=== PATIENT | male | born 1955 ===

== ENCOUNTER 2018-12-23 18:57 | Emergency (ER) | payer SELFPAY ==
--- NOTE | 2018-12-23 20:14 | Emergency Department Report ---
ED General Adult HPI - General Chief complaint: Abdominal Pain Stated complaint: ABD PAIN/BLOOD IN CATHER/BRANDON Time Seen by Provider: 12/23/18 20:13 Source: patient, family, EMS Mode of arrival: Stretcher Limitations: Physical Limitation - History of Present Illness Initial comments: 63 y.o. male with a history of diabetes, hypertension, seizures and pH presents with the complaint of lower abdominal pain and flank pain. Patient states he's also noted blood in his urine. Patient has indwelling catheter present. Patient was seen at [facility] yesterday for similar symptoms and was discharged with diagnoses of UTI and was given a prescription of ciprofloxacin which they were unable to feel. Patient continued to complain of pain in his abdominal and back region and thus family presented here. Patient has had no fever. Patient has only taken Tylenol for the pain. Patient states that flank pain intermittently for the past year. Patient denies any hematemesis or hematochezia. - Related Data Previous Rx's Medication Instructions Recorded Last Taken Type HYDROcodone/APAP 5-325 [[place] 1 each PO Q6HR PRN #20 tablet 12/23/18 Unknown Rx 5/325] Allergies Allergy/AdvReac Type Severity Reaction Status Date / Time No Known Allergies Allergy Verified 12/23/18 20:00 ED Review of Systems ROS: Stated complaint: ABD PAIN/BLOOD IN CATHER/BRANDON Other details as noted in HPI Constitutional: denies: chills, fever Eyes: denies: eye pain, eye discharge, vision change ENT: denies: ear pain, throat pain Respiratory: denies: cough, shortness of breath, wheezing Cardiovascular: denies: chest pain, palpitations Endocrine: no symptoms reported Gastrointestinal: denies: abdominal pain, nausea, diarrhea Genitourinary: dysuria, frequency Musculoskeletal: denies: back pain, joint swelling, arthralgia Skin: denies: rash, lesions Neurological: denies: headache, weakness, paresthesias Psychiatric: denies: anxiety, depression Hematological/Lymphatic: denies: easy bleeding, easy bruising ED Past Medical Hx - Past Medical History Previous Medical History?: Yes Hx Hypertension: Yes Hx Diabetes: Yes Hx Seizures: Yes Additional medical history: BPH - Surgical History Past Surgical History?: Yes Hx Open Heart Surgery: Yes 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 - Social History Smoking Status: Former Smoker Substance Use Type: None - Medications Home Medications: Home Medications Medication Instructions Recorded Confirmed Last Taken Type HYDROcodone/APAP 5-325 [[place] 1 each PO Q6HR PRN #20 tablet 12/23/18 Unknown Rx 5/325] ED Physical Exam - General Limitations: Physical Limitation General appearance: alert, other (mildly uncomfortable) - Head Head exam: Present: atraumatic, normocephalic - Eye Eye exam: Present: normal appearance - ENT ENT exam: Present: mucous membranes dry - Neck Neck exam: Present: normal inspection - Respiratory Respiratory exam: Present: normal lung sounds bilaterally. Absent: respiratory distress - Cardiovascular Cardiovascular Exam: Present: regular rate, normal rhythm. Absent: systolic murmur, diastolic murmur, rubs, gallop - GI/Abdominal GI/Abdominal exam: Present: soft, tenderness (noted in suprapubic region as well as right flank region.), normal bowel sounds - Rectal Rectal exam: Present: deferred - Extremities Exam Extremities exam: Present: normal inspection - Back Exam Back exam: Present: normal inspection - Neurological Exam Neurological exam: Present: alert, oriented X3 - Psychiatric Psychiatric exam: Present: normal affect, normal mood - Skin Skin exam: Present: warm, dry, intact, normal color. Absent: rash ED Course Vital Signs 12/23/18 20:00 Temperature 98.2 F Pulse Rate 74 Respiratory 16 Rate Blood Pressure 147/70 O2 Sat by Pulse 96 Oximetry ED Medical Decision Making - Lab Data Result diagrams: 12/23/18 20:24 12/23/18 20:24 - Medical Decision Making Patient was given 4 mg of morphine as well as 4 mg of Zofran as well as IV normal saline bolus while here in emergency department. Patient received a dose of Levaquin while here in the emergency department as well. Patient has been afebrile and has a normal white count while here in the emergency department. Patient pain has improved and patient is comfortable. CT shows no acute pathology. Patient to be discharged with norco therapy and to continue his ciprofloxacin therapy. - Differential Diagnosis UTIs; nephrolithiasis; perinephric abscess; electrolyte abnormality; anemia Critical care attestation.: If time is entered above; I have spent that time in minutes in the direct care of this critically ill patient, excluding procedure time. ED Disposition Clinical Impression: Urinary tract infection, Abdominal pain Disposition: DC- TO HOME OR SELFCARE Is pt being admited?: No Does the pt Need Aspirin: No Condition: Stable Instructions: Urinary Tract Infection in Women (ED) Prescriptions: HYDROcodone/APAP 5-325 [[place] 5/325] 1 each PO Q6HR PRN #20 tablet PRN Reason: Pain Time of Disposition: 23:48 Print Language: GERMAN
[2018-12-23 20:51] LABS: Basophils # (Auto) 0.1 K/mm3 (0.0-0.1); Basophils % (Auto) 0.7 % (0.0-1.8); Eosinophils # (Auto) 0.1 K/mm3 (0.0-0.4); Eosinophils % (Auto) 1.4 % (0.0-4.3); Hematocrit 45.4 % (35.5-45.6); Hemoglobin 15.8 gm/dl (11.8-15.2); Lymphocytes # (Auto) 1.6 K/mm3 (1.2-5.4); Lymphocytes % (Auto) 17.3 % (13.4-35.0); Mean Corpuscular HGB Conc 35 % (32-34); Mean Corpuscular Volume 93 fl (84-94); Monocytes # (Auto) 0.6 K/mm3 (0.0-0.8); Monocytes % (Auto) 6.9 % (0.0-7.3); Platelet Count 178 K/mm3 (140-440); Red Cell Distribution Width 14.9 % (13.2-15.2)
[2018-12-23] MEDS ORDERED: MORPHINE IV ONE (21:03)
[2018-12-23] MEDS ORDERED: NACL 0.9% 1000 ML 1,000 ML IV ONE (21:03)
[2018-12-23] MEDS ORDERED: ZOFRAN IV ONE (21:03)
[2018-12-23] MEDS ORDERED: LEVAQUIN PO ONE (21:03)
[2018-12-23 21:16] LABS: Alanine Aminotransferase 27 units/L (7-56); Albumin 3.3 g/dL (3.9-5); BUN/Creatinine Ratio 32; Blood Urea Nitrogen 16 mg/dL (9-20); Calcium 8.7 mg/dL (8.4-10.2); Hemolysis Index 6
--- NOTE | 2018-12-23 21:50 | Cat Scan Report ---
CT abdomen pelvis wo con INDICATION: abdominal -0pain. TECHNIQUE: All CT scans at this location are performed using CT dose reduction for ALARA by means of automated e xposure control. COMPARISON: None available. FINDINGS: Lung bases are clear. Heart is mildly enlarged. Liver, gallbladder, spleen, pancreas, kidneys and adrenals are negative. Abdominal aorta is atheroscl erotic but normal in size. No significant adenopathy. Pelvis Dense fecal material throughout the colon, suggesting constipation. Anderson catheter in the urinary maria r dder. Normal appendix. No free fluid or inflammatory change. No acute skeletal lesions. IMPRESSION: 1. Constipation. 2. No definite acute abnormality. Signer Name: Amish Tamayo MD Signed: 12/23/2018 9:45 PM Workstation Name: [id number]
[2018-12-23 22:01] LABS: Bacteria,Urine 1+ /HPF (Negative); Bilirubin,Urine NEG (Negative); Blood,Urine LG (Negative); Color,Urine Yellow (Yellow); Hyaline Casts,Urine 2 /LPF; Mucus,Urine 1+ /HPF; Urobilinogen,Urine < 2.0 mg/dL (<2.0)
[2018-12-24 00:33] VITALS: BP 175/67
== END 2018-12-24 00:50 | disposition home or self-care (01) ==
LOC: ED 18:57
DX: N39.0 Urinary tract infection, site not specified (principal); I10 Essential (primary) hypertension; E11.9 Type 2 diabetes mellitus without complications; N40.1 Benign prostatic hyperplasia with lower urinary tract symptoms; Z98.890 Other specified postprocedural states; Z87.891 Personal history of nicotine dependence; Z79.899 Other long term (current) drug therapy
CPT/HCPCS: 36415; 74176; 80053; 81001; 85025; 96374; 96375; 99284; J2270; J2405; J7030

== ENCOUNTER 2021-05-31 17:44 | Inpatient (IN) | payer MEDICARE ==
[2021-05-31] MEDS ORDERED: SUCCINYLCHOLINE CHLORIDE 200 MG/10 ML INJ MDV ONE ×2 (17:50→17:55)
[2021-05-31] MEDS ORDERED: ETOMIDATE 20 MG/10 ML INJ IV ONE (17:51)
[2021-05-31] MEDS ORDERED: SODIUM CHLORIDE 0.9% 1000 ML IV SOLN IV ONE (18:02)
[2021-05-31] MEDS ORDERED: MIDAZOLAM 2 MG/2 ML INJ IV PRN (18:10)
[2021-05-31] MEDS ORDERED: MIDAZOLAM 100 MG in SODIUM CHLORIDE 0.9% 80 ML IV ONE (18:10)
--- NOTE | 2021-05-31 18:10 | Emergency Department Report ---
HPI - General Chief Complaint: Altered Mental Status Time Seen by Provider: 05/31/21 18:02 - HPI HPI: Room 4 The patient is a 66-year-old male present with a chief complaint of altered mental status. Per EMS the patient came from [facility] after being discovered during change of shift to be altered. Per EMS the patient is usually alert and communicative. Patient presents to the ED grossly obtunded not responding to verbal stimuli or sternal rub. Patient was found to be hypoxic approximately mid 80s at the skilled nursing. On a nonrebreather the patient has an SPO2 of 88%. Given patient's persistent hypoxia and unresponsiveness, the decision to intubate using RSI was made ED Past Medical Hx - Past Medical History Hx Hypertension: Yes Hx Diabetes: Yes Hx Seizures: Yes Additional medical history: BPH - Surgical History Hx Open Heart Surgery: Yes Additional Surgical History: Left BKA. CABG x4 - Family History Family history: no significant - Social History Smoking Status: Former Smoker Substance Use Type: None - Medications Home Medications: Home Medications Medication Instructions Recorded Confirmed Last Taken Type HYDROcodone/APAP 5-325 [[place] 1 each PO Q6HR PRN #20 tablet 12/23/18 Unknown Rx 5/325] ED Review of Systems ROS: Stated complaint: AMS Other details as noted in HPI Comment: Unobtainable due to pts medical conditions Physical Exam - Physical Exam Vital Signs: Vital Signs 05/31/21 17:51 Pulse Rate 102 H Respiratory 30 H Rate Blood Pressure 111/50 [Right] O2 Sat by Pulse 88 Oximetry Physical Exam: GENERAL: The patient is well-developed well-nourished male lying on stretcher grossly obtunded exhibiting labored respirations. [] HEENT: Normocephalic. Atraumatic. NECK: Supple. Trachea midline CHEST/LUNGS: Increased work of breathing, coarse breath sounds bilaterally. SPO2 88% on nonrebreather HEART/CARDIOVASCULAR: Regular. There is no tachycardia. There is no gallop rub or murmur. ABDOMEN: Abdomen is soft, nontender. Patient has normal bowel sounds. There is no abdominal distention. SKIN: There is no rash. There is no edema. There is no diaphoresis. NEURO: GCS 3 T MUSCULOSKELETAL: There is no evidence of acute injury. ED Course Vital Signs 05/31/21 17:51 Pulse Rate 102 H Respiratory 30 H Rate Blood Pressure 111/50 [Right] O2 Sat by Pulse 88 Oximetry - Intubation Time Out Performed: No Sedative: Etomidate Mg Given: 20 Paralytic: Succinylcholine Mg Given: 100 Laryngoscope: fiberoptic video scope Size: 3 Assist Device Used: fiberoptic device ET Tube Size: 8 Tube Secured Depth (cm): 24 Tube Secured Location: lips Tube Placement Confirmation: visualized tube passing t, equal breath sounds bilat, no breath sounds over epi, confirmation by capnometr Patient Tolerated Procedure: well, no complications Intubation Complications: none ED Medical Decision Making - Lab Data Result diagrams: 05/31/21 18:10 05/31/21 18:10 Laboratory Tests 05/31/21 05/31/21 05/31/21 18:10 18:10 18:10 WBC 10.3 RBC 4.33 Hgb 13.8 Hct 42.9 MCV 99 H MCH 32 MCHC 32 RDW 15.0 Plt Count 295 Lymph % (Auto) 8.1 L [place] % (Auto) 4.5 Eos % (Auto) 0.4 Baso % (Auto) 0.5 Lymph # (Auto) 0.8 L [place] # (Auto) 0.5 Eos # (Auto) 0.0 Baso # (Auto) 0.1 Seg Neutrophils % 86.5 H Seg Neutrophils # 8.9 H APTT 29.4 VBG pH Sodium 152 H Potassium 3.7 Chloride 115.3 H Carbon Dioxide 24 Anion Gap 16 BUN 39 H Creatinine 1.3 Estimated GFR 55 BUN/Creatinine Ratio 30 Glucose 396 H Calcium 9.1 Total Bilirubin 0.70 AST 21 ALT 37 Alkaline Phosphatase 93 Total Protein 7.2 Albumin 2.9 L Albumin/Globulin Ratio 0.7 Urine Color Urine Turbidity Urine pH Ur Specific [place] Urine Protein Urine Glucose (UA) Urine Ketones Urine Blood Urine Nitrite Urine Bilirubin Urine Urobilinogen Ur Leukocyte Esterase Urine WBC (Auto) Urine RBC (Auto) Urine Bacteria (Auto) Granular Casts Urine Mucus 05/31/21 05/31/21 18:29 Unknown WBC RBC Hgb Hct MCV MCH MCHC RDW Plt Count Lymph % (Auto) [place] % (Auto) Eos % (Auto) Baso % (Auto) Lymph # (Auto) [place] # (Auto) Eos # (Auto) Baso # (Auto) Seg Neutrophils % Seg Neutrophils # APTT VBG pH 7.378 Sodium Potassium Chloride Carbon Dioxide Anion Gap BUN Creatinine Estimated GFR BUN/Creatinine Ratio Glucose Calcium Total Bilirubin AST ALT Alkaline Phosphatase Total Protein Albumin Albumin/Globulin Ratio Urine Color Grace Urine Turbidity Cloudy Urine pH 5.0 Ur Specific [place] 1.026 Urine Protein 100 mg/dl Urine Glucose (UA) 50 Urine Ketones Neg Urine Blood Sm Urine Nitrite Neg Urine Bilirubin Neg Urine Urobilinogen 4.0 Ur Leukocyte Esterase Neg Urine WBC (Auto) 12.0 H Urine RBC (Auto) < 1.0 Urine Bacteria (Auto) 1+ Granular Casts 22 Urine Mucus 3+ - EKG Data -: EKG Interpreted by Me EKG shows normal: sinus rhythm Rate: normal (94 bpm) - EKG Data When compared to previous EKG there are: previous EKG unavailable Interpretation: nonspecific ST-T wave michael (T wave inversions in leads II, 3, aVF, V4, V5, V6) - Radiology Data Radiology results: report reviewed (Chest x-ray), image reviewed (Chest x-ray) interpreted by me: Chest [id number] left periphery/infiltrate. No pneumothorax [facility] [address] [place] [address] XRay Report Signed Patient: ZACK MILLER MR#: [id number] : 1955 Acct:[id number] Age/Sex: 66 / M ADM Date: 05/31/21 Loc: ED Attending Dr: Ordering Physician: ZAFAR ALSTON MD Date of Service: 05/31/21 Procedure(s): XR chest 1V ap Accession Number(s): [id number] cc: ZAFAR ALSTON MD Fluoro Time In Minutes: CHEST 1 VIEW 05/31/2021 5:45 PM INDICATION / CLINICAL INFORMATION: Hypoxia, altered mental status. COMPARISON: 01/18/2021 FINDINGS: SUPPORT DEVICES: Tip of endotracheal tube is positioned approximately 4 cm above the aleida. HEART / MEDIASTINUM: Changes of prior median sternotomy are noted. No significant change. LUNGS / PLEURA: There is some patchy parenchymal opacities in the left mid and lower lung zone. No pneumothorax. ADDITIONAL FINDINGS: No significant additional findings. IMPRESSION: 1. Endotracheal tube in expected position. 2. There are patchy parenchymal opacities in the left mid and lower lung zone which could represent atelectasis or pneumonitis. Signer Name: Doron Hamilton MD Signed: 05/31/2021 6:48 PM Workstation Name: [id number] Transcribed By: SS Dictated By: Doron Hamilton MD Electronically Authenticated By: Doron Hamilton MD Signed Date/Time: 05/31/211847 DD/ 46 TD/TT: Print Cancel - Differential Diagnosis Respiratory failure, Covid, UTI, sepsis, DKA Critical care attestation.: If time is entered above; I have spent that time in minutes in the direct care of this critically ill patient, excluding procedure time. ED Disposition Clinical Impression: Acute respiratory failure, Sepsis, Pneumonia Disposition: ADMITTED INPATIENT Is pt being admited?: Yes Does the pt Need Aspirin: No Condition: Serious Instructions: Bacterial Pneumonia (ED) Time of Disposition: 19:03 (Hospitalist called (Dr. Bender))
[2021-05-31 18:19] LABS: Bilirubin,Urine NEG (Negative); Blood,Urine SM (Negative); Color,Urine Amber (Yellow); RBC,Urine < 1.0 /HPF (0.0-6.0)
[2021-05-31 18:29] LABS: Bacteria,Urine 1+ /HPF (Negative); Granular Casts,Urine 22 /LPF; Mucus,Urine 3+ /HPF
[2021-05-31] MEDS ORDERED: ACETAMINOPHEN 650 MG RECT SUPP PR ONE (18:37)
[2021-05-31 18:39] LABS: Basophils # (Auto) 0.1 K/mm3 (0.0-0.1); Basophils % (Auto) 0.5 % (0.0-1.8); Eosinophils % (Auto) 0.4 % (0.0-4.3); Hematocrit 42.9 % (35.5-45.6); Hemoglobin 13.8 gm/dl (11.8-15.2); Lymphocytes # (Auto) 0.8 K/mm3 (1.2-5.4); Lymphocytes % (Auto) 8.1 % (13.4-35.0); Mean Corpuscular HGB Conc 32 % (32-34); Mean Corpuscular Volume 99 fl (84-94); Monocytes # (Auto) 0.5 K/mm3 (0.0-0.8); Monocytes % (Auto) 4.5 % (0.0-7.3); Platelet Count 295 K/mm3 (140-440); Red Blood Count 4.33 M/mm3 (3.65-5.03)
[2021-05-31] MEDS ORDERED: cefTRIAXone/NS 1 GM/50 ML 1 GM/50 ML BAG IV ONE (18:43)
--- NOTE | 2021-05-31 18:52 | XRay Report ---
CHEST 1 VIEW 05/31/2021 5:45 PM INDICATION / CLINICAL INFORMATION: Hypoxia, altered mental status. COMPARISON: 01/18/2021 FINDINGS: SUPPORT DEVICES: Tip of endotracheal tube is positioned approximately 4 cm above the aleida. HEART / MEDIASTINUM: Changes of prior median sternotomy are noted. No significant change. LUNGS / PLEURA: There is some patchy parenchymal opacities in the left mid and lower lung zone. No pn eumothorax. ADDITIONAL FINDINGS: No significant additional findings. IMPRESSION: 1. Endotracheal tube in expected position. 2. There are patchy parenchymal opacities in the left mid and lower lung zone which could represent a telectasis or pneumonitis. Signer Name: Doron Hamilton MD Signed: 05/31/2021 6:48 PM Workstation Name: [id number]
[2021-05-31 18:59] LABS: Albumin 2.9 g/dL (3.9-5); Calcium 9.1 mg/dL (8.4-10.2)
--- NOTE | 2021-05-31 19:49 | XRay Report ---
ABDOMEN 1 VIEW 05/31/2021 7:27 PM INDICATION / CLINICAL INFORMATION: tube placement. COMPARISON: Chest radiograph dated 05/31/2021, 1823 hours FINDINGS: TUBES / LINES: Nasogastric tube tip projects the level the distal stomach. BOWEL GAS PATTERN: No significant abnormality. FREE AIR / EXTRALUMINAL GAS: None. ADDITIONAL FINDINGS: No significant additional findings. IMPRESSION: 1. Esophagogastric tube in expected position. Signer Name: Doron Hamilton MD Signed: 05/31/2021 7:44 PM Workstation Name: [id number]
[2021-05-31 20:02] LABS: Chol/HDL Ratio 4.95 %
[2021-05-31] MEDS ORDERED: ONDANSETRON 4 MG/2 ML INJ IV PRN (22:28)
[2021-05-31] MEDS ORDERED: MORPHINE 2 MG/1 ML INJ IV PRN (22:28)
[2021-05-31] MEDS ORDERED: D5W/0.45% NACL 1,000 ML IV SCH (23:00)
[2021-05-31] MEDS: HEPARIN 5,000 UNIT/1 ML VIAL SUB-Q SCH (23:01)
[2021-05-31] MEDS: FAMOTIDINE 20 MG/2 ML INJ IV SCH (23:01)
[2021-06-01] MEDS: ACETAMINOPHEN 325 MG TAB PO PRN ×2 (00:40→21:47)
[2021-06-01] MEDS ORDERED: D5W/0.45% NACL 1,000 ML IV SCH ×2 (02:37→08:00)
[2021-06-01 04:42] LABS: ABG Base Excess -1.2 mmol/L (-2.0-3.0); ABG HCO3 23.2 mmol/L (20.0-26.0); ABG Methemoglobin 0.7 % (0.0-1.5); ABG Oxygen Saturation 99.5 % (95.0-99.0); ABG PCO2 37.8 mm Hg; ABG PH 7.406 pH Units (7.350-7.450)
[2021-06-01 04:52] LABS: ABG PO2 283.4 mm Hg (80.0-90.0)
[2021-06-01 05:16] LABS: Basophils % (Auto) 0.4 % (0.0-1.8); Eosinophils % (Auto) 0.5 % (0.0-4.3); Hematocrit 36.9 % (35.5-45.6); Hemoglobin 11.6 gm/dl (11.8-15.2); Lymphocytes # (Auto) 1.4 K/mm3 (1.2-5.4); Lymphocytes % (Auto) 16.1 % (13.4-35.0); Mean Corpuscular HGB Conc 32 % (32-34); Mean Corpuscular Volume 99 fl (84-94); Monocytes # (Auto) 0.7 K/mm3 (0.0-0.8); Monocytes % (Auto) 7.6 % (0.0-7.3); Platelet Count 180 K/mm3 (140-440); Red Blood Count 3.72 M/mm3 (3.65-5.03); Red Cell Distribution Width 14.6 % (13.2-15.2)
[2021-06-01 05:38] LABS: Alanine Aminotransferase 38 units/L (7-56); Albumin 2.3 g/dL (3.9-5); BUN/Creatinine Ratio 36; Blood Urea Nitrogen 40 mg/dL (9-20); Calcium 8.4 mg/dL (8.4-10.2); Hemolysis Index 5
[2021-06-01] MEDS ORDERED: DEXTROSE 50% IN WATER (25GM) 50 ML SYRINGE IV PRN (05:46)
[2021-06-01] MEDS: INSULIN LISPRO 100 UNIT/ML SUB-Q SCH ×4 (05:56→23:46)
--- NOTE | 2021-06-01 07:04 | History and Physical Report ---
History of Present Illness Date of examination: 05/31/21 Date of admission: 05/31/21 19:00 Chief complaint: Decreased responsiveness sent hypoxic History of present illness: 55-year-old male with multiple medical problems including bilateral AKA, hypertension, diabetes, seizures and BPH sent from [facility] for altered mental status. Normally the patient is alert and communicative. Patient is severely lethargic and responding only to verbal stimuli. Patient was hypoxic in the low 80s at the intermediate. Patient was placed on nonrebreather and EMS was called. With a nonrebreather patient is improved to 88%. Because of the patient's persistent hypoxia and decreased responsiveness patient was intubated in the emergency room. - Past Medical History --Hypertension: Yes --Diabetes: Yes --Seizures: Yes --Additional medical history: BPH - Surgical History --Open Heart Surgery: Yes - AKA CABG x4 - Family History Family history: no significant - Social History Smoking Status: Former Smoker Substance Use Type: None - Medications Home Medications: Home Medications Medication Instructions Recorded Confirmed Last Taken Type HYDROcodone/APAP 5-325 [[place] 1 each PO Q6HR PRN #20 tablet 12/23/18 Unknown Rx 5/325] Review of Systems ROS: Stated complaint: AMS Other details as noted in HPI Comment: Unobtainable due to pts medical conditions Medications and Allergies Allergies Allergy/AdvReac Type Severity Reaction Status Date / Time No Known Allergies Allergy Verified 12/23/18 20:00 Home Medications Medication Instructions Recorded Confirmed Last Taken Type HYDROcodone/APAP 5-325 [[place] 1 each PO Q6HR PRN #20 tablet 12/23/18 Unknown Rx 5/325] Active Meds: Active Medications Acetaminophen (Acetaminophen 325 Mg Tab) 650 mg PO Q4H PRN PRN Reason: Pain MILD(1-3)/Fever >100.5/CORDERO Last Admin: 06/01/21 00:40 Dose: 650 mg Dextrose (Dextrose 50% In Water (25gm) 50 Ml Syringe) 0 ml IV Q30MIN PRN; Protocol PRN Reason: Hypoglycemia Famotidine (Famotidine 20 Mg/2 Ml Inj) 20 mg IV BID SHAN Last Admin: 05/31/21 23:01 Dose: 20 mg Heparin Sodium (Porcine) (Heparin 5,000 Unit/1 Ml Vial) 5,000 unit SUB-Q Q12HR SHAN Last Admin: 05/31/21 23:01 Dose: 5,000 unit Midazolam HCl 100 mg/ Sodium (Chloride) 100 mls @ 1 mls/hr IV TITR ONE; Protocol Stop: 06/04/21 22:09 Last Titration: 06/01/21 04:00 Dose: 0 mg/hr, 0 mls/hr Dextrose/Sodium Chloride (D5/0.45ns) 1,000 mls @ 100 mls/hr IV DIRECT SHAN Insulin Human Lispro (Insulin Lispro 100 Unit/Ml) 0 unit SUB-Q Q6HR SHAN; Protocol Last Admin: 06/01/21 05:56 Dose: 4 unit Midazolam HCl (Midazolam 2 Mg/2 Ml Inj) 2 mg IV Q10MIN PRN PRN Reason: Sedation Last Admin: 05/31/21 18:29 Dose: 2 mg Morphine Sulfate (Morphine 2 Mg/1 Ml Inj) 2 mg IV Q4H PRN PRN Reason: Pain, Moderate (4-6) Ondansetron HCl (Ondansetron 4 Mg/2 Ml Inj) 4 mg IV Q8H PRN PRN Reason: Nausea And Vomiting Sodium Chloride (Sodium Chloride 0.9% 10 Ml Flush Syringe) 10 ml IV BID SHAN Sodium Chloride (Sodium Chloride 0.9% 10 Ml Flush Syringe) 10 ml IV PRN PRN PRN Reason: LINE FLUSH Exam - Physical Exam Narrative exam: Patient is intubated and on ventilator - Constitutional Vitals: Temp Pulse Resp BP Pulse Ox 97.9 F 76 22 135/113 100 06/01/21 03:42 06/01/21 06:00 06/01/21 06:00 06/01/21 06:00 06/01/21 06:00 General appearance: Present: no acute distress, well-nourished - EENT Eyes: Present: PERRL ENT: hearing intact, clear oral mucosa - Neck Neck: Present: supple, normal ROM - Respiratory Respiratory effort: normal Respiratory: bilateral: CTA, rhonchi (Scattered), wheezing (Scattered) - Cardiovascular Heart rate: 78 Heart Sounds: Present: S1 & S2. Absent: rub, click - Extremities Extremities: pulses symmetrical, No edema, abnormal (Bilateral AKA) Extremity abnormal: other (Bilateral AKA) Peripheral Pulses: within normal limits - Abdominal General gastrointestinal: Present: soft, non-tender, non-distended, normal bowel sounds Male genitourinary: Present: normal - Integumentary Integumentary: Present: clear, warm, dry - Musculoskeletal Musculoskeletal: gait normal, strength equal bilaterally - Psychiatric Psychiatric: other (Decreased responsiveness) - Neurologic Neurologic: other (Decreased responsiveness) HEART Score - HEART Score Troponin: Troponin T 0.146 ng/mL (0.00-0.029) H* 05/31/21 19:01 Results - Labs CBC & Chem 7: 06/01/21 04:50 06/01/21 04:50 Labs: Laboratory Last Values WBC 8.9 K/mm3 (4.5-11.0) 06/01/21 04:50 RBC 3.72 M/mm3 (3.65-5.03) 06/01/21 04:50 Hgb 11.6 gm/dl (11.8-15.2) L 06/01/21 04:50 Hct 36.9 % (35.5-45.6) D 06/01/21 04:50 MCV 99 fl (84-94) H 06/01/21 04:50 MCH 31 pg (28-32) 06/01/21 04:50 MCHC 32 % (32-34) 06/01/21 04:50 RDW 14.6 % (13.2-15.2) 06/01/21 04:50 Plt Count 180 K/mm3 (140-440) 06/01/21 04:50 Lymph % (Auto) 16.1 % (13.4-35.0) 06/01/21 04:50 [place] % (Auto) 7.6 % (0.0-7.3) H 06/01/21 04:50 Eos % (Auto) 0.5 % (0.0-4.3) 06/01/21 04:50 Baso % (Auto) 0.4 % (0.0-1.8) 06/01/21 04:50 Lymph # (Auto) 1.4 K/mm3 (1.2-5.4) 06/01/21 04:50 [place] # (Auto) 0.7 K/mm3 (0.0-0.8) 06/01/21 04:50 Eos # (Auto) 0.0 K/mm3 (0.0-0.4) 06/01/21 04:50 Baso # (Auto) 0.0 K/mm3 (0.0-0.1) 06/01/21 04:50 Seg Neutrophils % 75.4 % (40.0-70.0) H 06/01/21 04:50 Seg Neutrophils # 6.7 K/mm3 (1.8-7.7) 06/01/21 04:50 APTT 29.4 Sec. (24.2-36.6) 05/31/21 18:10 ABG pH 7.406 pH Units (7.350-7.450) 06/01/21 04:08 ABG pCO2 37.8 mm Hg 06/01/21 04:08 ABG pO2 283.4 mm Hg (80.0-90.0) H 06/01/21 04:08 ABG HCO3 23.2 mmol/L (20.0-26.0) 06/01/21 04:08 ABG O2 Saturation 99.5 % (95.0-99.0) H 06/01/21 04:08 ABG O2 Content 16.5 (0.0-44) 06/01/21 04:08 ABG Base Excess -1.2 mmol/L (-2.0-3.0) 06/01/21 04:08 ABG Hemoglobin 11.5 gm/dl (14.0-18.0) L 06/01/21 04:08 ABG Carboxyhemoglobin 0.8 % (0.0-5.0) 06/01/21 04:08 ABG Methemoglobin 0.7 % (0.0-1.5) 06/01/21 04:08 VBG pH 7.378 (7.320-7.420) 05/31/21 18:29 Oxyhemoglobin 98.0 % (95.0-99.0) 06/01/21 04:08 FiO2 100 % 06/01/21 04:08 Sodium 156 mmol/L (137-145) H 06/01/21 04:50 Potassium 3.0 mmol/L (3.6-5.0) L 06/01/21 04:50 Chloride 123.3 mmol/L (98-107) H 06/01/21 04:50 Carbon Dioxide 21 mmol/L (22-30) L 06/01/21 04:50 Anion Gap 15 mmol/L 06/01/21 04:50 BUN 40 mg/dL (9-20) H 06/01/21 04:50 Creatinine 1.1 mg/dL (0.8-1.3) 06/01/21 04:50 Estimated GFR > 60 ml/min 06/01/21 04:50 BUN/Creatinine Ratio 36 % 06/01/21 04:50 Glucose 324 mg/dL (75-100) H 06/01/21 04:50 POC Glucose 297 mg/dL (70-105) H 06/01/21 05:15 Lactic Acid 1.80 mmol/L (0.7-2.0) 05/31/21 21:57 Calcium 8.4 mg/dL (8.4-10.2) 06/01/21 04:50 Total Bilirubin 0.70 mg/dL (0.1-1.2) 06/01/21 04:50 AST 23 units/L (5-40) 06/01/21 04:50 ALT 38 units/L (7-56) 06/01/21 04:50 Alkaline Phosphatase 78 units/L (35-129) 06/01/21 04:50 Troponin T 0.146 ng/mL (0.00-0.029) H* 05/31/21 19:01 Total Protein 6.0 g/dL (6.3-8.2) L 06/01/21 04:50 Albumin 2.3 g/dL (3.9-5) L 06/01/21 04:50 Albumin/Globulin Ratio 0.6 % 06/01/21 04:50 Triglycerides 99 mg/dL (2-149) 05/31/21 19:01 Cholesterol 104 mg/dL (50-199) 05/31/21 19:01 LDL Cholesterol Direct 67 mg/dL (50-130) 05/31/21 19:01 HDL Cholesterol 21 mg/dL (40-59) L 05/31/21 19:01 Cholesterol/HDL Ratio 4.95 % 05/31/21 19:01 Urine Color [place] (Yellow) 05/31/21 Unknown Urine Turbidity Cloudy (Clear) 05/31/21 Unknown Urine pH 5.0 (5.0-7.0) 05/31/21 Unknown Ur Specific [place] 1.026 (1.003-1.030) 05/31/21 Unknown Urine Protein 100 mg/dl mg/dL (Negative) 05/31/21 Unknown Urine Glucose (UA) 50 mg/dL (Negative) 05/31/21 Unknown Urine Ketones Neg mg/dL (Negative) 05/31/21 Unknown Urine Blood Sm (Negative) 05/31/21 Unknown Urine Nitrite Neg (Negative) 05/31/21 Unknown Urine Bilirubin Neg (Negative) 05/31/21 Unknown Urine Urobilinogen 4.0 mg/dL (<2.0) 05/31/21 Unknown Ur Leukocyte Esterase Neg (Negative) 05/31/21 Unknown Urine WBC (Auto) 12.0 /HPF (0.0-6.0) H 05/31/21 Unknown Urine RBC (Auto) < 1.0 /HPF (0.0-6.0) 05/31/21 Unknown Urine Bacteria (Auto) 1+ /HPF (Negative) 05/31/21 Unknown Granular Casts 22 /LPF 05/31/21 Unknown Urine Mucus 3+ /HPF 05/31/21 Unknown Microbiology: Microbiology 05/31/21 18:10 Peripheral/Venous Blood Culture - Preliminary Culture in Progress 05/31/21 18:10 Peripheral/Venous Blood Culture - Preliminary Culture in Progress - Imaging and Cardiology Chest x-ray: report reviewed Imaging and Cardiology: Chest x-ray Patchy parenchymal opacities in the left mid and lower lung zone this could represent atelectasis or pneumonitis. [place]/IV: Voiding Method Indwelling Catheter Assessment and Plan Assessment and plan: Critical care statement The high probability OF a clinically significant sudden or life-threatening deterioration of the cardiorespiratory system and endocrine system required my full and direct attention, intervention and postoperative management. The aggregate critical care time was 40 minutes. The time is in addition to time spent performing reported procedures but includes the followin: Data review and interpretation 2: Patient assessment and monitoring of vital signs 3: Documentation 4:: Medication orders and management Advance Directives: Yes (Full code) VTE prophylaxis?: Chemical Plan of care discussed with patient/family: Yes - Patient Problems (1) Acute respiratory failure with hypoxia Current Visit: Yes Status: Acute Plan to address problem: Patient has left-sided pneumonia Patient was altered sensorium Patient intubated Vent management IV cefepime and vancomycin (2) Acute encephalopathy Current Visit: Yes Status: Acute Plan to address problem: Patient was lethargic and decreased responsiveness Probably secondary to hypoxia Patient is intubated and on vent management Treat sepsis (3) Sepsis Current Visit: Yes Status: Acute Qualifiers: Sepsis type: sepsis due to unspecified organism Severe sepsis shock status: without septic shock Plan to address problem: IV antibiotics and IV fluids (4) Hypernatremia Current Visit: Yes Status: Acute Plan to address problem: Half-normal saline to D5W Increased water flushes (5) Hypokalemia Current Visit: Yes Status: Acute Plan to address problem: Supplemented (6) S/P AKA (above knee amputation) bilateral Current Visit: Yes Status: Chronic Plan to address problem: Supportive care (7) DVT prophylaxis Current Visit: Yes Status: Acute Plan to address problem: On heparin and GI prophylaxis (8) Advance care planning Current Visit: Yes Status: Acute Plan to address problem: Patient is unresponsive Discussed with family about disease education Diagnosis and prognosis. Patient is full code. Family acknowledges understanding and agreement with care plan. +30 minutes.
[2021-06-01] MEDS ORDERED: VANCOMYCIN PHARMACY TO DOSE IV SCH (08:00)
[2021-06-01] MEDS ORDERED: CEFEPIME/NS 1 GM/100 ML 1 GM/100 ML BAG IV SCH (08:00)
--- NOTE | 2021-06-01 08:59 | Electrocardiograph Report ---
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
--- NOTE | 2021-06-01 08:59 | Electrocardiograph Report ---
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
[2021-06-01] MEDS ORDERED: VANCOMYCIN 1,500 MG in SODIUM CHLORIDE 0.9% 500 ML 500 ML IV SCH (09:00)
[2021-06-01] MEDS: HEPARIN 5,000 UNIT/1 ML VIAL SUB-Q SCH (09:06)
[2021-06-01] MEDS: FAMOTIDINE 20 MG/2 ML INJ IV SCH ×2 (09:06→21:48)
[2021-06-01] MEDS: POTASSIUM CHLORIDE 10 MEQ 10 MEQ/100 ML BAG IV SCH ×4 (09:07→12:58)
[2021-06-01] MEDS ORDERED: SODIUM CHLORIDE 0.9% 50 ML IVPB IV PRN (09:26)
--- NOTE | 2021-06-01 09:43 | Consultation ---
History of Present Illness Consult date: 06/01/21 Requesting physician: MONIK WILKES Reason for consult: other (Altered Mental Status) History of present illness: 66 y/o male admittted from a nursing facility with altered mental status. Per ED, not able to protect airway and very hypoxic so electively intubated. Also started on sedation. Not able to obtain any further history as patient is sedated on the vent. Past History Past Medical History: diabetes, hypertension Past Surgical History: Other (unable to obtain, but has bilateral AKA's) Social history: other (lives in ) Family history: other (Unable to obtain) Medications and Allergies Allergies Allergy/AdvReac Type Severity Reaction Status Date / Time No Known Allergies Allergy Verified 12/23/18 20:00 Home Medications Medication Instructions Recorded Confirmed Last Taken Type HYDROcodone/APAP 5-325 [[place] 1 each PO Q6HR PRN #20 tablet 12/23/18 Unknown Rx 5/325] Active Meds: Active Medications Acetaminophen (Acetaminophen 325 Mg Tab) 650 mg PO Q4H PRN PRN Reason: Pain MILD(1-3)/Fever >100.5/CORDERO Last Admin: 06/01/21 00:40 Dose: 650 mg Dextrose (Dextrose 50% In Water (25gm) 50 Ml Syringe) 0 ml IV Q30MIN PRN; Protocol PRN Reason: Hypoglycemia Famotidine (Famotidine 20 Mg/2 Ml Inj) 20 mg IV BID SHAN Last Admin: 06/01/21 09:06 Dose: 20 mg Heparin Sodium (Porcine) (Heparin 5,000 Unit/1 Ml Vial) 5,000 unit SUB-Q Q12HR SHAN Last Admin: 06/01/21 09:06 Dose: 5,000 unit Midazolam HCl 100 mg/ Sodium (Chloride) 100 mls @ 1 mls/hr IV TITR ONE; Prot ocol Stop: 06/04/21 22:09 Last Titration: 06/01/21 04:00 Dose: 0 mg/hr, 0 mls/hr Cefepime HCl (Cefepime/Ns 1 Gm/100 Ml) 1 gm in 100 mls @ 200 mls/hr IV Q8H SHAN; Protocol Last Admin: 06/01/21 09:07 Dose: 200 mls/hr Dextrose/Sodium Chloride (D5/0.45ns) 1,000 mls @ 150 mls/hr IV DIRECT SHAN Last Admin: 06/01/21 09:06 Dose: 150 mls/hr Potassium Chloride (Kcl 10meq/100ml) 10 meq in 100 mls @ 100 mls/hr IV Q1H [facility] Stop: 06/01/21 11:59 Last Admin: 06/01/21 09:07 Dose: 100 mls/hr Vancomycin HCl 1,500 mg/ (Sodium Chloride) 530 mls @ 333.333 mls/hr IV Q24H [facility] Last Admin: 06/01/21 09:06 Dose: 333.333 mls/hr Insulin Human Lispro (Insulin Lispro 100 Unit/Ml) 0 unit SUB-Q Q6HR [facility]; Protocol Last Admin: 06/01/21 05:56 Dose: 4 unit Midazolam HCl (Midazolam 2 Mg/2 Ml Inj) 2 mg IV Q10MIN PRN PRN Reason: Sedation Last Admin: 05/31/21 18:29 Dose: 2 mg Morphine Sulfate (Morphine 2 Mg/1 Ml Inj) 2 mg IV Q4H PRN PRN Reason: Pain, Moderate (4-6) Ondansetron HCl (Ondansetron 4 Mg/2 Ml Inj) 4 mg IV Q8H PRN PRN Reason: Nausea And Vomiting Sodium Chloride (Sodium Chloride 0.9% 10 Ml Flush Syringe) 10 ml IV BID [facility] Last Admin: 06/01/21 09:07 Dose: 10 ml Sodium Chloride (Sodium Chloride 0.9% 10 Ml Flush Syringe) 10 ml IV PRN PRN PRN Reason: LINE FLUSH Sodium Chloride (Sodium Chloride 0.9% 50 Ml Ivpb) 10 ml IV PRN PRN PRN Reason: FLUSH Review of Systems ROS unobtainable: due to endotracheal tube, due to mental status Physical Examination Vital signs: Vital Signs Pulse Resp BP Pulse Ox 102 H 30 H 111/50 88 05/31/21 17:51 05/31/21 17:51 05/31/21 17:51 05/31/21 17:51 General appearance: no acute distress, comatose Eyes: non-icteric ENT: other (orally intubated) Neck: supple Effort: normal Ascultation: Bilateral: clear Tactile fremitus: Bilateral: normal Cardiovascular: regular rate and rhythm Gastrointestinal: normoactive bowel sounds, soft Results - Laboratory Findings CBC and BMP: 06/02/21 10:00 06/02/21 10:00 ABG ABG pH 7.406 pH Units (7.350-7.450) 06/01/21 04:08 ABG pCO2 37.8 mm Hg 06/01/21 04:08 ABG pO2 283.4 mm Hg (80.0-90.0) H 06/01/21 04:08 ABG O2 Saturation 99.5 % (95.0-99.0) H 06/01/21 04:08 Abnormal lab findings: Abnormal Labs 05/31/21 05/31/21 05/31/21 18:10 18:10 18:10 Hgb MCV 99 H Lymph % (Auto) 8.1 L [place] % (Auto) Lymph # (Auto) 0.8 L Seg Neutrophils % 86.5 H Seg Neutrophils # 8.9 H ABG pO2 ABG O2 Saturation ABG Hemoglobin Sodium 152 H Potassium Chloride 115.3 H Carbon Dioxide BUN 39 H Glucose 396 H POC Glucose Lactic Acid 3.00 H* Troponin T Total Protein Albumin 2.9 L HDL Cholesterol Urine WBC (Auto) 05/31/21 05/31/21 06/01/21 19:01 Unknown 01:33 Hgb MCV Lymph % (Auto) [place] % (Auto) Lymph # (Auto) Seg Neutrophils % Seg Neutrophils # ABG pO2 ABG O2 Saturation ABG Hemoglobin Sodium Potassium Chloride Carbon Dioxide BUN Glucose POC Glucose 255 H Lactic Acid Troponin T 0.146 H* Total Protein Albumin HDL Cholesterol 21 L Urine WBC (Auto) 12.0 H 06/01/21 06/01/21 06/01/21 04:08 04:50 04:50 Hgb 11.6 L MCV 99 H Lymph % (Auto) [place] % (Auto) 7.6 H Lymph # (Auto) Seg Neutrophils % 75.4 H Seg Neutrophils # ABG pO2 283.4 H ABG O2 Saturation 99.5 H ABG Hemoglobin 11.5 L Sodium 156 H Potassium 3.0 L Chloride 123.3 H Carbon Dioxide 21 L BUN 40 H Glucose 324 H POC Glucose Lactic Acid Troponin T Total Protein 6.0 L Albumin 2.3 L HDL Cholesterol Urine WBC (Auto) 06/01/21 05:15 Hgb MCV Lymph % (Auto) [place] % (Auto) Lymph # (Auto) Seg Neutrophils % Seg Neutrophils # ABG pO2 ABG O2 Saturation ABG Hemoglobin Sodium Potassium Chloride Carbon Dioxide BUN Glucose POC Glucose 297 H Lactic Acid Troponin T Total Protein Albumin HDL Cholesterol Urine WBC (Auto) - Diagnostic Findings Chest x-ray: image reviewed (agree with rads read) Assessment and Plan 66 y/o male with acute respiratory failure secondary to altered mental status, exact etiology unknown, intubated in the ED for airway protection but also started on sedation, rule out COVID 1. Stop all sedation 2. If able and awake, attempt PSV trials 3. Needs diabetic therapy 4. Free water and assess free water deficit 5. Stop abx 6. Will extubate once awake, on minimal vent settings CCT 31 minutes.
[2021-06-01] MEDS ORDERED: DEXTROSE 5% IN WATER 1,000 ML IV SCH (11:00)
--- NOTE | 2021-06-01 15:00 | Cat Scan Report ---
CT HEAD WITHOUT CONTRAST INDICATION / CLINICAL INFORMATION: ams. TECHNIQUE: All CT scans at this location are performed using CT dose reduction for ALARA by means of automated e xposure control. COMPARISON: Head CT 03/30/2019 FINDINGS: HEMORRHAGE: No evidence of intracranial hemorrhage or extra-axial fluid collection. EXTRA-AXIAL SPACES: Cortical sulci and sylvian fissures are enlarged reflecting a degree of parenchym al volume loss which is greater than expected for the patient's age. Basilar cisterns have an unremar kable appearance. VENTRICULAR SYSTEM: The third and lateral ventricles are enlarged reflecting a degree of parenchymal atrophy which is greater than expected for age 66 years. CEREBRAL PARENCHYMA: There is evidence of remote middle cerebral artery infarctions bilaterally uncha nged in comparison to prior study. No indication of acute infarction is identified on head CT without contrast. Periventricular and deep white matter lucencies noted compatible with advanced microvascul ar ischemic change. Note is made of bilaterally symmetrical physiological basal ganglia calcification which is unchanged. MIDLINE SHIFT OR HERNIATION: There is no mass effect. CEREBELLUM / BRAINSTEM: Brainstem and cerebellum have an unremarkable appearance. MIDLINE STRUCTURES:No abnormalities of the pituitary gland or pineal region are observed INTRACRANIAL VESSELS:Calcified atherosclerotic plaque is present along the course of the cavernous se gments of both internal carotid arteries. Similar findings are seen at the distal vertebral arteries. CRANIOCERVICAL JUNCTION:No abnormality ORBITS: visualized portions of the orbits have an unremarkable appearance. SOFT TISSUES of HEAD: No significant abnormality. CALVARIUM: Evaluation of bone windows reveals no abnormalities. PARANASAL SINUSES / MASTOID AIR CELLS: Paranasal sinuses are free from inflammatory mucosal disease. Mastoid air cells are normally pneumatized. ADDITIONAL FINDINGS: A nasoenteric tube is present in the left nasal cavity. An orotracheal tube is n oted. Catheter position cannot be assessed on this study. IMPRESSION: 1. Parenchymal atrophy greater than expected for age 66 years. 2. Evidence remote remote bilateral MCA infarctions unchanged from prior study. 3. No acute intracranial abnormalities are identified. Signer Name: Danny Cam MD Signed: 06/01/2021 2:56 PM Workstation Name: [id number]
--- NOTE | 2021-06-01 15:58 | Consultation ---
History of Present Illness Consult date: 06/01/21 Requesting physician: TEMO GONZALES Consult reason: congestive heart failure, elevated troponin History of present illness: Patient is a 66-year-old male with a past medical history of bilateral AKA, hypertension, diabetes and seizures who was brought to the ED for altered mental status x1 day from [facility]. History is taken from documentation due to patient being intubated at time of interview. Per documentation at baseline patient is alert and communicative patient was found to be lethargic. Patient was found hypoxic at assisted and transferred to [facility]. In the ED patient was found to be hypoxic with O2 sats in the 80s and due to his hypoxia and unresponsiveness patient was intubated. Hospital work-up showed the patient to have lactic acidosis, elevated troponins, chest x-ray shows opacities in left mid and lower lung zone possible atelectasis or pneumonitis, and the patient has tested positive for COVID-19. Patient is previously unknown to our practice. Cardiology was consulted for CHF/elevated troponins Past History Past Medical History: diabetes, hypertension, seizures Past Surgical History: Other (Bilateral AKA) Medications and Allergies Allergies Allergy/AdvReac Type Severity Reaction Status Date / Time No Known Allergies Allergy Verified 12/23/18 20:00 Home Medications Medication Instructions Recorded Confirmed Last Taken Type HYDROcodone/APAP 5-325 [[place] 1 each PO Q6HR PRN #20 tablet 12/23/18 Unknown Rx 5/325] Active Meds: Active Medications Acetaminophen (Acetaminophen 325 Mg Tab) 650 mg PO Q4H PRN PRN Reason: Pain MILD(1-3)/Fever >100.5/CORDERO Last Admin: 06/01/21 00:40 Dose: 650 mg Dextrose (Dextrose 50% In Water (25gm) 50 Ml Syringe) 0 ml IV Q30MIN PRN; Protocol PRN Reason: Hypoglycemia Enoxaparin Sodium (Enoxaparin 100 Mg/1 Ml Inj) 90 mg 1 mg/kg (90 mg) SUB-Q Q12HR SHAN; Protocol Famotidine (Famotidine 20 Mg/2 Ml Inj) 20 mg IV BID SHAN Last Admin: 06/01/21 09:06 Dose: 20 mg Insulin Glargine (Insulin Glargine 100 Units/Ml) 17 units SUB-Q QHS SHAN Insulin Human Lispro (Insulin Lispro 100 Unit/Ml) 0 unit SUB-Q Q6HR [facility]; Protocol Last Admin: 06/01/21 12:59 Dose: 4 unit Ondansetron HCl (Ondansetron 4 Mg/2 Ml Inj) 4 mg IV Q8H PRN PRN Reason: Nausea And Vomiting Sodium Chloride (Sodium Chloride 0.9% 10 Ml Flush Syringe) 10 ml IV BID [facility] Last Admin: 06/01/21 09:07 Dose: 10 ml Sodium Chloride (Sodium Chloride 0.9% 10 Ml Flush Syringe) 10 ml IV PRN PRN PRN Reason: LINE FLUSH Sodium Chloride (Sodium Chloride 0.9% 50 Ml Ivpb) 10 ml IV PRN PRN PRN Reason: FLUSH Review of Systems ROS unobtainable: due to endotracheal tube, due to mental status Physical Examination Vital Signs Pulse Resp BP Pulse Ox 102 H 30 H 111/50 88 05/31/21 17:51 05/31/21 17:51 05/31/21 17:51 05/31/21 17:51 General appearance: no acute distress HEENT: Positive: Normocephaly, Mucus Membranes Dry Neck: Positive: trachea midline Cardiac: Positive: Reg Rate and Rhythm Lungs: Positive: Ventilated Respirations Neuro: Positive: Other (Unable to assess due to intubated and mental status) Abdomen: Positive: Soft Skin: Negative: Rash, Suspicious Lesions Extremities: Absent: edema Results 06/01/21 04:50 06/01/21 04:50 Cardiac Enzymes 05/31/21 06/01/21 Range/Units 18:10 04:50 AST 21 23 (5-40) units/L Coagulation 05/31/21 Range/Units 18:10 APTT 29.4 (24.2-36.6) Sec. Lipids 05/31/21 Range/Units 19:01 Triglycerides 99 (2-149) mg/dL Cholesterol 104 (50-199) mg/dL HDL Cholesterol 21 L (40-59) mg/dL Cholesterol/HDL Ratio 4.95 % CBC 05/31/21 06/01/21 Range/Units 18:10 04:50 WBC 10.3 8.9 (4.5-11.0) K/mm3 RBC 4.33 3.72 (3.65-5.03) M/mm3 Hgb 13.8 11.6 L (11.8-15.2) gm/dl Hct 42.9 36.9 D (35.5-45.6) % Plt Count 295 180 (140-440) K/mm3 Lymph # (Auto) 0.8 L 1.4 (1.2-5.4) K/mm3 [place] # (Auto) 0.5 0.7 (0.0-0.8) K/mm3 Eos # (Auto) 0.0 0.0 (0.0-0.4) K/mm3 Baso # (Auto) 0.1 0.0 (0.0-0.1) K/mm3 Comprehensive Metabolic Panel 05/31/21 06/01/21 Range/Units 18:10 04:50 Sodium 152 H 156 H (137-145) mmol/L Potassium 3.7 3.0 L (3.6-5.0) mmol/L Chloride 115.3 H 123.3 H (98-107) mmol/L Carbon Dioxide 24 21 L (22-30) mmol/L BUN 39 H 40 H (9-20) mg/dL Creatinine 1.3 1.1 (0.8-1.3) mg/dL Glucose 396 H 324 H (75-100) mg/dL Calcium 9.1 8.4 (8.4-10.2) mg/dL AST 21 23 (5-40) units/L ALT 37 38 (7-56) units/L Alkaline Phosphatase 93 78 (35-129) units/L Total Protein 7.2 6.0 L (6.3-8.2) g/dL Albumin 2.9 L 2.3 L (3.9-5) g/dL - Imaging and Cardiology Echo: pending EKG: report reviewed, image reviewed EKG interpretations - Telemetry EKG Rhythm: Sinus Rhythm - EKG Sinus rhythms and dysrhythmias: sinus rhythm Repolarization changes or abnormalities: ST or T wave suggestive of ischemia Assessment and Plan Patient is a 66-year-old male with a past medical history of bilateral AKA, hypertension, diabetes and seizures who was brought to the ED for altered mental status x1 day from [facility] AMS Sepsis Acute hypoxic respiratory failure- Pulm following COVID-19-ID consulted NSTEMI HTN DM Plan: EKG shows sinus 94 with abnormal T, possible ischemia. Troponin 0.14. Repeat cardiac enzyme pending Troponins elevated in the setting of sepsis D-dimer pending, BNP pending Echo pending Anticoagulation with Lovenox 1 mg/kg Patient has soft BP will hold antihypertensive medications including beta- nuha beta-blockers, ALISON or ARB Patient seen in conjunction with Dr. Solis agrees with this plan of care - Patient Problems (1) COVID-19 Current Visit: Yes Status: Acute (2) Acute encephalopathy Current Visit: Yes Status: Acute (3) Acute respiratory failure with hypoxia Current Visit: Yes Status: Acute (4) Hypernatremia Current Visit: Yes Status: Acute (5) Pneumonia Current Visit: Yes Status: Acute (6) Sepsis Current Visit: Yes Status: Acute Qualifiers: Sepsis type: sepsis due to unspecified organism Severe sepsis shock status: without septic shock (7) S/P AKA (above knee amputation) bilateral Current Visit: Yes Status: Chronic
[2021-06-01 18:45] LABS: BUN/Creatinine Ratio 35; Blood Urea Nitrogen 35 mg/dL (9-20); Calcium 8.6 mg/dL (8.4-10.2); Hemolysis Index 8
[2021-06-01] MEDS: FREE WATER PO SCH ×2 (18:52→21:48)
[2021-06-01 18:57] LABS: Creatine Kinase MB 1.6 ng/mL (0.0-4.0)
--- NOTE | 2021-06-01 19:24 | Progress Note ---
<TEMO GONZALESFiordaliza - Last Filed: 06/01/21 19:22> Assessment and Plan Assessment and plan: This is a 55-year-old male with bilateral AKA, DM, seizure disorder, BPH, CAD s/p CABG x4 admitted with elevated troponins, hypernatremia, hypokalemia, hyperchloremia, metabolic acidosis and acute hypoxic respiratory failure. Acute hypoxic respiratory failure -CCM consulted, appreciate recommendations -Intubated on 05/31 with 8.0 ETT at 24 the lips -A.m. vent settings: AC rate 20, tidal volume 450, PEEP 6, FiO2 50% -See RT RT notes for titration -A.m. ABG and CXR noted -VAP bundle -SPO2 monitoring Acute metabolic encephalopathy, H/o CVA, seizure disorder Patient was sedated with Versed -Off sedation does not follow any commands -Avoid delirium -Reorientation as needed -Restart seizure medications when obtained -CT head shows parenchymal atrophy greater than expected for age 66 years, evidence of remote bilateral MCA infarctions unchanged from prior study, no acute intracranial abnormalities Sepsis, COVID-19 infection -Presented with acute hypoxic respiratory failure, leukocytosis, febrile on admit -CXR shows patchy bilateral parenchymal opacities left mid and lower lung zone -Antibiotic therapy with cefepime and vancomycin -Discontinued today due to normalization WBC and being afebrile -COVID-19 PCR positive -Infectious disease consulted, appreciate recommendations -Isolation/droplet precautions -Vitamin D/vitamin C/zinc -Steroids for 10 days -Anticoagulation based on D-dimer -Trend COVID-19 inflammatory markers -Follow WBC and temperature curve -Follow-up blood cultures NSTEMI, h/o CAD s/p CABG x4, possible CHF, HTN -Cardiology consulted, appreciate recommendations -Echocardiogram pending -ECG shows T waves -Trend troponins -Blood pressure monitor per protocol -Hold antihypertensive at this time Severe hypernatremia -Free water flush -Trend sodium -Urine osmolality and sodium pending -Anderson catheter for strict intake and output Hypokalemia -Potassium replacement -Trend BMP h/o DM -SSI -Accu-Cheks every 6 -Avoid hypoglycemia -Long-acting insulin S/P bilateral AKA -Continue supportive care Seizure disorder -Aspiration/seizure precautions -Restart seizure medications when obtained DVT/GI prophylaxis -PPI -Lovenox therapeutic dose Disposition Plan: icu Total Time Spent with Patient (Minutes): 60 History Interval history: This is a 55-year-old male with bilateral AKA, DM, seizure disorder, BPH, CAD s/p CABG x4 who presented to the emergency department from [facility] via EMS with complaints of severe lethargy, only respond to verbal stimuli and hypoxia in the low 80s by the snf staff. Patient was placed on nonrebreather and EMS was called. Upon their arrival SPO2 noted to be improved to 88%. Patient was brought to [facility] for further evaluation. In the emergency department patient was intubated due to decrease of responsiveness and hypoxia. Work-up in the emergency department revealed severe hypernatremia, hypokalemia, hyperchloremia, metabolic acidosis, elevated blood glucose and slight anemia. Patient had a elevated troponin on arrival. Patient was admitted to the hospitalist service with rhabdomyolysis, acute respiratory failure and is COVID-19 PUI with consults to [facility]. 06/01: Troponin trended, free water flush initiated, echocardiogram ordered, potassium repleted, antibiotics discontinued, cardiology consulted. Patient is COVID-19 PCR positive, infectious disease consulted. Urine studies ordered for hyponatremia work-up. Hospitalist Physical - Constitutional Vitals: Temp Pulse Resp BP Pulse Ox 98.4 F 84 25 H 119/57 98 06/01/21 16:00 06/01/21 18:00 06/01/21 18:00 06/01/21 18:00 06/01/21 18:00 General appearance: Present: no acute distress - EENT Eyes: Present: PERRL ENT: dentition normal - Neck Neck: Present: normal ROM - Respiratory Respiratory effort: normal Respiratory: bilateral: diminished - Cardiovascular Rhythm: regular Heart Sounds: Present: S1 & S2. Absent: systolic murmur, diastolic murmur - Extremities Extremities: no ischemia, pulses intact, pulses symmetrical, normal color Peripheral Pulses: abnormal - Abdominal General gastrointestinal: soft, non-tender, non-distended, normal bowel sounds - Integumentary Integumentary: Present: warm, dry - Psychiatric Psychiatric: other - Neurologic Neurologic: other - Allied Health Allied health notes reviewed: nursing, RT, social work HEART Score - HEART Score Troponin: Troponin T 0.133 ng/mL (0.00-0.029) H* 06/01/21 18:19 Results - Labs CBC & Chem 7: 01/25/22 04:50 06/01/21 18:19 Labs: Laboratory Last Values WBC 8.9 K/mm3 (4.5-11.0) 06/01/21 04:50 RBC 3.72 M/mm3 (3.65-5.03) 06/01/21 04:50 Hgb 11.6 gm/dl (11.8-15.2) L 06/01/21 04:50 Hct 36.9 % (35.5-45.6) D 06/01/21 04:50 MCV 99 fl (84-94) H 06/01/21 04:50 MCH 31 pg (28-32) 06/01/21 04:50 MCHC 32 % (32-34) 06/01/21 04:50 RDW 14.6 % (13.2-15.2) 06/01/21 04:50 Plt Count 180 K/mm3 (140-440) 06/01/21 04:50 Lymph % (Auto) 16.1 % (13.4-35.0) 06/01/21 04:50 [place] % (Auto) 7.6 % (0.0-7.3) H 06/01/21 04:50 Eos % (Auto) 0.5 % (0.0-4.3) 06/01/21 04:50 Baso % (Auto) 0.4 % (0.0-1.8) 06/01/21 04:50 Lymph # (Auto) 1.4 K/mm3 (1.2-5.4) 06/01/21 04:50 [place] # (Auto) 0.7 K/mm3 (0.0-0.8) 06/01/21 04:50 Eos # (Auto) 0.0 K/mm3 (0.0-0.4) 06/01/21 04:50 Baso # (Auto) 0.0 K/mm3 (0.0-0.1) 06/01/21 04:50 Seg Neutrophils % 75.4 % (40.0-70.0) H 06/01/21 04:50 Seg Neutrophils # 6.7 K/mm3 (1.8-7.7) 06/01/21 04:50 APTT 29.4 Sec. (24.2-36.6) 05/31/21 18:10 D-Dimer 1247.52 ng/mlDDU (0-234) H 06/01/21 18:19 ABG pH 7.406 pH Units (7.350-7.450) 06/01/21 04:08 ABG pCO2 37.8 mm Hg 06/01/21 04:08 ABG pO2 283.4 mm Hg (80.0-90.0) H 06/01/21 04:08 ABG HCO3 23.2 mmol/L (20.0-26.0) 06/01/21 04:08 ABG O2 Saturation 99.5 % (95.0-99.0) H 06/01/21 04:08 ABG O2 Content 16.5 (0.0-44) 06/01/21 04:08 ABG Base Excess -1.2 mmol/L (-2.0-3.0) 06/01/21 04:08 ABG Hemoglobin 11.5 gm/dl (14.0-18.0) L 06/01/21 04:08 ABG Carboxyhemoglobin 0.8 % (0.0-5.0) 06/01/21 04:08 ABG Methemoglobin 0.7 % (0.0-1.5) 06/01/21 04:08 VBG pH 7.378 (7.320-7.420) 05/31/21 18:29 Oxyhemoglobin 98.0 % (95.0-99.0) 06/01/21 04:08 FiO2 100 % 06/01/21 04:08 Sodium 152 mmol/L (137-145) H 06/01/21 18:19 Potassium 3.6 mmol/L (3.6-5.0) 06/01/21 18:19 Chloride 121.4 mmol/L (98-107) H 06/01/21 18:19 Carbon Dioxide 22 mmol/L (22-30) 06/01/21 18:19 Anion Gap 12 mmol/L 06/01/21 18:19 BUN 35 mg/dL (9-20) H 06/01/21 18:19 Creatinine 1.0 mg/dL (0.8-1.3) 06/01/21 18:19 Estimated GFR > 60 ml/min 06/01/21 18:19 BUN/Creatinine Ratio 35 % 06/01/21 18:19 Glucose 234 mg/dL (75-100) H 06/01/21 18:19 POC Glucose 179 mg/dL (70-105) H 06/01/21 17:57 Lactic Acid 1.80 mmol/L (0.7-2.0) 05/31/21 21:57 Calcium 8.6 mg/dL (8.4-10.2) 06/01/21 18:19 Magnesium 1.90 mg/dL (1.7-2.3) 06/01/21 18:19 Ferritin 1394.0 ng/mL (30.0-300.0) H 06/01/21 18:19 Total Bilirubin 0.70 mg/dL (0.1-1.2) 06/01/21 04:50 AST 23 units/L (5-40) 06/01/21 04:50 ALT 38 units/L (7-56) 06/01/21 04:50 Alkaline Phosphatase 78 units/L (35-129) 06/01/21 04:50 Total Creatine Kinase 530 units/L (55-170) H 06/01/21 18:19 CK-MB (CK-2) 1.6 ng/mL (0.0-4.0) 06/01/21 18:19 CK-MB (CK-2) Rel Index 0.3 (0-4) 06/01/21 18:19 Troponin T 0.133 ng/mL (0.00-0.029) H* 06/01/21 18:19 NT-Pro-B Natriuret Pep 1305 pg/mL (0-900) H 06/01/21 18:19 Total Protein 6.0 g/dL (6.3-8.2) L 06/01/21 04:50 Albumin 2.3 g/dL (3.9-5) L 06/01/21 04:50 Albumin/Globulin Ratio 0.6 % 06/01/21 04:50 Triglycerides 99 mg/dL (2-149) 05/31/21 19:01 Cholesterol 104 mg/dL (50-199) 05/31/21 19:01 LDL Cholesterol Direct 67 mg/dL (50-130) 05/31/21 19:01 HDL Cholesterol 21 mg/dL (40-59) L 05/31/21 19:01 Cholesterol/HDL Ratio 4.95 % 05/31/21 19:01 Urine Color [place] (Yellow) 05/31/21 Unknown Urine Turbidity Cloudy (Clear) 05/31/21 Unknown Urine pH 5.0 (5.0-7.0) 05/31/21 Unknown Ur Specific [place] 1.026 (1.003-1.030) 05/31/21 Unknown Urine Protein 100 mg/dl mg/dL (Negative) 05/31/21 Unknown Urine Glucose (UA) 50 mg/dL (Negative) 05/31/21 Unknown Urine Ketones Neg mg/dL (Negative) 05/31/21 Unknown Urine Blood Sm (Negative) 05/31/21 Unknown Urine Nitrite Neg (Negative) 05/31/21 Unknown Urine Bilirubin Neg (Negative) 05/31/21 Unknown Urine Urobilinogen 4.0 mg/dL (<2.0) 05/31/21 Unknown Ur Leukocyte Esterase Neg (Negative) 05/31/21 Unknown Urine WBC (Auto) 12.0 /HPF (0.0-6.0) H 05/31/21 Unknown Urine RBC (Auto) < 1.0 /HPF (0.0-6.0) 05/31/21 Unknown Urine Bacteria (Auto) 1+ /HPF (Negative) 05/31/21 Unknown Granular Casts 22 /LPF 05/31/21 Unknown Urine Mucus 3+ /HPF 05/31/21 Unknown Urine Osmolality 750 Mosm/kg 06/01/21 16:00 Coronavirus (PCR) Positive (Negative) A 06/01/21 08:30 Microbiology: Microbiology 05/31/21 Unknown Urine,Catheterized - Indwelling Catheter Urine Culture - Preliminary NO GROWTH AFTER 24 HOURS 05/31/21 18:10 Peripheral/Venous Blood Culture - Preliminary Culture in Progress 05/31/21 18:10 Peripheral/Venous Blood Culture - Preliminary Culture in Progress Anderson/IV: Voiding Method Indwelling Catheter Active Medications - Current Medications Current Medications: Generic Name Dose Route Start Last Admin Trade Name Freq PRN Reason Stop Dose Admin Acetaminophen 650 mg 05/31/21 22:28 06/01/21 00:40 Acetaminophen 325 Mg Tab PO 650 mg Q4H PRN Administration Pain MILD(1-3)/Fever >100.5/CORDERO Dextrose 0 ml 06/01/21 05:46 Dextrose 50% In Water (25gm) 50 Ml Syringe IV Q30MIN PRN Hypoglycemia Protocol Enoxaparin Sodium 90 mg 06/01/21 22:00 Enoxaparin 100 Mg/1 Ml Inj 1 mg/kg (90 mg) SUB-Q Q12HR SHAN Protocol Famotidine 20 mg 05/31/21 23:00 06/01/21 09:06 Famotidine 20 Mg/2 Ml Inj IV 20 mg BID SHAN Administration Insulin Glargine 17 units 06/01/21 22:00 Insulin Glargine 100 Units/Ml SUB-Q QHS SHAN Insulin Human Lispro 0 unit 06/01/21 06:00 06/01/21 18:52 Insulin Lispro 100 Unit/Ml SUB-Q 2 unit Q6HR SHAN Administration Protocol Ondansetron HCl 4 mg 05/31/21 22:28 Ondansetron 4 Mg/2 Ml Inj IV Q8H PRN Nausea And Vomiting Sodium Chloride 10 ml 06/01/21 10:00 06/01/21 09:07 Sodium Chloride 0.9% 10 Ml Flush Syringe IV 10 ml BID SHAN Administration Sodium Chloride 10 ml 05/31/21 22:28 Sodium Chloride 0.9% 10 Ml Flush Syringe IV PRN PRN LINE FLUSH Sodium Chloride 10 ml 06/01/21 09:26 Sodium Chloride 0.9% 50 Ml Ivpb IV PRN PRN FLUSH Nutrition/Malnutrition Assess - Dietary Evaluation Nutrition/Malnutrition Findings: Nutrition Notes Start: 06/01/21 11:55 Freq: Status: Active Protocol: Document 06/01/21 14:05 FERMIN (Rec: 06/01/21 14:50 FERMIN [id number]) Nutrition Notes Need for Assessment generated from: MD Order Initial or Follow up Assessment Current Diagnosis Decubitus(Pressure Ulcer), Diabetes,Sepsis,Hypertension, Respiratory Failure Other Pertinent Diagnosis AMS, Acute encephalopathy, Hypernatremia, hypokalemia, Bilateral AKA. Current Diet TF-Vital AF @ 47 ml/hr (since D 06/01). Labs/Tests 06/01: Na 156, K 3.0, Cl 123.3 , CO2 21, BUN 40, Glu 324. Pertinent Medications 06/01: Insulin, others nutritionally unremarkable. Height 5 ft 4 in Weight 91 kg [place] Body Weight (kg) 59.09 BMI 34.4 Intake Prior to Admission Good Weight change and time frame Ht&Wt on chart correspond to after bilateral AKA (4 ft & 68 .353 Kg). No body weight change reported [employer]. Weight Status Obese Subjective/Other Information RD consult for write/manage TF MD request. Ht & Wt used were provided by Family member over the phone, and correspond to before bilateral AKA; actual Ht&Wt on chart correspond to after bilateral AKA (4 ft & 68.353 Kg). Pt is currently on mechanical ventilation. Pt presents sacral decubitus pressure ulcers. Pt lives on SNF. Percent of energy/protein needs met: Prescribed Vital AF @ 47 ml/hr provides for energy/protein needs (1,365 Kcal/85 g) during LOS, 100% Kcal; 100% AA. Burn Absent Trauma Absent GI Symptoms None Food Allergy No Skin Integrity/Comment Sacral decubitus pressure ulcers. Current % PO Other Minimum of two criteria No #1 Nutrition Diagnosis Inadequate oral intake Etiology Pt on mechanical ventilation As Evidenced by Signs and Symptoms Pt currently on NPO. Is patient on ventilator? Yes Is Patient Ambulatory and/or Out of Bed No REE-([facility]-confined to bed) 1932.348 Kcal/Kg value to use for calculation 15 Approximate Energy Requirements Using 1365 kcal/Kg Calculation Used for Recommendations ABW after bilateral AKA Additional Notes Protein: 1.25-1.5 g/Kg; 85-102 g/day. Fluids: 1 ml/Kcal, or as per MD. Nutrition Intervention Nutrition Support: Start Vital AF @ 47 ml/hr. Flush: 80 ml water Q 4 hr, or as per MD. Kcal 1,365 Protein (gm) 85 Carbohydrates (gm) 126 Fat (gm) 61 Fluid (mL) 923 Fiber (gm) 6 % RDI: 100% Kcal; 100% AA. Goal #1 Provide at least 75% of energy /protein needs through Enteral Feeding during LOS. Follow-Up By: 06/03/21 Additional Comments Continue monitoring food tolerance, %PO intake of meals , and BM. <ROBERT NOONAN - Last Filed: 06/14/21 18:52> Assessment and Plan Assessment and plan: I saw and evaluated the patient. Discussed with the nurse practitioner and agree with their findings and plan as documented in this note. Hospitalist Physical - Constitutional Vitals: Temp Pulse Resp BP Pulse Ox 97.8 F 77 19 94/34 95 06/09/21 05:26 06/09/21 05:26 06/09/21 05:26 06/09/21 05:26 06/09/21 10:36 HEART Score - HEART Score Troponin: Troponin T 0.049 ng/mL (0.00-0.029) H D 06/02/21 10:00 Results - Labs CBC & Chem 7: 06/06/21 08:35 06/08/21 09:13 Labs: Laboratory Last Values WBC 10.1 K/mm3 (4.5-11.0) 06/06/21 08:35 RBC 3.79 M/mm3 (3.65-5.03) 06/06/21 08:35 Hgb 11.9 gm/dl (11.8-15.2) 06/06/21 08:35 Hct 36.7 % (35.5-45.6) 06/06/21 08:35 MCV 97 fl (84-94) H 06/06/21 08:35 MCH 32 pg (28-32) 06/06/21 08:35 MCHC 33 % (32-34) 06/06/21 08:35 RDW 15.3 % (13.2-15.2) H 06/06/21 08:35 Plt Count 205 K/mm3 (140-440) 06/06/21 08:35 Lymph % (Auto) 13.7 % (13.4-35.0) 06/04/21 03:59 [place] % (Auto) 6.5 % (0.0-7.3) 06/04/21 03:59 Eos % (Auto) 0.1 % (0.0-4.3) 06/04/21 03:59 Baso % (Auto) 0.1 % (0.0-1.8) 06/04/21 03:59 Lymph # (Auto) 1.4 K/mm3 (1.2-5.4) 06/04/21 03:59 [place] # (Auto) 0.7 K/mm3 (0.0-0.8) 06/04/21 03:59 Eos # (Auto) 0.0 K/mm3 (0.0-0.4) 06/04/21 03:59 Baso # (Auto) 0.0 K/mm3 (0.0-0.1) 06/04/21 03:59 Seg Neutrophils % 79.6 % (40.0-70.0) H 06/04/21 03:59 Seg Neutrophils # 8.0 K/mm3 (1.8-7.7) H 06/04/21 03:59 APTT 29.4 Sec. (24.2-36.6) 05/31/21 18:10 D-Dimer 435.79 ng/mlDDU (0-234) H 06/05/21 09:58 ABG pH 7.390 pH Units (7.350-7.450) 06/02/21 07:45 ABG pCO2 33.9 mm Hg 06/02/21 07:45 ABG pO2 108.4 mm Hg (80.0-90.0) H 06/02/21 07:45 ABG HCO3 20.1 mmol/L (20.0-26.0) 06/02/21 07:45 ABG O2 Saturation 97.9 % (95.0-99.0) 06/02/21 07:45 ABG O2 Content 18.3 (0.0-44) 06/02/21 07:45 ABG Base Excess -4.1 mmol/L (-2.0-3.0) L 06/02/21 07:45 ABG Hemoglobin 13.4 gm/dl (14.0-18.0) L 06/02/21 07:45 ABG Carboxyhemoglobin 1.0 % (0.0-5.0) 06/02/21 07:45 ABG Methemoglobin 0.6 % (0.0-1.5) 06/02/21 07:45 VBG pH 7.378 (7.320-7.420) 05/31/21 18:29 Oxyhemoglobin 96.3 % (95.0-99.0) 06/02/21 07:45 FiO2 40 % 06/02/21 07:45 Sodium 137 mmol/L (137-145) 06/08/21 09:13 Potassium 4.1 mmol/L (3.6-5.0) 06/08/21 09:13 Chloride 106.6 mmol/L (98-107) 06/08/21 09:13 Carbon Dioxide 18 mmol/L (22-30) L 06/08/21 09:13 Anion Gap 17 mmol/L 06/08/21 09:13 BUN 21 mg/dL (9-20) H 06/08/21 09:13 Creatinine 0.4 mg/dL (0.8-1.3) L 06/08/21 09:13 Estimated GFR > 60 ml/min 06/08/21 09:13 BUN/Creatinine Ratio 53 % 06/08/21 09:13 Glucose 149 mg/dL (75-100) H 06/08/21 09:13 POC Glucose 106 mg/dL (70-105) H 06/09/21 05:26 Lactic Acid 1.80 mmol/L (0.7-2.0) 05/31/21 21:57 Calcium 8.1 mg/dL (8.4-10.2) L 06/08/21 09:13 Magnesium 1.90 mg/dL (1.7-2.3) 06/01/21 18:19 Ferritin 702.9 ng/mL (30.0-300.0) H 06/05/21 09:58 Total Bilirubin 0.30 mg/dL (0.1-1.2) 06/05/21 09:58 AST 33 units/L (5-40) 06/05/21 09:58 ALT 55 units/L (7-56) 06/05/21 09:58 Alkaline Phosphatase 85 units/L (35-129) 06/05/21 09:58 Lactate Dehydrogenase 237 units/L (91-180) H 06/05/21 09:58 Total Creatine Kinase 299 units/L (55-170) H 06/02/21 10:00 CK-MB (CK-2) 2.2 ng/mL (0.0-4.0) 06/02/21 10:00 CK-MB (CK-2) Rel Index 0.3 (0-4) 06/02/21 00:28 Troponin T 0.049 ng/mL (0.00-0.029) H D 06/02/21 10:00 C-Reactive Protein 5.20 mg/dL (0.00-1.30) H 06/05/21 09:58 NT-Pro-B Natriuret Pep 1305 pg/mL (0-900) H 06/01/21 18:19 Total Protein 5.4 g/dL (6.3-8.2) L 06/05/21 09:58 Albumin 1.9 g/dL (3.9-5) L 06/05/21 09:58 Albumin/Globulin Ratio 0.5 % 06/05/21 09:58 Triglycerides 99 mg/dL (2-149) 05/31/21 19:01 Cholesterol 104 mg/dL (50-199) 05/31/21 19:01 LDL Cholesterol Direct 67 mg/dL (50-130) 05/31/21 19:01 HDL Cholesterol 21 mg/dL (40-59) L 05/31/21 19:01 Cholesterol/HDL Ratio 4.95 % 05/31/21 19:01 Procalcitonin 0.90 ng/mL (<0.15) 06/01/21 18:19 Urine Color [place] (Yellow) 05/31/21 Unknown Urine Turbidity Cloudy (Clear) 05/31/21 Unknown Urine pH 5.0 (5.0-7.0) 05/31/21 Unknown Ur Specific [place] 1.026 (1.003-1.030) 05/31/21 Unknown Urine Protein 100 mg/dl mg/dL (Negative) 05/31/21 Unknown Urine Glucose (UA) 50 mg/dL (Negative) 05/31/21 Unknown Urine Ketones Neg mg/dL (Negative) 05/31/21 Unknown Urine Blood Sm (Negative) 05/31/21 Unknown Urine Nitrite Neg (Negative) 05/31/21 Unknown Urine Bilirubin Neg (Negative) 05/31/21 Unknown Urine Urobilinogen 4.0 mg/dL (<2.0) 05/31/21 Unknown Ur Leukocyte Esterase Neg (Negative) 05/31/21 Unknown Urine WBC (Auto) 12.0 /HPF (0.0-6.0) H 05/31/21 Unknown Urine RBC (Auto) < 1.0 /HPF (0.0-6.0) 05/31/21 Unknown Urine Bacteria (Auto) 1+ /HPF (Negative) 05/31/21 Unknown Granular Casts 22 /LPF 05/31/21 Unknown Urine Mucus 3+ /HPF 05/31/21 Unknown Urine Osmolality 750 Mosm/kg 06/01/21 16:00 Urine Creatinine 158.6 mg/dL (0.1-20.0) H 06/01/21 16:00 Urine Sodium 33 mmol/L 06/01/21 16:00 Urine Potassium 61.16 mmol/L 06/01/21 16:00 Urine Urea Nitrogen 1337 06/01/21 16:00 Nasal Screen MRSA (PCR) Negative (Negative) 06/01/21 16:00 Coronavirus (PCR) Positive (Negative) A 06/06/21 09:00 Anderson/IV: Voiding Method Indwelling Catheter Nutrition/Malnutrition Assess - Dietary Evaluation Nutrition/Malnutrition Findings: Nutrition Notes Start: 06/01/21 11:55 Freq: Status: Discharge Protocol: Document 06/08/21 10:28 FERMIN (Rec: 06/08/21 10:59 FERMIN [id number]) Nutrition Notes Need for Assessment generated from: MD Order Initial or Follow up Reassessment Current Diagnosis Decubitus(Pressure Ulcer), Diabetes,Sepsis,Respiratory Failure Other Pertinent Diagnosis COVID-19, Acute encephalopathy , Hypernatremia, NSTEMI, Bilateral AKA. Current Diet TF-Glucerna 1.2 Mateusz @ 47 ml/hr (since L 06/08). Labs/Tests 06/08: Cl 108.5, BUN 27, Crea 0.6, Glu 178. Pertinent Medications 06/08: Vit C, Vit D3, ZnSO4, others nutritionally unremarkable. Height 4 ft Weight 68 kg [place] Body Weight (kg) 15.45 BMI 45.7 Weight change and time frame No body weight change reported in 1 week. Weight Status Obese Subjective/Other Information RD consult for write/manage TF . PEG tube olaced on 06/07, well tolerated post op report. Percent of energy/protein needs met: Prescribed Glucerna 1.2 Mateusz @ 47 ml/hr provides for energy/ protein needs (1,352 Kcal/68 g ) during LOS, 100% Kcal; 82% AA. Burn Absent Trauma Absent GI Symptoms Constipation Difficulty In Swallowing Food Allergy No Skin Integrity/Comment Sacral decubitus pressure ulcers. Current % PO Other Minimum of two criteria No #2 Nutrition Diagnosis Increased nutrient needs ( specify in comment below) Comments: protein Diagnosis Progress(for reassessment Continues documentation) #1 Nutrition Diagnosis Inadequate oral intake Comments: PEG tube olaced on 06/07, well tolerated post op report. Diagnosis Progress(for reassessment Continues documentation) Is patient on ventilator? No Is Patient Ambulatory and/or Out of Bed No REE-([place]-confined to bed) 1351.824 Calculation Used for Recommendations [place] Additional Notes Protien: 82-102 g (1.2-1.5 g/ Kg. Fluids: 1 mL/Kcal, or as per MD. Nutrition Intervention Nutrition Support: Resume Glucerna 1.2 Mateusz @ 47 ml/hr. Flush: 75 ml water Q 4 hr, or as per MD. Kcal 1,352 Protein (gm) 68 Carbohydrates (gm) 129 Fat (gm) 68 Fluid (mL) 907 Fiber (gm) 18 % RDI: 100% Kcal; 82% AA. Goal #1 Provide at least 75% of energy /protein needs through Enteral Feeding during LOS. Follow-Up By: 06/10/21 Additional Comments Continue monitoring TF tolerance and BM.
[2021-06-01 19:51] LABS: Creatinine,Urine 158.6 mg/dL (0.1-20.0)
[2021-06-01] MEDS: DEXAMETHASONE 4 MG TAB PO SCH (21:47)
[2021-06-01] MEDS: ENOXAPARIN 100 MG/1 ML INJ SUB-Q SCH (21:47)
[2021-06-01] MEDS: ZINC SULFATE 220 MG CAP PO SCH (21:48)
[2021-06-01] MEDS: ASCORBIC ACID 500 MG TAB PO SCH (21:48)
[2021-06-01] MEDS ORDERED: INSULIN GLARGINE 100 UNITS/ML SUB-Q SCH (22:00)
[2021-06-02 01:04] LABS: Creatine Kinase MB 1.8 ng/mL (0.0-4.0)
[2021-06-02] MEDS: FREE WATER PO SCH ×8 (02:42→22:40)
[2021-06-02] MEDS: INSULIN LISPRO 100 UNIT/ML SUB-Q SCH ×5 (05:41→22:40)
[2021-06-02] MEDS ORDERED: REMDESIVIR 200 MG in SODIUM CHLORIDE 0.9% 250ML 250 ML IV SCH (08:00)
[2021-06-02 08:11] LABS: ABG Base Excess -4.1 mmol/L (-2.0-3.0); ABG HCO3 20.1 mmol/L (20.0-26.0); ABG Methemoglobin 0.6 % (0.0-1.5); ABG Oxygen Saturation 97.9 % (95.0-99.0); ABG PCO2 33.9 mm Hg; ABG PH 7.39 pH Units (7.350-7.450); ABG PO2 108.4 mm Hg (80.0-90.0)
[2021-06-02] MEDS: DEXAMETHASONE 4 MG TAB PO SCH (09:24)
[2021-06-02] MEDS: ENOXAPARIN 100 MG/1 ML INJ SUB-Q SCH ×2 (09:24→22:38)
[2021-06-02] MEDS: FAMOTIDINE 20 MG/2 ML INJ IV SCH ×2 (09:25→22:42)
[2021-06-02] MEDS: ZINC SULFATE 220 MG CAP PO SCH ×2 (09:25→22:39)
[2021-06-02] MEDS: CHOLECALCIFEROL (VIT D3) 5,000 UNIT TAB PO SCH (09:25)
[2021-06-02] MEDS: ASCORBIC ACID 500 MG TAB PO SCH ×2 (09:25→23:24)
[2021-06-02] MEDS: SODIUM CHLORIDE 0.9% 50 ML IVPB IV SCH ×2 (10:00→11:16)
[2021-06-02 10:48] LABS: Hemoglobin 10.3 gm/dl (11.8-15.2); Mean Corpuscular HGB Conc 31 % (32-34); Mean Corpuscular Volume 99 fl (84-94); Platelet Count 199 K/mm3 (140-440); Red Blood Count 3.33 M/mm3 (3.65-5.03); Red Cell Distribution Width 15.1 % (13.2-15.2)
[2021-06-02 11:01] LABS: Creatine Kinase MB 2.2 ng/mL (0.0-4.0)
[2021-06-02 11:03] LABS: Alanine Aminotransferase 56 units/L (7-56); Albumin 1.5 g/dL (3.9-5); Blood Urea Nitrogen 33 mg/dL (9-20); Calcium 6.6 mg/dL (8.4-10.2); Hemolysis Index 81
[2021-06-02 11:09] LABS: BUN/Creatinine Ratio 55
[2021-06-02] MEDS ORDERED: POTASSIUM CHLORIDE 20 MEQ PACKET FEEDTUBE SCH (13:00)
--- NOTE | 2021-06-02 13:20 | Progress Note ---
Assessment and Plan Patient is a 66-year-old male with a past medical history of bilateral AKA, hypertension, diabetes and seizures who was brought to the ED for altered mental status x1 day from [facility] AMS Sepsis Acute hypoxic respiratory failure- Pulm following COVID-19-ID following NSTEMI HTN DM Echo 06/01/2021-EF 40 to 45%. Segmental anterior wall hypokinesis. Right ventricular systolic function is normal. Aortic valve is calcified. No aortic valve stenosis. No aortic regurgitation present. Trace mitral regurgitation Plan: Troponins elevated and now downtrending in the setting of sepsis D-dimer noted to be elevated. Patient may need confirmatory testing to rule out PE Continue anticoagulation with Lovenox 1 mg/kg Patient is slightly hypertensive will initiate metoprolol 12.5 mg p.o. twice daily Will initiate aspirin and statin therapy Patient seen in conjunction with Dr. Solis agrees with this plan of care - Patient Problems (1) COVID-19 Current Visit: Yes Status: Acute (2) Acute encephalopathy Current Visit: Yes Status: Acute (3) Acute respiratory failure with hypoxia Current Visit: Yes Status: Acute (4) Hypernatremia Current Visit: Yes Status: Acute (5) Pneumonia Current Visit: Yes Status: Acute (6) Sepsis Current Visit: Yes Status: Acute Qualifiers: Sepsis type: sepsis due to unspecified organism Severe sepsis shock status: without septic shock (7) S/P AKA (above knee amputation) bilateral Current Visit: Yes Status: Chronic Subjective Date of service: 06/02/21 Principal diagnosis: COVID-19, Acute respiratory failure, NSTEMI Interval history: Patient remains intubated Patient currently sinus 70s on monitor Objective Vital Signs Temp Pulse Pulse Pulse Resp BP Pulse Ox 06/02/21 13:00 75 26 H 154/64 99 06/02/21 12:00 82 70 78 21 154/64 99 06/02/21 11:27 98.1 F 06/02/21 11:14 77 20 148/59 100 06/02/21 11:00 76 13 148/53 100 06/02/21 10:00 80 19 168/74 100 06/02/21 09:00 76 18 151/70 100 06/02/21 08:00 80 70 78 15 161/63 98 06/02/21 07:35 77 28 H 144/42 100 06/02/21 07:08 98.3 F 06/02/21 07:00 76 14 123/40 100 06/02/21 06:00 76 21 124/37 100 06/02/21 05:00 68 11 L 124/37 100 06/02/21 04:29 67 13 118/33 98 06/02/21 04:16 69 06/02/21 04:00 97.8 F 70 70 70 12 110/43 100 06/02/21 03:00 73 14 110/43 100 06/02/21 02:00 76 15 118/43 100 06/02/21 01:00 71 18 100/35 100 06/02/21 00:04 73 18 109/40 100 06/02/21 00:00 99.2 F 73 18 109/40 100 06/01/21 23:43 74 74 18 98 06/01/21 23:42 73 06/01/21 23:01 83 13 98/45 100 06/01/21 22:00 83 20 98/45 100 06/01/21 21:00 87 21 127/52 97 06/01/21 20:45 86 21 127/52 98 06/01/21 20:19 88 06/01/21 20:00 101.9 F H 89 88 88 18 107/39 96 06/01/21 19:00 85 20 104/26 96 06/01/21 18:00 84 25 H 119/57 98 06/01/21 17:27 84 20 118/44 98 06/01/21 17:00 82 20 118/44 98 06/01/21 16:00 98.4 F 81 81 22 131/47 98 06/01/21 15:00 80 19 125/53 98 06/01/21 14:00 83 23 114/39 97 06/01/21 13:51 83 24 123/36 100 06/01/21 13:42 98.8 F - Physical Examination General: Other (Intubated) HEENT: Positive: Normocephaly, Mucus Membranes Dry Neck: Positive: trachea midline Cardiac: Positive: Reg Rate and Rhythm Lungs: Positive: Ventilated Respirations Neuro: Positive: Other (Unable to assess due to intubated and mental status) Abdomen: Positive: Soft Skin: Negative: Rash, Suspicious Lesions Extremities: Absent: edema - Labs and Meds Cardiac Enzymes 01/06/02/21 06/02/21 Range/Units 18:19 00:28 10:00 AST 43 H (5-40) units/L CK-MB (CK-2) 1.6 1.8 2.2 (0.0-4.0) ng/mL CBC 06/02/21 Range/Units 10:00 WBC 9.1 (4.5-11.0) K/mm3 RBC 3.33 L (3.65-5.03) M/mm3 Hgb 10.3 L (11.8-15.2) gm/dl Hct 33.0 L (35.5-45.6) % Plt Count 199 (140-440) K/mm3 Comprehensive Metabolic Panel 06/01/21 06/02/21 Range/Units 18:19 10:00 Sodium 152 H 151 H (137-145) mmol/L Potassium 3.6 3.4 L (3.6-5.0) mmol/L Chloride 121.4 H 123.8 H (98-107) mmol/L Carbon Dioxide 22 16 L (22-30) mmol/L BUN 35 H 33 H (9-20) mg/dL Creatinine 1.0 0.6 L (0.8-1.3) mg/dL Glucose 234 H 326 H (75-100) mg/dL Calcium 8.6 6.6 L D (8.4-10.2) mg/dL AST 43 H (5-40) units/L ALT 56 (7-56) units/L Alkaline Phosphatase 78 (35-129) units/L Total Protein 5.1 L (6.3-8.2) g/dL Albumin 1.5 L (3.9-5) g/dL - Imaging and Cardiology EKG: report reviewed, image reviewed Echo: report reviewed - Telemetry EKG Rhythm: Sinus Rhythm - EKG Sinus rhythms and dysrhythmias: sinus rhythm Repolarization changes or abnormalities: ST or T wave suggestive of ischemia
--- NOTE | 2021-06-02 13:21 | Progress Note ---
Assessment and Plan 66 y/o male with acute respiratory failure secondary to altered mental status, exact etiology unknown, intubated in the ED for airway protection but also started on sedation. 1. Patient awake now with good ABG and good lung mechanics, will attempt extubation. 2. Patient is COVID positive. Per CM and from info from daughter, patient had COVID at the facility, was taken off isolation and placed in a double room and now has COVID. On steroids. ID has ordered remdesivir. Not sure if he is a candidate for Actemra 3. Follow up cards recs. Trop did go up but trending down now. 4. Off abx 5. Na needs to be improved, likely needs more free water 6. Treat diabetes. CCT 31 minutes. Subjective Date of service: 06/02/21 Interval history: Awake and alert. Follows commands. Tolerated PSV all night. ABG is good this am. Objective Vital Signs - 12hr 06/02/21 06/02/21 06/02/21 02:00 03:00 04:00 Temperature 97.8 F Pulse Rate 76 73 70 Pulse Rate [ 70 From Monitor] Pulse Rate [ 70 Right Femoral] Respiratory 15 14 12 Rate Blood Pressure 118/43 110/43 110/43 O2 Sat by Pulse 100 100 100 Oximetry 06/02/21 06/02/21 06/02/21 04:16 04:29 05:00 Temperature Pulse Rate 69 67 68 Pulse Rate [ From Monitor] Pulse Rate [ Right Femoral] Respiratory 13 11 L Rate Blood Pressure 118/33 124/37 O2 Sat by Pulse 98 100 Oximetry 06/02/21 06/02/21 06/02/21 06:00 07:00 07:08 Temperature 98.3 F Pulse Rate 76 76 Pulse Rate [ From Monitor] Pulse Rate [ Right Femoral] Respiratory 21 14 Rate Blood Pressure 124/37 123/40 O2 Sat by Pulse 100 100 Oximetry 06/02/21 06/02/21 06/02/21 07:35 08:00 09:00 Temperature Pulse Rate 77 80 76 Pulse Rate [ 70 From Monitor] Pulse Rate [ 78 Right Femoral] Respiratory 28 H 15 18 Rate Blood Pressure 144/42 161/63 151/70 O2 Sat by Pulse 100 98 100 Oximetry 06/02/21 06/02/21 06/02/21 10:00 11:00 11:14 Temperature Pulse Rate 80 76 77 Pulse Rate [ From Monitor] Pulse Rate [ Right Femoral] Respiratory 19 13 20 Rate Blood Pressure 168/74 148/53 148/59 O2 Sat by Pulse 100 100 100 Oximetry 06/02/21 06/02/21 06/02/21 11:27 12:00 13:00 Temperature 98.1 F Pulse Rate 82 75 Pulse Rate [ 70 From Monitor] Pulse Rate [ 78 Right Femoral] Respiratory 21 26 H Rate Blood Pressure 154/64 154/64 O2 Sat by Pulse 99 99 Oximetry CBC and BMP: 06/02/21 10:00 06/02/21 10:00 ABG, PT/INR, D-dimer: ABG ABG pH 7.390 pH Units (7.350-7.450) 06/02/21 07:45 ABG pCO2 33.9 mm Hg 06/02/21 07:45 ABG pO2 108.4 mm Hg (80.0-90.0) H 06/02/21 07:45 ABG O2 Saturation 97.9 % (95.0-99.0) 06/02/21 07:45 PT/INR, D-dimer D-Dimer 1247.52 ng/mlDDU (0-234) H 06/01/21 18:19 Abnormal lab findings: Abnormal Labs 05/31/21 05/31/21 05/31/21 18:10 18:10 18:10 RBC Hgb Hct MCV 99 H MCHC Lymph % (Auto) 8.1 L [place] % (Auto) Lymph # (Auto) 0.8 L Seg Neutrophils % 86.5 H Seg Neutrophils # 8.9 H D-Dimer ABG pO2 ABG O2 Saturation ABG Base Excess ABG Hemoglobin Sodium 152 H Potassium Chloride 115.3 H Carbon Dioxide BUN 39 H Creatinine Glucose 396 H POC Glucose Lactic Acid 3.00 H* Calcium Ferritin AST Total Creatine Kinase Troponin T NT-Pro-B Natriuret Pep Total Protein Albumin 2.9 L HDL Cholesterol Urine WBC (Auto) Urine Creatinine Coronavirus (PCR) 05/31/21 05/31/21 06/01/21 19:01 Unknown 01:33 RBC Hgb Hct MCV MCHC Lymph % (Auto) [place] % (Auto) Lymph # (Auto) Seg Neutrophils % Seg Neutrophils # D-Dimer ABG pO2 ABG O2 Saturation ABG Base Excess ABG Hemoglobin Sodium Potassium Chloride Carbon Dioxide BUN Creatinine Glucose POC Glucose 255 H Lactic Acid Calcium Ferritin AST Total Creatine Kinase Troponin T 0.146 H* NT-Pro-B Natriuret Pep Total Protein Albumin HDL Cholesterol 21 L Urine WBC (Auto) 12.0 H Urine Creatinine Coronavirus (PCR) 06/01/21 06/01/21 06/01/21 04:08 04:50 04:50 RBC Hgb 11.6 L Hct MCV 99 H MCHC Lymph % (Auto) [place] % (Auto) 7.6 H Lymph # (Auto) Seg Neutrophils % 75.4 H Seg Neutrophils # D-Dimer ABG pO2 283.4 H ABG O2 Saturation 99.5 H ABG Base Excess ABG Hemoglobin 11.5 L Sodium 156 H Potassium 3.0 L Chloride 123.3 H Carbon Dioxide 21 L BUN 40 H Creatinine Glucose 324 H POC Glucose Lactic Acid Calcium Ferritin AST Total Creatine Kinase Troponin T NT-Pro-B Natriuret Pep Total Protein 6.0 L Albumin 2.3 L HDL Cholesterol Urine WBC (Auto) Urine Creatinine Coronavirus (PCR) 06/01/21 06/01/21 06/01/21 05:15 08:30 12:04 RBC Hgb Hct MCV MCHC Lymph % (Auto) [place] % (Auto) Lymph # (Auto) Seg Neutrophils % Seg Neutrophils # D-Dimer ABG pO2 ABG O2 Saturation ABG Base Excess ABG Hemoglobin Sodium Potassium Chloride Carbon Dioxide BUN Creatinine Glucose POC Glucose 297 H 256 H Lactic Acid Calcium Ferritin AST Total Creatine Kinase Troponin T NT-Pro-B Natriuret Pep Total Protein Albumin HDL Cholesterol Urine WBC (Auto) Urine Creatinine Coronavirus (PCR) Positive A 06/01/21 06/01/21 06/01/21 13:10 16:00 17:57 RBC Hgb Hct MCV MCHC Lymph % (Auto) [place] % (Auto) Lymph # (Auto) Seg Neutrophils % Seg Neutrophils # D-Dimer ABG pO2 ABG O2 Saturation ABG Base Excess ABG Hemoglobin Sodium Potassium Chloride Carbon Dioxide BUN Creatinine Glucose POC Glucose 272 H 179 H Lactic Acid Calcium Ferritin AST Total Creatine Kinase Troponin T NT-Pro-B Natriuret Pep Total Protein Albumin HDL Cholesterol Urine WBC (Auto) Urine Creatinine 158.6 H Coronavirus (PCR) 06/01/21 06/01/21 06/01/21 18:19 18:19 18:19 RBC Hgb Hct MCV MCHC Lymph % (Auto) [place] % (Auto) Lymph # (Auto) Seg Neutrophils % Seg Neutrophils # D-Dimer 1247.52 H ABG pO2 ABG O2 Saturation ABG Base Excess ABG Hemoglobin Sodium 152 H Potassium Chloride 121.4 H Carbon Dioxide BUN 35 H Creatinine Glucose 234 H POC Glucose Lactic Acid Calcium Ferritin AST Total Creatine Kinase 530 H Troponin T 0.133 H* NT-Pro-B Natriuret Pep Total Protein Albumin HDL Cholesterol Urine WBC (Auto) Urine Creatinine Coronavirus (PCR) 06/01/21 06/01/21 06/01/21 18:19 18:19 21:46 RBC Hgb Hct MCV MCHC Lymph % (Auto) [place] % (Auto) Lymph # (Auto) Seg Neutrophils % Seg Neutrophils # D-Dimer ABG pO2 ABG O2 Saturation ABG Base Excess ABG Hemoglobin Sodium Potassium Chloride Carbon Dioxide BUN Creatinine Glucose POC Glucose 204 H Lactic Acid Calcium Ferritin 1394.0 H AST Total Creatine Kinase Troponin T NT-Pro-B Natriuret Pep 1305 H Total Protein Albumin HDL Cholesterol Urine WBC (Auto) Urine Creatinine Coronavirus (PCR) 06/01/21 06/02/21 06/02/21 23:36 00:28 05:33 RBC Hgb Hct MCV MCHC Lymph % (Auto) [place] % (Auto) Lymph # (Auto) Seg Neutrophils % Seg Neutrophils # D-Dimer ABG pO2 ABG O2 Saturation ABG Base Excess ABG Hemoglobin Sodium Potassium Chloride Carbon Dioxide BUN Creatinine Glucose POC Glucose 218 H 303 H Lactic Acid Calcium Ferritin AST Total Creatine Kinase 457 H Troponin T 0.144 H* NT-Pro-B Natriuret Pep Total Protein Albumin HDL Cholesterol Urine WBC (Auto) Urine Creatinine Coronavirus (PCR) 06/02/21 06/02/21 06/02/21 07:45 10:00 10:00 RBC 3.33 L Hgb 10.3 L Hct 33.0 L MCV 99 H MCHC 31 L Lymph % (Auto) [place] % (Auto) Lymph # (Auto) Seg Neutrophils % Seg Neutrophils # D-Dimer ABG pO2 108.4 H ABG O2 Saturation ABG Base Excess -4.1 L ABG Hemoglobin 13.4 L Sodium 151 H Potassium 3.4 L Chloride 123.8 H Carbon Dioxide 16 L BUN 33 H Creatinine 0.6 L Glucose 326 H POC Glucose Lactic Acid Calcium 6.6 L D Ferritin AST 43 H Total Creatine Kinase 299 H Troponin T 0.049 H D NT-Pro-B Natriuret Pep Total Protein 5.1 L Albumin 1.5 L HDL Cholesterol Urine WBC (Auto) Urine Creatinine Coronavirus (PCR) 06/02/21 11:10 RBC Hgb Hct MCV MCHC Lymph % (Auto) [place] % (Auto) Lymph # (Auto) Seg Neutrophils % Seg Neutrophils # D-Dimer ABG pO2 ABG O2 Saturation ABG Base Excess ABG Hemoglobin Sodium Potassium Chloride Carbon Dioxide BUN Creatinine Glucose POC Glucose 333 H Lactic Acid Calcium Ferritin AST Total Creatine Kinase Troponin T NT-Pro-B Natriuret Pep Total Protein Albumin HDL Cholesterol Urine WBC (Auto) Urine Creatinine Coronavirus (PCR)
--- NOTE | 2021-06-02 13:24 | Consultation ---
History of Present Illness - Reason for Consult Consult date: 06/02/21 - History of Present Illness 55-year-old man past medical history bilateral AKA, hypertension, diabetes, seizures sent to the hospital from the [facility] due to altered mental status. He was found to be severely lethargic and minimally responsive despite being baseline alert and communicative. He was found to be hypoxic, and placed on nonrebreather. Febrile to 1-1.9 with a white count 9.1. Covid positive. Normal renal function. Pending procalcitonin. Blood cultures and urine cultures no growth so far. Currently on dexamethasone and Remdesivir. Pending inflammatory markers. He is currently on the vent. Chest x-ray: Patchy parenchymal opacities in the left lung. Past History Past Medical History: diabetes, hypertension, seizures Past Surgical History: Other (Bilateral AKA) Medications and Allergies Allergies Allergy/AdvReac Type Severity Reaction Status Date / Time No Known Allergies Allergy Verified 12/23/18 20:00 Home Medications Medication Instructions Recorded Confirmed Last Taken Type HYDROcodone/APAP 5-325 [[place] 1 each PO Q6HR PRN #20 tablet 12/23/18 Unknown Rx 5/325] Active Meds: Active Medications Acetaminophen (Acetaminophen 325 Mg Tab) 650 mg PO Q4H PRN PRN Reason: Pain MILD(1-3)/Fever >100.5/CORDERO Last Admin: 06/01/21 21:47 Dose: 650 mg Ascorbic Acid (Ascorbic Acid 500 Mg Tab) 500 mg PO BID [facility] Last Admin: 06/02/21 09:25 Dose: 500 mg Aspirin (Aspirin 81 Mg Tab Chew) 81 mg FEEDTUBE QDAY [facility] Atorvastatin Calcium (Atorvastatin 40 Mg Tab) 40 mg FEEDTUBE QHS [facility] Cholecalciferol (Cholecalciferol (Vit D3) 5,000 Unit Tab) 5,000 unit PO DAILY [facility] Last Admin: 06/02/21 09:25 Dose: 5,000 unit Dexamethasone (Dexamethasone 4 Mg Tab) 6 mg PO QDAY [facility] Stop: 06/11/21 19:39 Last Admin: 06/02/21 09:24 Dose: 6 mg Dextrose (Dextrose 50% In Water (25gm) 50 Ml Syringe) 0 ml IV Q30MIN PRN; Protocol PRN Reason: Hypoglycemia Enoxaparin Sodium (Enoxaparin 100 Mg/1 Ml Inj) 90 mg 1 mg/kg (90 mg) SUB-Q Q12HR [facility]; Protocol Last Admin: 06/02/21 09:24 Dose: 90 mg Famotidine (Famotidine 20 Mg/2 Ml Inj) 20 mg IV BID [facility] Last Admin: 06/02/21 09:25 Dose: 20 mg Remdesivir 100 mg/ Sodium (Chloride) 250 mls @ 500 mls/hr IV Q24HR@1400 [facility] Stop: 06/06/21 14:29 Insulin Glargine (Insulin Glargine 100 Units/Ml) 25 units SUB-Q QHS SHAN Insulin Human Lispro (Insulin Lispro 100 Unit/Ml) 0 unit SUB-Q Q6HR [facility]; Protocol Last Admin: 06/02/21 11:34 Dose: 6 unit Metoprolol Tartrate (Metoprolol Tartrate 25 Mg Tab) 12.5 mg FEEDTUBE BID [facility] Ondansetron HCl (Ondansetron 4 Mg/2 Ml Inj) 4 mg IV Q8H PRN PRN Reason: Nausea And Vomiting Potassium Chloride (Potassium Chloride 20 Meq Packet) 40 meq FEEDTUBE ONCE@1300 [facility] Stop: 06/02/21 17:00 Last Admin: 06/02/21 13:13 Dose: 40 meq Sodium Chloride (Sodium Chloride 0.9% 10 Ml Flush Syringe) 10 ml IV BID [facility] Last Admin: 06/02/21 12:57 Dose: 10 ml Sodium Chloride (Sodium Chloride 0.9% 10 Ml Flush Syringe) 10 ml IV PRN PRN PRN Reason: LINE FLUSH Sodium Chloride (Sodium Chloride 0.9% 50 Ml Ivpb) 10 ml IV PRN PRN PRN Reason: FLUSH Sodium Chloride (Sodium Chloride 0.9% 50 Ml Ivpb) 50 ml IV Q24HR@1400 [facility] Stop: 06/06/21 14:01 Last Admin: 06/02/21 11:16 Dose: Not Given Zinc Sulfate (Zinc Sulfate 220 Mg Cap) 220 mg PO BID [facility] Last Admin: 06/02/21 09:25 Dose: 220 mg Review of Systems ROS unobtainable: due to endotracheal tube Physical Examination - Physical Exam Narrative exam: Physical exam deferred to reduce risk of transmission of COVID-19. Please refer to primary team's note. - Constitutional Vitals: Vital Signs Temp Pulse Resp BP Pulse Ox 98.1 F 75 26 H 154/64 99 06/02/21 11:27 06/02/21 13:00 06/02/21 13:00 06/02/21 13:00 06/02/21 13:00 Temperature -Last 24 Hours Temperature 98.1 F Temperature 98.3 F Temperature 97.8 F Temperature 99.2 F Temperature 101.9 F Temperature 98.4 F Temperature 98.8 F Results - Labs CBC & Chem 7: 06/02/21 10:00 06/02/21 10:00 Labs: Abnormal lab results 06/01/21 06/01/21 06/01/21 Range/Units 08:30 16:00 17:57 RBC (3.65-5.03) M/mm3 Hgb (11.8-15.2) gm/dl Hct (35.5-45.6) % MCV (84-94) fl MCHC (32-34) % D-Dimer (0-234) ng/mlDDU ABG pO2 (80.0-90.0) mm Hg ABG Base Excess (-2.0-3.0) mmol/L ABG Hemoglobin (14.0-18.0) gm/dl Sodium (137-145) mmol/L Potassium (3.6-5.0) mmol/L Chloride (98-107) mmol/L Carbon Dioxide (22-30) mmol/L BUN (9-20) mg/dL Creatinine (0.8-1.3) mg/dL Glucose (75-100) mg/dL POC Glucose 179 H (70-105) mg/dL Calcium (8.4-10.2) mg/dL Ferritin (30.0-300.0) ng/mL AST (5-40) units/L Total Creatine Kinase (55-170) units/L Troponin T (0.00-0.029) ng/mL NT-Pro-B Natriuret Pep (0-900) pg/mL Total Protein (6.3-8.2) g/dL Albumin (3.9-5) g/dL Urine Creatinine 158.6 H (0.1-20.0) mg/dL Coronavirus (PCR) Positive A (Negative) 06/01/21 06/01/21 06/01/21 Range/Units 18:19 18:19 18:19 RBC (3.65-5.03) M/mm3 Hgb (11.8-15.2) gm/dl Hct (35.5-45.6) % MCV (84-94) fl MCHC (32-34) % D-Dimer 1247.52 H (0-234) ng/mlDDU ABG pO2 (80.0-90.0) mm Hg ABG Base Excess (-2.0-3.0) mmol/L ABG Hemoglobin (14.0-18.0) gm/dl Sodium 152 H (137-145) mmol/L Potassium (3.6-5.0) mmol/L Chloride 121.4 H (98-107) mmol/L Carbon Dioxide (22-30) mmol/L BUN 35 H (9-20) mg/dL Creatinine (0.8-1.3) mg/dL Glucose 234 H (75-100) mg/dL POC Glucose (70-105) mg/dL Calcium (8.4-10.2) mg/dL Ferritin (30.0-300.0) ng/mL AST (5-40) units/L Total Creatine Kinase 530 H (55-170) units/L Troponin T 0.133 H* (0.00-0.029) ng/mL NT-Pro-B Natriuret Pep (0-900) pg/mL Total Protein (6.3-8.2) g/dL Albumin (3.9-5) g/dL Urine Creatinine (0.1-20.0) mg/dL Coronavirus (PCR) (Negative) 06/01/21 06/01/21 06/01/21 Range/Units 18:19 18:19 21:46 RBC (3.65-5.03) M/mm3 Hgb (11.8-15.2) gm/dl Hct (35.5-45.6) % MCV (84-94) fl MCHC (32-34) % D-Dimer (0-234) ng/mlDDU ABG pO2 (80.0-90.0) mm Hg ABG Base Excess (-2.0-3.0) mmol/L ABG Hemoglobin (14.0-18.0) gm/dl Sodium (137-145) mmol/L Potassium (3.6-5.0) mmol/L Chloride (98-107) mmol/L Carbon Dioxide (22-30) mmol/L BUN (9-20) mg/dL Creatinine (0.8-1.3) mg/dL Glucose (75-100) mg/dL POC Glucose 204 H (70-105) mg/dL Calcium (8.4-10.2) mg/dL Ferritin 1394.0 H (30.0-300.0) ng/mL AST (5-40) units/L Total Creatine Kinase (55-170) units/L Troponin T (0.00-0.029) ng/mL NT-Pro-B Natriuret Pep 1305 H (0-900) pg/mL Total Protein (6.3-8.2) g/dL Albumin (3.9-5) g/dL Urine Creatinine (0.1-20.0) mg/dL Coronavirus (PCR) (Negative) 06/01/21 06/02/21 06/02/21 Range/Units 23:36 00:28 05:33 RBC (3.65-5.03) M/mm3 Hgb (11.8-15.2) gm/dl Hct (35.5-45.6) % MCV (84-94) fl MCHC (32-34) % D-Dimer (0-234) ng/mlDDU ABG pO2 (80.0-90.0) mm Hg ABG Base Excess (-2.0-3.0) mmol/L ABG Hemoglobin (14.0-18.0) gm/dl Sodium (137-145) mmol/L Potassium (3.6-5.0) mmol/L Chloride (98-107) mmol/L Carbon Dioxide (22-30) mmol/L BUN (9-20) mg/dL Creatinine (0.8-1.3) mg/dL Glucose (75-100) mg/dL POC Glucose 218 H 303 H (70-105) mg/dL Calcium (8.4-10.2) mg/dL Ferritin (30.0-300.0) ng/mL AST (5-40) units/L Total Creatine Kinase 457 H (55-170) units/L Troponin T 0.144 H* (0.00-0.029) ng/mL NT-Pro-B Natriuret Pep (0-900) pg/mL Total Protein (6.3-8.2) g/dL Albumin (3.9-5) g/dL Urine Creatinine (0.1-20.0) mg/dL Coronavirus (PCR) (Negative) 06/02/21 06/02/21 06/02/21 Range/Units 07:45 10:00 10:00 RBC 3.33 L (3.65-5.03) M/mm3 Hgb 10.3 L (11.8-15.2) gm/dl Hct 33.0 L (35.5-45.6) % MCV 99 H (84-94) fl MCHC 31 L (32-34) % D-Dimer (0-234) ng/mlDDU ABG pO2 108.4 H (80.0-90.0) mm Hg ABG Base Excess -4.1 L (-2.0-3.0) mmol/L ABG Hemoglobin 13.4 L (14.0-18.0) gm/dl Sodium 151 H (137-145) mmol/L Potassium 3.4 L (3.6-5.0) mmol/L Chloride 123.8 H (98-107) mmol/L Carbon Dioxide 16 L (22-30) mmol/L BUN 33 H (9-20) mg/dL Creatinine 0.6 L (0.8-1.3) mg/dL Glucose 326 H (75-100) mg/dL POC Glucose (70-105) mg/dL Calcium 6.6 L D (8.4-10.2) mg/dL Ferritin (30.0-300.0) ng/mL AST 43 H (5-40) units/L Total Creatine Kinase 299 H (55-170) units/L Troponin T 0.049 H D (0.00-0.029) ng/mL NT-Pro-B Natriuret Pep (0-900) pg/mL Total Protein 5.1 L (6.3-8.2) g/dL Albumin 1.5 L (3.9-5) g/dL Urine Creatinine (0.1-20.0) mg/dL Coronavirus (PCR) (Negative) 06/02/21 Range/Units 11:10 RBC (3.65-5.03) M/mm3 Hgb (11.8-15.2) gm/dl Hct (35.5-45.6) % MCV (84-94) fl MCHC (32-34) % D-Dimer (0-234) ng/mlDDU ABG pO2 (80.0-90.0) mm Hg ABG Base Excess (-2.0-3.0) mmol/L ABG Hemoglobin (14.0-18.0) gm/dl Sodium (137-145) mmol/L Potassium (3.6-5.0) mmol/L Chloride (98-107) mmol/L Carbon Dioxide (22-30) mmol/L BUN (9-20) mg/dL Creatinine (0.8-1.3) mg/dL Glucose (75-100) mg/dL POC Glucose 333 H (70-105) mg/dL Calcium (8.4-10.2) mg/dL Ferritin (30.0-300.0) ng/mL AST (5-40) units/L Total Creatine Kinase (55-170) units/L Troponin T (0.00-0.029) ng/mL NT-Pro-B Natriuret Pep (0-900) pg/mL Total Protein (6.3-8.2) g/dL Albumin (3.9-5) g/dL Urine Creatinine (0.1-20.0) mg/dL Coronavirus (PCR) (Negative) Assessment and Plan Cultures: Blood culture no growth so far A/P: 55-year-old man past medical history bilateral AKA, hypertension, diabetes, seizures #Severe COVID-19 pneumonia: Patient presented with a week of symptoms, chest x- ray with diffuse bilateral infiltrates, admission O2 sats on room air. Inflammatory markers elevated #Acute hypoxemic respiratory failure: Likely secondary to COVID-19 infection. Currently on the vent #Chronic sacral wound: With overlying eschar. No evidence of acute infection at present. #Acute encephalopathy: Secondary to all the above. #Diabetes: tight glycemic control for best outcomes. Recommendations: -Dexamethasone 6 mg IV/PO daily for 10 days -Remdesivir 200 mg IV q day x 1 followed by 100 mg IV q day x 4 days -Obtain q48-72h inflammatory markers - ferritin, Ddimer, CRP, LDH -Pending CRP to determine if patient is candidate for Actemra. Can give CRP >7.5 -Anticoagulation per hospital protocol -Proning as able Thank you for the consult, we will continue to follow. Yasmeen Smith MD [facility] ([facility] O: [phone] F: [phone]
--- NOTE | 2021-06-02 15:46 | Progress Note ---
<TEMO GONZALESFiordaliza - Last Filed: 06/02/21 17:59> Assessment and Plan Assessment and plan: This is a 55-year-old male with bilateral AKA, DM, seizure disorder, BPH, CAD s/p CABG x4 admitted with elevated troponins, hypernatremia, hypokalemia, hyperchloremia, metabolic acidosis and acute hypoxic respiratory failure. Acute hypoxic respiratory failure -CCM consulted, appreciate recommendations -Intubated on 05/31 with 8.0 ETT at 24 the lips -A.m. vent settings: CPAP 02/10 -Patient placed on CPAP on 06/01 and remained on CPAP after extubation on 06/02 -See RT RT notes for titration -extubated to NC -A.m. ABG and CXR noted -Pulm hygiene -SPO2 monitoring Acute metabolic encephalopathy, H/o CVA, seizure disorder -Follow commands -Avoid delirium -Reorientation as needed -Restart seizure medications when obtained -CT head shows parenchymal atrophy greater than expected for age 65 years, evidence of remote bilateral MCA infarctions unchanged from prior study, no acu te intracranial abnormalities Sepsis, COVID-19 infection -Presented with acute hypoxic respiratory failure, leukocytosis, febrile on admit -CXR shows patchy bilateral parenchymal opacities left mid and lower lung zone -Antibiotic therapy with cefepime and vancomycin -Discontinued today due to normalization WBC and being afebrile -COVID-19 PCR positive -Infectious disease consulted, appreciate recommendations -Isolation/droplet precautions -Remdesivir () -Actemra will be given depending on CRP it is still pending -Vitamin D/vitamin C/zinc -Steroids for 10 days -Anticoagulation based on D-dimer -Trend COVID-19 inflammatory markers -Follow WBC and temperature curve -Follow-up blood cultures NSTEMI, h/o CAD s/p CABG x4, possible CHF, HTN -Cardiology consulted, appreciate recommendations -Echocardiogram pending -ECG shows T waves -Trend troponins -Blood pressure monitoring per protocol -Started low dose BB in setting of hypertension Severe hypernatremia -Free water flush -Trend sodium -Urine osmolality and sodium do not indicate DI -Anderson catheter for strict intake and output Hypokalemia -Potassium replacement -Trend BMP Protein calorie malnutrition, h/o DM -Ntr consult for TF -24 hour -95 -SSI -Accu-Cheks every 6 -Avoid hypoglycemia -Long-acting insulin S/P bilateral AKA -Continue supportive care Seizure disorder -Aspiration/seizure precautions -Restart seizure medications when obtained DVT/GI prophylaxis -PPI -Lovenox therapeutic dose The high probability of a clinically significant, sudden or life threatening deterioration of the [resp] system(s) required my full and direct attention, intervention and personal management. The aggregate critical care time was [60] minutes. This time is in addition to time spent performing reported procedures but includes the following: [x] Data Review and interpretation [x] Patient assessment and monitoring of vital signs [x] Documentation [x] Medication orders and management Disposition Plan: transfer to floor Total Time Spent with Patient (Minutes): 60 History Interval history: This is a 55-year-old male with bilateral AKA, DM, seizure disorder, BPH, CAD s/p CABG x4 who presented to the emergency department from [facility] via EMS with complaints of severe lethargy, only respond to verbal stimuli and hypoxia in the low 80s by the [facility] staff. Patient was placed on nonrebreather and EMS was called. Upon their arrival SPO2 noted to be improved to 88%. Patient was brought to [facility] for further evaluation. In the emergency department patient was intubated due to decrease of responsiveness and hypoxia. Work-up in the emergency department revealed severe hypernatremia, hypokalemia, hyperchloremia, metabolic acidosis, elevated blood glucose and slight anemia. Patient had a elevated troponin on arrival. Patient was admitted to the hospitalist service with rhabdomyolysis, acute respiratory failure and is COVID-19 PUI with consults to [facility]. 06/01: Troponin trended, free water flush initiated, echocardiogram ordered, potassium repleted, antibiotics discontinued, cardiology consulted. Patient is COVID-19 PCR positive, infectious disease consulted. Urine studies ordered for hypernatremia work-up. 06/02: Patient was extubated today per [facility], started on remdesivir. Patient will be transferred to the floor today. Pending CRP to see if [facility] is [facility] - Physical exam Narrative exam: General appearance: Present: no acute distress - EENT Eyes: Present: PERRL ENT: dentition normal - Neck Neck: Present: normal ROM - Respiratory Respiratory effort: normal Respiratory: bilateral: diminished - Cardiovascular Rhythm: regular Heart Sounds: Present: S1 & S2. Absent: systolic murmur, diastolic murmur - Extremities Extremities: no ischemia, pulses intact, pulses symmetrical, normal color Peripheral Pulses: abnormal - Abdominal General gastrointestinal: soft, non-tender, non-distended, normal bowel sounds - Integumentary Integumentary: Present: warm, dry - Psychiatric Psychiatric: other - Neurologic Neurologic: other - Allied Health Allied health notes reviewed: nursing, RT, social work - Constitutional Vitals: Temp Pulse Resp BP Pulse Ox 98.1 F 79 20 153/50 99 06/02/21 11:27 06/02/21 14:00 06/02/21 14:00 06/02/21 14:00 06/02/21 14:00 General appearance: Present: no acute distress HEART Score - HEART Score Troponin: Troponin T 0.049 ng/mL (0.00-0.029) H D 06/02/21 10:00 Results - Labs CBC & Chem 7: 06/02/21 10:00 06/02/21 10:00 Labs: Laboratory Last Values WBC 9.1 K/mm3 (4.5-11.0) 06/02/21 10:00 RBC 3.33 M/mm3 (3.65-5.03) L 06/02/21 10:00 Hgb 10.3 gm/dl (11.8-15.2) L 06/02/21 10:00 Hct 33.0 % (35.5-45.6) L 06/02/21 10:00 MCV 99 fl (84-94) H 06/02/21 10:00 MCH 31 pg (28-32) 06/02/21 10:00 MCHC 31 % (32-34) L 06/02/21 10:00 RDW 15.1 % (13.2-15.2) 06/02/21 10:00 Plt Count 199 K/mm3 (140-440) 06/02/21 10:00 Lymph % (Auto) 16.1 % (13.4-35.0) 06/01/21 04:50 [place] % (Auto) 7.6 % (0.0-7.3) H 06/01/21 04:50 Eos % (Auto) 0.5 % (0.0-4.3) 06/01/21 04:50 Baso % (Auto) 0.4 % (0.0-1.8) 06/01/21 04:50 Lymph # (Auto) 1.4 K/mm3 (1.2-5.4) 06/01/21 04:50 [place] # (Auto) 0.7 K/mm3 (0.0-0.8) 06/01/21 04:50 Eos # (Auto) 0.0 K/mm3 (0.0-0.4) 06/01/21 04:50 Baso # (Auto) 0.0 K/mm3 (0.0-0.1) 06/01/21 04:50 Seg Neutrophils % 75.4 % (40.0-70.0) H 06/01/21 04:50 Seg Neutrophils # 6.7 K/mm3 (1.8-7.7) 06/01/21 04:50 APTT 29.4 Sec. (24.2-36.6) 05/31/21 18:10 D-Dimer 1247.52 ng/mlDDU (0-234) H 06/01/21 18:19 ABG pH 7.390 pH Units (7.350-7.450) 06/02/21 07:45 ABG pCO2 33.9 mm Hg 06/02/21 07:45 ABG pO2 108.4 mm Hg (80.0-90.0) H 06/02/21 07:45 ABG HCO3 20.1 mmol/L (20.0-26.0) 06/02/21 07:45 ABG O2 Saturation 97.9 % (95.0-99.0) 06/02/21 07:45 ABG O2 Content 18.3 (0.0-44) 06/02/21 07:45 ABG Base Excess -4.1 mmol/L (-2.0-3.0) L 06/02/21 07:45 ABG Hemoglobin 13.4 gm/dl (14.0-18.0) L 06/02/21 07:45 ABG Carboxyhemoglobin 1.0 % (0.0-5.0) 06/02/21 07:45 ABG Methemoglobin 0.6 % (0.0-1.5) 06/02/21 07:45 VBG pH 7.378 (7.320-7.420) 05/31/21 18:29 Oxyhemoglobin 96.3 % (95.0-99.0) 06/02/21 07:45 FiO2 40 % 06/02/21 07:45 Sodium 151 mmol/L (137-145) H 06/02/21 10:00 Potassium 3.4 mmol/L (3.6-5.0) L 06/02/21 10:00 Chloride 123.8 mmol/L (98-107) H 06/02/21 10:00 Carbon Dioxide 16 mmol/L (22-30) L 06/02/21 10:00 Anion Gap 15 mmol/L 06/02/21 10:00 BUN 33 mg/dL (9-20) H 06/02/21 10:00 Creatinine 0.6 mg/dL (0.8-1.3) L 06/02/21 10:00 Estimated GFR > 60 ml/min 06/02/21 10:00 BUN/Creatinine Ratio 55 % 06/02/21 10:00 Glucose 326 mg/dL (75-100) H 06/02/21 10:00 POC Glucose 333 mg/dL (70-105) H 06/02/21 11:10 Lactic Acid 1.80 mmol/L (0.7-2.0) 05/31/21 21:57 Calcium 6.6 mg/dL (8.4-10.2) L D 06/02/21 10:00 Magnesium 1.90 mg/dL (1.7-2.3) 06/01/21 18:19 Ferritin 1394.0 ng/mL (30.0-300.0) H 06/01/21 18:19 Total Bilirubin 0.50 mg/dL (0.1-1.2) 06/02/21 10:00 AST 43 units/L (5-40) H 06/02/21 10:00 ALT 56 units/L (7-56) 06/02/21 10:00 Alkaline Phosphatase 78 units/L (35-129) 06/02/21 10:00 Total Creatine Kinase 299 units/L (55-170) H 06/02/21 10:00 CK-MB (CK-2) 2.2 ng/mL (0.0-4.0) 06/02/21 10:00 CK-MB (CK-2) Rel Index 0.3 (0-4) 06/02/21 00:28 Troponin T 0.049 ng/mL (0.00-0.029) H D 06/02/21 10:00 NT-Pro-B Natriuret Pep 1305 pg/mL (0-900) H 06/01/21 18:19 Total Protein 5.1 g/dL (6.3-8.2) L 06/02/21 10:00 Albumin 1.5 g/dL (3.9-5) L 06/02/21 10:00 Albumin/Globulin Ratio 0.4 % 06/02/21 10:00 Triglycerides 99 mg/dL (2-149) 05/31/21 19:01 Cholesterol 104 mg/dL (50-199) 05/31/21 19:01 LDL Cholesterol Direct 67 mg/dL (50-130) 05/31/21 19:01 HDL Cholesterol 21 mg/dL (40-59) L 05/31/21 19:01 Cholesterol/HDL Ratio 4.95 % 05/31/21 19:01 Urine Color Grace (Yellow) 05/31/21 Unknown Urine Turbidity Cloudy (Clear) 05/31/21 Unknown Urine pH 5.0 (5.0-7.0) 05/31/21 Unknown Ur Specific [place] 1.026 (1.003-1.030) 05/31/21 Unknown Urine Protein 100 mg/dl mg/dL (Negative) 05/31/21 Unknown Urine Glucose (UA) 50 mg/dL (Negative) 05/31/21 Unknown Urine Ketones Neg mg/dL (Negative) 05/31/21 Unknown Urine Blood Sm (Negative) 05/31/21 Unknown Urine Nitrite Neg (Negative) 05/31/21 Unknown Urine Bilirubin Neg (Negative) 05/31/21 Unknown Urine Urobilinogen 4.0 mg/dL (<2.0) 05/31/21 Unknown Ur Leukocyte Esterase Neg (Negative) 05/31/21 Unknown Urine WBC (Auto) 12.0 /HPF (0.0-6.0) H 05/31/21 Unknown Urine RBC (Auto) < 1.0 /HPF (0.0-6.0) 05/31/21 Unknown Urine Bacteria (Auto) 1+ /HPF (Negative) 05/31/21 Unknown Granular Casts 22 /LPF 05/31/21 Unknown Urine Mucus 3+ /HPF 05/31/21 Unknown Urine Osmolality 750 Mosm/kg 06/01/21 16:00 Urine Creatinine 158.6 mg/dL (0.1-20.0) H 06/01/21 16:00 Urine Sodium 33 mmol/L 06/01/21 16:00 Urine Potassium 61.16 mmol/L 06/01/21 16:00 Urine Urea Nitrogen 1337 06/01/21 16:00 Nasal Screen MRSA (PCR) Negative (Negative) 06/01/21 16:00 Coronavirus (PCR) Positive (Negative) A 06/01/21 08:30 Microbiology: Microbiology 05/31/21 Unknown Urine,Catheterized - Indwelling Catheter Urine Culture - Final NO GROWTH AFTER 48 HOURS 05/31/21 18:10 Peripheral/Venous Blood Culture - Preliminary NO GROWTH AFTER 24 HOURS 05/31/21 18:10 Peripheral/Venous Blood Culture - Preliminary NO GROWTH AFTER 24 HOURS Anderson/IV: Voiding Method Indwelling Catheter Active Medications - Current Medications Current Medications: Generic Name Dose Route Start Last Admin Trade Name Freq PRN Reason Stop Dose Admin Acetaminophen 650 mg 05/31/21 22:28 06/01/21 21:47 Acetaminophen 325 Mg Tab PO 650 mg Q4H PRN Administration Pain MILD(1-3)/Fever >100.5/CORDERO Ascorbic Acid 500 mg 06/01/21 22:00 06/02/21 09:25 Ascorbic Acid 500 Mg Tab PO 500 mg BID SHAN Administration Aspirin 81 mg 06/03/21 10:00 Aspirin 81 Mg Tab Chew FEEDTUBE QDAY SHAN Atorvastatin Calcium 40 mg 06/02/21 22:00 Atorvastatin 40 Mg Tab FEEDTUBE QHS SHAN Cholecalciferol 5,000 unit 06/02/21 10:00 06/02/21 09:25 Cholecalciferol (Vit D3) 5,000 Unit Tab PO 5,000 unit DAILY SHAN Administration Dexamethasone 6 mg 06/01/21 19:40 06/02/21 09:24 Dexamethasone 4 Mg Tab PO 06/11/21 19:39 6 mg QDAY SHAN Administration Dextrose 0 ml 06/01/21 05:46 Dextrose 50% In Water (25gm) 50 Ml Syringe IV Q30MIN PRN Hypoglycemia Protocol Enoxaparin Sodium 90 mg 06/01/21 22:00 06/02/21 09:24 Enoxaparin 100 Mg/1 Ml Inj 1 mg/kg (90 mg) 90 mg SUB-Q Administration Q12HR [facility] Protocol Famotidine 20 mg 05/31/21 23:00 06/02/21 09:25 Famotidine 20 Mg/2 Ml Inj IV 20 mg BID [facility] Administration Remdesivir 100 mg/ Sodium 250 mls @ 500 mls/hr 06/03/21 14:00 Chloride IV 06/06/21 14:29 Q24HR@1400 [facility] Insulin Glargine 25 units 06/02/21 22:00 Insulin Glargine 100 Units/Ml SUB-Q QHS [facility] Insulin Human Lispro 0 unit 06/01/21 06:00 06/02/21 11:34 Insulin Lispro 100 Unit/Ml SUB-Q 6 unit Q6HR [facility] Administration Protocol Metoprolol Tartrate 12.5 mg 06/02/21 22:00 Metoprolol Tartrate 25 Mg Tab FEEDTUBE BID SHAN Ondansetron HCl 4 mg 05/31/21 22:28 Ondansetron 4 Mg/2 Ml Inj IV Q8H PRN Nausea And Vomiting Potassium Chloride 40 meq 06/02/21 13:00 06/02/21 13:13 Potassium Chloride 20 Meq Packet FEEDTUBE 06/02/21 17:00 40 meq ONCE@1300 SHAN Administration Sodium Chloride 10 ml 06/01/21 10:00 06/02/21 12:57 Sodium Chloride 0.9% 10 Ml Flush Syringe IV 10 ml BID SHAN Administration Sodium Chloride 10 ml 05/31/21 22:28 Sodium Chloride 0.9% 10 Ml Flush Syringe IV PRN PRN LINE FLUSH Sodium Chloride 10 ml 06/01/21 09:26 Sodium Chloride 0.9% 50 Ml Ivpb IV PRN PRN FLUSH Sodium Chloride 50 ml 06/02/21 08:00 06/02/21 11:16 Sodium Chloride 0.9% 50 Ml Ivpb IV 06/06/21 14:01 Not Given Q24HR@1400 [facility] Zinc Sulfate 220 mg 06/01/21 22:00 06/02/21 09:25 Zinc Sulfate 220 Mg Cap PO 220 mg BID SHAN Administration Nutrition/Malnutrition Assess - Dietary Evaluation Nutrition/Malnutrition Findings: Nutrition Notes Start: 06/01/21 11:55 Freq: Status: Active Protocol: Document 06/01/21 14:05 FERMIN (Rec: 06/01/21 14:50 FERMIN [id number]) Nutrition Notes Need for Assessment generated from: MD Order Initial or Follow up Assessment Current Diagnosis Decubitus(Pressure Ulcer), Diabetes,Sepsis,Hypertension, Respiratory Failure Other Pertinent Diagnosis AMS, Acute encephalopathy, Hypernatremia, hypokalemia, Bilateral AKA. Current Diet TF-Vital AF @ 47 ml/hr (since D 06/01). Labs/Tests 06/01: Na 156, K 3.0, Cl 123.3 , CO2 21, BUN 40, Glu 324. Pertinent Medications 06/01: Insulin, others nutritionally unremarkable. Height 5 ft 4 in Weight 91 kg [place] Body Weight (kg) 59.09 BMI 34.4 Intake Prior to Admission Good Weight change and time frame Ht&Wt on chart correspond to after bilateral AKA (4 ft & 68 .353 Kg). No body weight change reported [employer]. Weight Status Obese Subjective/Other Information RD consult for write/manage TF MD request. Ht & Wt used were provided by Family member over the phone, and correspond to before bilateral AKA; actual Ht&Wt on chart correspond to after bilateral AKA (4 ft & 68.353 Kg). Pt is currently on mechanical ventilation. Pt presents sacral decubitus pressure ulcers. Pt lives on SNF. Percent of energy/protein needs met: Prescribed Vital AF @ 47 ml/hr provides for energy/protein needs (1,365 Kcal/85 g) during LOS, 100% Kcal; 100% AA. Burn Absent Trauma Absent GI Symptoms None Food Allergy No Skin Integrity/Comment Sacral decubitus pressure ulcers. Current % PO Other Minimum of two criteria No #1 Nutrition Diagnosis Inadequate oral intake Etiology Pt on mechanical ventilation As Evidenced by Signs and Symptoms Pt currently on NPO. Is patient on ventilator? Yes Is Patient Ambulatory and/or Out of Bed No REE-([facility]-confined to bed) 193.348 Kcal/Kg value to use for calculation 15 Approximate Energy Requirements Using 1365 kcal/Kg Calculation Used for Recommendations ABW after bilateral AKA Additional Notes Protein: 1.25-1.5 g/Kg; 85-102 g/day. Fluids: 1 ml/Kcal, or as per MD. Nutrition Intervention Nutrition Support: Start Vital AF @ 47 ml/hr. Flush: 80 ml water Q 4 hr, or as per MD. Kcal 1,365 Protein (gm) 85 Carbohydrates (gm) 126 Fat (gm) 61 Fluid (mL) 923 Fiber (gm) 6 % RDI: 100% Kcal; 100% AA. Goal #1 Provide at least 75% of energy /protein needs through Enteral Feeding during LOS. Follow-Up By: 06/03/21 Additional Comments Continue monitoring food tolerance, %PO intake of meals , and BM. <ROBERT NOONAN - Last Filed: 06/14/21 18:51> Assessment and Plan Assessment and plan: I saw and evaluated the patient. Discussed with the nurse practitioner and agree with their findings and plan as documented in this note. Hospitalist Physical - Constitutional Vitals: Temp Pulse Resp BP Pulse Ox 97.8 F 77 19 94/34 95 06/09/21 05:26 06/09/21 05:26 06/09/21 05:26 06/09/21 05:06/09/21 10:36 HEART Score - HEART Score Troponin: Troponin T 0.049 ng/mL (0.00-0.029) H D 06/02/21 10:00 Results - Labs CBC & Chem 7: 06/06/21 08:35 06/08/21 09:13 Labs: Laboratory Last Values WBC 10.1 K/mm3 (4.5-11.0) 06/06/21 08:35 RBC 3.79 M/mm3 (3.65-5.03) 06/06/21 08:35 Hgb 11.9 gm/dl (11.8-15.2) 06/06/21 08:35 Hct 36.7 % (35.5-45.6) 06/06/21 08:35 MCV 97 fl (84-94) H 06/06/21 08:35 MCH 32 pg (28-32) 06/06/21 08:35 MCHC 33 % (32-34) 06/06/21 08:35 RDW 15.3 % (13.2-15.2) H 06/06/21 08:35 Plt Count 205 K/mm3 (140-440) 06/06/21 08:35 Lymph % (Auto) 13.7 % (13.4-35.0) 06/04/21 03:59 [place] % (Auto) 6.5 % (0.0-7.3) 06/04/21 03:59 Eos % (Auto) 0.1 % (0.0-4.3) 06/04/21 03:59 Baso % (Auto) 0.1 % (0.0-1.8) 06/04/21 03:59 Lymph # (Auto) 1.4 K/mm3 (1.2-5.4) 06/04/21 03:59 [place] # (Auto) 0.7 K/mm3 (0.0-0.8) 06/04/21 03:59 Eos # (Auto) 0.0 K/mm3 (0.0-0.4) 06/04/21 03:59 Baso # (Auto) 0.0 K/mm3 (0.0-0.1) 06/04/21 03:59 Seg Neutrophils % 79.6 % (40.0-70.0) H 06/04/21 03:59 Seg Neutrophils # 8.0 K/mm3 (1.8-7.7) H 06/04/21 03:59 APTT 29.4 Sec. (24.2-36.6) 05/31/21 18:10 D-Dimer 435.79 ng/mlDDU (0-234) H 06/05/21 09:58 ABG pH 7.390 pH Units (7.350-7.450) 06/02/21 07:45 ABG pCO2 33.9 mm Hg 06/02/21 07:45 ABG pO2 108.4 mm Hg (80.0-90.0) H 06/02/21 07:45 ABG HCO3 20.1 mmol/L (20.0-26.0) 06/02/21 07:45 ABG O2 Saturation 97.9 % (95.0-99.0) 06/02/21 07:45 ABG O2 Content 18.3 (0.0-44) 06/02/21 07:45 ABG Base Excess -4.1 mmol/L (-2.0-3.0) L 06/02/21 07:45 ABG Hemoglobin 13.4 gm/dl (14.0-18.0) L 06/02/21 07:45 ABG Carboxyhemoglobin 1.0 % (0.0-5.0) 06/02/21 07:45 ABG Methemoglobin 0.6 % (0.0-1.5) 06/02/21 07:45 VBG pH 7.378 (7.320-7.420) 05/31/21 18:29 Oxyhemoglobin 96.3 % (95.0-99.0) 06/02/21 07:45 FiO2 40 % 06/02/21 07:45 Sodium 137 mmol/L (137-145) 06/08/21 09:13 Potassium 4.1 mmol/L (3.6-5.0) 06/08/21 09:13 Chloride 106.6 mmol/L (98-107) 06/08/21 09:13 Carbon Dioxide 18 mmol/L (22-30) L 06/08/21 09:13 Anion Gap 17 mmol/L 06/08/21 09:13 BUN 21 mg/dL (9-20) H 06/08/21 09:13 Creatinine 0.4 mg/dL (0.8-1.3) L 06/08/21 09:13 Estimated GFR > 60 ml/min 06/08/21 09:13 BUN/Creatinine Ratio 53 % 06/08/21 09:13 Glucose 149 mg/dL (75-100) H 06/08/21 09:13 POC Glucose 106 mg/dL (70-105) H 06/09/21 05:26 Lactic Acid 1.80 mmol/L (0.7-2.0) 05/31/21 21:57 Calcium 8.1 mg/dL (8.4-10.2) L 06/08/21 09:13 Magnesium 1.90 mg/dL (1.7-2.3) 06/01/21 18:19 Ferritin 702.9 ng/mL (30.0-300.0) H 06/05/21 09:58 Total Bilirubin 0.30 mg/dL (0.1-1.2) 06/05/21 09:58 AST 33 units/L (5-40) 06/05/21 09:58 ALT 55 units/L (7-56) 06/05/21 09:58 Alkaline Phosphatase 85 units/L (35-129) 06/05/21 09:58 Lactate Dehydrogenase 237 units/L (91-180) H 06/05/21 09:58 Total Creatine Kinase 299 units/L (55-170) H 06/02/21 10:00 CK-MB (CK-2) 2.2 ng/mL (0.0-4.0) 06/02/21 10:00 CK-MB (CK-2) Rel Index 0.3 (0-4) 06/02/21 00:28 Troponin T 0.049 ng/mL (0.00-0.029) H D 06/02/21 10:00 C-Reactive Protein 5.20 mg/dL (0.00-1.30) H 06/05/21 09:58 NT-Pro-B Natriuret Pep 1305 pg/mL (0-900) H 06/01/21 18:19 Total Protein 5.4 g/dL (6.3-8.2) L 06/05/21 09:58 Albumin 1.9 g/dL (3.9-5) L 06/05/21 09:58 Albumin/Globulin Ratio 0.5 % 06/05/21 09:58 Triglycerides 99 mg/dL (2-149) 05/31/21 19:01 Cholesterol 104 mg/dL (50-199) 05/31/21 19:01 LDL Cholesterol Direct 67 mg/dL (50-130) 05/31/21 19:01 HDL Cholesterol 21 mg/dL (40-59) L 05/31/21 19:01 Cholesterol/HDL Ratio 4.95 % 05/31/21 19:01 Procalcitonin 0.90 ng/mL (<0.15) 06/01/21 18:19 Urine Color [place] (Yellow) 05/31/21 Unknown Urine Turbidity Cloudy (Clear) 05/31/21 Unknown Urine pH 5.0 (5.0-7.0) 05/31/21 Unknown Ur Specific [place] 1.026 (1.003-1.030) 05/31/21 Unknown Urine Protein 100 mg/dl mg/dL (Negative) 05/31/21 Unknown Urine Glucose (UA) 50 mg/dL (Negative) 05/31/21 Unknown Urine Ketones Neg mg/dL (Negative) 05/31/21 Unknown Urine Blood Sm (Negative) 05/31/21 Unknown Urine Nitrite Neg (Negative) 05/31/21 Unknown Urine Bilirubin Neg (Negative) 05/31/21 Unknown Urine Urobilinogen 4.0 mg/dL (<2.0) 05/31/21 Unknown Ur Leukocyte Esterase Neg (Negative) 05/31/21 Unknown Urine WBC (Auto) 12.0 /HPF (0.0-6.0) H 05/31/21 Unknown Urine RBC (Auto) < 1.0 /HPF (0.0-6.0) 05/31/21 Unknown Urine Bacteria (Auto) 1+ /HPF (Negative) 05/31/21 Unknown Granular Casts 22 /LPF 05/31/21 Unknown Urine Mucus 3+ /HPF 05/31/21 Unknown Urine Osmolality 750 Mosm/kg 06/01/21 16:00 Urine Creatinine 158.6 mg/dL (0.1-20.0) H 06/01/21 16:00 Urine Sodium 33 mmol/L 06/01/21 16:00 Urine Potassium 61.16 mmol/L 06/01/21 16:00 Urine Urea Nitrogen 1337 06/01/21 16:00 Nasal Screen MRSA (PCR) Negative (Negative) 06/01/21 16:00 Coronavirus (PCR) Positive (Negative) A 06/06/21 09:00 Anderson/IV: Voiding Method Indwelling Catheter Nutrition/Malnutrition Assess - Dietary Evaluation Nutrition/Malnutrition Findings: Nutrition Notes Start: 06/01/21 11:55 Freq: Status: Discharge Protocol: Document 06/08/21 10:28 FERMIN (Rec: 06/08/21 10:59 FERMIN [id number]) Nutrition Notes Need for Assessment generated from: MD Order Initial or Follow up Reassessment Current Diagnosis Decubitus(Pressure Ulcer), Diabetes,Sepsis,Respiratory Failure Other Pertinent Diagnosis COVID-19, Acute encephalopathy , Hypernatremia, NSTEMI, Bilateral AKA. Current Diet TF-Glucerna 1.2 [place] @ 47 ml/hr (since L 06/08). Labs/Tests 06/08: Cl 108.5, BUN 27, Crea 0.6, Glu 178. Pertinent Medications 06/08: Vit C, Vit D3, ZnSO4, others nutritionally unremarkable. Height 4 ft Weight 68 kg [place] Body Weight (kg) 15.45 BMI 45.7 Weight change and time frame No body weight change reported in 1 week. Weight Status Obese Subjective/Other Information RD consult for write/manage TF . PEG tube olaced on 06/07, well tolerated post op report. Percent of energy/protein needs met: Prescribed Glucerna 1.2 Mateusz @ 47 ml/hr provides for energy/ protein needs (1,352 Kcal/68 g ) during LOS, 100% Kcal; 82% AA. Burn Absent Trauma Absent GI Symptoms Constipation Difficulty In Swallowing Food Allergy No Skin Integrity/Comment Sacral decubitus pressure ulcers. Current % PO Other Minimum of two criteria No #2 Nutrition Diagnosis Increased nutrient needs ( specify in comment below) Comments: protein Diagnosis Progress(for reassessment Continues documentation) #1 Nutrition Diagnosis Inadequate oral intake Comments: PEG tube olaced on 06/07, well tolerated post op report. Diagnosis Progress(for reassessment Continues documentation) Is patient on ventilator? No Is Patient Ambulatory and/or Out of Bed No REE-([facility]-confined to bed) 1351.824 Calculation Used for Recommendations [facility] Additional Notes Protien: 82-102 g (1.2-1.5 g/ Kg. Fluids: 1 mL/Kcal, or as per MD. Nutrition Intervention Nutrition Support: Resume Glucerna 1.2 Mateusz @ 47 ml/hr. Flush: 75 ml water Q 4 hr, or as per MD. Kcal 1,352 Protein (gm) 68 Carbohydrates (gm) 129 Fat (gm) 68 Fluid (mL) 907 Fiber (gm) 18 % RDI: 100% Kcal; 82% AA. Goal #1 Provide at least 75% of energy /protein needs through Enteral Feeding during LOS. Follow-Up By: 06/10/21 Additional Comments Continue monitoring TF tolerance and BM.
[2021-06-02 16:03] LABS: C-Reactive Protein 14.7 mg/dL (0.00-1.30)
[2021-06-02] MEDS ORDERED: TOCILIZUMAB 800 MG in SODIUM CHLORIDE 0.9% 100 ML IV ONE (16:52)
[2021-06-02] MEDS: INSULIN GLARGINE 100 UNITS/ML SUB-Q SCH (22:41)
[2021-06-02] MEDS: METOPROLOL TARTRATE 25 MG TAB FEEDTUBE SCH (23:09)
[2021-06-03] MEDS: INSULIN LISPRO 100 UNIT/ML SUB-Q SCH ×5 (01:53→17:38)
[2021-06-03] MEDS: FREE WATER PO SCH ×6 (01:53→22:00)
--- NOTE | 2021-06-03 07:43 | Progress Note ---
Assessment and Plan Assessment and plan: HPI This is a 55-year-old male with bilateral AKA, DM, seizure disorder, BPH, CAD s/p CABG x4 who presented to the emergency department from [facility] via EMS with complaints of severe lethargy, only respond to verbal stimuli and hypoxia in the low 80s by the shelter staff. Patient was placed on nonrebreather and EMS was called. Upon their arrival SPO2 noted to be improved to 88%. Patient was brought to [facility] for further evaluation. In the emergency department patient was intubated due to decrease of responsiveness and hypoxia. Work-up in the emergency department revealed severe hypernatremia, hypokalemia, hyperchloremia, metabolic acidosis, elevated blood glucose and slight anemia. Patient had a elevated troponin on arrival. Patient was admitted to the hospitalist service with rhabdomyolysis, acute respiratory failure and is COVID-19 PUI with consults to [facility]. Hospital course to date 06/01: Troponin trended, free water flush initiated, echocardiogram ordered, potassium repleted, antibiotics discontinued, cardiology consulted. Patient is COVID-19 PCR positive, infectious disease consulted. Urine studies ordered for hypernatremia work-up. 06/02: Patient was extubated today per [facility], started on remdesivir. Patient will be transferred to the floor today. Pending CRP to see if patient is candidate for Actemra 06/03: Sodium remains elevated, increased FWF to 250 cc q4hr. Remains on tube feeds, blood sugar is elevated. Will increase lantus and add scheduled insulin. Pending ST eval. Working with for home O2 set up for patient. Anticipate discharge in 24 hrs back to SNF. Assessment and plan: This is a 55-year-old male with bilateral AKA, DM, seizure disorder, BPH, CAD s/p CABG x4 admitted with elevated troponins, hypernatremia, hypokalemia, hyperchloremia, metabolic acidosis and acute hypoxic respiratory failure. Acute hypoxic respiratory failure -[facility] consulted, appreciate recommendations -Intubated on 05/31 with 8.0 ETT at 24 the lips -A.m. vent settings: CPAP 10/6 -Patient placed on CPAP on 06/01 and remained on CPAP after extubation on 06/02 -See RT RT notes for titration -extubated to NC -A.m. ABG and CXR noted -Pulm hygiene -SPO2 monitoring Acute metabolic encephalopathy, H/o CVA, seizure disorder -Follow commands -Avoid delirium -Reorientation as needed -Restart seizure medications when obtained -CT head shows parenchymal atrophy greater than expected for age 66 years, evidence of remote bilateral MCA infarctions unchanged from prior study, no acute intracranial abnormalities Sepsis, COVID-19 infection -Presented with acute hypoxic respiratory failure, leukocytosis, febrile on admit -CXR shows patchy bilateral parenchymal opacities left mid and lower lung zone -Antibiotic therapy with cefepime and vancomycin -Discontinued today due to normalization WBC and being afebrile -COVID-19 PCR positive -Infectious disease consulted, appreciate recommendations -Isolation/droplet precautions -Remdesivir () -Actemra will be given depending on CRP it is still pending -Vitamin D/vitamin C/zinc -Steroids for 10 days -Anticoagulation based on D-dimer -Trend COVID-19 inflammatory markers -Follow WBC and temperature curve -Follow-up blood cultures NSTEMI, h/o CAD s/p CABG x4, possible CHF, HTN -Cardiology consulted, appreciate recommendations -Echocardiogram pending -ECG shows T waves -Trend troponins -Blood pressure monitoring per protocol -Started low dose BB in setting of hypertension Severe hypernatremia (improving) -Free water flush -Trend sodium -Urine osmolality and sodium do not indicate DI -Anderson catheter for strict intake and output Hypokalemia -Potassium replacement -Trend BMP Protein calorie malnutrition, h/o DM -Ntr consult for TF -24 hour -95 -SSI -Accu-Cheks every 6 -Avoid hypoglycemia -Long-acting insulin S/P bilateral AKA -Continue supportive care Seizure disorder -Aspiration/seizure precautions -Restart seizure medications when obtained DVT/GI prophylaxis -PPI -Lovenox therapeutic dose History Interval history: Resting comfortably on encounter. NC at 4L/min. Hospitalist Physical - Physical exam Narrative exam: Physical Exam: VITAL SIGNS: Reviewed. GENERAL: The patient appears normally developed, Vital signs as documented. HEAD: No signs of head trauma. EYES: Pupils are equal. Extraocular motions intact. EARS: Hearing grossly intact. MOUTH: Oropharynx is normal. NECK: No adenopathy, no JVD. CHEST: Chest with clear breath sounds bilaterally. No wheezes, rales, or rhonchi. CARDIAC: Regular rate and rhythm. S1 and S2, without murmurs, gallops, or rubs. VASCULAR: No Edema. Peripheral pulses normal and equal in all extremities. ABDOMEN: Soft, non tender and non distended. No rebound or guarding, and no masses palpated. Bowel Sounds normal. MUSCULOSKELETAL: Good range of motion of all major joints. Extremities without clubbing, cyanosis or edema. NEUROLOGIC EXAM: Alert and orientation unable to assess, babbles incoherently. PSYCHIATRIC: Unable to properly assess. SKIN: detail exam as documented in skin assessment - Constitutional Vitals: Temp Pulse Resp BP Pulse Ox 97.9 F 77 18 126/48 97 06/03/21 05:30 06/03/21 05:30 06/03/21 05:30 06/03/21 05:30 06/03/21 05:30 General appearance: Present: no acute distress HEART Score - HEART Score Troponin: Troponin T 0.049 ng/mL (0.00-0.029) H D 06/02/21 10:00 Results - Labs CBC & Chem 7: 06/03/21 07:27 06/03/21 07:27 Labs: Laboratory Last Values WBC 9.1 K/mm3 (4.5-11.0) 06/02/21 10:00 RBC 3.33 M/mm3 (3.65-5.03) L 06/02/21 10:00 Hgb 10.3 gm/dl (11.8-15.2) L 06/02/21 10:00 Hct 33.0 % (35.5-45.6) L 06/02/21 10:00 MCV 99 fl (84-94) H 06/02/21 10:00 MCH 31 pg (28-32) 06/02/21 10:00 MCHC 31 % (32-34) L 06/02/21 10:00 RDW 15.1 % (13.2-15.2) 06/02/21 10:00 Plt Count 199 K/mm3 (140-440) 06/02/21 10:00 Lymph % (Auto) 16.1 % (13.4-35.0) 06/01/21 04:50 [place] % (Auto) 7.6 % (0.0-7.3) H 06/01/21 04:50 Eos % (Auto) 0.5 % (0.0-4.3) 06/01/21 04:50 Baso % (Auto) 0.4 % (0.0-1.8) 06/01/21 04:50 Lymph # (Auto) 1.4 K/mm3 (1.2-5.4) 06/01/21 04:50 [place] # (Auto) 0.7 K/mm3 (0.0-0.8) 06/01/21 04:50 Eos # (Auto) 0.0 K/mm3 (0.0-0.4) 06/01/21 04:50 Baso # (Auto) 0.0 K/mm3 (0.0-0.1) 06/01/21 04:50 Seg Neutrophils % 75.4 % (40.0-70.0) H 06/01/21 04:50 Seg Neutrophils # 6.7 K/mm3 (1.8-7.7) 06/01/21 04:50 APTT 29.4 Sec. (24.2-36.6) 05/31/21 18:10 D-Dimer 1247.52 ng/mlDDU (0-234) H 06/01/21 18:19 ABG pH 7.390 pH Units (7.350-7.450) 06/02/21 07:45 ABG pCO2 33.9 mm Hg 06/02/21 07:45 ABG pO2 108.4 mm Hg (80.0-90.0) H 06/02/21 07:45 ABG HCO3 20.1 mmol/L (20.0-26.0) 06/02/21 07:45 ABG O2 Saturation 97.9 % (95.0-99.0) 06/02/21 07:45 ABG O2 Content 18.3 (0.0-44) 06/02/21 07:45 ABG Base Excess -4.1 mmol/L (-2.0-3.0) L 06/02/21 07:45 ABG Hemoglobin 13.4 gm/dl (14.0-18.0) L 06/02/21 07:45 ABG Carboxyhemoglobin 1.0 % (0.0-5.0) 06/02/21 07:45 ABG Methemoglobin 0.6 % (0.0-1.5) 06/02/21 07:45 VBG pH 7.378 (7.320-7.420) 05/31/21 18:29 Oxyhemoglobin 96.3 % (95.0-99.0) 06/02/21 07:45 FiO2 40 % 06/02/21 07:45 Sodium 151 mmol/L (137-145) H 06/02/21 10:00 Potassium 3.4 mmol/L (3.6-5.0) L 06/02/21 10:00 Chloride 123.8 mmol/L (98-107) H 06/02/21 10:00 Carbon Dioxide 16 mmol/L (22-30) L 06/02/21 10:00 Anion Gap 15 mmol/L 06/02/21 10:00 BUN 33 mg/dL (9-20) H 06/02/21 10:00 Creatinine 0.6 mg/dL (0.8-1.3) L 06/02/21 10:00 Estimated GFR > 60 ml/min 06/02/21 10:00 BUN/Creatinine Ratio 55 % 06/02/21 10:00 Glucose 326 mg/dL (75-100) H 06/02/21 10:00 POC Glucose 390 mg/dL (70-105) H 06/03/21 05:28 Lactic Acid 1.80 mmol/L (0.7-2.0) 05/31/21 21:57 Calcium 6.6 mg/dL (8.4-10.2) L D 06/02/21 10:00 Magnesium 1.90 mg/dL (1.7-2.3) 06/01/21 18:19 Ferritin 1394.0 ng/mL (30.0-300.0) H 06/01/21 18:19 Total Bilirubin 0.50 mg/dL (0.1-1.2) 06/02/21 10:00 AST 43 units/L (5-40) H 06/02/21 10:00 ALT 56 units/L (7-56) 06/02/21 10:00 Alkaline Phosphatase 78 units/L (35-129) 06/02/21 10:00 Lactate Dehydrogenase 308 units/L (91-180) H 06/01/21 18:19 Total Creatine Kinase 299 units/L (55-170) H 06/02/21 10:00 CK-MB (CK-2) 2.2 ng/mL (0.0-4.0) 06/02/21 10:00 CK-MB (CK-2) Rel Index 0.3 (0-4) 06/02/21 00:28 Troponin T 0.049 ng/mL (0.00-0.029) H D 06/02/21 10:00 C-Reactive Protein 14.70 mg/dL (0.00-1.30) H 06/01/21 18:19 NT-Pro-B Natriuret Pep 1305 pg/mL (0-900) H 06/01/21 18:19 Total Protein 5.1 g/dL (6.3-8.2) L 06/02/21 10:00 Albumin 1.5 g/dL (3.9-5) L 06/02/21 10:00 Albumin/Globulin Ratio 0.4 % 06/02/21 10:00 Triglycerides 99 mg/dL (2-149) 05/31/21 19:01 Cholesterol 104 mg/dL (50-199) 05/31/21 19:01 LDL Cholesterol Direct 67 mg/dL (50-130) 05/31/21 19:01 HDL Cholesterol 21 mg/dL (40-59) L 05/31/21 19:01 Cholesterol/HDL Ratio 4.95 % 05/31/21 19:01 Procalcitonin 0.90 ng/mL (<0.15) 06/01/21 18:19 Urine Color [place] (Yellow) 05/31/21 Unknown Urine Turbidity Cloudy (Clear) 05/31/21 Unknown Urine pH 5.0 (5.0-7.0) 05/31/21 Unknown Ur Specific [place] 1.026 (1.003-1.030) 05/31/21 Unknown Urine Protein 100 mg/dl mg/dL (Negative) 05/31/21 Unknown Urine Glucose (UA) 50 mg/dL (Negative) 05/31/21 Unknown Urine Ketones Neg mg/dL (Negative) 05/31/21 Unknown Urine Blood Sm (Negative) 05/31/21 Unknown Urine Nitrite Neg (Negative) 05/31/21 Unknown Urine Bilirubin Neg (Negative) 05/31/21 Unknown Urine Urobilinogen 4.0 mg/dL (<2.0) 05/31/21 Unknown Ur Leukocyte Esterase Neg (Negative) 05/31/21 Unknown Urine WBC (Auto) 12.0 /HPF (0.0-6.0) H 05/31/21 Unknown Urine RBC (Auto) < 1.0 /HPF (0.0-6.0) 05/31/21 Unknown Urine Bacteria (Auto) 1+ /HPF (Negative) 05/31/21 Unknown Granular Casts 22 /LPF 05/31/21 Unknown Urine Mucus 3+ /HPF 05/31/21 Unknown Urine Osmolality 750 Mosm/kg 06/01/21 16:00 Urine Creatinine 158.6 mg/dL (0.1-20.0) H 06/01/21 16:00 Urine Sodium 33 mmol/L 06/01/21 16:00 Urine Potassium 61.16 mmol/L 06/01/21 16:00 Urine Urea Nitrogen 1337 06/01/21 16:00 Nasal Screen MRSA (PCR) Negative (Negative) 06/01/21 16:00 Coronavirus (PCR) Positive (Negative) A 06/01/21 08:30 Microbiology: Microbiology 05/31/21 18:10 Peripheral/Venous Blood Culture - Preliminary NO GROWTH AFTER 48 HOURS 05/31/21 18:10 Peripheral/Venous Blood Culture - Preliminary NO GROWTH AFTER 48 HOURS 05/31/21 Unknown Urine,Catheterized - Indwelling Catheter Urine Culture - Final NO GROWTH AFTER 48 HOURS Anderson/IV: Voiding Method Indwelling Catheter Active Medications - Current Medications Current Medications: Generic Name Dose Route Start Last Admin Trade Name Freq PRN Reason Stop Dose Admin Acetaminophen 650 mg 05/31/21 22:28 06/01/21 21:47 Acetaminophen 325 Mg Tab PO 650 mg Q4H PRN Administration Pain MILD(1-3)/Fever >100.5/CORDERO Ascorbic Acid 500 mg 06/01/21 22:00 06/02/21 23:24 Ascorbic Acid 500 Mg Tab PO 500 mg BID SHAN Administration Aspirin 81 mg 06/03/21 10:00 Aspirin 81 Mg Tab Chew FEEDTUBE QDAY SHAN Atorvastatin Calcium 40 mg 06/02/21 22:00 06/02/21 22:39 Atorvastatin 40 Mg Tab FEEDTUBE 40 mg QHS SHAN Administration Cholecalciferol 5,000 unit 06/02/21 10:00 06/02/21 09:25 Cholecalciferol (Vit D3) 5,000 Unit Tab PO 5,000 unit DAILY SHAN Administration Dexamethasone 6 mg 06/01/21 19:40 06/02/21 09:24 Dexamethasone 4 Mg Tab PO 06/11/21 19:39 6 mg QDAY [facility] Administration Dextrose 0 ml 06/01/21 05:46 Dextrose 50% In Water (25gm) 50 Ml Syringe IV Q30MIN PRN Hypoglycemia Protocol Enoxaparin Sodium 90 mg 06/01/21 22:00 06/02/21 22:38 Enoxaparin 100 Mg/1 Ml Inj 1 mg/kg (90 mg) 90 mg SUB-Q Administration Q12HR [facility] Protocol Famotidine 20 mg 05/31/21 23:00 06/02/21 22:42 Famotidine 20 Mg/2 Ml Inj IV 20 mg BID [facility] Administration Remdesivir 100 mg/ Sodium 250 mls @ 500 mls/hr 06/03/21 14:00 Chloride IV 06/06/21 14:29 Q24HR@1400 SHAN TOCILIZUMAB 800 mg/ Sodium 140 mls @ 120 mls/hr 06/02/21 16:52 Chloride IV 06/02/21 18:01 ONCE ONE Insulin Glargine 25 units 06/02/21 22:00 06/02/21 22:41 Insulin Glargine 100 Units/Ml SUB-Q 25 units QHS [facility] Administration Insulin Human Lispro 0 unit 06/01/21 06:00 06/03/21 06:53 Insulin Lispro 100 Unit/Ml SUB-Q 10 unit Q6HR [facility] Administration Protocol Insulin Human Lispro 5 unit 06/02/21 16:47 06/02/21 22:40 Insulin Lispro 100 Unit/Ml SUB-Q 5 unit TID [facility] Administration Lisinopril 10 mg 06/03/21 10:00 Lisinopril 10 Mg Tab PO QDAY SHAN Metoprolol Tartrate 12.5 mg 06/02/21 22:00 06/02/21 23:09 Metoprolol Tartrate 25 Mg Tab FEEDTUBE 12.5 mg BID SHAN Administration Ondansetron HCl 4 mg 05/31/21 22:28 Ondansetron 4 Mg/2 Ml Inj IV Q8H PRN Nausea And Vomiting Sodium Chloride 10 ml 06/01/21 10:00 06/02/21 22:53 Sodium Chloride 0.9% 10 Ml Flush Syringe IV 10 ml BID SHAN Administration Sodium Chloride 10 ml 05/31/21 22:28 Sodium Chloride 0.9% 10 Ml Flush Syringe IV PRN PRN LINE FLUSH Sodium Chloride 10 ml 06/01/21 09:26 Sodium Chloride 0.9% 50 Ml Ivpb IV PRN PRN FLUSH Sodium Chloride 50 ml 06/02/21 08:00 06/02/21 11:16 Sodium Chloride 0.9% 50 Ml Ivpb IV 06/06/21 14:01 Not Given Q24HR@1400 SHAN Zinc Sulfate 220 mg 06/01/21 22:00 06/02/21 22:39 Zinc Sulfate 220 Mg Cap PO 220 mg BID SHAN Administration Nutrition/Malnutrition Assess - Dietary Evaluation Nutrition/Malnutrition Findings: Nutrition Notes Start: 06/01/21 11:55 Freq: Status: Active Protocol: Document 06/01/21 14:05 FERMIN (Rec: 06/01/21 14:50 FERMIN [id number]) Nutrition Notes Need for Assessment generated from: MD Order Initial or Follow up Assessment Current Diagnosis Decubitus(Pressure Ulcer), Diabetes,Sepsis,Hypertension, Respiratory Failure Other Pertinent Diagnosis AMS, Acute encephalopathy, Hypernatremia, hypokalemia, Bilateral AKA. Current Diet TF-Vital AF @ 47 ml/hr (since D 06/01). Labs/Tests 06/01: Na 156, K 3.0, Cl 123.3 , CO2 21, BUN 40, Glu 324. Pertinent Medications 06/01: Insulin, others nutritionally unremarkable. Height 5 ft 4 in Weight 91 kg [place] Body Weight (kg) 59.09 BMI 34.4 Intake Prior to Admission Good Weight change and time frame Ht&Wt on chart correspond to after bilateral AKA (4 ft & 68 .353 Kg). 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 Weight Status Obese Subjective/Other Information RD consult for write/manage TF MD request. Ht & Wt used were provided by Family member over the phone, and correspond to before bilateral AKA; actual Ht&Wt on chart correspond to after bilateral AKA (4 ft & 68.353 Kg). Pt is currently on mechanical ventilation. Pt presents sacral decubitus pressure ulcers. Pt lives on SNF. Percent of energy/protein needs met: Prescribed Vital AF @ 47 ml/hr provides for energy/protein needs (1,365 Kcal/85 g) during LOS, 100% Kcal; 100% AA. Burn Absent Trauma Absent GI Symptoms None Food Allergy No Skin Integrity/Comment Sacral decubitus pressure ulcers. Current % PO Other Minimum of two criteria No #1 Nutrition Diagnosis Inadequate oral intake Etiology Pt on mechanical ventilation As Evidenced by Signs and Symptoms Pt currently on NPO. Is patient on ventilator? Yes Is Patient Ambulatory and/or Out of Bed No REE-([facility]-confined to bed) 1931.348 Kcal/Kg value to use for calculation 15 Approximate Energy Requirements Using 1365 kcal/Kg Calculation Used for Recommendations ABW after bilateral AKA Additional Notes Protein: 1.25-1.5 g/Kg; 85-102 g/day. Fluids: 1 ml/Kcal, or as per MD. Nutrition Intervention Nutrition Support: Start Vital AF @ 47 ml/hr. Flush: 80 ml water Q 4 hr, or as per MD. Kcal 1,365 Protein (gm) 85 Carbohydrates (gm) 126 Fat (gm) 61 Fluid (mL) 923 Fiber (gm) 6 % RDI: 100% Kcal; 100% AA. Goal #1 Provide at least 75% of energy /protein needs through Enteral Feeding during LOS. Follow-Up By: 06/03/21 Additional Comments Continue monitoring food tolerance, %PO intake of meals , and BM.
[2021-06-03 09:06] LABS: Hematocrit 38.9 % (35.5-45.6); Hemoglobin 12.1 gm/dl (11.8-15.2); Mean Corpuscular HGB Conc 31 % (32-34); Mean Corpuscular Volume 98 fl (84-94); Platelet Count 241 K/mm3 (140-440); Red Blood Count 3.99 M/mm3 (3.65-5.03); Red Cell Distribution Width 15.1 % (13.2-15.2)
[2021-06-03 09:46] LABS: Alanine Aminotransferase 56 units/L (7-56); Albumin 2.3 g/dL (3.9-5); BUN/Creatinine Ratio 53; Blood Urea Nitrogen 42 mg/dL (9-20); Calcium 8.4 mg/dL (8.4-10.2); Hemolysis Index 9
--- NOTE | 2021-06-03 09:52 | Progress Note ---
Assessment and Plan 66 y/o male with acute respiratory failure secondary to altered mental status, exact etiology unknown, intubated in the ED for airway protection but also started on sedation, rule out COVID 06/03/21: COVID positive. Steroids. Prone if able even though oxygen requirement has been minimal. Follow up ID recs. Will continue to follow. 1. Stop all sedation 2. If able and awake, attempt PSV trials 3. Needs diabetic therapy 4. Free water and assess free water deficit 5. Stop abx 6. Will extubate once awake, on minimal vent settings CCT 31 minutes. Subjective Date of service: 06/03/21 Principal diagnosis: COVID-19, Acute respiratory failure, NSTEMI Interval history: No acute events. Successful transfer to floor with no documented no issues. STable on 2 liters. Objective Vital Signs - 12hr 06/02/21 06/02/21 06/03/21 22:32 23:09 00:00 Temperature 98.6 F Pulse Rate 72 72 90 Respiratory 20 Rate Blood Pressure 130/38 Blood Pressure 130/38 [Right] O2 Sat by Pulse 94 94 Oximetry 06/03/21 06/03/21 04:00 05:30 Temperature 97.9 F Pulse Rate 73 77 Respiratory 18 Rate Blood Pressure 126/48 Blood Pressure [Right] O2 Sat by Pulse 97 Oximetry Constitutional: no acute distress, comatose Eyes: non-icteric ENT: other (orally intubated) Neck: supple Effort: normal Ascultation: Bilateral: clear Tactile fremitus: Bilateral: normal Cardiovascular: regular rate and rhythm Gastrointestinal: normoactive bowel sounds, soft CBC and BMP: 06/03/21 07:27 06/03/21 07:27 ABG, PT/INR, D-dimer: ABG ABG pH 7.390 pH Units (7.350-7.450) 06/02/21 07:45 ABG pCO2 33.9 mm Hg 06/02/21 07:45 ABG pO2 108.4 mm Hg (80.0-90.0) H 06/02/21 07:45 ABG O2 Saturation 97.9 % (95.0-99.0) 06/02/21 07:45 PT/INR, D-dimer D-Dimer 1247.52 ng/mlDDU (0-234) H 06/01/21 18:19 Abnormal lab findings: Abnormal Labs 05/31/21 05/31/21 05/31/21 18:10 18:10 18:10 WBC RBC Hgb Hct MCV 99 H MCHC Lymph % (Auto) 8.1 L [place] % (Auto) Lymph # (Auto) 0.8 L Seg Neutrophils % 86.5 H Seg Neutrophils # 8.9 H D-Dimer ABG pO2 ABG O2 Saturation ABG Base Excess ABG Hemoglobin Sodium 152 H Potassium Chloride 115.3 H Carbon Dioxide BUN 39 H Creatinine Glucose 396 H POC Glucose Lactic Acid 3.00 H* Calcium Ferritin AST Alkaline Phosphatase Lactate Dehydrogenase Total Creatine Kinase Troponin T C-Reactive Protein NT-Pro-B Natriuret Pep Total Protein Albumin 2.9 L HDL Cholesterol Urine WBC (Auto) Urine Creatinine Coronavirus (PCR) 05/31/21 05/31/21 06/01/21 19:01 Unknown 01:33 WBC RBC Hgb Hct MCV MCHC Lymph % (Auto) [place] % (Auto) Lymph # (Auto) Seg Neutrophils % Seg Neutrophils # D-Dimer ABG pO2 ABG O2 Saturation ABG Base Excess ABG Hemoglobin Sodium Potassium Chloride Carbon Dioxide BUN Creatinine Glucose POC Glucose 255 H Lactic Acid Calcium Ferritin AST Alkaline Phosphatase Lactate Dehydrogenase Total Creatine Kinase Troponin T 0.146 H* C-Reactive Protein NT-Pro-B Natriuret Pep Total Protein Albumin HDL Cholesterol 21 L Urine WBC (Auto) 12.0 H Urine Creatinine Coronavirus (PCR) 06/01/21 06/01/21 06/01/21 04:08 04:50 04:50 WBC RBC Hgb 11.6 L Hct MCV 99 H MCHC Lymph % (Auto) [place] % (Auto) 7.6 H Lymph # (Auto) Seg Neutrophils % 75.4 H Seg Neutrophils # D-Dimer ABG pO2 283.4 H ABG O2 Saturation 99.5 H ABG Base Excess ABG Hemoglobin 11.5 L Sodium 156 H Potassium 3.0 L Chloride 123.3 H Carbon Dioxide 21 L BUN 40 H Creatinine Glucose 324 H POC Glucose Lactic Acid Calcium Ferritin AST Alkaline Phosphatase Lactate Dehydrogenase Total Creatine Kinase Troponin T C-Reactive Protein NT-Pro-B Natriuret Pep Total Protein 6.0 L Albumin 2.3 L HDL Cholesterol Urine WBC (Auto) Urine Creatinine Coronavirus (PCR) 06/01/21 06/01/21 06/01/21 05:15 08:30 12:04 WBC RBC Hgb Hct MCV MCHC Lymph % (Auto) [place] % (Auto) Lymph # (Auto) Seg Neutrophils % Seg Neutrophils # D-Dimer ABG pO2 ABG O2 Saturation ABG Base Excess ABG Hemoglobin Sodium Potassium Chloride Carbon Dioxide BUN Creatinine Glucose POC Glucose 297 H 256 H Lactic Acid Calcium Ferritin AST Alkaline Phosphatase Lactate Dehydrogenase Total Creatine Kinase Troponin T C-Reactive Protein NT-Pro-B Natriuret Pep Total Protein Albumin HDL Cholesterol Urine WBC (Auto) Urine Creatinine Coronavirus (PCR) Positive A 06/01/21 06/01/21 06/01/21 13:10 16:00 17:57 WBC RBC Hgb Hct MCV MCHC Lymph % (Auto) [place] % (Auto) Lymph # (Auto) Seg Neutrophils % Seg Neutrophils # D-Dimer ABG pO2 ABG O2 Saturation ABG Base Excess ABG Hemoglobin Sodium Potassium Chloride Carbon Dioxide BUN Creatinine Glucose POC Glucose 272 H 179 H Lactic Acid Calcium Ferritin AST Alkaline Phosphatase Lactate Dehydrogenase Total Creatine Kinase Troponin T C-Reactive Protein NT-Pro-B Natriuret Pep Total Protein Albumin HDL Cholesterol Urine WBC (Auto) Urine Creatinine 158.6 H Coronavirus (PCR) 06/01/21 06/01/21 06/01/21 18:19 18:19 18:19 WBC RBC Hgb Hct MCV MCHC Lymph % (Auto) [place] % (Auto) Lymph # (Auto) Seg Neutrophils % Seg Neutrophils # D-Dimer 1247.52 H ABG pO2 ABG O2 Saturation ABG Base Excess ABG Hemoglobin Sodium 152 H Potassium Chloride 121.4 H Carbon Dioxide BUN 35 H Creatinine Glucose 234 H POC Glucose Lactic Acid Calcium Ferritin AST Alkaline Phosphatase Lactate Dehydrogenase Total Creatine Kinase 530 H Troponin T 0.133 H* C-Reactive Protein NT-Pro-B Natriuret Pep Total Protein Albumin HDL Cholesterol Urine WBC (Auto) Urine Creatinine Coronavirus (PCR) 06/01/21 06/01/21 06/01/21 18:19 18:19 18:19 WBC RBC Hgb Hct MCV MCHC Lymph % (Auto) [place] % (Auto) Lymph # (Auto) Seg Neutrophils % Seg Neutrophils # D-Dimer ABG pO2 ABG O2 Saturation ABG Base Excess ABG Hemoglobin Sodium Potassium Chloride Carbon Dioxide BUN Creatinine Glucose POC Glucose Lactic Acid Calcium Ferritin 1394.0 H AST Alkaline Phosphatase Lactate Dehydrogenase 308 H Total Creatine Kinase Troponin T C-Reactive Protein 14.70 H NT-Pro-B Natriuret Pep 1305 H Total Protein Albumin HDL Cholesterol Urine WBC (Auto) Urine Creatinine Coronavirus (PCR) 06/01/21 06/01/21 06/02/21 21:46 23:36 00:28 WBC RBC Hgb Hct MCV MCHC Lymph % (Auto) [place] % (Auto) Lymph # (Auto) Seg Neutrophils % Seg Neutrophils # D-Dimer ABG pO2 ABG O2 Saturation ABG Base Excess ABG Hemoglobin Sodium Potassium Chloride Carbon Dioxide BUN Creatinine Glucose POC Glucose 204 H 218 H Lactic Acid Calcium Ferritin AST Alkaline Phosphatase Lactate Dehydrogenase Total Creatine Kinase 457 H Troponin T 0.144 H* C-Reactive Protein NT-Pro-B Natriuret Pep Total Protein Albumin HDL Cholesterol Urine WBC (Auto) Urine Creatinine Coronavirus (PCR) 06/02/21 06/02/21 06/02/21 05:33 07:45 10:00 WBC RBC 3.33 L Hgb 10.3 L Hct 33.0 L MCV 99 H MCHC 31 L Lymph % (Auto) [place] % (Auto) Lymph # (Auto) Seg Neutrophils % Seg Neutrophils # D-Dimer ABG pO2 108.4 H ABG O2 Saturation ABG Base Excess -4.1 L ABG Hemoglobin 13.4 L Sodium Potassium Chloride Carbon Dioxide BUN Creatinine Glucose POC Glucose 303 H Lactic Acid Calcium Ferritin AST Alkaline Phosphatase Lactate Dehydrogenase Total Creatine Kinase Troponin T C-Reactive Protein NT-Pro-B Natriuret Pep Total Protein Albumin HDL Cholesterol Urine WBC (Auto) Urine Creatinine Coronavirus (PCR) 06/02/21 06/02/21 06/02/21 10:00 11:10 15:52 WBC RBC Hgb Hct MCV MCHC Lymph % (Auto) [place] % (Auto) Lymph # (Auto) Seg Neutrophils % Seg Neutrophils # D-Dimer ABG pO2 ABG O2 Saturation ABG Base Excess ABG Hemoglobin Sodium 151 H Potassium 3.4 L Chloride 123.8 H Carbon Dioxide 16 L BUN 33 H Creatinine 0.6 L Glucose 326 H POC Glucose 333 H 341 H Lactic Acid Calcium 6.6 L D Ferritin AST 43 H Alkaline Phosphatase Lactate Dehydrogenase Total Creatine Kinase 299 H Troponin T 0.049 H D C-Reactive Protein NT-Pro-B Natriuret Pep Total Protein 5.1 L Albumin 1.5 L HDL Cholesterol Urine WBC (Auto) Urine Creatinine Coronavirus (PCR) 06/02/21 06/03/21 06/03/21 22:22 01:44 05:28 WBC RBC Hgb Hct MCV MCHC Lymph % (Auto) [place] % (Auto) Lymph # (Auto) Seg Neutrophils % Seg Neutrophils # D-Dimer ABG pO2 ABG O2 Saturation ABG Base Excess ABG Hemoglobin Sodium Potassium Chloride Carbon Dioxide BUN Creatinine Glucose POC Glucose 371 H 378 H 390 H Lactic Acid Calcium Ferritin AST Alkaline Phosphatase Lactate Dehydrogenase Total Creatine Kinase Troponin T C-Reactive Protein NT-Pro-B Natriuret Pep Total Protein Albumin HDL Cholesterol Urine WBC (Auto) Urine Creatinine Coronavirus (PCR) 06/03/21 06/03/21 07:27 07:27 WBC 11.9 H RBC Hgb Hct MCV 98 H MCHC 31 L Lymph % (Auto) [place] % (Auto) Lymph # (Auto) Seg Neutrophils % Seg Neutrophils # D-Dimer ABG pO2 ABG O2 Saturation ABG Base Excess ABG Hemoglobin Sodium 151 H Potassium Chloride 119.5 H Carbon Dioxide 20 L BUN 42 H Creatinine Glucose 416 H POC Glucose Lactic Acid Calcium Ferritin AST Alkaline Phosphatase 149 H Lactate Dehydrogenase Total Creatine Kinase Troponin T C-Reactive Protein NT-Pro-B Natriuret Pep Total Protein Albumin 2.3 L HDL Cholesterol Urine WBC (Auto) Urine Creatinine Coronavirus (PCR)
[2021-06-03] MEDS: ASPIRIN 81 MG TAB CHEW FEEDTUBE SCH (10:03)
[2021-06-03] MEDS: CHOLECALCIFEROL (VIT D3) 5,000 UNIT TAB PO SCH (10:03)
[2021-06-03] MEDS: METOPROLOL TARTRATE 25 MG TAB FEEDTUBE SCH ×2 (10:04→22:00)
[2021-06-03] MEDS: DEXAMETHASONE 4 MG TAB PO SCH (10:04)
[2021-06-03] MEDS: ZINC SULFATE 220 MG CAP PO SCH ×2 (10:05→22:00)
[2021-06-03] MEDS: FAMOTIDINE 20 MG/2 ML INJ IV SCH ×2 (10:05→22:00)
[2021-06-03] MEDS: LISINOPRIL 10 MG TAB PO SCH (10:05)
[2021-06-03] MEDS: ASCORBIC ACID 500 MG TAB PO SCH ×2 (10:05→22:00)
[2021-06-03] MEDS: ENOXAPARIN 100 MG/1 ML INJ SUB-Q SCH ×2 (10:06→22:00)
--- NOTE | 2021-06-03 10:44 | Progress Note ---
Assessment and Plan Patient is a 66-year-old male with a past medical history of bilateral AKA, hypertension, diabetes and seizures who was brought to the ED for altered mental status x1 day from [facility] AMS Sepsis Acute hypoxic respiratory failure- Pulm following COVID-19-ID following NSTEMI HTN DM Echo 06/01/2021-EF 40 to 45%. Segmental anterior wall hypokinesis. Right ventricular systolic function is normal. Aortic valve is calcified. No aortic valve stenosis. No aortic regurgitation present. Trace mitral regurgitation Plan: Troponins elevated and now downtrending in the setting of sepsis D-dimer noted to be elevated. Patient may need confirmatory testing to rule out PE Continue anticoagulation with Lovenox 1 mg/kg Continue metoprolol 12.5 mg p.o. twice daily, aspirin, and statin therapy Patient may need speech eval Patient seen in conjunction with Dr. Solis agrees with this plan of care - Patient Problems (1) COVID-19 Current Visit: Yes Status: Acute (2) Acute encephalopathy Current Visit: Yes Status: Acute (3) Acute respiratory failure with hypoxia Current Visit: Yes Status: Acute (4) Hypernatremia Current Visit: Yes Status: Acute (5) Pneumonia Current Visit: Yes Status: Acute (6) Sepsis Current Visit: Yes Status: Acute Qualifiers: Sepsis type: sepsis due to unspecified organism Severe sepsis shock status: without septic shock (7) S/P AKA (above knee amputation) bilateral Current Visit: Yes Status: Chronic Subjective Date of service: 06/03/21 Principal diagnosis: COVID-19, Acute respiratory failure, NSTEMI Interval history: Patient has been extubated and transferred to third floor. Patient resting in bed in no acute distress. Patient is able to speak however patient speech is unclear Patient not on monitor but previously sinus with no events Objective Vital Signs Temp Pulse Pulse Pulse Resp BP BP 06/03/21 10:04 73 138/66 06/03/21 05:30 97.9 F 77 18 126/48 06/03/21 04:00 73 06/03/21 00:00 90 06/02/21 23:09 72 130/38 06/02/21 22:32 98.6 F 72 20 130/38 06/02/21 20:00 73 06/02/21 17:00 129/75 06/02/21 16:07 98.7 F 06/02/21 16:00 76 70 78 19 143/48 06/02/21 15:00 80 19 137/42 06/02/21 14:00 79 20 153/50 06/02/21 13:28 73 153/50 06/02/21 13:25 06/02/21 13:00 75 26 H 154/64 06/02/21 12:00 82 70 78 21 154/64 06/02/21 11:27 98.1 F 06/02/21 11:14 77 20 148/59 06/02/21 11:00 76 13 148/53 Pulse Ox 06/03/21 10:04 06/03/21 05:30 97 06/03/21 04:00 06/03/21 00:00 94 06/02/21 23:09 06/02/21 22:32 94 06/02/21 20:00 06/02/21 17:00 100 06/02/21 16:07 06/02/21 16:00 100 06/02/21 15:00 99 06/02/21 14:00 99 06/02/21 13:28 99 06/02/21 13:25 99 06/02/21 13:00 99 06/02/21 12:00 99 06/02/21 11:27 06/02/21 11:14 100 06/02/21 11:00 100 - Physical Examination General: No Apparent Distress HEENT: Positive: Normocephaly, Mucus Membranes Dry Neck: Positive: trachea midline Cardiac: Positive: Reg Rate and Rhythm Lungs: Positive: Decreased Breath Sounds Neuro: Positive: Other (Unable to assess due mental status) Abdomen: Positive: Soft Skin: Negative: Rash, Suspicious Lesions Extremities: Absent: edema - Labs and Meds Cardiac Enzymes 06/01/21 06/02/21 06/03/21 Range/Units 18:19 10:00 07:27 AST 43 H 35 (5-40) units/L Lactate Dehydrogenase 308 H (91-180) units/L CK-MB (CK-2) 2.2 (0.0-4.0) ng/mL CBC 06/02/21 06/03/21 Range/Units 10:00 07:27 WBC 9.1 11.9 H (4.5-11.0) K/mm3 RBC 3.33 L 3.99 (3.65-5.03) M/mm3 Hgb 10.3 L 12.1 (11.8-15.2) gm/dl Hct 33.0 L 38.9 (35.5-45.6) % Plt Count 199 241 (140-440) K/mm3 Comprehensive Metabolic Panel 06/02/21 06/03/21 Range/Units 10:00 07:27 Sodium 151 H 151 H (137-145) mmol/L Potassium 3.4 L 3.7 (3.6-5.0) mmol/L Chloride 123.8 H 119.5 H (98-107) mmol/L Carbon Dioxide 16 L 20 L (22-30) mmol/L BUN 33 H 42 H (9-20) mg/dL Creatinine 0.6 L 0.8 (0.8-1.3) mg/dL Glucose 326 H 416 H (75-100) mg/dL Calcium 6.6 L D 8.4 D (8.4-10.2) mg/dL AST 43 H 35 (5-40) units/L ALT 56 56 (7-56) units/L Alkaline Phosphatase 78 149 H (35-129) units/L Total Protein 5.1 L 6.3 D (6.3-8.2) g/dL Albumin 1.5 L 2.3 L (3.9-5) g/dL - Imaging and Cardiology EKG: report reviewed, image reviewed Echo: report reviewed - EKG Sinus rhythms and dysrhythmias: sinus rhythm Repolarization changes or abnormalities: ST or T wave suggestive of ischemia
[2021-06-03] MEDS ORDERED: LIPASE 10,500/PROTEASE 25,000/AMYLASE 43,750 (UNITS) DR CAP FEEDTUBE PRN (11:21)
[2021-06-03] MEDS ORDERED: SODIUM BICARBONATE 325 MG TAB FEEDTUBE PRN (11:21)
[2021-06-03] MEDS ORDERED: SIMPLE SYRUP 15 ML FEEDTUBE PRN ×2 (11:21)
--- NOTE | 2021-06-03 11:53 | Progress Note ---
Assessment and Plan Cultures: Blood culture no growth so far A/P: 55-year-old man past medical history bilateral AKA, hypertension, diabetes, seizures #Severe COVID-19 pneumonia: Patient presented with a week of symptoms, chest x- ray with diffuse bilateral infiltrates, admission O2 sats on room air. Inflammatory markers elevated #Acute hypoxemic respiratory failure: Likely secondary to COVID-19 infection. Now extubated on 3L NC #Chronic sacral wound: With overlying eschar. No evidence of acute infection at present. #Acute encephalopathy: Secondary to all the above. #Diabetes: tight glycemic control for best outcomes. Recommendations: -Dexamethasone 6 mg IV/PO daily for 10 days -Remdesivir 200 mg IV q day x 1 followed by 100 mg IV q day x 4 days -Obtain q48-72h inflammatory markers - ferritin, Ddimer, CRP, LDH -Anticoagulation per hospital protocol -Proning as able Thank you for the consult, we will continue to follow. Yasmeen Smith MD [facility] ([facility] O: [phone] F: [phone] Subjective Date of service: 06/03/21 Principal diagnosis: COVID-19, Acute respiratory failure, NSTEMI Interval history: Afebrile, white count slightly elevated. Objective - Exam Narrative Exam: Physical exam deferred to reduce risk of transmission of COVID-19. Please refer to primary team's note. - Constitutional Vitals: Vital Signs Temp Pulse Resp BP Pulse Ox 97.9 F 73 18 138/66 97 06/03/21 05:30 06/03/21 10:04 06/03/21 05:30 06/03/21 10:04 06/03/21 11:10 Temperature -Last 24 Hours Temperature 97.9 F Temperature 98.6 F Temperature 98.7 F - Labs CBC & Chem 7: 06/03/21 07:27 06/03/21 07:27 Labs: Abnormal lab results 06/01/21 06/02/21 06/02/21 Range/Units 18:19 15:52 22:22 WBC (4.5-11.0) K/mm3 MCV (84-94) fl MCHC (32-34) % D-Dimer (0-234) ng/mlDDU Sodium (137-145) mmol/L Chloride (98-107) mmol/L Carbon Dioxide (22-30) mmol/L BUN (9-20) mg/dL Glucose (75-100) mg/dL POC Glucose 341 H 371 H (70-105) mg/dL Alkaline Phosphatase (35-129) units/L Lactate Dehydrogenase 308 H (91-180) units/L C-Reactive Protein 14.70 H (0.00-1.30) mg/dL Albumin (3.9-5) g/dL 06/03/21 06/03/21 06/03/21 Range/Units 01:44 05:28 07:27 WBC 11.9 H (4.5-11.0) K/mm3 MCV 98 H (84-94) fl MCHC 31 L (32-34) % D-Dimer (0-234) ng/mlDDU Sodium (137-145) mmol/L Chloride (98-107) mmol/L Carbon Dioxide (22-30) mmol/L BUN (9-20) mg/dL Glucose (75-100) mg/dL POC Glucose 378 H 390 H (70-105) mg/dL Alkaline Phosphatase (35-129) units/L Lactate Dehydrogenase (91-180) units/L C-Reactive Protein (0.00-1.30) mg/dL Albumin (3.9-5) g/dL 06/03/21 06/03/21 06/03/21 Range/Units 07:27 07:27 11:22 WBC (4.5-11.0) K/mm3 MCV (84-94) fl MCHC (32-34) % D-Dimer 880.17 H (0-234) ng/mlDDU Sodium 151 H (137-145) mmol/L Chloride 119.5 H (98-107) mmol/L Carbon Dioxide 20 L (22-30) mmol/L BUN 42 H (9-20) mg/dL Glucose 416 H (75-100) mg/dL POC Glucose 284 H (70-105) mg/dL Alkaline Phosphatase 149 H (35-129) units/L Lactate Dehydrogenase (91-180) units/L C-Reactive Protein (0.00-1.30) mg/dL Albumin 2.3 L (3.9-5) g/dL 06/03/21 Range/Units 11:49 WBC (4.5-11.0) K/mm3 MCV (84-94) fl MCHC (32-34) % D-Dimer (0-234) ng/mlDDU Sodium (137-145) mmol/L Chloride (98-107) mmol/L Carbon Dioxide (22-30) mmol/L BUN (9-20) mg/dL Glucose (75-100) mg/dL POC Glucose 234 H (70-105) mg/dL Alkaline Phosphatase (35-129) units/L Lactate Dehydrogenase (91-180) units/L C-Reactive Protein (0.00-1.30) mg/dL Albumin (3.9-5) g/dL
[2021-06-03] MEDS: INSULIN REGULAR, HUMAN 100 UNITS/1 ML SUB-Q SCH ×2 (12:33→17:38)
[2021-06-03] MEDS: SODIUM CHLORIDE 0.9% 50 ML IVPB IV SCH (14:26)
[2021-06-03] MEDS: REMDESIVIR 100 MG in SODIUM CHLORIDE 0.9% 250ML 250 ML IV SCH (14:26)
[2021-06-04] MEDS: INSULIN GLARGINE 100 UNITS/ML SUB-Q SCH ×2 (00:29→23:35)
[2021-06-04 04:35] LABS: Alanine Aminotransferase 52 units/L (7-56); Albumin 2.1 g/dL (3.9-5); BUN/Creatinine Ratio 60; Blood Urea Nitrogen 42 mg/dL (9-20)
[2021-06-04 04:36] LABS: Basophils % (Auto) 0.1 % (0.0-1.8); Eosinophils % (Auto) 0.1 % (0.0-4.3); Hemoglobin 11.8 gm/dl (11.8-15.2); Lymphocytes # (Auto) 1.4 K/mm3 (1.2-5.4); Lymphocytes % (Auto) 13.7 % (13.4-35.0); Mean Corpuscular HGB Conc 33 % (32-34); Mean Corpuscular Volume 97 fl (84-94); Monocytes # (Auto) 0.7 K/mm3 (0.0-0.8); Monocytes % (Auto) 6.5 % (0.0-7.3); Platelet Count 216 K/mm3 (140-440); Red Blood Count 3.71 M/mm3 (3.65-5.03); Red Cell Distribution Width 14.9 % (13.2-15.2)
[2021-06-04 04:46] LABS: Calcium 8.1 mg/dL (8.4-10.2); Hemolysis Index 3
[2021-06-04] MEDS: INSULIN REGULAR, HUMAN 100 UNITS/1 ML SUB-Q SCH ×5 (06:00→23:42)
[2021-06-04] MEDS: DEXAMETHASONE 4 MG TAB PO SCH (09:10)
[2021-06-04] MEDS: ZINC SULFATE 220 MG CAP PO SCH ×2 (09:10→22:39)
[2021-06-04] MEDS: CHOLECALCIFEROL (VIT D3) 5,000 UNIT TAB PO SCH (09:10)
--- NOTE | 2021-06-04 09:10 | Progress Note ---
Assessment and Plan 66 y/o male with acute respiratory failure secondary to altered mental status, exact etiology unknown, intubated in the ED for airway protection but also started on sedation, rule out COVID 06/04/21: Continue steroids for 10 days and Remdesivir as ordered by ID. Wean FiO2 as tolerated for sats >88%. No objection to assessing for VTE, especially given COVID positive state, but doubt he has large PE. Suggest starting with doppler studies. 06/03/21: COVID positive. Steroids. Prone if able even though oxygen requirement has been minimal. Follow up ID recs. Will continue to follow. 1. Stop all sedation 2. If able and awake, attempt PSV trials 3. Needs diabetic therapy 4. Free water and assess free water deficit 5. Stop abx 6. Will extubate once awake, on minimal vent settings CCT 31 minutes. Subjective Date of service: 06/04/21 Principal diagnosis: COVID-19, Acute respiratory failure, NSTEMI Interval history: Pulm status appears stable. Reviewed ID and cards notes. Objective Vital Signs - 12hr 06/03/21 06/03/21 06/03/21 21:59 22:00 22:04 Temperature 97.3 F L 98.0 F Pulse Rate 78 78 95 H Respiratory 20 20 20 Rate Blood Pressure 146/65 146/65 152/92 O2 Sat by Pulse 97 94 98 Oximetry 06/04/21 04:58 Temperature 98.3 F Pulse Rate 74 Respiratory 20 Rate Blood Pressure 123/55 O2 Sat by Pulse 91 Oximetry Constitutional: no acute distress, comatose Eyes: non-icteric ENT: other (orally intubated) Neck: supple Effort: normal Ascultation: Bilateral: clear Tactile fremitus: Bilateral: normal Cardiovascular: regular rate and rhythm Gastrointestinal: normoactive bowel sounds, soft CBC and BMP: 06/04/21 03:59 06/04/21 03:59 ABG, PT/INR, D-dimer: ABG ABG pH 7.390 pH Units (7.350-7.450) 06/02/21 07:45 ABG pCO2 33.9 mm Hg 06/02/21 07:45 ABG pO2 108.4 mm Hg (80.0-90.0) H 06/02/21 07:45 ABG O2 Saturation 97.9 % (95.0-99.0) 06/02/21 07:45 PT/INR, D-dimer D-Dimer 880.17 ng/mlDDU (0-234) H 06/03/21 07:27 Abnormal lab findings: Abnormal Labs 05/31/21 05/31/21 05/31/21 18:10 18:10 18:10 WBC RBC Hgb Hct MCV 99 H MCHC Lymph % (Auto) 8.1 L [place] % (Auto) Lymph # (Auto) 0.8 L Seg Neutrophils % 86.5 H Seg Neutrophils # 8.9 H D-Dimer ABG pO2 ABG O2 Saturation ABG Base Excess ABG Hemoglobin Sodium 152 H Potassium Chloride 115.3 H Carbon Dioxide BUN 39 H Creatinine Glucose 396 H POC Glucose Lactic Acid 3.00 H* Calcium Ferritin AST Alkaline Phosphatase Lactate Dehydrogenase Total Creatine Kinase Troponin T C-Reactive Protein NT-Pro-B Natriuret Pep Total Protein Albumin 2.9 L HDL Cholesterol Urine WBC (Auto) Urine Creatinine Coronavirus (PCR) 05/31/21 05/31/21 06/01/21 19:01 Unknown 01:33 WBC RBC Hgb Hct MCV MCHC Lymph % (Auto) [place] % (Auto) Lymph # (Auto) Seg Neutrophils % Seg Neutrophils # D-Dimer ABG pO2 ABG O2 Saturation ABG Base Excess ABG Hemoglobin Sodium Potassium Chloride Carbon Dioxide BUN Creatinine Glucose POC Glucose 255 H Lactic Acid Calcium Ferritin AST Alkaline Phosphatase Lactate Dehydrogenase Total Creatine Kinase Troponin T 0.146 H* C-Reactive Protein NT-Pro-B Natriuret Pep Total Protein Albumin HDL Cholesterol 21 L Urine WBC (Auto) 12.0 H Urine Creatinine Coronavirus (PCR) 06/01/21 06/01/21 06/01/21 04:08 04:50 04:50 WBC RBC Hgb 11.6 L Hct MCV 99 H MCHC Lymph % (Auto) [place] % (Auto) 7.6 H Lymph # (Auto) Seg Neutrophils % 75.4 H Seg Neutrophils # D-Dimer ABG pO2 283.4 H ABG O2 Saturation 99.5 H ABG Base Excess ABG Hemoglobin 11.5 L Sodium 156 H Potassium 3.0 L Chloride 123.3 H Carbon Dioxide 21 L BUN 40 H Creatinine Glucose 324 H POC Glucose Lactic Acid Calcium Ferritin AST Alkaline Phosphatase Lactate Dehydrogenase Total Creatine Kinase Troponin T C-Reactive Protein NT-Pro-B Natriuret Pep Total Protein 6.0 L Albumin 2.3 L HDL Cholesterol Urine WBC (Auto) Urine Creatinine Coronavirus (PCR) 06/01/21 06/01/21 06/01/21 05:15 08:30 12:04 WBC RBC Hgb Hct MCV MCHC Lymph % (Auto) [place] % (Auto) Lymph # (Auto) Seg Neutrophils % Seg Neutrophils # D-Dimer ABG pO2 ABG O2 Saturation ABG Base Excess ABG Hemoglobin Sodium Potassium Chloride Carbon Dioxide BUN Creatinine Glucose POC Glucose 297 H 256 H Lactic Acid Calcium Ferritin AST Alkaline Phosphatase Lactate Dehydrogenase Total Creatine Kinase Troponin T C-Reactive Protein NT-Pro-B Natriuret Pep Total Protein Albumin HDL Cholesterol Urine WBC (Auto) Urine Creatinine Coronavirus (PCR) Positive A 06/01/21 06/01/21 06/01/21 13:10 16:00 17:57 WBC RBC Hgb Hct MCV MCHC Lymph % (Auto) [place] % (Auto) Lymph # (Auto) Seg Neutrophils % Seg Neutrophils # D-Dimer ABG pO2 ABG O2 Saturation ABG Base Excess ABG Hemoglobin Sodium Potassium Chloride Carbon Dioxide BUN Creatinine Glucose POC Glucose 272 H 179 H Lactic Acid Calcium Ferritin AST Alkaline Phosphatase Lactate Dehydrogenase Total Creatine Kinase Troponin T C-Reactive Protein NT-Pro-B Natriuret Pep Total Protein Albumin HDL Cholesterol Urine WBC (Auto) Urine Creatinine 158.6 H Coronavirus (PCR) 06/01/21 06/01/21 06/01/21 18:19 18:19 18:19 WBC RBC Hgb Hct MCV MCHC Lymph % (Auto) [place] % (Auto) Lymph # (Auto) Seg Neutrophils % Seg Neutrophils # D-Dimer 1247.52 H ABG pO2 ABG O2 Saturation ABG Base Excess ABG Hemoglobin Sodium 152 H Potassium Chloride 121.4 H Carbon Dioxide BUN 35 H Creatinine Glucose 234 H POC Glucose Lactic Acid Calcium Ferritin AST Alkaline Phosphatase Lactate Dehydrogenase Total Creatine Kinase 530 H Troponin T 0.133 H* C-Reactive Protein NT-Pro-B Natriuret Pep Total Protein Albumin HDL Cholesterol Urine WBC (Auto) Urine Creatinine Coronavirus (PCR) 06/01/21 06/01/21 06/01/21 18:19 18:19 18:19 WBC RBC Hgb Hct MCV MCHC Lymph % (Auto) [place] % (Auto) Lymph # (Auto) Seg Neutrophils % Seg Neutrophils # D-Dimer ABG pO2 ABG O2 Saturation ABG Base Excess ABG Hemoglobin Sodium Potassium Chloride Carbon Dioxide BUN Creatinine Glucose POC Glucose Lactic Acid Calcium Ferritin 1394.0 H AST Alkaline Phosphatase Lactate Dehydrogenase 308 H Total Creatine Kinase Troponin T C-Reactive Protein 14.70 H NT-Pro-B Natriuret Pep 1305 H Total Protein Albumin HDL Cholesterol Urine WBC (Auto) Urine Creatinine Coronavirus (PCR) 06/01/21 06/01/21 06/02/21 21:46 23:36 00:28 WBC RBC Hgb Hct MCV MCHC Lymph % (Auto) [place] % (Auto) Lymph # (Auto) Seg Neutrophils % Seg Neutrophils # D-Dimer ABG pO2 ABG O2 Saturation ABG Base Excess ABG Hemoglobin Sodium Potassium Chloride Carbon Dioxide BUN Creatinine Glucose POC Glucose 204 H 218 H Lactic Acid Calcium Ferritin AST Alkaline Phosphatase Lactate Dehydrogenase Total Creatine Kinase 457 H Troponin T 0.144 H* C-Reactive Protein NT-Pro-B Natriuret Pep Total Protein Albumin HDL Cholesterol Urine WBC (Auto) Urine Creatinine Coronavirus (PCR) 06/02/21 06/02/21 06/02/21 05:33 07:45 10:00 WBC RBC 3.33 L Hgb 10.3 L Hct 33.0 L MCV 99 H MCHC 31 L Lymph % (Auto) [place] % (Auto) Lymph # (Auto) Seg Neutrophils % Seg Neutrophils # D-Dimer ABG pO2 108.4 H ABG O2 Saturation ABG Base Excess -4.1 L ABG Hemoglobin 13.4 L Sodium Potassium Chloride Carbon Dioxide BUN Creatinine Glucose POC Glucose 303 H Lactic Acid Calcium Ferritin AST Alkaline Phosphatase Lactate Dehydrogenase Total Creatine Kinase Troponin T C-Reactive Protein NT-Pro-B Natriuret Pep Total Protein Albumin HDL Cholesterol Urine WBC (Auto) Urine Creatinine Coronavirus (PCR) 06/02/21 06/02/21 06/02/21 10:00 11:10 15:52 WBC RBC Hgb Hct MCV MCHC Lymph % (Auto) [place] % (Auto) Lymph # (Auto) Seg Neutrophils % Seg Neutrophils # D-Dimer ABG pO2 ABG O2 Saturation ABG Base Excess ABG Hemoglobin Sodium 151 H Potassium 3.4 L Chloride 123.8 H Carbon Dioxide 16 L BUN 33 H Creatinine 0.6 L Glucose 326 H POC Glucose 333 H 341 H Lactic Acid Calcium 6.6 L D Ferritin AST 43 H Alkaline Phosphatase Lactate Dehydrogenase Total Creatine Kinase 299 H Troponin T 0.049 H D C-Reactive Protein NT-Pro-B Natriuret Pep Total Protein 5.1 L Albumin 1.5 L HDL Cholesterol Urine WBC (Auto) Urine Creatinine Coronavirus (PCR) 06/02/21 06/03/21 06/03/21 22:22 01:44 05:28 WBC RBC Hgb Hct MCV MCHC Lymph % (Auto) [place] % (Auto) Lymph # (Auto) Seg Neutrophils % Seg Neutrophils # D-Dimer ABG pO2 ABG O2 Saturation ABG Base Excess ABG Hemoglobin Sodium Potassium Chloride Carbon Dioxide BUN Creatinine Glucose POC Glucose 371 H 378 H 390 H Lactic Acid Calcium Ferritin AST Alkaline Phosphatase Lactate Dehydrogenase Total Creatine Kinase Troponin T C-Reactive Protein NT-Pro-B Natriuret Pep Total Protein Albumin HDL Cholesterol Urine WBC (Auto) Urine Creatinine Coronavirus (PCR) 06/03/21 06/03/21 06/03/21 07:27 07:27 07:27 WBC 11.9 H RBC Hgb Hct MCV 98 H MCHC 31 L Lymph % (Auto) [place] % (Auto) Lymph # (Auto) Seg Neutrophils % Seg Neutrophils # D-Dimer 880.17 H ABG pO2 ABG O2 Saturation ABG Base Excess ABG Hemoglobin Sodium Potassium Chloride Carbon Dioxide BUN Creatinine Glucose POC Glucose Lactic Acid Calcium Ferritin 1989.0 H AST Alkaline Phosphatase Lactate Dehydrogenase Total Creatine Kinase Troponin T C-Reactive Protein NT-Pro-B Natriuret Pep Total Protein Albumin HDL Cholesterol Urine WBC (Auto) Urine Creatinine Coronavirus (PCR) 06/03/21 06/03/21 06/03/21 07:27 11:22 11:49 WBC RBC Hgb Hct MCV MCHC Lymph % (Auto) [place] % (Auto) Lymph # (Auto) Seg Neutrophils % Seg Neutrophils # D-Dimer ABG pO2 ABG O2 Saturation ABG Base Excess ABG Hemoglobin Sodium 151 H Potassium Chloride 119.5 H Carbon Dioxide 20 L BUN 42 H Creatinine Glucose 416 H POC Glucose 284 H 234 H Lactic Acid Calcium Ferritin AST Alkaline Phosphatase 149 H Lactate Dehydrogenase 340 H Total Creatine Kinase Troponin T C-Reactive Protein 9.30 H NT-Pro-B Natriuret Pep Total Protein Albumin 2.3 L HDL Cholesterol Urine WBC (Auto) Urine Creatinine Coronavirus (PCR) 06/03/21 06/03/21 06/04/21 16:41 21:59 03:59 WBC RBC Hgb Hct MCV MCHC Lymph % (Auto) [place] % (Auto) Lymph # (Auto) Seg Neutrophils % Seg Neutrophils # D-Dimer ABG pO2 ABG O2 Saturation ABG Base Excess ABG Hemoglobin Sodium 152 H Potassium Chloride 121.6 H Carbon Dioxide 21 L BUN 42 H Creatinine 0.7 L Glucose 313 H POC Glucose 257 H 253 H Lactic Acid Calcium 8.1 L Ferritin AST Alkaline Phosphatase Lactate Dehydrogenase Total Creatine Kinase Troponin T C-Reactive Protein NT-Pro-B Natriuret Pep Total Protein 5.0 L D Albumin 2.1 L HDL Cholesterol Urine WBC (Auto) Urine Creatinine Coronavirus (PCR) 06/04/21 06/04/21 06/04/21 03:59 05:27 09:03 WBC RBC Hgb Hct MCV 97 H MCHC Lymph % (Auto) [place] % (Auto) Lymph # (Auto) Seg Neutrophils % 79.6 H Seg Neutrophils # 8.0 H D-Dimer ABG pO2 ABG O2 Saturation ABG Base Excess ABG Hemoglobin Sodium Potassium Chloride Carbon Dioxide BUN Creatinine Glucose POC Glucose 252 H 267 H Lactic Acid Calcium Ferritin AST Alkaline Phosphatase Lactate Dehydrogenase Total Creatine Kinase Troponin T C-Reactive Protein NT-Pro-B Natriuret Pep Total Protein Albumin HDL Cholesterol Urine WBC (Auto) Urine Creatinine Coronavirus (PCR)
[2021-06-04] MEDS: ASCORBIC ACID 500 MG TAB PO SCH ×2 (09:12→23:00)
[2021-06-04] MEDS: METOPROLOL TARTRATE 25 MG TAB FEEDTUBE SCH ×2 (09:12→23:41)
[2021-06-04] MEDS: ASPIRIN 81 MG TAB CHEW FEEDTUBE SCH (09:13)
[2021-06-04] MEDS: FAMOTIDINE 20 MG/2 ML INJ IV SCH ×2 (09:14→22:39)
[2021-06-04] MEDS: ENOXAPARIN 100 MG/1 ML INJ SUB-Q SCH ×2 (09:14→22:38)
[2021-06-04] MEDS: LISINOPRIL 10 MG TAB PO SCH (09:14)
[2021-06-04] MEDS: INSULIN LISPRO 100 UNIT/ML SUB-Q SCH ×4 (09:15→17:07)
--- NOTE | 2021-06-04 10:17 | Progress Note ---
Assessment and Plan Patient is a 66-year-old male with a past medical history of bilateral AKA, hypertension, diabetes and seizures who was brought to the ED for altered mental status x1 day from [facility] AMS Sepsis Acute hypoxic respiratory failure- Pulm following COVID-19-ID following NSTEMI HTN DM Echo 06/01/2021-EF 40 to 45%. Segmental anterior wall hypokinesis. Right ventricular systolic function is normal. Aortic valve is calcified. No aortic valve stenosis. No aortic regurgitation present. Trace mitral regurgitation Plan: Continue anticoagulation with Lovenox 1 mg/kg Continue metoprolol 12.5 mg p.o. twice daily, aspirin, and statin therapy Patient likely needs PEG placement. No cardiac contraindication to procedure Cardiac status otherwise stable Will see as needed over weekend Patient seen in conjunction with Dr. Solis agrees with this plan of care - Patient Problems (1) COVID-19 Current Visit: Yes Status: Acute (2) Acute encephalopathy Current Visit: Yes Status: Acute (3) Acute respiratory failure with hypoxia Current Visit: Yes Status: Acute (4) Hypernatremia Current Visit: Yes Status: Acute (5) Pneumonia Current Visit: Yes Status: Acute (6) Sepsis Current Visit: Yes Status: Acute Qualifiers: Sepsis type: sepsis due to unspecified organism Severe sepsis shock status: without septic shock (7) S/P AKA (above knee amputation) bilateral Current Visit: Yes Status: Chronic Subjective Date of service: 06/04/21 Principal diagnosis: COVID-19, Acute respiratory failure, NSTEMI Interval history: Patient resting in bed in no acute distress. Patient speech remains unclear Patient sinus 70s on monitor with no events Objective Vital Signs Temp Pulse Resp BP Pulse Ox 06/04/21 04:58 98.3 F 74 20 123/55 91 06/03/21 22:04 98.0 F 95 H 20 152/92 98 06/03/21 22:00 78 20 146/65 94 06/03/21 21:59 97.3 F L 78 20 146/65 97 06/03/21 11:10 97 - Physical Examination General: No Apparent Distress HEENT: Positive: Normocephaly, Mucus Membranes Dry Neck: Positive: trachea midline Cardiac: Positive: Reg Rate and Rhythm Lungs: Positive: Rales Neuro: Positive: Other (Unable to assess due mental status) Abdomen: Positive: Soft Skin: Negative: Rash, Suspicious Lesions Extremities: Absent: edema - Labs and Meds Cardiac Enzymes 06/03/21 06/04/21 Range/Units 07:27 03:59 AST 27 (5-40) units/L Lactate Dehydrogenase 340 H (91-180) units/L CBC 06/04/21 Range/Units 03:59 WBC 10.1 (4.5-11.0) K/mm3 RBC 3.71 (3.65-5.03) M/mm3 Hgb 11.8 (11.8-15.2) gm/dl Hct 36.0 (35.5-45.6) % Plt Count 216 (140-440) K/mm3 Lymph # (Auto) 1.4 (1.2-5.4) K/mm3 [place] # (Auto) 0.7 (0.0-0.8) K/mm3 Eos # (Auto) 0.0 (0.0-0.4) K/mm3 Baso # (Auto) 0.0 (0.0-0.1) K/mm3 Comprehensive Metabolic Panel 06/04/21 Range/Units 03:59 Sodium 152 H (137-145) mmol/L Potassium 3.6 (3.6-5.0) mmol/L Chloride 121.6 H (98-107) mmol/L Carbon Dioxide 21 L (22-30) mmol/L BUN 42 H (9-20) mg/dL Creatinine 0.7 L (0.8-1.3) mg/dL Glucose 313 H (75-100) mg/dL Calcium 8.1 L (8.4-10.2) mg/dL AST 27 (5-40) units/L ALT 52 (7-56) units/L Alkaline Phosphatase 92 (35-129) units/L Total Protein 5.0 L D (6.3-8.2) g/dL Albumin 2.1 L (3.9-5) g/dL - Imaging and Cardiology EKG: report reviewed, image reviewed Echo: report reviewed - Telemetry EKG Rhythm: Sinus Rhythm - EKG Sinus rhythms and dysrhythmias: sinus rhythm Repolarization changes or abnormalities: ST or T wave suggestive of ischemia
--- NOTE | 2021-06-04 10:52 | Progress Note ---
Assessment and Plan Cultures: Blood culture no growth so far A/P: 55-year-old man past medical history bilateral AKA, hypertension, diabetes, seizures #Severe COVID-19 pneumonia: Patient presented with a week of symptoms, chest x- ray with diffuse bilateral infiltrates, admission O2 sats on room air. Inflammatory markers elevated #Acute hypoxemic respiratory failure: Likely secondary to COVID-19 infection. Now extubated on 3L NC #Chronic sacral wound: With overlying eschar. No evidence of acute infection at present. #Acute encephalopathy: Secondary to all the above. #Diabetes: tight glycemic control for best outcomes. Recommendations: -Dexamethasone 6 mg IV/PO daily for 10 days -Remdesivir 200 mg IV q day x 1 followed by 100 mg IV q day x 4 days -Obtain q48-72h inflammatory markers - ferritin, Ddimer, CRP, LDH -Anticoagulation per hospital protocol -Proning as able Thank you for the consult, we will continue to follow. Yasmeen Smith MD [facility] O: [phone] F: [phone] Subjective Date of service: 06/04/21 Principal diagnosis: COVID-19, Acute respiratory failure, NSTEMI Interval history: Afebrile, normal white count. No acute change. Objective - Exam Narrative Exam: Physical exam deferred to reduce risk of transmission of COVID-19. Please refer to primary team's note. - Constitutional Vitals: Vital Signs Temp Pulse Resp BP Pulse Ox 97.8 F 80 19 121/43 95 06/04/21 09:55 06/04/21 09:55 06/04/21 09:55 06/04/21 09:55 06/04/21 09:55 Temperature -Last 24 Hours Temperature 97.8 F Temperature 98.3 F Temperature 98.0 F Temperature 97.3 F - Labs CBC & Chem 7: 06/04/21 03:59 06/04/21 03:59 Labs: Abnormal lab results 06/03/21 06/03/21 06/03/21 Range/Units 07:27 07:27 11:22 MCV (84-94) fl Seg Neutrophils % (40.0-70.0) % Seg Neutrophils # (1.8-7.7) K/mm3 Sodium (137-145) mmol/L Chloride (98-107) mmol/L Carbon Dioxide (22-30) mmol/L BUN (9-20) mg/dL Creatinine (0.8-1.3) mg/dL Glucose (75-100) mg/dL POC Glucose 284 H (70-105) mg/dL Calcium (8.4-10.2) mg/dL Ferritin 1989.0 H (30.0-300.0) ng/mL Lactate Dehydrogenase 340 H (91-180) units/L C-Reactive Protein 9.30 H (0.00-1.30) mg/dL Total Protein (6.3-8.2) g/dL Albumin (3.9-5) g/dL 06/03/21 06/03/21 06/03/21 Range/Units 11:49 16:41 21:59 MCV (84-94) fl Seg Neutrophils % (40.0-70.0) % Seg Neutrophils # (1.8-7.7) K/mm3 Sodium (137-145) mmol/L Chloride (98-107) mmol/L Carbon Dioxide (22-30) mmol/L BUN (9-20) mg/dL Creatinine (0.8-1.3) mg/dL Glucose (75-100) mg/dL POC Glucose 234 H 257 H 253 H (70-105) mg/dL Calcium (8.4-10.2) mg/dL Ferritin (30.0-300.0) ng/mL Lactate Dehydrogenase (91-180) units/L C-Reactive Protein (0.00-1.30) mg/dL Total Protein (6.3-8.2) g/dL Albumin (3.9-5) g/dL 06/04/21 06/04/21 06/04/21 Range/Units 03:59 03:59 05:27 MCV 97 H (84-94) fl Seg Neutrophils % 79.6 H (40.0-70.0) % Seg Neutrophils # 8.0 H (1.8-7.7) K/mm3 Sodium 152 H (137-145) mmol/L Chloride 121.6 H (98-107) mmol/L Carbon Dioxide 21 L (22-30) mmol/L BUN 42 H (9-20) mg/dL Creatinine 0.7 L (0.8-1.3) mg/dL Glucose 313 H (75-100) mg/dL POC Glucose 252 H (70-105) mg/dL Calcium 8.1 L (8.4-10.2) mg/dL Ferritin (30.0-300.0) ng/mL Lactate Dehydrogenase (91-180) units/L C-Reactive Protein (0.00-1.30) mg/dL Total Protein 5.0 L D (6.3-8.2) g/dL Albumin 2.1 L (3.9-5) g/dL 06/04/21 Range/Units 09:03 MCV (84-94) fl Seg Neutrophils % (40.0-70.0) % Seg Neutrophils # (1.8-7.7) K/mm3 Sodium (137-145) mmol/L Chloride (98-107) mmol/L Carbon Dioxide (22-30) mmol/L BUN (9-20) mg/dL Creatinine (0.8-1.3) mg/dL Glucose (75-100) mg/dL POC Glucose 267 H (70-105) mg/dL Calcium (8.4-10.2) mg/dL Ferritin (30.0-300.0) ng/mL Lactate Dehydrogenase (91-180) units/L C-Reactive Protein (0.00-1.30) mg/dL Total Protein (6.3-8.2) g/dL Albumin (3.9-5) g/dL
--- NOTE | 2021-06-04 11:31 | Progress Note ---
Assessment and Plan Assessment and plan: HPI This is a 55-year-old male with bilateral AKA, DM, seizure disorder, BPH, CAD s/p CABG x4 who presented to the emergency department from [facility] via EMS with complaints of severe lethargy, only respond to verbal stimuli and hypoxia in the low 80s by the half-way staff. Patient was placed on nonrebreather and EMS was called. Upon their arrival SPO2 noted to be improved to 88%. Patient was brought to [facility] for further evaluation. In the emergency department patient was intubated due to decrease of responsiveness and hypoxia. Work-up in the emergency department revealed severe hypernatremia, hypokalemia, hyperchloremia, metabolic acidosis, elevated blood glucose and slight anemia. Patient had a elevated troponin on arrival. Patient was admitted to the hospitalist service with rhabdomyolysis, acute respiratory failure and is COVID-19 PUI with consults to [facility]. Hospital course to date 06/01: Troponin trended, free water flush initiated, echocardiogram ordered, potassium repleted, antibiotics discontinued, cardiology consulted. Patient is COVID-19 PCR positive, infectious disease consulted. Urine studies ordered for hypernatremia work-up. 06/02: Patient was extubated today per [facility], started on remdesivir. Patient will be transferred to the floor today. Pending CRP to see if patient is candidate for Actemra 06/03: Sodium remains elevated, increased FWF to 250 cc q4hr. Remains on tube feeds, blood sugar is elevated. Will increase lantus and add scheduled insulin. Pending ST eval. Working with for home O2 set up for patient. Anticipate discharge in 24 hrs back to SNF. 06/04: Increased fwf but was changed overnight but discussed with RN, currently 250 cc/hr, blood sugars improved with schedule insulin. Speech to re-eval patient given dysphagia yesterday. Patient is more alert today. If he fails aga in, will consult GI for PEG. Called Pamela who stated that patient's speech has been poor since cva. He was eating pureed diet [employer]. Plan is for patient to return [place]. Assessment and plan: This is a 55-year-old male with bilateral AKA, DM, seizure disorder, BPH, CAD s/p CABG x4 admitted with elevated troponins, hypernatremia, hypokalemia, hyperchloremia, metabolic acidosis and acute hypoxic respiratory failure. Acute hypoxic respiratory failure -CCM consulted, appreciate recommendations -Intubated on 05/31 with 8.0 ETT at 24 the lips -A.m. vent settings: CPAP 02/10 -Patient placed on CPAP on 06/01 and remained on CPAP after extubation on 06/02 -See RT RT notes for titration -extubated to NC -A.m. ABG and CXR noted -Pulm hygiene -SPO2 monitoring Acute metabolic encephalopathy, H/o CVA, seizure disorder -Follow commands -Avoid delirium -Reorientation as needed -Restart seizure medications when obtained -CT head shows parenchymal atrophy greater than expected for age 65 years, evidence of remote bilateral MCA infarctions unchanged from prior study, no acute intracranial abnormalities Sepsis, COVID-19 infection -Presented with acute hypoxic respiratory failure, leukocytosis, febrile on admit -CXR shows patchy bilateral parenchymal opacities left mid and lower lung zone -Antibiotic therapy with cefepime and vancomycin -Discontinued today due to normalization WBC and being afebrile -COVID-19 PCR positive -Infectious disease consulted, appreciate recommendations -Isolation/droplet precautions -Remdesivir () -Actemra will be given depending on CRP it is still pending -Vitamin D/vitamin C/zinc -Steroids for 10 days -Anticoagulation based on D-dimer -Trend COVID-19 inflammatory markers -Follow WBC and temperature curve -Follow-up blood cultures NSTEMI, h/o CAD s/p CABG x4, possible CHF, HTN -Cardiology consulted, appreciate recommendations -Echocardiogram pending -ECG shows T waves -Trend troponins -Blood pressure monitoring per protocol -Started low dose BB in setting of hypertension Severe hypernatremia (improving) -Free water flush -Trend sodium -Urine osmolality and sodium do not indicate DI -Anderson catheter for strict intake and output Hypokalemia -Potassium replacement -Trend BMP Protein calorie malnutrition, h/o DM, Dysphagia -Ntr consult for TF -24 hour -95 -SSI -Accu-Cheks every 6 -Avoid hypoglycemia -Long-acting insulin - ST eval: concerned for aspiration...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 I have called them to reassess the patient as he was only 24 hrs s/p extubation at the time evaluation. Will re-assess today. S/P bilateral AKA -Continue supportive care Seizure disorder -Aspiration/seizure precautions -Restart seizure medications when obtained DVT/GI prophylaxis -PPI -Lovenox therapeutic dose History Interval history: Patient had no complaints today. he is more alert. Able to nod yes that he was hungry and nodded yes that he would work with speech to attempt to swallow. Nodded no when asked if he was in any pain/discomfort. Discussed care plan at bedside with patient. Hospitalist Physical - Physical exam Narrative exam: Physical Exam: VITAL SIGNS: Reviewed. GENERAL: The patient appears normally developed, Vital signs as documented. More alert on exam. HEAD: No signs of head trauma. EYES: Pupils are equal. Extraocular motions intact. EARS: Hearing grossly intact. MOUTH: Oropharynx is normal. NECK: No adenopathy, no JVD. CHEST: Chest with clear breath sounds bilaterally. No wheezes, rales, or rhonchi. CARDIAC: Regular rate and rhythm. S1 and S2, without murmurs, gallops, or rubs. VASCULAR: No Edema. Peripheral pulses normal and equal in all extremities. ABDOMEN: Soft, non tender and non distended. No rebound or guarding, and no masses palpated. Bowel Sounds normal. MUSCULOSKELETAL: Good range of motion of all major joints. Extremities without clubbing, cyanosis or edema. NEUROLOGIC EXAM: Alert and but orientation difficult to assess, babbles incoherently. Able to nod yes/no. PSYCHIATRIC: appear appropriate. SKIN: detail exam as documented in skin assessment - Constitutional Vitals: Temp Pulse Resp BP Pulse Ox 97.8 F 80 19 121/43 95 06/04/21 09:55 06/04/21 09:55 06/04/21 09:55 06/04/21 09:55 06/04/21 09:55 General appearance: Present: no acute distress HEART Score - HEART Score Troponin: Troponin T 0.049 ng/mL (0.00-0.029) H D 06/02/21 10:00 Results - Labs CBC & Chem 7: 06/04/21 03:59 06/04/21 03:59 Labs: Laboratory Last Values WBC 10.1 K/mm3 (4.5-11.0) 06/04/21 03:59 RBC 3.71 M/mm3 (3.65-5.03) 06/04/21 03:59 Hgb 11.8 gm/dl (11.8-15.2) 06/04/21 03:59 Hct 36.0 % (35.5-45.6) 06/04/21 03:59 MCV 97 fl (84-94) H 06/04/21 03:59 MCH 32 pg (28-32) 06/04/21 03:59 MCHC 33 % (32-34) 06/04/21 03:59 RDW 14.9 % (13.2-15.2) 06/04/21 03:59 Plt Count 216 K/mm3 (140-440) 06/04/21 03:59 Lymph % (Auto) 13.7 % (13.4-35.0) 06/04/21 03:59 Trinity % (Auto) 6.5 % (0.0-7.3) 06/04/21 03:59 Eos % (Auto) 0.1 % (0.0-4.3) 06/04/21 03:59 Baso % (Auto) 0.1 % (0.0-1.8) 06/04/21 03:59 Lymph # (Auto) 1.4 K/mm3 (1.2-5.4) 06/04/21 03:59 Trinity # (Auto) 0.7 K/mm3 (0.0-0.8) 06/04/21 03:59 Eos # (Auto) 0.0 K/mm3 (0.0-0.4) 06/04/21 03:59 Baso # (Auto) 0.0 K/mm3 (0.0-0.1) 06/04/21 03:59 Seg Neutrophils % 79.6 % (40.0-70.0) H 06/04/21 03:59 Seg Neutrophils # 8.0 K/mm3 (1.8-7.7) H 06/04/21 03:59 APTT 29.4 Sec. (24.2-36.6) 05/31/21 18:10 D-Dimer 880.17 ng/mlDDU (0-234) H 06/03/21 07:27 ABG pH 7.390 pH Units (7.350-7.450) 06/02/21 07:45 ABG pCO2 33.9 mm Hg 06/02/21 07:45 ABG pO2 108.4 mm Hg (80.0-90.0) H 06/02/21 07:45 ABG HCO3 20.1 mmol/L (20.0-26.0) 06/02/21 07:45 ABG O2 Saturation 97.9 % (95.0-99.0) 06/02/21 07:45 ABG O2 Content 18.3 (0.0-44) 06/02/21 07:45 ABG Base Excess -4.1 mmol/L (-2.0-3.0) L 06/02/21 07:45 ABG Hemoglobin 13.4 gm/dl (14.0-18.0) L 06/02/21 07:45 ABG Carboxyhemoglobin 1.0 % (0.0-5.0) 06/02/21 07:45 ABG Methemoglobin 0.6 % (0.0-1.5) 06/02/21 07:45 VBG pH 7.378 (7.320-7.420) 05/31/21 18:29 Oxyhemoglobin 96.3 % (95.0-99.0) 06/02/21 07:45 FiO2 40 % 06/02/21 07:45 Sodium 152 mmol/L (137-145) H 06/04/21 03:59 Potassium 3.6 mmol/L (3.6-5.0) 06/04/21 03:59 Chloride 121.6 mmol/L (98-107) H 06/04/21 03:59 Carbon Dioxide 21 mmol/L (22-30) L 06/04/21 03:59 Anion Gap 13 mmol/L 06/04/21 03:59 BUN 42 mg/dL (9-20) H 06/04/21 03:59 Creatinine 0.7 mg/dL (0.8-1.3) L 06/04/21 03:59 Estimated GFR > 60 ml/min 06/04/21 03:59 BUN/Creatinine Ratio 60 % 06/04/21 03:59 Glucose 313 mg/dL (75-100) H 06/04/21 03:59 POC Glucose 246 mg/dL (70-105) H 06/04/21 11:04 Lactic Acid 1.80 mmol/L (0.7-2.0) 05/31/21 21:57 Calcium 8.1 mg/dL (8.4-10.2) L 06/04/21 03:59 Magnesium 1.90 mg/dL (1.7-2.3) 06/01/21 18:19 Ferritin 1989.0 ng/mL (30.0-300.0) H 06/03/21 07:27 Total Bilirubin 0.30 mg/dL (0.1-1.2) 06/04/21 03:59 AST 27 units/L (5-40) 06/04/21 03:59 ALT 52 units/L (7-56) 06/04/21 03:59 Alkaline Phosphatase 92 units/L (35-129) 06/04/21 03:59 Lactate Dehydrogenase 340 units/L (91-180) H 06/03/21 07:27 Total Creatine Kinase 299 units/L (55-170) H 06/02/21 10:00 CK-MB (CK-2) 2.2 ng/mL (0.0-4.0) 06/02/21 10:00 CK-MB (CK-2) Rel Index 0.3 (0-4) 06/02/21 00:28 Troponin T 0.049 ng/mL (0.00-0.029) H D 06/02/21 10:00 C-Reactive Protein 9.30 mg/dL (0.00-1.30) H 06/03/21 07:27 NT-Pro-B Natriuret Pep 1305 pg/mL (0-900) H 06/01/21 18:19 Total Protein 5.0 g/dL (6.3-8.2) L D 06/04/21 03:59 Albumin 2.1 g/dL (3.9-5) L 06/04/21 03:59 Albumin/Globulin Ratio 0.7 % 06/04/21 03:59 Triglycerides 99 mg/dL (2-149) 05/31/21 19:01 Cholesterol 104 mg/dL (50-199) 05/31/21 19:01 LDL Cholesterol Direct 67 mg/dL (50-130) 05/31/21 19:01 HDL Cholesterol 21 mg/dL (40-59) L 05/31/21 19:01 Cholesterol/HDL Ratio 4.95 % 05/31/21 19:01 Procalcitonin 0.90 ng/mL (<0.15) 06/01/21 18:19 Urine Color Grace (Yellow) 05/31/21 Unknown Urine Turbidity Cloudy (Clear) 05/31/21 Unknown Urine pH 5.0 (5.0-7.0) 05/31/21 Unknown Ur Specific [place] 1.026 (1.003-1.030) 05/31/21 Unknown Urine Protein 100 mg/dl mg/dL (Negative) 05/31/21 Unknown Urine Glucose (UA) 50 mg/dL (Negative) 05/31/21 Unknown Urine Ketones Neg mg/dL (Negative) 05/31/21 Unknown Urine Blood Sm (Negative) 05/31/21 Unknown Urine Nitrite Neg (Negative) 05/31/21 Unknown Urine Bilirubin Neg (Negative) 05/31/21 Unknown Urine Urobilinogen 4.0 mg/dL (<2.0) 05/31/21 Unknown Ur Leukocyte Esterase Neg (Negative) 05/31/21 Unknown Urine WBC (Auto) 12.0 /HPF (0.0-6.0) H 05/31/21 Unknown Urine RBC (Auto) < 1.0 /HPF (0.0-6.0) 05/31/21 Unknown Urine Bacteria (Auto) 1+ /HPF (Negative) 05/31/21 Unknown Granular Casts 22 /LPF 05/31/21 Unknown Urine Mucus 3+ /HPF 05/31/21 Unknown Urine Osmolality 750 Mosm/kg 06/01/21 16:00 Urine Creatinine 158.6 mg/dL (0.1-20.0) H 06/01/21 16:00 Urine Sodium 33 mmol/L 06/01/21 16:00 Urine Potassium 61.16 mmol/L 06/01/21 16:00 Urine Urea Nitrogen 1337 06/01/21 16:00 Nasal Screen MRSA (PCR) Negative (Negative) 06/01/21 16:00 Coronavirus (PCR) Positive (Negative) A 06/01/21 08:30 Microbiology: Microbiology 05/31/21 18:10 Peripheral/Venous Blood Culture - Preliminary NO GROWTH AFTER 72 HOURS 05/31/21 18:10 Peripheral/Venous Blood Culture - Preliminary NO GROWTH AFTER 72 HOURS Anderson/IV: Voiding Method Indwelling Catheter Active Medications - Current Medications Current Medications: Generic Name Dose Route Start Last Admin Trade Name Freq PRN Reason Stop Dose Admin Acetaminophen 650 mg 05/31/21 22:28 06/01/21 21:47 Acetaminophen 325 Mg Tab PO 650 mg Q4H PRN Administration Pain MILD(1-3)/Fever >100.5/CORDERO Lipase/Protease/Amylase 1 each 06/03/21 11:21 Lipase 10,500/Protease 25,000/Amylase 43,750 (Units) Dr Waggoner FEEDTUBE PRN PRN For Clogged Feeding Tube Ascorbic Acid 500 mg 06/01/21 22:00 06/04/21 09:12 Ascorbic Acid 500 Mg Tab PO 500 mg BID SHAN Administration Aspirin 81 mg 06/03/21 10:00 06/04/21 09:13 Aspirin 81 Mg Tab Chew FEEDTUBE 81 mg QDAY SHAN Administration Atorvastatin Calcium 40 mg 06/02/21 22:00 06/03/21 22:30 Atorvastatin 40 Mg Tab FEEDTUBE 40 mg QHS SHAN Administration Cholecalciferol 5,000 unit 06/02/21 10:00 06/04/21 09:10 Cholecalciferol (Vit D3) 5,000 Unit Tab PO 5,000 unit DAILY SHAN Administration Dexamethasone 6 mg 06/01/21 19:40 06/04/21 09:10 Dexamethasone 4 Mg Tab PO 06/11/21 19:39 6 mg QDAY SHAN Administration Dextrose 0 ml 06/01/21 05:46 Dextrose 50% In Water (25gm) 50 Ml Syringe IV Q30MIN PRN Hypoglycemia Protocol Enoxaparin Sodium 90 mg 06/01/21 22:00 06/04/21 09:14 Enoxaparin 100 Mg/1 Ml Inj 1 mg/kg (90 mg) 90 mg SUB-Q Administration Q12HR [facility] Protocol Famotidine 20 mg 05/31/21 23:00 06/04/21 09:14 Famotidine 20 Mg/2 Ml Inj IV 20 mg BID SHAN Administration Remdesivir 100 mg/ Sodium 250 mls @ 500 mls/hr 06/03/21 14:00 06/03/21 14:26 Chloride IV 06/06/21 14:29 500 mls/hr Q24HR@1400 SHAN Administration Insulin Glargine 25 units 06/02/21 22:00 06/04/21 00:29 Insulin Glargine 100 Units/Ml SUB-Q 25 units QHS SHAN Administration Insulin Human Lispro 0 unit 06/01/21 06:00 06/04/21 09:15 Insulin Lispro 100 Unit/Ml SUB-Q 6 unit Q6HR SHAN Administration Protocol Insulin Human Regular 5 units 06/03/21 12:00 06/04/21 06:00 Insulin Regular, Human 100 Units/1 Ml SUB-Q 5 units Q6HR SHAN Administration Lisinopril 10 mg 06/03/21 10:00 06/04/21 09:14 Lisinopril 10 Mg Tab PO 10 mg QDAY SHAN Administration Metoprolol Tartrate 12.5 mg 06/02/21 22:00 06/04/21 09:12 Metoprolol Tartrate 25 Mg Tab FEEDTUBE 12.5 mg BID SHAN Administration Ondansetron HCl 4 mg 05/31/21 22:28 Ondansetron 4 Mg/2 Ml Inj IV Q8H PRN Nausea And Vomiting Simple Syrup 15 ml 06/03/21 11:21 Simple Syrup 15 Ml FEEDTUBE PRN PRN Hypoglycemia Simple Syrup 30 ml 06/03/21 11:21 Simple Syrup 15 Ml FEEDTUBE PRN PRN Hypoglycemia Sodium Bicarbonate 325 mg 06/03/21 11:21 Sodium Bicarbonate 325 Mg Tab FEEDTUBE PRN PRN For Clogged Feeding Tube Sodium Chloride 10 ml 06/01/21 10:00 06/03/21 22:00 Sodium Chloride 0.9% 10 Ml Flush Syringe IV 10 ml BID SHAN Administration Sodium Chloride 10 ml 05/31/21 22:28 Sodium Chloride 0.9% 10 Ml Flush Syringe IV PRN PRN LINE FLUSH Sodium Chloride 10 ml 06/01/21 09:26 Sodium Chloride 0.9% 50 Ml Ivpb IV PRN PRN FLUSH Sodium Chloride 50 ml 06/02/21 08:00 06/03/21 14:26 Sodium Chloride 0.9% 50 Ml Ivpb IV 06/06/21 14:01 50 ml Q24HR@1400 SHAN Administration Zinc Sulfate 220 mg 06/01/21 22:00 06/04/21 09:10 Zinc Sulfate 220 Mg Cap PO 220 mg BID SHAN Administration Nutrition/Malnutrition Assess - Dietary Evaluation Nutrition/Malnutrition Findings: Nutrition Notes Start: 06/01/21 11:55 Freq: Status: Active Protocol: Document 06/03/21 13:38 FERMIN (Rec: 06/03/21 14:55 FERMIN [id number]) Nutrition Notes Need for Assessment generated from: MD Order Initial or Follow up Reassessment Current Diagnosis Decubitus(Pressure Ulcer), Diabetes,Respiratory Failure Other Pertinent Diagnosis COVID-19, Acute encephalopathy , Hypernatremia, NSTEMI, Bilateral AKA. Current Diet TF-Glucerna 1.2 Mateusz @ 38 ml/hr (since D 06/03). Labs/Tests 06/03: Na 151, Cl 119.5, CO2 20, BUN 42, Glu 416. Pertinent Medications 06/03: Vit C, Vit D3, ZnSO4, Insulin, others nutritionally unremarkable. Height 4 ft Weight 68 kg [place] Body Weight (kg) 15.45 BMI 45.7 Weight change and time frame No body weight change reported in 2 days. Weight Status Obese Subjective/Other Information RD consult for write/manage TF MD request. Pt has COVID-19 infection and tight glycemic control required; TF change to Glucerna 1.2 Mateusz. Pt extubated 06/02, now on nasal cannula, well tolerated. Decubitus ulcers not showing imfection at the time. Percent of energy/protein needs met: Prescribed Glucerna 1.2 Mateusz @ 38 ml/hr provides for energy/ protein needs (1,082 Kcal/54 g ) during LOS, 80% Kcal; 92% AA . Burn Absent Trauma Absent GI Symptoms None Food Allergy No Skin Integrity/Comment Sacral decubitus pressure ulcers. Current % PO Other Minimum of two criteria No #1 Nutrition Diagnosis Inadequate oral intake Comments: Pt extubated 06/02, now on nasal cannula. Pt will be better served with Glucerna TF to support diabetes control. Pt diagnosed with COVID. Etiology Pt failed bedside swallow evaluation. As Evidenced by Signs and Symptoms Pt currently on NPO. Diagnosis Progress(for reassessment Continues documentation) Is patient on ventilator? Yes Is Patient Ambulatory and/or Out of Bed No REE-([place]-confined to bed) 1351.824 Calculation Used for Recommendations 70-80% of EEN Additional Notes 15-20 Kcal/Kg ABW (946-1,082 Kcal). Protein: 1.2-2 g/Kg ( amputee AdjBW 49 Kg); 59-98 g/ day. Fluids: 1 ml/Kcal, or as per MD. Nutrition Intervention Nutrition Support: Start Glucerna 1.2 Mateusz @ 38 ml /hr. Flush: 100 ml water Q 4 hr, or as per MD. Kcal 1,082 Protein (gm) 54 Carbohydrates (gm) 103 Fat (gm) 54 Fluid (mL) 726 Fiber (gm) 15 % RDI: 80% Kcal; 92% AA. Goal #1 Provide at least 75% of energy /protein needs through Enteral Feeding during LOS. Follow-Up By: 06/07/21 Additional Comments Continue monitoring TF tolerance and BM.
[2021-06-04] MEDS: REMDESIVIR 100 MG in SODIUM CHLORIDE 0.9% 250ML 250 ML IV SCH (13:58)
[2021-06-04] MEDS: SODIUM CHLORIDE 0.9% 50 ML IVPB IV SCH (13:59)
[2021-06-04] MEDS: FREE WATER PO SCH ×3 (20:05→22:42)
[2021-06-05] MEDS: INSULIN LISPRO 100 UNIT/ML SUB-Q SCH ×4 (01:33→18:12)
[2021-06-05] MEDS: FREE WATER PO SCH ×5 (02:05→22:10)
[2021-06-05] MEDS: INSULIN REGULAR, HUMAN 100 UNITS/1 ML SUB-Q SCH ×3 (06:42→18:12)
--- NOTE | 2021-06-05 08:25 | Progress Note ---
Assessment and Plan Assessment and plan: HPI This is a 55-year-old male with bilateral AKA, DM, seizure disorder, BPH, CAD s/p CABG x4 who presented to the emergency department from [facility] via EMS with complaints of severe lethargy, only respond to verbal stimuli and hypoxia in the low 80s by the assisted staff. Patient was placed on nonrebreather and EMS was called. Upon their arrival SPO2 noted to be improved to 88%. Patient was brought to [facility] for further evaluation. In the emergency department patient was intubated due to decrease of responsiveness and hypoxia. Work-up in the emergency department revealed severe hypernatremia, hypokalemia, hyperchloremia, metabolic acidosis, elevated blood glucose and slight anemia. Patient had a elevated troponin on arrival. Patient was admitted to the hospitalist service with rhabdomyolysis, acute respiratory failure and is COVID-19 PUI with consults to [facility]. Hospital course to date 06/01: Troponin trended, free water flush initiated, echocardiogram ordered, potassium repleted, antibiotics discontinued, cardiology consulted. Patient is COVID-19 PCR positive, infectious disease consulted. Urine studies ordered for hypernatremia work-up. 06/02: Patient was extubated today per [facility], started on remdesivir. Patient will be transferred to the floor today. Pending CRP to see if patient is candidate for Actemra 06/03: Sodium remains elevated, increased FWF to 250 cc q4hr. Remains on tube feeds, blood sugar is elevated. Will increase lantus and add scheduled insulin. Pending ST eval. Working with for home O2 set up for patient. Anticipate discharge in 24 hrs back to SNF. 06/04: Increased fwf but was changed overnight but discussed with RN, currently 250 cc/hr, blood sugars improved with schedule insulin. Speech to re-eval patient given dysphagia yesterday. Patient is more alert today. If he fails aga in, will consult GI for PEG. Called Pamela who stated that patient's speech has been poor since cva. He was eating pureed diet [employer]. Plan is for patient to return to [facility]. 06/05: Dysphagia persistent. Consult placed to GI for PEG, discussed case with GI. Awaiting repeat BMP, trend NA. Blood sugars adequately controlled. Lovenox currently for NSTEMI treatment. Patient has been treated for 48hrs, will d/w cardiology re: anticoagulant duration and if ok to d/c in light of pending PEG tube placement. Assessment and plan: This is a 55-year-old male with bilateral AKA, DM, seizure disorder, BPH, CAD s/p CABG x4 admitted with elevated troponins, hypernatremia, hypokalemia, hyperchloremia, metabolic acidosis and acute hypoxic respiratory failure. Acute hypoxic respiratory failure -CCM consulted, appreciate recommendations -Intubated on 05/31 with 8.0 ETT at 24 the lips -A.m. vent settings: CPAP 02/10 -Patient placed on CPAP on 06/01 and remained on CPAP after extubation on 06/02 -See RT RT notes for titration -extubated to NC -A.m. ABG and CXR noted -Pulm hygiene -SPO2 monitoring Acute metabolic encephalopathy, H/o CVA, seizure disorder -Follow commands -Avoid delirium -Reorientation as needed -Restart seizure medications when obtained -CT head shows parenchymal atrophy greater than expected for age 66 years, evidence of remote bilateral MCA infarctions unchanged from prior study, no acute intracranial abnormalities Sepsis, COVID-19 infection -Presented with acute hypoxic respiratory failure, leukocytosis, febrile on admit -CXR shows patchy bilateral parenchymal opacities left mid and lower lung zone -Antibiotic therapy with cefepime and vancomycin -Discontinued today due to normalization WBC and being afebrile -COVID-19 PCR positive -Infectious disease consulted, appreciate recommendations -Isolation/droplet precautions -Remdesivir () -Actemra will be given depending on CRP it is still pending -Vitamin D/vitamin C/zinc -Steroids for 10 days -Anticoagulation based on D-dimer -Trend COVID-19 inflammatory markers -Follow WBC and temperature curve -Follow-up blood cultures NSTEMI, h/o CAD s/p CABG x4, possible CHF, HTN -Cardiology consulted, appreciate recommendations -Echocardiogram pending -ECG shows T waves -Trend troponins -Blood pressure monitoring per protocol -Started low dose BB in setting of hypertension Severe hypernatremia (improving) -Free water flush -Trend sodium -Urine osmolality and sodium do not indicate DI -Anderson catheter for strict intake and output Hypokalemia -Potassium replacement -Trend BMP Protein calorie malnutrition, h/o DM, Dysphagia -Ntr consult for TF -24 hour -95 -SSI -Accu-Cheks every 6 -Avoid hypoglycemia -Long-acting insulin - ST eval: concerned for aspiration...recommended long-term feeding solution. I have called them to reassess the patient as he was only 24 hrs s/p extubation at the time evaluation. Will re-assess today. S/P bilateral AKA -Continue supportive care Seizure disorder -Aspiration/seizure precautions -Restart seizure medications when obtained DVT/GI prophylaxis -PPI -Lovenox therapeutic dose History Interval history: No overnight events. Resting comfortably. Hospitalist Physical - Physical exam Narrative exam: Physical Exam: VITAL SIGNS: Reviewed. GENERAL: The patient appears normally developed, Vital signs as documented. More alert on exam. HEAD: No signs of head trauma. EYES: Pupils are equal. Extraocular motions intact. EARS: Hearing grossly intact. MOUTH: Oropharynx is normal. NECK: No adenopathy, no JVD. CHEST: Chest with clear breath sounds bilaterally. No wheezes, rales, or rhonchi. CARDIAC: Regular rate and rhythm. S1 and S2, without murmurs, gallops, or rubs. VASCULAR: No Edema. Peripheral pulses normal and equal in all extremities. ABDOMEN: Soft, non tender and non distended. No rebound or guarding, and no masses palpated. Bowel Sounds normal. MUSCULOSKELETAL: Good range of motion of all major joints. Extremities without clubbing, cyanosis or edema. NEUROLOGIC EXAM: Alert and but orientation difficult to assess, babbles incoherently. Able to nod yes/no. PSYCHIATRIC: appear appropriate. SKIN: detail exam as documented in skin assessment - Constitutional Vitals: Temp Pulse Resp BP Pulse Ox 98.7 F 73 20 134/46 93 06/05/21 03:20 06/05/21 04:00 06/05/21 03:20 06/05/21 03:20 06/05/21 03:20 General appearance: Present: no acute distress HEART Score - HEART Score Troponin: Troponin T 0.049 ng/mL (0.00-0.029) H D 06/02/21 10:00 Results - Labs CBC & Chem 7: 06/04/21 03:59 06/04/21 03:59 Labs: Laboratory Last Values WBC 10.1 K/mm3 (4.5-11.0) 06/04/21 03:59 RBC 3.71 M/mm3 (3.65-5.03) 06/04/21 03:59 Hgb 11.8 gm/dl (11.8-15.2) 06/04/21 03:59 Hct 36.0 % (35.5-45.6) 06/04/21 03:59 MCV 97 fl (84-94) H 06/04/21 03:59 MCH 32 pg (28-32) 06/04/21 03:59 MCHC 33 % (32-34) 06/04/21 03:59 RDW 14.9 % (13.2-15.2) 06/04/21 03:59 Plt Count 216 K/mm3 (140-440) 06/04/21 03:59 Lymph % (Auto) 13.7 % (13.4-35.0) 06/04/21 03:59 Roane % (Auto) 6.5 % (0.0-7.3) 06/04/21 03:59 Eos % (Auto) 0.1 % (0.0-4.3) 06/04/21 03:59 Baso % (Auto) 0.1 % (0.0-1.8) 06/04/21 03:59 Lymph # (Auto) 1.4 K/mm3 (1.2-5.4) 06/04/21 03:59 Roane # (Auto) 0.7 K/mm3 (0.0-0.8) 06/04/21 03:59 Eos # (Auto) 0.0 K/mm3 (0.0-0.4) 06/04/21 03:59 Baso # (Auto) 0.0 K/mm3 (0.0-0.1) 06/04/21 03:59 Seg Neutrophils % 79.6 % (40.0-70.0) H 06/04/21 03:59 Seg Neutrophils # 8.0 K/mm3 (1.8-7.7) H 06/04/21 03:59 APTT 29.4 Sec. (24.2-36.6) 05/31/21 18:10 D-Dimer 880.17 ng/mlDDU (0-234) H 06/03/21 07:27 ABG pH 7.390 pH Units (7.350-7.450) 06/02/21 07:45 ABG pCO2 33.9 mm Hg 06/02/21 07:45 ABG pO2 108.4 mm Hg (80.0-90.0) H 06/02/21 07:45 ABG HCO3 20.1 mmol/L (20.0-26.0) 06/02/21 07:45 ABG O2 Saturation 97.9 % (95.0-99.0) 06/02/21 07:45 ABG O2 Content 18.3 (0.0-44) 06/02/21 07:45 ABG Base Excess -4.1 mmol/L (-2.0-3.0) L 06/02/21 07:45 ABG Hemoglobin 13.4 gm/dl (14.0-18.0) L 06/02/21 07:45 ABG Carboxyhemoglobin 1.0 % (0.0-5.0) 06/02/21 07:45 ABG Methemoglobin 0.6 % (0.0-1.5) 06/02/21 07:45 VBG pH 7.378 (7.320-7.420) 05/31/21 18:29 Oxyhemoglobin 96.3 % (95.0-99.0) 06/02/21 07:45 FiO2 40 % 06/02/21 07:45 Sodium 152 mmol/L (137-145) H 06/04/21 03:59 Potassium 3.6 mmol/L (3.6-5.0) 06/04/21 03:59 Chloride 121.6 mmol/L (98-107) H 06/04/21 03:59 Carbon Dioxide 21 mmol/L (22-30) L 06/04/21 03:59 Anion Gap 13 mmol/L 06/04/21 03:59 BUN 42 mg/dL (9-20) H 06/04/21 03:59 Creatinine 0.7 mg/dL (0.8-1.3) L 06/04/21 03:59 Estimated GFR > 60 ml/min 06/04/21 03:59 BUN/Creatinine Ratio 60 % 06/04/21 03:59 Glucose 313 mg/dL (75-100) H 06/04/21 03:59 POC Glucose 130 mg/dL (70-105) H 06/05/21 06:29 Lactic Acid 1.80 mmol/L (0.7-2.0) 05/31/21 21:57 Calcium 8.1 mg/dL (8.4-10.2) L 06/04/21 03:59 Magnesium 1.90 mg/dL (1.7-2.3) 06/01/21 18:19 Ferritin 1989.0 ng/mL (30.0-300.0) H 06/03/21 07:27 Total Bilirubin 0.30 mg/dL (0.1-1.2) 06/04/21 03:59 AST 27 units/L (5-40) 06/04/21 03:59 ALT 52 units/L (7-56) 06/04/21 03:59 Alkaline Phosphatase 92 units/L (35-129) 06/04/21 03:59 Lactate Dehydrogenase 340 units/L (91-180) H 06/03/21 07:27 Total Creatine Kinase 299 units/L (55-170) H 06/02/21 10:00 CK-MB (CK-2) 2.2 ng/mL (0.0-4.0) 06/02/21 10:00 CK-MB (CK-2) Rel Index 0.3 (0-4) 06/02/21 00:28 Troponin T 0.049 ng/mL (0.00-0.029) H D 06/02/21 10:00 C-Reactive Protein 9.30 mg/dL (0.00-1.30) H 06/03/21 07:27 NT-Pro-B Natriuret Pep 1305 pg/mL (0-900) H 06/01/21 18:19 Total Protein 5.0 g/dL (6.3-8.2) L D 06/04/21 03:59 Albumin 2.1 g/dL (3.9-5) L 06/04/21 03:59 Albumin/Globulin Ratio 0.7 % 06/04/21 03:59 Triglycerides 99 mg/dL (2-149) 05/31/21 19:01 Cholesterol 104 mg/dL (50-199) 05/31/21 19:01 LDL Cholesterol Direct 67 mg/dL (50-130) 05/31/21 19:01 HDL Cholesterol 21 mg/dL (40-59) L 05/31/21 19:01 Cholesterol/HDL Ratio 4.95 % 05/31/21 19:01 Procalcitonin 0.90 ng/mL (<0.15) 06/01/21 18:19 Urine Color Grace (Yellow) 05/31/21 Unknown Urine Turbidity Cloudy (Clear) 05/31/21 Unknown Urine pH 5.0 (5.0-7.0) 05/31/21 Unknown Ur Specific [place] 1.026 (1.003-1.030) 05/31/21 Unknown Urine Protein 100 mg/dl mg/dL (Negative) 05/31/21 Unknown Urine Glucose (UA) 50 mg/dL (Negative) 05/31/21 Unknown Urine Ketones Neg mg/dL (Negative) 05/31/21 Unknown Urine Blood Sm (Negative) 05/31/21 Unknown Urine Nitrite Neg (Negative) 05/31/21 Unknown Urine Bilirubin Neg (Negative) 05/31/21 Unknown Urine Urobilinogen 4.0 mg/dL (<2.0) 05/31/21 Unknown Ur Leukocyte Esterase Neg (Negative) 05/31/21 Unknown Urine WBC (Auto) 12.0 /HPF (0.0-6.0) H 05/31/21 Unknown Urine RBC (Auto) < 1.0 /HPF (0.0-6.0) 05/31/21 Unknown Urine Bacteria (Auto) 1+ /HPF (Negative) 05/31/21 Unknown Granular Casts 22 /LPF 05/31/21 Unknown Urine Mucus 3+ /HPF 05/31/21 Unknown Urine Osmolality 750 Mosm/kg 06/01/21 16:00 Urine Creatinine 158.6 mg/dL (0.1-20.0) H 06/01/21 16:00 Urine Sodium 33 mmol/L 06/01/21 16:00 Urine Potassium 61.16 mmol/L 06/01/21 16:00 Urine Urea Nitrogen 1337 06/01/21 16:00 Nasal Screen MRSA (PCR) Negative (Negative) 06/01/21 16:00 Coronavirus (PCR) Positive (Negative) A 06/01/21 08:30 Microbiology: Microbiology 05/31/21 18:10 Peripheral/Venous Blood Culture - Preliminary NO GROWTH AFTER 4 DAYS 05/31/21 18:10 Peripheral/Venous Blood Culture - Preliminary NO GROWTH AFTER 4 DAYS Anderson/IV: Voiding Method Indwelling Catheter Active Medications - Current Medications Current Medications: Generic Name Dose Route Start Last Admin Trade Name Freq PRN Reason Stop Dose Admin Acetaminophen 650 mg 05/31/21 22:28 06/01/21 21:47 Acetaminophen 325 Mg Tab PO 650 mg Q4H PRN Administration Pain MILD(1-3)/Fever >100.5/CORDERO Lipase/Protease/Amylase 1 each 06/03/21 11:21 Lipase 10,500/Protease 25,000/Amylase 43,750 (Units) Dr Waggoner FEEDTUBE PRN PRN For Clogged Feeding Tube Ascorbic Acid 500 mg 06/01/21 22:00 06/04/21 23:00 Ascorbic Acid 500 Mg Tab PO 500 mg BID SHAN Administration Aspirin 81 mg 06/03/21 10:00 06/04/21 09:13 Aspirin 81 Mg Tab Chew FEEDTUBE 81 mg QDAY SHAN Administration Atorvastatin Calcium 40 mg 06/02/21 22:00 06/04/21 22:40 Atorvastatin 40 Mg Tab FEEDTUBE 40 mg QHS SHAN Administration Cholecalciferol 5,000 unit 06/02/21 10:00 06/04/21 09:10 Cholecalciferol (Vit D3) 5,000 Unit Tab PO 5,000 unit DAILY SHAN Administration Dexamethasone 6 mg 06/01/21 19:40 06/04/21 09:10 Dexamethasone 4 Mg Tab PO 06/11/21 19:39 6 mg QDAY SHAN Administration Dextrose 0 ml 06/01/21 05:46 Dextrose 50% In Water (25gm) 50 Ml Syringe IV Q30MIN PRN Hypoglycemia Protocol Enoxaparin Sodium 90 mg 06/01/21 22:00 06/04/21 22:38 Enoxaparin 100 Mg/1 Ml Inj 1 mg/kg (90 mg) 90 mg SUB-Q Administration Q12HR [facility] Protocol Famotidine 20 mg 05/31/21 23:00 06/04/21 22:39 Famotidine 20 Mg/2 Ml Inj IV 20 mg BID SHAN Administration Remdesivir 100 mg/ Sodium 250 mls @ 500 mls/hr 06/03/21 14:00 06/04/21 13:58 Chloride IV 06/06/21 14:29 500 mls/hr Q24HR@1400 SHAN Administration Insulin Glargine 25 units 06/02/21 22:00 06/04/21 23:35 Insulin Glargine 100 Units/Ml SUB-Q Not Given QHS [facility] Insulin Human Lispro 0 unit 06/01/21 06:00 06/05/21 07:55 Insulin Lispro 100 Unit/Ml SUB-Q Not Given Q6HR [facility] Protocol Insulin Human Regular 5 units 06/03/21 12:00 06/05/21 06:42 Insulin Regular, Human 100 Units/1 Ml SUB-Q 5 units Q6HR SHAN Administration Lisinopril 10 mg 06/03/21 10:00 06/04/21 09:14 Lisinopril 10 Mg Tab PO 10 mg QDAY [facility] Administration Metoprolol Tartrate 12.5 mg 06/02/21 22:00 06/04/21 23:41 Metoprolol Tartrate 25 Mg Tab FEEDTUBE 12.5 mg BID SHAN Administration Ondansetron HCl 4 mg 05/31/21 22:28 Ondansetron 4 Mg/2 Ml Inj IV Q8H PRN Nausea And Vomiting Simple Syrup 15 ml 06/03/21 11:21 Simple Syrup 15 Ml FEEDTUBE PRN PRN Hypoglycemia Simple Syrup 30 ml 06/03/21 11:21 Simple Syrup 15 Ml FEEDTUBE PRN PRN Hypoglycemia Sodium Bicarbonate 325 mg 06/03/21 11:21 Sodium Bicarbonate 325 Mg Tab FEEDTUBE PRN PRN For Clogged Feeding Tube Sodium Chloride 10 ml 06/01/21 10:00 06/04/21 23:42 Sodium Chloride 0.9% 10 Ml Flush Syringe IV 10 ml BID SHAN Administration Sodium Chloride 10 ml 05/31/21 22:28 Sodium Chloride 0.9% 10 Ml Flush Syringe IV PRN PRN LINE FLUSH Sodium Chloride 10 ml 06/01/21 09:26 Sodium Chloride 0.9% 50 Ml Ivpb IV PRN PRN FLUSH Sodium Chloride 50 ml 06/02/21 08:00 06/04/21 13:59 Sodium Chloride 0.9% 50 Ml Ivpb IV 06/06/21 14:01 50 ml Q24HR@1400 [facility] Administration Zinc Sulfate 220 mg 06/01/21 22:00 06/04/21 22:39 Zinc Sulfate 220 Mg Cap PO 220 mg BID SHAN Administration Nutrition/Malnutrition Assess - Dietary Evaluation Nutrition/Malnutrition Findings: Nutrition Notes Start: 06/01/21 11:55 Freq: Status: Active Protocol: Document 06/03/21 13:38 FERMIN (Rec: 06/03/21 14:55 FERMIN [id number]) Nutrition Notes Need for Assessment generated from: MD Order Initial or Follow up Reassessment Current Diagnosis Decubitus(Pressure Ulcer), Diabetes,Respiratory Failure Other Pertinent Diagnosis COVID-19, Acute encephalopathy , Hypernatremia, NSTEMI, Bilateral AKA. Current Diet TF-Glucerna 1.2 Mateusz @ 38 ml/hr (since D 06/03). Labs/Tests 06/03: Na 151, Cl 119.5, CO2 20, BUN 42, Glu 416. Pertinent Medications 06/03: Vit C, Vit D3, ZnSO4, Insulin, others nutritionally unremarkable. Height 4 ft Weight 68 kg [place] Body Weight (kg) 15.45 BMI 45.7 Weight change and time frame No body weight change reported in 2 days. Weight Status Obese Subjective/Other Information RD consult for write/manage TF MD request. Pt has COVID-19 infection and tight glycemic control required; TF change to Glucerna 1.2 Mateusz. Pt extubated 06/02, now on nasal cannula, well tolerated. Decubitus ulcers not showing imfection at the time. Percent of energy/protein needs met: Prescribed Glucerna 1.2 Mateusz @ 38 ml/hr provides for energy/ protein needs (1,082 Kcal/54 g ) during LOS, 80% Kcal; 92% AA . Burn Absent Trauma Absent GI Symptoms None Food Allergy No Skin Integrity/Comment Sacral decubitus pressure ulcers. Current % PO Other Minimum of two criteria No #1 Nutrition Diagnosis Inadequate oral intake Comments: Pt extubated 06/02, now on nasal cannula. Pt will be better served with Glucerna TF to support diabetes control. Pt diagnosed with COVID. Etiology Pt failed bedside swallow evaluation. As Evidenced by Signs and Symptoms Pt currently on NPO. Diagnosis Progress(for reassessment Continues documentation) Is patient on ventilator? Yes Is Patient Ambulatory and/or Out of Bed No REE-([facility]-confined to bed) 1351.824 Calculation Used for Recommendations 70-80% of EEN Additional Notes 15-20 Kcal/Kg ABW (946-1,082 Kcal). Protein: 1.2-2 g/Kg ( amputee AdjBW 49 Kg); 59-98 g/ day. Fluids: 1 ml/Kcal, or as per MD. Nutrition Intervention Nutrition Support: Start Glucerna 1.2 Mateusz @ 38 ml /hr. Flush: 100 ml water Q 4 hr, or as per MD. Kcal 1,082 Protein (gm) 54 Carbohydrates (gm) 103 Fat (gm) 54 Fluid (mL) 726 Fiber (gm) 15 % RDI: 80% Kcal; 92% AA. Goal #1 Provide at least 75% of energy /protein needs through Enteral Feeding during LOS. Follow-Up By: 06/07/21 Additional Comments Continue monitoring TF tolerance and BM.
[2021-06-05] MEDS: ENOXAPARIN 100 MG/1 ML INJ SUB-Q SCH ×2 (10:28→23:43)
[2021-06-05] MEDS: ZINC SULFATE 220 MG CAP PO SCH ×2 (10:29→23:44)
[2021-06-05] MEDS: CHOLECALCIFEROL (VIT D3) 5,000 UNIT TAB PO SCH (10:29)
[2021-06-05] MEDS: FAMOTIDINE 20 MG/2 ML INJ IV SCH ×2 (10:29→23:43)
[2021-06-05] MEDS: ASPIRIN 81 MG TAB CHEW FEEDTUBE SCH (10:29)
[2021-06-05] MEDS: ASCORBIC ACID 500 MG TAB PO SCH ×2 (10:29→23:44)
[2021-06-05] MEDS: DEXAMETHASONE 4 MG TAB PO SCH (10:29)
[2021-06-05] MEDS: METOPROLOL TARTRATE 25 MG TAB FEEDTUBE SCH ×2 (10:34→23:44)
[2021-06-05] MEDS: LISINOPRIL 10 MG TAB PO SCH (10:35)
--- NOTE | 2021-06-05 10:54 | Progress Note ---
Assessment and Plan 66 y/o male with acute respiratory failure secondary to altered mental status, exact etiology unknown, intubated in the ED for airway protection but also started on sedation, rule out COVID 06/05/21: Steroids and Remdesivir. Wean FiO2, not sure why patient increased from 2 to 4, but sats are stable. WIll follow. 06/04/21: Continue steroids for 10 days and Remdesivir as ordered by ID. Wean FiO2 as tolerated for sats >88%. No objection to assessing for VTE, especially given COVID positive state, but doubt he has large PE. Suggest starting with doppler studies. 06/03/21: COVID positive. Steroids. Prone if able even though oxygen requirement has been minimal. Follow up ID recs. Will continue to follow. 1. Stop all sedation 2. If able and awake, attempt PSV trials 3. Needs diabetic therapy 4. Free water and assess free water deficit 5. Stop abx 6. Will extubate once awake, on minimal vent settings CCT 31 minutes. Subjective Date of service: 06/05/21 Principal diagnosis: COVID-19, Acute respiratory failure, NSTEMI Interval history: No acute events. Now on 4 liters. Sats are stable. Objective Vital Signs - 12hr 06/04/21 06/04/21 06/05/21 23:37 23:41 00:00 Temperature 98.7 F Pulse Rate 72 72 69 Respiratory 18 Rate Blood Pressure 130/66 Blood Pressure 132/56 [Right] O2 Sat by Pulse 91 Oximetry 06/05/21 06/05/21 06/05/21 03:16 03:20 04:00 Temperature 98.7 F 98.7 F Pulse Rate 69 65 73 Respiratory 20 20 Rate Blood Pressure 131/48 134/46 Blood Pressure [Right] O2 Sat by Pulse 90 93 Oximetry Constitutional: no acute distress, comatose Eyes: non-icteric ENT: other (orally intubated) Neck: supple Effort: normal Ascultation: Bilateral: clear Tactile fremitus: Bilateral: normal Cardiovascular: regular rate and rhythm Gastrointestinal: normoactive bowel sounds, soft CBC and BMP: 06/04/21 03:59 06/04/21 03:59 ABG, PT/INR, D-dimer: ABG ABG pH 7.390 pH Units (7.350-7.450) 06/02/21 07:45 ABG pCO2 33.9 mm Hg 06/02/21 07:45 ABG pO2 108.4 mm Hg (80.0-90.0) H 06/02/21 07:45 ABG O2 Saturation 97.9 % (95.0-99.0) 06/02/21 07:45 PT/INR, D-dimer D-Dimer 880.17 ng/mlDDU (0-234) H 06/03/21 07:27 Abnormal lab findings: Abnormal Labs 05/31/21 05/31/21 05/31/21 18:10 18:10 18:10 WBC RBC Hgb Hct MCV 99 H MCHC Lymph % (Auto) 8.1 L [place] % (Auto) Lymph # (Auto) 0.8 L Seg Neutrophils % 86.5 H Seg Neutrophils # 8.9 H D-Dimer ABG pO2 ABG O2 Saturation ABG Base Excess ABG Hemoglobin Sodium 152 H Potassium Chloride 115.3 H Carbon Dioxide BUN 39 H Creatinine Glucose 396 H POC Glucose Lactic Acid 3.00 H* Calcium Ferritin AST Alkaline Phosphatase Lactate Dehydrogenase Total Creatine Kinase Troponin T C-Reactive Protein NT-Pro-B Natriuret Pep Total Protein Albumin 2.9 L HDL Cholesterol Urine WBC (Auto) Urine Creatinine Coronavirus (PCR) 05/31/21 05/31/21 06/01/21 19:01 Unknown 01:33 WBC RBC Hgb Hct MCV MCHC Lymph % (Auto) [place] % (Auto) Lymph # (Auto) Seg Neutrophils % Seg Neutrophils # D-Dimer ABG pO2 ABG O2 Saturation ABG Base Excess ABG Hemoglobin Sodium Potassium Chloride Carbon Dioxide BUN Creatinine Glucose POC Glucose 255 H Lactic Acid Calcium Ferritin AST Alkaline Phosphatase Lactate Dehydrogenase Total Creatine Kinase Troponin T 0.146 H* C-Reactive Protein NT-Pro-B Natriuret Pep Total Protein Albumin HDL Cholesterol 21 L Urine WBC (Auto) 12.0 H Urine Creatinine Coronavirus (PCR) 06/01/21 06/01/21 06/01/21 04:08 04:50 04:50 WBC RBC Hgb 11.6 L Hct MCV 99 H MCHC Lymph % (Auto) [place] % (Auto) 7.6 H Lymph # (Auto) Seg Neutrophils % 75.4 H Seg Neutrophils # D-Dimer ABG pO2 283.4 H ABG O2 Saturation 99.5 H ABG Base Excess ABG Hemoglobin 11.5 L Sodium 156 H Potassium 3.0 L Chloride 123.3 H Carbon Dioxide 21 L BUN 40 H Creatinine Glucose 324 H POC Glucose Lactic Acid Calcium Ferritin AST Alkaline Phosphatase Lactate Dehydrogenase Total Creatine Kinase Troponin T C-Reactive Protein NT-Pro-B Natriuret Pep Total Protein 6.0 L Albumin 2.3 L HDL Cholesterol Urine WBC (Auto) Urine Creatinine Coronavirus (PCR) 06/01/21 06/01/21 06/01/21 05:15 08:30 12:04 WBC RBC Hgb Hct MCV MCHC Lymph % (Auto) [place] % (Auto) Lymph # (Auto) Seg Neutrophils % Seg Neutrophils # D-Dimer ABG pO2 ABG O2 Saturation ABG Base Excess ABG Hemoglobin Sodium Potassium Chloride Carbon Dioxide BUN Creatinine Glucose POC Glucose 297 H 256 H Lactic Acid Calcium Ferritin AST Alkaline Phosphatase Lactate Dehydrogenase Total Creatine Kinase Troponin T C-Reactive Protein NT-Pro-B Natriuret Pep Total Protein Albumin HDL Cholesterol Urine WBC (Auto) Urine Creatinine Coronavirus (PCR) Positive A 06/01/21 06/01/21 06/01/21 13:10 16:00 17:57 WBC RBC Hgb Hct MCV MCHC Lymph % (Auto) [place] % (Auto) Lymph # (Auto) Seg Neutrophils % Seg Neutrophils # D-Dimer ABG pO2 ABG O2 Saturation ABG Base Excess ABG Hemoglobin Sodium Potassium Chloride Carbon Dioxide BUN Creatinine Glucose POC Glucose 272 H 179 H Lactic Acid Calcium Ferritin AST Alkaline Phosphatase Lactate Dehydrogenase Total Creatine Kinase Troponin T C-Reactive Protein NT-Pro-B Natriuret Pep Total Protein Albumin HDL Cholesterol Urine WBC (Auto) Urine Creatinine 158.6 H Coronavirus (PCR) 06/01/21 06/01/21 06/01/21 18:19 18:19 18:19 WBC RBC Hgb Hct MCV MCHC Lymph % (Auto) [place] % (Auto) Lymph # (Auto) Seg Neutrophils % Seg Neutrophils # D-Dimer 1247.52 H ABG pO2 ABG O2 Saturation ABG Base Excess ABG Hemoglobin Sodium 152 H Potassium Chloride 121.4 H Carbon Dioxide BUN 35 H Creatinine Glucose 234 H POC Glucose Lactic Acid Calcium Ferritin AST Alkaline Phosphatase Lactate Dehydrogenase Total Creatine Kinase 530 H Troponin T 0.133 H* C-Reactive Protein NT-Pro-B Natriuret Pep Total Protein Albumin HDL Cholesterol Urine WBC (Auto) Urine Creatinine Coronavirus (PCR) 06/01/21 06/01/21 06/01/21 18:19 18:19 18:19 WBC RBC Hgb Hct MCV MCHC Lymph % (Auto) [place] % (Auto) Lymph # (Auto) Seg Neutrophils % Seg Neutrophils # D-Dimer ABG pO2 ABG O2 Saturation ABG Base Excess ABG Hemoglobin Sodium Potassium Chloride Carbon Dioxide BUN Creatinine Glucose POC Glucose Lactic Acid Calcium Ferritin 1394.0 H AST Alkaline Phosphatase Lactate Dehydrogenase 308 H Total Creatine Kinase Troponin T C-Reactive Protein 14.70 H NT-Pro-B Natriuret Pep 1305 H Total Protein Albumin HDL Cholesterol Urine WBC (Auto) Urine Creatinine Coronavirus (PCR) 06/01/21 06/01/21 06/02/21 21:46 23:36 00:28 WBC RBC Hgb Hct MCV MCHC Lymph % (Auto) [place] % (Auto) Lymph # (Auto) Seg Neutrophils % Seg Neutrophils # D-Dimer ABG pO2 ABG O2 Saturation ABG Base Excess ABG Hemoglobin Sodium Potassium Chloride Carbon Dioxide BUN Creatinine Glucose POC Glucose 204 H 218 H Lactic Acid Calcium Ferritin AST Alkaline Phosphatase Lactate Dehydrogenase Total Creatine Kinase 457 H Troponin T 0.144 H* C-Reactive Protein NT-Pro-B Natriuret Pep Total Protein Albumin HDL Cholesterol Urine WBC (Auto) Urine Creatinine Coronavirus (PCR) 06/02/21 06/02/21 06/02/21 05:33 07:45 10:00 WBC RBC 3.33 L Hgb 10.3 L Hct 33.0 L MCV 99 H MCHC 31 L Lymph % (Auto) [place] % (Auto) Lymph # (Auto) Seg Neutrophils % Seg Neutrophils # D-Dimer ABG pO2 108.4 H ABG O2 Saturation ABG Base Excess -4.1 L ABG Hemoglobin 13.4 L Sodium Potassium Chloride Carbon Dioxide BUN Creatinine Glucose POC Glucose 303 H Lactic Acid Calcium Ferritin AST Alkaline Phosphatase Lactate Dehydrogenase Total Creatine Kinase Troponin T C-Reactive Protein NT-Pro-B Natriuret Pep Total Protein Albumin HDL Cholesterol Urine WBC (Auto) Urine Creatinine Coronavirus (PCR) 06/02/21 06/02/21 06/02/21 10:00 11:10 15:52 WBC RBC Hgb Hct MCV MCHC Lymph % (Auto) [place] % (Auto) Lymph # (Auto) Seg Neutrophils % Seg Neutrophils # D-Dimer ABG pO2 ABG O2 Saturation ABG Base Excess ABG Hemoglobin Sodium 151 H Potassium 3.4 L Chloride 123.8 H Carbon Dioxide 16 L BUN 33 H Creatinine 0.6 L Glucose 326 H POC Glucose 333 H 341 H Lactic Acid Calcium 6.6 L D Ferritin AST 43 H Alkaline Phosphatase Lactate Dehydrogenase Total Creatine Kinase 299 H Troponin T 0.049 H D C-Reactive Protein NT-Pro-B Natriuret Pep Total Protein 5.1 L Albumin 1.5 L HDL Cholesterol Urine WBC (Auto) Urine Creatinine Coronavirus (PCR) 06/02/21 06/03/21 06/03/21 22:22 01:44 05:28 WBC RBC Hgb Hct MCV MCHC Lymph % (Auto) [place] % (Auto) Lymph # (Auto) Seg Neutrophils % Seg Neutrophils # D-Dimer ABG pO2 ABG O2 Saturation ABG Base Excess ABG Hemoglobin Sodium Potassium Chloride Carbon Dioxide BUN Creatinine Glucose POC Glucose 371 H 378 H 390 H Lactic Acid Calcium Ferritin AST Alkaline Phosphatase Lactate Dehydrogenase Total Creatine Kinase Troponin T C-Reactive Protein NT-Pro-B Natriuret Pep Total Protein Albumin HDL Cholesterol Urine WBC (Auto) Urine Creatinine Coronavirus (PCR) 06/03/21 06/03/21 06/03/21 07:27 07:27 07:27 WBC 11.9 H RBC Hgb Hct MCV 98 H MCHC 31 L Lymph % (Auto) [place] % (Auto) Lymph # (Auto) Seg Neutrophils % Seg Neutrophils # D-Dimer 880.17 H ABG pO2 ABG O2 Saturation ABG Base Excess ABG Hemoglobin Sodium Potassium Chloride Carbon Dioxide BUN Creatinine Glucose POC Glucose Lactic Acid Calcium Ferritin 1989.0 H AST Alkaline Phosphatase Lactate Dehydrogenase Total Creatine Kinase Troponin T C-Reactive Protein NT-Pro-B Natriuret Pep Total Protein Albumin HDL Cholesterol Urine WBC (Auto) Urine Creatinine Coronavirus (PCR) 06/03/21 06/03/21 06/03/21 07:27 11:22 11:49 WBC RBC Hgb Hct MCV MCHC Lymph % (Auto) [place] % (Auto) Lymph # (Auto) Seg Neutrophils % Seg Neutrophils # D-Dimer ABG pO2 ABG O2 Saturation ABG Base Excess ABG Hemoglobin Sodium 151 H Potassium Chloride 119.5 H Carbon Dioxide 20 L BUN 42 H Creatinine Glucose 416 H POC Glucose 284 H 234 H Lactic Acid Calcium Ferritin AST Alkaline Phosphatase 149 H Lactate Dehydrogenase 340 H Total Creatine Kinase Troponin T C-Reactive Protein 9.30 H NT-Pro-B Natriuret Pep Total Protein Albumin 2.3 L HDL Cholesterol Urine WBC (Auto) Urine Creatinine Coronavirus (PCR) 06/03/21 06/03/21 06/04/21 16:41 21:59 03:59 WBC RBC Hgb Hct MCV MCHC Lymph % (Auto) [place] % (Auto) Lymph # (Auto) Seg Neutrophils % Seg Neutrophils # D-Dimer ABG pO2 ABG O2 Saturation ABG Base Excess ABG Hemoglobin Sodium 152 H Potassium Chloride 121.6 H Carbon Dioxide 21 L BUN 42 H Creatinine 0.7 L Glucose 313 H POC Glucose 257 H 253 H Lactic Acid Calcium 8.1 L Ferritin AST Alkaline Phosphatase Lactate Dehydrogenase Total Creatine Kinase Troponin T C-Reactive Protein NT-Pro-B Natriuret Pep Total Protein 5.0 L D Albumin 2.1 L HDL Cholesterol Urine WBC (Auto) Urine Creatinine Coronavirus (PCR) 06/04/21 06/04/21 06/04/21 03:59 05:27 09:03 WBC RBC Hgb Hct MCV 97 H MCHC Lymph % (Auto) [place] % (Auto) Lymph # (Auto) Seg Neutrophils % 79.6 H Seg Neutrophils # 8.0 H D-Dimer ABG pO2 ABG O2 Saturation ABG Base Excess ABG Hemoglobin Sodium Potassium Chloride Carbon Dioxide BUN Creatinine Glucose POC Glucose 252 H 267 H Lactic Acid Calcium Ferritin AST Alkaline Phosphatase Lactate Dehydrogenase Total Creatine Kinase Troponin T C-Reactive Protein NT-Pro-B Natriuret Pep Total Protein Albumin HDL Cholesterol Urine WBC (Auto) Urine Creatinine Coronavirus (PCR) 06/04/21 06/04/21 06/04/21 11:04 16:11 23:00 WBC RBC Hgb Hct MCV MCHC Lymph % (Auto) [place] % (Auto) Lymph # (Auto) Seg Neutrophils % Seg Neutrophils # D-Dimer ABG pO2 ABG O2 Saturation ABG Base Excess ABG Hemoglobin Sodium Potassium Chloride Carbon Dioxide BUN Creatinine Glucose POC Glucose 246 H 194 H 144 H Lactic Acid Calcium Ferritin AST Alkaline Phosphatase Lactate Dehydrogenase Total Creatine Kinase Troponin T C-Reactive Protein NT-Pro-B Natriuret Pep Total Protein Albumin HDL Cholesterol Urine WBC (Auto) Urine Creatinine Coronavirus (PCR) 06/05/21 06:29 WBC RBC Hgb Hct MCV MCHC Lymph % (Auto) [place] % (Auto) Lymph # (Auto) Seg Neutrophils % Seg Neutrophils # D-Dimer ABG pO2 ABG O2 Saturation ABG Base Excess ABG Hemoglobin Sodium Potassium Chloride Carbon Dioxide BUN Creatinine Glucose POC Glucose 130 H Lactic Acid Calcium Ferritin AST Alkaline Phosphatase Lactate Dehydrogenase Total Creatine Kinase Troponin T C-Reactive Protein NT-Pro-B Natriuret Pep Total Protein Albumin HDL Cholesterol Urine WBC (Auto) Urine Creatinine Coronavirus (PCR)
[2021-06-05 11:11] LABS: Alanine Aminotransferase 55 units/L (7-56); Albumin 1.9 g/dL (3.9-5); Blood Urea Nitrogen 34 mg/dL (9-20); C-Reactive Protein 5.2 mg/dL (0.00-1.30); Calcium 8.5 mg/dL (8.4-10.2); Hemolysis Index 12
[2021-06-05 11:16] LABS: BUN/Creatinine Ratio 49
--- NOTE | 2021-06-05 13:19 | Gastroenterology Consultation ---
History of Present Illness - Reason for Consult Consult date: 06/05/21 PEG tube placement Requesting physician: ROBERT NOONAN - History of Present Illness This is a 55 yo male with pmh of b/l AKA, DM, seizure, BPH, CAD s/p CABG admitted on 05/31/2021 from [facility] for respiratory failure with COVID 19. Patient was intubated and since extubated. Currently on NC. Patient failed swallow test with speech due to oropharyngeal dysphagia. Currently with NG tube for tube feeding. Past History Past Medical History: diabetes, hypertension Past Surgical History: Other (unable to obtain, but has bilateral AKA's) Social history: other (lives in ) Family history: other (Unable to obtain) Medications and Allergies Allergies Allergy/AdvReac Type Severity Reaction Status Date / Time No Known Allergies Allergy Verified 12/23/18 20:00 Home Medications Medication Instructions Recorded Confirmed Last Taken Type Ascorbic Acid [Vitamin C] 500 mg PO QDAY 06/03/21 06/03/21 Unknown History Atorvastatin [Lipitor Tab] 80 mg PO QHS 06/03/21 06/03/21 Unknown History Cholecalciferol (Vitamin D3) 50,000 unit PO QWEEK 06/03/21 06/03/21 Unknown History [Vitamin D3 50,000UNIT CAP] Clopidogrel [Plavix] 75 mg PO QDAY 06/03/21 06/03/21 Unknown History Dicyclomine [Bentyl] 20 mg PO Q6H 06/03/21 06/03/21 Unknown History Docusate Sodium [Colace] 100 mg PO BID 06/03/21 06/03/21 Unknown History Ezetimibe [Zetia] 10 mg PO QHS 06/03/21 06/03/21 Unknown History ISOSORBIDE MONOnitrate [Imdur ER] 30 mg PO DAILY 06/03/21 06/03/21 Unknown History Losartan [Cozaar] 100 mg PO QDAY 06/03/21 06/03/21 Unknown History Mag Hydrox/Aluminum Hyd/Simeth 5 ml PO Q6H PRN 06/03/21 06/03/21 Unknown History [Maalox Advanced Suspension] Multivitamin Tab [Multiple Vitamin 1 each PO QDAY 06/03/21 06/03/21 Unknown History TAB (Theragran)] Povidone-Iodine [Betadine] 1 ml TP 3XW PRN 06/03/21 06/03/21 Unknown History Tamsulosin [Flomax] 0.4 mg PO QHS 06/03/21 06/03/21 Unknown History allopurinoL [Zyloprim] 300 mg PO QDAY 06/03/21 06/03/21 Unknown History carBAMazepine [Tegretol] 200 mg PO QDAY 06/03/21 06/03/21 Unknown History carvediloL [Coreg] 25 mg PO BID 06/03/21 06/03/21 Unknown History guaiFENesin ER [Mucinex ER] 600 mg PO Q12H 06/03/21 06/03/21 Unknown History traMADoL [Ultram] 50 mg PO BID PRN 06/03/21 06/03/21 Unknown History Active Meds: Active Medications Acetaminophen (Acetaminophen 325 Mg Tab) 650 mg PO Q4H PRN PRN Reason: Pain MILD(1-3)/Fever >100.5/CORDERO Last Admin: 06/01/21 21:47 Dose: 650 mg Lipase/Protease/Amylase (Lipase 10,500/Protease 25,000/Amylase 43,750 (Units) Dr Waggoner) 1 each FEEDTUBE PRN PRN PRN Reason: For Clogged Feeding Tube Ascorbic Acid (Ascorbic Acid 500 Mg Tab) 500 mg PO BID [facility] Last Admin: 06/05/21 10:29 Dose: 500 mg Aspirin (Aspirin 81 Mg Tab Chew) 81 mg FEEDTUBE QDAY [facility] Last Admin: 06/05/21 10:29 Dose: 81 mg Atorvastatin Calcium (Atorvastatin 40 Mg Tab) 40 mg FEEDTUBE QHS [facility] Last Admin: 06/04/21 22:40 Dose: 40 mg Cholecalciferol (Cholecalciferol (Vit D3) 5,000 Unit Tab) 5,000 unit PO DAILY [facility] Last Admin: 06/05/21 10:29 Dose: 5,000 unit Dexamethasone (Dexamethasone 4 Mg Tab) 6 mg PO QDAY [facility] Stop: 06/11/21 19:39 Last Admin: 06/05/21 10:29 Dose: 6 mg Dextrose (Dextrose 50% In Water (25gm) 50 Ml Syringe) 0 ml IV Q30MIN PRN; Protocol PRN Reason: Hypoglycemia Enoxaparin Sodium (Enoxaparin 100 Mg/1 Ml Inj) 90 mg 1 mg/kg (90 mg) SUB-Q Q12HR [facility]; Protocol Last Admin: 06/05/21 10:28 Dose: 90 mg Famotidine (Famotidine 20 Mg/2 Ml Inj) 20 mg IV BID [facility] Last Admin: 06/05/21 10:29 Dose: 20 mg Remdesivir 100 mg/ Sodium (Chloride) 250 mls @ 500 mls/hr IV Q24HR@1400 [facility] Stop: 06/06/21 14:29 Last Admin: 06/04/21 13:58 Dose: 500 mls/hr Insulin Glargine (Insulin Glargine 100 Units/Ml) 25 units SUB-Q QHS [facility] Last Admin: 06/04/21 23:35 Dose: Not Given Insulin Human Lispro (Insulin Lispro 100 Unit/Ml) 0 unit SUB-Q Q6HR [facility]; Protocol Last Admin: 06/05/21 07:55 Dose: Not Given Insulin Human Regular (Insulin Regular, Human 100 Units/1 Ml) 5 units SUB-Q Q6HR [facility] Last Admin: 06/05/21 12:58 Dose: 5 units Lisinopril (Lisinopril 10 Mg Tab) 10 mg PO QDAY [facility] Last Admin: 06/05/21 10:35 Dose: 10 mg Metoprolol Tartrate (Metoprolol Tartrate 25 Mg Tab) 12.5 mg FEEDTUBE BID [facility] Last Admin: 06/05/21 10:34 Dose: 12.5 mg Ondansetron HCl (Ondansetron 4 Mg/2 Ml Inj) 4 mg IV Q8H PRN PRN Reason: Nausea And Vomiting Simple Syrup (Simple Syrup 15 Ml) 15 ml FEEDTUBE PRN PRN PRN Reason: Hypoglycemia Simple Syrup (Simple Syrup 15 Ml) 30 ml FEEDTUBE PRN PRN PRN Reason: Hypoglycemia Sodium Bicarbonate (Sodium Bicarbonate 325 Mg Tab) 325 mg FEEDTUBE PRN PRN PRN Reason: For Clogged Feeding Tube Sodium Chloride (Sodium Chloride 0.9% 10 Ml Flush Syringe) 10 ml IV BID [facility] Last Admin: 06/05/21 10:29 Dose: 10 ml Sodium Chloride (Sodium Chloride 0.9% 10 Ml Flush Syringe) 10 ml IV PRN PRN PRN Reason: LINE FLUSH Sodium Chloride (Sodium Chloride 0.9% 50 Ml Ivpb) 10 ml IV PRN PRN PRN Reason: FLUSH Sodium Chloride (Sodium Chloride 0.9% 50 Ml Ivpb) 50 ml IV Q24HR@1400 [facility] Stop: 06/06/21 14:01 Last Admin: 06/04/21 13:59 Dose: 50 ml Zinc Sulfate (Zinc Sulfate 220 Mg Cap) 220 mg PO BID [facility] Last Admin: 06/05/21 10:29 Dose: 220 mg Review of Systems - Review of Systems ROS unobtainable: due to mental status Exam - Constitutional Vital Signs: Temp Pulse Resp BP Pulse Ox 98.7 F 73 20 134/46 93 06/05/21 03:20 06/05/21 04:00 06/05/21 03:20 06/05/21 03:20 06/05/21 03:20 General appearance: no acute distress - EENT Eyes: EOM intact ENT: poor dentition - Neck Neck: supple - Respiratory Respiratory effort: normal - Cardiovascular Rhythm: regular Heart Sounds: Present: S1 & S2 Extremities: No edema - Gastrointestinal General gastrointestinal: Present: soft, non-tender, non-distended, normal bowel sounds - Integumentary Integumentary: Present: clear, warm - Neurologic Neurological: disoriented - Psychiatric Psychiatric: cooperative - Allied health notes Allied health notes reviewed: nursing - Labs CBC & Chem 7: 06/04/21 03:59 06/05/21 09:58 Lab Results: Laboratory Results - last 24 hr 06/04/21 06/04/21 06/05/21 16:11 23:00 06:29 D-Dimer Sodium Potassium Chloride Carbon Dioxide Anion Gap BUN Creatinine Estimated GFR BUN/Creatinine Ratio Glucose POC Glucose 194 H 144 H 130 H Calcium Ferritin Total Bilirubin AST ALT Alkaline Phosphatase Lactate Dehydrogenase C-Reactive Protein Total Protein Albumin Albumin/Globulin Ratio 06/05/21 06/05/21 06/05/21 09:58 09:58 09:58 D-Dimer 435.79 H Sodium Potassium Chloride Carbon Dioxide Anion Gap BUN Creatinine Estimated GFR BUN/Creatinine Ratio Glucose 152 H POC Glucose Calcium Ferritin 702.9 H Total Bilirubin AST ALT Alkaline Phosphatase Lactate Dehydrogenase 237 H C-Reactive Protein 5.20 H Total Protein Albumin Albumin/Globulin Ratio 06/05/21 06/05/21 09:58 11:44 D-Dimer Sodium 142 D Potassium 3.2 L Chloride 113.4 H Carbon Dioxide 24 Anion Gap 8 BUN 34 H Creatinine 0.7 L Estimated GFR > 60 BUN/Creatinine Ratio 49 Glucose 153 H POC Glucose 130 H Calcium 8.5 Ferritin Total Bilirubin 0.30 AST 33 ALT 55 Alkaline Phosphatase 85 Lactate Dehydrogenase C-Reactive Protein Total Protein 5.4 L Albumin 1.9 L Albumin/Globulin Ratio 0.5 Assessment and Plan # Oropharyngeal dysphagia - failed swallow study. - currently with NG tube for feeding. - was on lovenox bid for NSTEMI. switched to heparin drip. Rec - could not reach family on the phone. - will tentatively plan for EGD/PEG on Monday if able to obtain consent with family. Will also need cardiac risk stratification. - please ensure electrolytes are corrected.
[2021-06-05] MEDS: REMDESIVIR 100 MG in SODIUM CHLORIDE 0.9% 250ML 250 ML IV SCH (18:11)
[2021-06-05] MEDS: SODIUM CHLORIDE 0.9% 50 ML IVPB IV SCH (18:12)
[2021-06-05] MEDS: INSULIN GLARGINE 100 UNITS/ML SUB-Q SCH (22:04)
[2021-06-06] MEDS: INSULIN REGULAR, HUMAN 100 UNITS/1 ML SUB-Q SCH ×4 (00:06→17:04)
[2021-06-06] MEDS: INSULIN LISPRO 100 UNIT/ML SUB-Q SCH ×4 (00:50→17:03)
[2021-06-06] MEDS: FREE WATER PO SCH ×4 (02:20→22:56)
--- NOTE | 2021-06-06 07:37 | Progress Note ---
Assessment and Plan Assessment and plan: HPI This is a 55-year-old male with bilateral AKA, DM, seizure disorder, BPH, CAD s/p CABG x4 who presented to the emergency department from [facility] via EMS with complaints of severe lethargy, only respond to verbal stimuli and hypoxia in the low 80s by the retirement staff. Patient was placed on nonrebreather and EMS was called. Upon their arrival SPO2 noted to be improved to 88%. Patient was brought to [facility] for further evaluation. In the emergency department patient was intubated due to decrease of responsiveness and hypoxia. Work-up in the emergency department revealed severe hypernatremia, hypokalemia, hyperchloremia, metabolic acidosis, elevated blood glucose and slight anemia. Patient had a elevated troponin on arrival. Patient was admitted to the hospitalist service with rhabdomyolysis, acute respiratory failure and is COVID-19 PUI with consults to [facility]. Hospital course to date 06/01: Troponin trended, free water flush initiated, echocardiogram ordered, potassium repleted, antibiotics discontinued, cardiology consulted. Patient is COVID-19 PCR positive, infectious disease consulted. Urine studies ordered for hypernatremia work-up. 06/02: Patient was extubated today per [facility], started on remdesivir. Patient will be transferred to the floor today. Pending CRP to see if patient is candidate for Actemra 06/03: Sodium remains elevated, increased FWF to 250 cc q4hr. Remains on tube feeds, blood sugar is elevated. Will increase lantus and add scheduled insulin. Pending ST eval. Working with for home O2 set up for patient. Anticipate discharge in 24 hrs back to SNF. 06/04: Increased fwf but was changed overnight but discussed with RN, currently 250 cc/hr, blood sugars improved with schedule insulin. Speech to re-eval patient given dysphagia yesterday. Patient is more alert today. If he fails aga in, will consult GI for PEG. Called Pamela who stated that patient's speech has been poor since cva. He was eating pureed diet [employer]. Plan is for patient to return to [facility]. 06/05: Dysphagia persistent. Consult placed to GI for PEG, discussed case with GI. Awaiting repeat BMP, trend NA. Blood sugars adequately controlled. Lovenox currently for NSTEMI treatment. Patient has been treated for 48hrs, will d/w cardiology re: anticoagulant duration and if ok to d/c in light of pending PEG tube placement. 06/06: Possible GIB, some concern for gastritis/ulcer from NGT. H/H, KUB ordered. Will order Protonix 40 IV BID. Hold tube feeds for now. Lovenox D/c and likely does not need to be resume per cardiology (discussed with Dr. Hanson today). Will await GI input. Original plan for GI to complete endoscopy Monday with PEG tube placement. Hypernatremia worsened, ordered d5w at 75 cc/hr x 2 bags while tube feeds are paused. Assessment and plan: This is a 55-year-old male with bilateral AKA, DM, seizure disorder, BPH, CAD s/p CABG x4 admitted with elevated troponins, hypernatremia, hypokalemia, hyperchloremia, metabolic acidosis and acute hypoxic respiratory failure. Upper GIB: - possibly from irritation from NGT - hold anticoagulants ,lovenox d/c - stat H/H ordered - KUB ordered - Protonix IV bid - hold tube feds - will follow GI recommendations Dysphagia -tube feeds (held at this time due to GIB) -Failed x 2 with speech -GI consulted for PEG tube, anticipate placement monday Acute hypoxic respiratory failure (improving) -CCM consulted, appreciate recommendations -Intubated on 05/31 with 8.0 ETT at 24 the lips -A.m. vent settings: CPAP 02/10 -Patient placed on CPAP on 06/01 and remained on CPAP after extubation on 06/02 -See RT RT notes for titration -extubated to NC -A.m. ABG and CXR noted -Pulm hygiene -SPO2 monitoring Acute metabolic encephalopathy, H/o CVA, seizure disorder -Follow commands -Avoid delirium -Reorientation as needed -Restart seizure medications when obtained -CT head shows parenchymal atrophy greater than expected for age 65 years, evidence of remote bilateral MCA infarctions unchanged from prior study, no acute intracranial abnormalities Sepsis, COVID-19 infection -Presented with acute hypoxic respiratory failure, leukocytosis, febrile on admit -CXR shows patchy bilateral parenchymal opacities left mid and lower lung zone -Antibiotic therapy with cefepime and vancomycin -Discontinued today due to normalization WBC and being afebrile -COVID-19 PCR positive -Infectious disease consulted, appreciate recommendations -Isolation/droplet precautions -Remdesivir () -Actemra will be given depending on CRP it is still pending -Vitamin D/vitamin C/zinc -Steroids for 10 days -Anticoagulation based on D-dimer -Trend COVID-19 inflammatory markers -Follow WBC and temperature curve -Follow-up blood cultures NSTEMI, h/o CAD s/p CABG x4, possible CHF, HTN -Cardiology consulted, appreciate recommendations -Echocardiogram pending -ECG shows T waves -Trend troponins -Blood pressure monitoring per protocol -Started low dose BB in setting of hypertension Severe hypernatremia (worsened) -Free water flush -Trend sodium -Urine osmolality and sodium do not indicate DI - ordered D5w while TF paused. -Anderson catheter for strict intake and output Hypokalemia -Potassium replacement -Trend BMP Protein calorie malnutrition, h/o DM, Dysphagia -Ntr consult for TF -24 hour -95 -SSI -Accu-Cheks every 6 -Avoid hypoglycemia -Long-acting insulin - ST eval: concerned for aspiration...recommended shelter feeding solution. I have called them to reassess the patient as he was only 24 hrs s/p extubation at the time evaluation. Will re-assess today. S/P bilateral AKA -Continue supportive care Seizure disorder -Aspiration/seizure precautions -Restart seizure medications when obtained DVT/GI prophylaxis -PPI -Lovenox therapeutic dose History Interval history: No distress on encounter. Per RN, patient was bleeding from nares and oropharynx this AM. Suctioned dark blood from NGT. Hemodynamically stable on my enocunter. Advised RN to send for H/H, KUB, d/c lovenox. Hospitalist Physical - Physical exam Narrative exam: Physical Exam: VITAL SIGNS: Reviewed. GENERAL: The patient appears normally developed, Vital signs as documented. More alert on exam. HEAD: No signs of head trauma. EYES: Pupils are equal. Extraocular motions intact. EARS: Hearing grossly intact. MOUTH: Oropharynx is normal. NECK: No adenopathy, no JVD. CHEST: Chest with clear breath sounds bilaterally. No wheezes, rales, or rhonchi. CARDIAC: Regular rate and rhythm. S1 and S2, without murmurs, gallops, or rubs. VASCULAR: No Edema. Peripheral pulses normal and equal in all extremities. ABDOMEN: Soft, non tender and non distended. No rebound or guarding, and no masses palpated. Bowel Sounds normal. MUSCULOSKELETAL: Good range of motion of all major joints. Extremities without clubbing, cyanosis or edema. NEUROLOGIC EXAM: Alert and but orientation difficult to assess, babbles incoherently. Able to nod yes/no. PSYCHIATRIC: appear appropriate. SKIN: detail exam as documented in skin assessment - Constitutional Vitals: Temp Pulse Resp BP Pulse Ox 97.3 F L 71 18 145/67 92 06/06/21 05:21 06/06/21 05:21 06/06/21 05:21 06/06/21 05:21 06/06/21 05:21 General appearance: Present: no acute distress HEART Score - HEART Score Troponin: Troponin T 0.049 ng/mL (0.00-0.029) H D 06/02/21 10:00 Results - Labs CBC & Chem 7: 06/06/21 08:35 06/06/21 04:00 Labs: Laboratory Last Values WBC 10.1 K/mm3 (4.5-11.0) 06/04/21 03:59 RBC 3.71 M/mm3 (3.65-5.03) 06/04/21 03:59 Hgb 11.8 gm/dl (11.8-15.2) 06/04/21 03:59 Hct 36.0 % (35.5-45.6) 06/04/21 03:59 MCV 97 fl (84-94) H 06/04/21 03:59 MCH 32 pg (28-32) 06/04/21 03:59 MCHC 33 % (32-34) 06/04/21 03:59 RDW 14.9 % (13.2-15.2) 06/04/21 03:59 Plt Count 216 K/mm3 (140-440) 06/04/21 03:59 Lymph % (Auto) 13.7 % (13.4-35.0) 06/04/21 03:59 Daniels % (Auto) 6.5 % (0.0-7.3) 06/04/21 03:59 Eos % (Auto) 0.1 % (0.0-4.3) 06/04/21 03:59 Baso % (Auto) 0.1 % (0.0-1.8) 06/04/21 03:59 Lymph # (Auto) 1.4 K/mm3 (1.2-5.4) 06/04/21 03:59 Daniels # (Auto) 0.7 K/mm3 (0.0-0.8) 06/04/21 03:59 Eos # (Auto) 0.0 K/mm3 (0.0-0.4) 06/04/21 03:59 Baso # (Auto) 0.0 K/mm3 (0.0-0.1) 06/04/21 03:59 Seg Neutrophils % 79.6 % (40.0-70.0) H 06/04/21 03:59 Seg Neutrophils # 8.0 K/mm3 (1.8-7.7) H 06/04/21 03:59 APTT 29.4 Sec. (24.2-36.6) 05/31/21 18:10 D-Dimer 435.79 ng/mlDDU (0-234) H 06/05/21 09:58 ABG pH 7.390 pH Units (7.350-7.450) 06/02/21 07:45 ABG pCO2 33.9 mm Hg 06/02/21 07:45 ABG pO2 108.4 mm Hg (80.0-90.0) H 06/02/21 07:45 ABG HCO3 20.1 mmol/L (20.0-26.0) 06/02/21 07:45 ABG O2 Saturation 97.9 % (95.0-99.0) 06/02/21 07:45 ABG O2 Content 18.3 (0.0-44) 06/02/21 07:45 ABG Base Excess -4.1 mmol/L (-2.0-3.0) L 06/02/21 07:45 ABG Hemoglobin 13.4 gm/dl (14.0-18.0) L 06/02/21 07:45 ABG Carboxyhemoglobin 1.0 % (0.0-5.0) 06/02/21 07:45 ABG Methemoglobin 0.6 % (0.0-1.5) 06/02/21 07:45 VBG pH 7.378 (7.320-7.420) 05/31/21 18:29 Oxyhemoglobin 96.3 % (95.0-99.0) 06/02/21 07:45 FiO2 40 % 06/02/21 07:45 Sodium 142 mmol/L (137-145) D 06/05/21 09:58 Potassium 3.2 mmol/L (3.6-5.0) L 06/05/21 09:58 Chloride 113.4 mmol/L (98-107) H 06/05/21 09:58 Carbon Dioxide 24 mmol/L (22-30) 06/05/21 09:58 Anion Gap 8 mmol/L 06/05/21 09:58 BUN 34 mg/dL (9-20) H 06/05/21 09:58 Creatinine 0.7 mg/dL (0.8-1.3) L 06/05/21 09:58 Estimated GFR > 60 ml/min 06/05/21 09:58 BUN/Creatinine Ratio 49 % 06/05/21 09:58 Glucose 152 mg/dL (75-100) H 06/05/21 09:58 Glucose 153 mg/dL (75-100) H 06/05/21 09:58 POC Glucose 108 mg/dL (70-105) H 06/06/21 06:15 Lactic Acid 1.80 mmol/L (0.7-2.0) 05/31/21 21:57 Calcium 8.5 mg/dL (8.4-10.2) 06/05/21 09:58 Magnesium 1.90 mg/dL (1.7-2.3) 06/01/21 18:19 Ferritin 702.9 ng/mL (30.0-300.0) H 06/05/21 09:58 Total Bilirubin 0.30 mg/dL (0.1-1.2) 06/05/21 09:58 AST 33 units/L (5-40) 06/05/21 09:58 ALT 55 units/L (7-56) 06/05/21 09:58 Alkaline Phosphatase 85 units/L (35-129) 06/05/21 09:58 Lactate Dehydrogenase 237 units/L (91-180) H 06/05/21 09:58 Total Creatine Kinase 299 units/L (55-170) H 06/02/21 10:00 CK-MB (CK-2) 2.2 ng/mL (0.0-4.0) 06/02/21 10:00 CK-MB (CK-2) Rel Index 0.3 (0-4) 06/02/21 00:28 Troponin T 0.049 ng/mL (0.00-0.029) H D 06/02/21 10:00 C-Reactive Protein 5.20 mg/dL (0.00-1.30) H 06/05/21 09:58 NT-Pro-B Natriuret Pep 1305 pg/mL (0-900) H 06/01/21 18:19 Total Protein 5.4 g/dL (6.3-8.2) L 06/05/21 09:58 Albumin 1.9 g/dL (3.9-5) L 06/05/21 09:58 Albumin/Globulin Ratio 0.5 % 06/05/21 09:58 Triglycerides 99 mg/dL (2-149) 05/31/21 19:01 Cholesterol 104 mg/dL (50-199) 05/31/21 19:01 LDL Cholesterol Direct 67 mg/dL (50-130) 05/31/21 19:01 HDL Cholesterol 21 mg/dL (40-59) L 05/31/21 19:01 Cholesterol/HDL Ratio 4.95 % 05/31/21 19:01 Procalcitonin 0.90 ng/mL (<0.15) 06/01/21 18:19 Urine Color Grace (Yellow) 05/31/21 Unknown Urine Turbidity Cloudy (Clear) 05/31/21 Unknown Urine pH 5.0 (5.0-7.0) 05/31/21 Unknown Ur Specific [place] 1.026 (1.003-1.030) 05/31/21 Unknown Urine Protein 100 mg/dl mg/dL (Negative) 05/31/21 Unknown Urine Glucose (UA) 50 mg/dL (Negative) 05/31/21 Unknown Urine Ketones Neg mg/dL (Negative) 05/31/21 Unknown Urine Blood Sm (Negative) 05/31/21 Unknown Urine Nitrite Neg (Negative) 05/31/21 Unknown Urine Bilirubin Neg (Negative) 05/31/21 Unknown Urine Urobilinogen 4.0 mg/dL (<2.0) 05/31/21 Unknown Ur Leukocyte Esterase Neg (Negative) 05/31/21 Unknown Urine WBC (Auto) 12.0 /HPF (0.0-6.0) H 05/31/21 Unknown Urine RBC (Auto) < 1.0 /HPF (0.0-6.0) 05/31/21 Unknown Urine Bacteria (Auto) 1+ /HPF (Negative) 05/31/21 Unknown Granular Casts 22 /LPF 05/31/21 Unknown Urine Mucus 3+ /HPF 05/31/21 Unknown Urine Osmolality 750 Mosm/kg 06/01/21 16:00 Urine Creatinine 158.6 mg/dL (0.1-20.0) H 06/01/21 16:00 Urine Sodium 33 mmol/L 06/01/21 16:00 Urine Potassium 61.16 mmol/L 06/01/21 16:00 Urine Urea Nitrogen 1337 06/01/21 16:00 Nasal Screen MRSA (PCR) Negative (Negative) 06/01/21 16:00 Coronavirus (PCR) Positive (Negative) A 06/01/21 08:30 Microbiology: Microbiology 05/31/21 18:10 Peripheral/Venous Blood Culture - Final NO GROWTH AFTER 5 DAYS 05/31/21 18:10 Peripheral/Venous Blood Culture - Final NO GROWTH AFTER 5 DAYS Anderson/IV: Voiding Method Indwelling Catheter Active Medications - Current Medications Current Medications: Generic Name Dose Route Start Last Admin Trade Name Freq PRN Reason Stop Dose Admin Acetaminophen 650 mg 05/31/21 22:28 06/01/21 21:47 Acetaminophen 325 Mg Tab PO 650 mg Q4H PRN Administration Pain MILD(1-3)/Fever >100.5/CORDREO Lipase/Protease/Amylase 1 each 06/03/21 11:21 Lipase 10,500/Protease 25,000/Amylase 43,750 (Units) Dr Waggoner FEEDTUBE PRN PRN For Clogged Feeding Tube Ascorbic Acid 500 mg 06/01/21 22:00 06/05/21 23:44 Ascorbic Acid 500 Mg Tab PO 500 mg BID SHAN Administration Aspirin 81 mg 06/03/21 10:00 06/05/21 10:29 Aspirin 81 Mg Tab Chew FEEDTUBE 81 mg QDAY SHAN Administration Atorvastatin Calcium 40 mg 06/02/21 22:00 06/05/21 23:44 Atorvastatin 40 Mg Tab FEEDTUBE 40 mg QHS SHAN Administration Cholecalciferol 5,000 unit 06/02/21 10:00 06/05/21 10:29 Cholecalciferol (Vit D3) 5,000 Unit Tab PO 5,000 unit DAILY [facility] Administration Dexamethasone 6 mg 06/01/21 19:40 06/05/21 10:29 Dexamethasone 4 Mg Tab PO 06/11/21 19:39 6 mg QDAY [facility] Administration Dextrose 0 ml 06/01/21 05:46 Dextrose 50% In Water (25gm) 50 Ml Syringe IV Q30MIN PRN Hypoglycemia Protocol Enoxaparin Sodium 90 mg 06/01/21 22:00 06/05/21 23:43 Enoxaparin 100 Mg/1 Ml Inj 1 mg/kg (90 mg) 90 mg SUB-Q Administration Q12HR [facility] Protocol Famotidine 20 mg 05/31/21 23:00 06/05/21 23:43 Famotidine 20 Mg/2 Ml Inj IV 20 mg BID [facility] Administration Remdesivir 100 mg/ Sodium 250 mls @ 500 mls/hr 06/03/21 14:00 06/05/21 18:11 Chloride IV 06/06/21 14:29 500 mls/hr Q24HR@1400 [facility] Administration Insulin Glargine 25 units 06/02/21 22:00 06/05/21 22:04 Insulin Glargine 100 Units/Ml SUB-Q 25 units QHS [facility] Administration Insulin Human Lispro 0 unit 06/01/21 06:00 06/06/21 06:18 Insulin Lispro 100 Unit/Ml SUB-Q Not Given Q6HR [facility] Protocol Insulin Human Regular 5 units 06/03/21 12:00 06/06/21 06:18 Insulin Regular, Human 100 Units/1 Ml SUB-Q Not Given Q6HR [facility] Lisinopril 10 mg 06/03/21 10:00 06/05/21 10:35 Lisinopril 10 Mg Tab PO 10 mg QDAY [facility] Administration Metoprolol Tartrate 12.5 mg 06/02/21 22:00 06/05/21 23:44 Metoprolol Tartrate 25 Mg Tab FEEDTUBE 12.5 mg BID [facility] Administration Ondansetron HCl 4 mg 05/31/21 22:28 Ondansetron 4 Mg/2 Ml Inj IV Q8H PRN Nausea And Vomiting Simple Syrup 15 ml 06/03/21 11:21 Simple Syrup 15 Ml FEEDTUBE PRN PRN Hypoglycemia Simple Syrup 30 ml 06/03/21 11:21 Simple Syrup 15 Ml FEEDTUBE PRN PRN Hypoglycemia Sodium Bicarbonate 325 mg 06/03/21 11:21 Sodium Bicarbonate 325 Mg Tab FEEDTUBE PRN PRN For Clogged Feeding Tube Sodium Chloride 10 ml 06/01/21 10:00 06/05/21 22:06 Sodium Chloride 0.9% 10 Ml Flush Syringe IV 10 ml BID SHAN Administration Sodium Chloride 10 ml 05/31/21 22:28 Sodium Chloride 0.9% 10 Ml Flush Syringe IV PRN PRN LINE FLUSH Sodium Chloride 10 ml 06/01/21 09:26 Sodium Chloride 0.9% 50 Ml Ivpb IV PRN PRN FLUSH Sodium Chloride 50 ml 06/02/21 08:00 06/05/21 18:12 Sodium Chloride 0.9% 50 Ml Ivpb IV 06/06/21 14:01 50 ml Q24HR@1400 SHAN Administration Zinc Sulfate 220 mg 06/01/21 22:00 06/05/21 23:44 Zinc Sulfate 220 Mg Cap PO 220 mg BID SHAN Administration Nutrition/Malnutrition Assess - Dietary Evaluation Nutrition/Malnutrition Findings: Nutrition Notes Start: 06/01/21 1 1:55 Freq: Status: Active Protocol: Document 06/05/21 10:15 CW (Rec: 06/05/21 10:29 CW [id number]) Nutrition Notes Need for Assessment generated from: MD Order Initial or Follow up Reassessment Current Diagnosis Decubitus(Pressure Ulcer), Diabetes,Sepsis,Respiratory Failure Other Pertinent Diagnosis COVID-19, Acute encephalopathy , Hypernatremia, NSTEMI, Bilateral AKA. Current Diet Glucerna 1.2 Labs/Tests 06/04: Na 152 BUN 42 BG 313 Pertinent Medications Humalog Humulin Decadron Height 4 ft Weight 68 kg Aspen Body Weight (kg) 15.45 BMI 45.7 Weight Status Obese Subjective/Other Information MD consult to restart TF. TF currently running Glucerna 1.2 at trickle feed of 18 ml/h. Pt failed swallow eval by FUNDRAISING DIRECTOR. Awaiting decision for PEG placement. Burn Absent Trauma Absent GI Symptoms Constipation Difficulty In Swallowing Food Allergy No Skin Integrity/Comment Sacral decubitus pressure ulcers. Current % PO Negligible Minimum of two criteria No physical signs of malnutrition #2 Nutrition Diagnosis Increased nutrient needs ( specify in comment below) Comments: protein Etiology wound healing As Evidenced by Signs and Symptoms Sacral wounds present #1 Nutrition Diagnosis Inadequate oral intake Diagnosis Progress(for reassessment Continues documentation) Is patient on ventilator? No Is Patient Ambulatory and/or Out of Bed No REE-([facility]-confined to bed) 3841.824 Calculation Used for Recommendations [facility] Additional Notes protien needs:82 - 102g (1.2 - 1.5g/kgBW for wound healing) fluid needS: 1 mL/kcal or per MD order Nutrition Intervention Change Diet Order: Restart TF Nutrition Support: Glucerna 1.2 at 40 ml/h Free water flush of 150 ml q4h for hypernatermia. Once hypernatremia resolves, resume free water flush of 75 ml q4h Kcal 1,152 Protein (gm) 58 Fluid (mL) 773 Goal #1 Meet at least 75% of kcal and protein needs via TF Goal #2 wound healing Follow-Up By: 06/08/21 Additional Comments F/U for TF tolerance
--- NOTE | 2021-06-06 08:39 | Event Note ---
Date: 06/06/21 [facility] Pt has been on full-dose SQ Lovenox since 125PM. No objections to holding anticoagulation in anticipation of PEG placement. Given that pt has already completed over 48hrs of anticoagulation therapy for NSTEMI, there is no need to switch to heparin gtt from a cardiac standpoint.
[2021-06-06 09:00] LABS: Hematocrit 36.7 % (35.5-45.6); Hemoglobin 11.9 gm/dl (11.8-15.2); Mean Corpuscular HGB Conc 33 % (32-34); Mean Corpuscular Volume 97 fl (84-94); Platelet Count 205 K/mm3 (140-440); Red Blood Count 3.79 M/mm3 (3.65-5.03); Red Cell Distribution Width 15.3 % (13.2-15.2)
[2021-06-06 09:17] LABS: Blood Urea Nitrogen 32 mg/dL (9-20); Calcium 8.5 mg/dL (8.4-10.2); Hemolysis Index 3
[2021-06-06 09:18] LABS: BUN/Creatinine Ratio 53
--- NOTE | 2021-06-06 10:17 | XRay Report ---
ABDOMEN 1 VIEW(S) INDICATION / CLINICAL INFORMATION: ng tube placement. COMPARISON: 05/31/2021 FINDINGS: TUBES / LINES: NG tube tip projects at the distal stomach/duodenal bulb similar to the prior. BOWEL GAS PATTERN: No significant abnormality. FREE AIR / EXTRALUMINAL GAS: None seen. ADDITIONAL FINDINGS: No significant additional findings. IMPRESSION: 1. NG tube tip in the right upper quadrant, likely within the distal stomach or duodenal bulb. Signer Name: Son Singh MD Signed: 06/06/2021 10:13 AM Workstation Name: [id number]
[2021-06-06] MEDS: DEXAMETHASONE 4 MG TAB PO SCH (11:26)
[2021-06-06] MEDS: LISINOPRIL 10 MG TAB PO SCH (11:27)
[2021-06-06] MEDS: ASCORBIC ACID 500 MG TAB PO SCH ×2 (11:27→22:51)
[2021-06-06] MEDS: CHOLECALCIFEROL (VIT D3) 5,000 UNIT TAB PO SCH (11:27)
[2021-06-06] MEDS: ZINC SULFATE 220 MG CAP PO SCH ×2 (11:27→22:51)
[2021-06-06] MEDS: METOPROLOL TARTRATE 25 MG TAB FEEDTUBE SCH ×2 (11:27→22:53)
[2021-06-06] MEDS: PANTOPRAZOLE 40 MG INJ IV SCH ×2 (11:28→22:51)
[2021-06-06] MEDS: ASPIRIN 81 MG TAB CHEW FEEDTUBE SCH (11:28)
[2021-06-06] MEDS: DEXTROSE 5% IN WATER 1,000 ML IV SCH (11:29)
--- NOTE | 2021-06-06 12:27 | Gastroenterology Progress Note ---
Assessment and Plan called spouse at [phone], just got VM (apparently she cannot answer her phone at work) Spoke with Lilli, daughter, at [phone]; they were not sure yet about the G tube Given lack of improvement it appears indicated for feeding Therefore will have the page me when she gets home from work, we'll review G tube RBA and tentatively schedule patient for PEG tomorrow pending our discussion - Patient Problems (1) Dysphagia Current Visit: Yes Status: Acute (2) COVID-19 Current Visit: Yes Status: Acute Subjective Date of service: 06/06/21 Principal diagnosis: COVID-19, Acute respiratory failure, NSTEMI Interval history: This is a 55 yo male with pmh of b/l AKA, DM, seizure, BPH, CAD s/p CABG admitted on 05/[facility] from senior care for respiratory failure with COVID 19. Patient was intubated and since extubated. Patient failed swallow test with speech due to oropharyngeal dysphagia. Currently with NG tube for tube feeding. Objective - Constitutional Vitals: Temp Pulse Resp BP Pulse Ox 97.3 F L 71 18 131/54 92 06/06/21 05:21 06/06/21 05:21 06/06/21 05:21 06/06/21 08:13 06/06/21 05:21 General appearance: no acute distress - EENT Eyes: EOM intact - Respiratory Respiratory effort: normal - Gastrointestinal General gastrointestinal: Present: soft - Labs CBC & Chem 7: 06/06/21 08:35 06/06/21 04:00 Labs: Laboratory Results - last 24 hr 06/05/21 06/06/21 06/06/21 15:57 00:59 04:00 WBC RBC Hgb Hct MCV MCH MCHC RDW Plt Count Sodium 148 H Potassium 3.6 Chloride 114.8 H Carbon Dioxide 24 Anion Gap 13 BUN 32 H Creatinine 0.6 L Estimated GFR > 60 BUN/Creatinine Ratio 53 Glucose 180 H POC Glucose 251 H 195 H Calcium 8.5 Coronavirus (PCR) 06/06/21 06/06/21 06/06/21 06:15 08:35 09:00 WBC 10.1 RBC 3.79 Hgb 11.9 Hct 36.7 MCV 97 H MCH 32 MCHC 33 RDW 15.3 H Plt Count 205 Sodium Potassium Chloride Carbon Dioxide Anion Gap BUN Creatinine Estimated GFR BUN/Creatinine Ratio Glucose POC Glucose 108 H Calcium Coronavirus (PCR) Positive A 06/06/21 11:49 WBC RBC Hgb Hct MCV MCH MCHC RDW Plt Count Sodium Potassium Chloride Carbon Dioxide Anion Gap BUN Creatinine Estimated GFR BUN/Creatinine Ratio Glucose POC Glucose 148 H Calcium Coronavirus (PCR)
--- NOTE | 2021-06-06 12:34 | Progress Note ---
Assessment and Plan 66 y/o male with acute respiratory failure secondary to altered mental status, exact etiology unknown, intubated in the ED for airway protection but also started on sedation, rule out COVID 06/06/21: Continue supportive care. 06/05/21: Steroids and Remdesivir. Wean FiO2, not sure why patient increased from 2 to 4, but sats are stable. WIll follow. 06/04/21: Continue steroids for 10 days and Remdesivir as ordered by ID. Wean FiO2 as tolerated for sats >88%. No objection to assessing for VTE, especially given COVID positive state, but doubt he has large PE. Suggest starting with doppler studies. 06/03/21: COVID positive. Steroids. Prone if able even though oxygen requirement has been minimal. Follow up ID recs. Will continue to follow. 1. Stop all sedation 2. If able and awake, attempt PSV trials 3. Needs diabetic therapy 4. Free water and assess free water deficit 5. Stop abx 6. Will extubate once awake, on minimal vent settings CCT 31 minutes. Subjective Date of service: 06/06/21 Principal diagnosis: COVID-19, Acute respiratory failure, NSTEMI Interval history: No acute events. Stable on 3 liters. Objective Vital Signs - 12hr 06/06/21 06/06/21 06/06/21 04:00 05:21 08:13 Temperature 97.3 F L Pulse Rate 71 71 Respiratory 18 Rate Blood Pressure 145/67 131/54 O2 Sat by Pulse 92 Oximetry 06/06/21 11:51 Temperature 99.0 F Pulse Rate 77 Respiratory 20 Rate Blood Pressure 135/57 O2 Sat by Pulse 92 Oximetry Constitutional: no acute distress, comatose Eyes: non-icteric ENT: other (orally intubated) Neck: supple Effort: normal Ascultation: Bilateral: clear Tactile fremitus: Bilateral: normal Cardiovascular: regular rate and rhythm Gastrointestinal: normoactive bowel sounds, soft CBC and BMP: 06/06/21 08:35 06/06/21 04:00 ABG, PT/INR, D-dimer: ABG ABG pH 7.390 pH Units (7.350-7.450) 06/02/21 07:45 ABG pCO2 33.9 mm Hg 06/02/21 07:45 ABG pO2 108.4 mm Hg (80.0-90.0) H 06/02/21 07:45 ABG O2 Saturation 97.9 % (95.0-99.0) 06/02/21 07:45 PT/INR, D-dimer D-Dimer 435.79 ng/mlDDU (0-234) H 06/05/21 09:58 Abnormal lab findings: Abnormal Labs 05/31/21 05/31/21 05/31/21 18:10 18:10 18:10 WBC RBC Hgb Hct MCV 99 H MCHC RDW Lymph % (Auto) 8.1 L Carbon % (Auto) Lymph # (Auto) 0.8 L Seg Neutrophils % 86.5 H Seg Neutrophils # 8.9 H D-Dimer ABG pO2 ABG O2 Saturation ABG Base Excess ABG Hemoglobin Sodium 152 H Potassium Chloride 115.3 H Carbon Dioxide BUN 39 H Creatinine Glucose 396 H POC Glucose Lactic Acid 3.00 H* Calcium Ferritin AST Alkaline Phosphatase Lactate Dehydrogenase Total Creatine Kinase Troponin T C-Reactive Protein NT-Pro-B Natriuret Pep Total Protein Albumin 2.9 L HDL Cholesterol Urine WBC (Auto) Urine Creatinine Coronavirus (PCR) 05/31/21 05/31/21 06/01/21 19:01 Unknown 01:33 WBC RBC Hgb Hct MCV MCHC RDW Lymph % (Auto) Carbon % (Auto) Lymph # (Auto) Seg Neutrophils % Seg Neutrophils # D-Dimer ABG pO2 ABG O2 Saturation ABG Base Excess ABG Hemoglobin Sodium Potassium Chloride Carbon Dioxide BUN Creatinine Glucose POC Glucose 255 H Lactic Acid Calcium Ferritin AST Alkaline Phosphatase Lactate Dehydrogenase Total Creatine Kinase Troponin T 0.146 H* C-Reactive Protein NT-Pro-B Natriuret Pep Total Protein Albumin HDL Cholesterol 21 L Urine WBC (Auto) 12.0 H Urine Creatinine Coronavirus (PCR) 06/01/21 06/01/21 06/01/21 04:08 04:50 04:50 WBC RBC Hgb 11.6 L Hct MCV 99 H MCHC RDW Lymph % (Auto) Carbon % (Auto) 7.6 H Lymph # (Auto) Seg Neutrophils % 75.4 H Seg Neutrophils # D-Dimer ABG pO2 283.4 H ABG O2 Saturation 99.5 H ABG Base Excess ABG Hemoglobin 11.5 L Sodium 156 H Potassium 3.0 L Chloride 123.3 H Carbon Dioxide 21 L BUN 40 H Creatinine Glucose 324 H POC Glucose Lactic Acid Calcium Ferritin AST Alkaline Phosphatase Lactate Dehydrogenase Total Creatine Kinase Troponin T C-Reactive Protein NT-Pro-B Natriuret Pep Total Protein 6.0 L Albumin 2.3 L HDL Cholesterol Urine WBC (Auto) Urine Creatinine Coronavirus (PCR) 06/01/21 06/01/21 06/01/21 05:15 08:30 12:04 WBC RBC Hgb Hct MCV MCHC RDW Lymph % (Auto) Carbon % (Auto) Lymph # (Auto) Seg Neutrophils % Seg Neutrophils # D-Dimer ABG pO2 ABG O2 Saturation ABG Base Excess ABG Hemoglobin Sodium Potassium Chloride Carbon Dioxide BUN Creatinine Glucose POC Glucose 297 H 256 H Lactic Acid Calcium Ferritin AST Alkaline Phosphatase Lactate Dehydrogenase Total Creatine Kinase Troponin T C-Reactive Protein NT-Pro-B Natriuret Pep Total Protein Albumin HDL Cholesterol Urine WBC (Auto) Urine Creatinine Coronavirus (PCR) Positive A 06/01/21 06/01/21 06/01/21 13:10 16:00 17:57 WBC RBC Hgb Hct MCV MCHC RDW Lymph % (Auto) Carbon % (Auto) Lymph # (Auto) Seg Neutrophils % Seg Neutrophils # D-Dimer ABG pO2 ABG O2 Saturation ABG Base Excess ABG Hemoglobin Sodium Potassium Chloride Carbon Dioxide BUN Creatinine Glucose POC Glucose 272 H 179 H Lactic Acid Calcium Ferritin AST Alkaline Phosphatase Lactate Dehydrogenase Total Creatine Kinase Troponin T C-Reactive Protein NT-Pro-B Natriuret Pep Total Protein Albumin HDL Cholesterol Urine WBC (Auto) Urine Creatinine 158.6 H Coronavirus (PCR) 06/01/21 06/01/21 06/01/21 18:19 18:19 18:19 WBC RBC Hgb Hct MCV MCHC RDW Lymph % (Auto) Carbon % (Auto) Lymph # (Auto) Seg Neutrophils % Seg Neutrophils # D-Dimer 1247.52 H ABG pO2 ABG O2 Saturation ABG Base Excess ABG Hemoglobin Sodium 152 H Potassium Chloride 121.4 H Carbon Dioxide BUN 35 H Creatinine Glucose 234 H POC Glucose Lactic Acid Calcium Ferritin AST Alkaline Phosphatase Lactate Dehydrogenase Total Creatine Kinase 530 H Troponin T 0.133 H* C-Reactive Protein NT-Pro-B Natriuret Pep Total Protein Albumin HDL Cholesterol Urine WBC (Auto) Urine Creatinine Coronavirus (PCR) 06/01/21 06/01/21 06/01/21 18:19 18:19 18:19 WBC RBC Hgb Hct MCV MCHC RDW Lymph % (Auto) Carbon % (Auto) Lymph # (Auto) Seg Neutrophils % Seg Neutrophils # D-Dimer ABG pO2 ABG O2 Saturation ABG Base Excess ABG Hemoglobin Sodium Potassium Chloride Carbon Dioxide BUN Creatinine Glucose POC Glucose Lactic Acid Calcium Ferritin 1394.0 H AST Alkaline Phosphatase Lactate Dehydrogenase 308 H Total Creatine Kinase Troponin T C-Reactive Protein 14.70 H NT-Pro-B Natriuret Pep 1305 H Total Protein Albumin HDL Cholesterol Urine WBC (Auto) Urine Creatinine Coronavirus (PCR) 06/01/21 06/01/21 06/02/21 21:46 23:36 00:28 WBC RBC Hgb Hct MCV MCHC RDW Lymph % (Auto) Carbon % (Auto) Lymph # (Auto) Seg Neutrophils % Seg Neutrophils # D-Dimer ABG pO2 ABG O2 Saturation ABG Base Excess ABG Hemoglobin Sodium Potassium Chloride Carbon Dioxide BUN Creatinine Glucose POC Glucose 204 H 218 H Lactic Acid Calcium Ferritin AST Alkaline Phosphatase Lactate Dehydrogenase Total Creatine Kinase 457 H Troponin T 0.144 H* C-Reactive Protein NT-Pro-B Natriuret Pep Total Protein Albumin HDL Cholesterol Urine WBC (Auto) Urine Creatinine Coronavirus (PCR) 06/02/21 06/02/21 06/02/21 05:33 07:45 10:00 WBC RBC 3.33 L Hgb 10.3 L Hct 33.0 L MCV 99 H MCHC 31 L RDW Lymph % (Auto) Carbon % (Auto) Lymph # (Auto) Seg Neutrophils % Seg Neutrophils # D-Dimer ABG pO2 108.4 H ABG O2 Saturation ABG Base Excess -4.1 L ABG Hemoglobin 13.4 L Sodium Potassium Chloride Carbon Dioxide BUN Creatinine Glucose POC Glucose 303 H Lactic Acid Calcium Ferritin AST Alkaline Phosphatase Lactate Dehydrogenase Total Creatine Kinase Troponin T C-Reactive Protein NT-Pro-B Natriuret Pep Total Protein Albumin HDL Cholesterol Urine WBC (Auto) Urine Creatinine Coronavirus (PCR) 06/02/21 06/02/21 06/02/21 10:00 11:10 15:52 WBC RBC Hgb Hct MCV MCHC RDW Lymph % (Auto) Carbon % (Auto) Lymph # (Auto) Seg Neutrophils % Seg Neutrophils # D-Dimer ABG pO2 ABG O2 Saturation ABG Base Excess ABG Hemoglobin Sodium 151 H Potassium 3.4 L Chloride 123.8 H Carbon Dioxide 16 L BUN 33 H Creatinine 0.6 L Glucose 326 H POC Glucose 333 H 341 H Lactic Acid Calcium 6.6 L D Ferritin AST 43 H Alkaline Phosphatase Lactate Dehydrogenase Total Creatine Kinase 299 H Troponin T 0.049 H D C-Reactive Protein NT-Pro-B Natriuret Pep Total Protein 5.1 L Albumin 1.5 L HDL Cholesterol Urine WBC (Auto) Urine Creatinine Coronavirus (PCR) 06/02/21 06/03/21 06/03/21 22:22 01:44 05:28 WBC RBC Hgb Hct MCV MCHC RDW Lymph % (Auto) Carbon % (Auto) Lymph # (Auto) Seg Neutrophils % Seg Neutrophils # D-Dimer ABG pO2 ABG O2 Saturation ABG Base Excess ABG Hemoglobin Sodium Potassium Chloride Carbon Dioxide BUN Creatinine Glucose POC Glucose 371 H 378 H 390 H Lactic Acid Calcium Ferritin AST Alkaline Phosphatase Lactate Dehydrogenase Total Creatine Kinase Troponin T C-Reactive Protein NT-Pro-B Natriuret Pep Total Protein Albumin HDL Cholesterol Urine WBC (Auto) Urine Creatinine Coronavirus (PCR) 06/03/21 06/03/21 06/03/21 07:27 07:27 07:27 WBC 11.9 H RBC Hgb Hct MCV 98 H MCHC 31 L RDW Lymph % (Auto) Carbon % (Auto) Lymph # (Auto) Seg Neutrophils % Seg Neutrophils # D-Dimer 880.17 H ABG pO2 ABG O2 Saturation ABG Base Excess ABG Hemoglobin Sodium Potassium Chloride Carbon Dioxide BUN Creatinine Glucose POC Glucose Lactic Acid Calcium Ferritin 1989.0 H AST Alkaline Phosphatase Lactate Dehydrogenase Total Creatine Kinase Troponin T C-Reactive Protein NT-Pro-B Natriuret Pep Total Protein Albumin HDL Cholesterol Urine WBC (Auto) Urine Creatinine Coronavirus (PCR) 06/03/21 06/03/21 06/03/21 07:27 11:22 11:49 WBC RBC Hgb Hct MCV MCHC RDW Lymph % (Auto) Carbon % (Auto) Lymph # (Auto) Seg Neutrophils % Seg Neutrophils # D-Dimer ABG pO2 ABG O2 Saturation ABG Base Excess ABG Hemoglobin Sodium 151 H Potassium Chloride 119.5 H Carbon Dioxide 20 L BUN 42 H Creatinine Glucose 416 H POC Glucose 284 H 234 H Lactic Acid Calcium Ferritin AST Alkaline Phosphatase 149 H Lactate Dehydrogenase 340 H Total Creatine Kinase Troponin T C-Reactive Protein 9.30 H NT-Pro-B Natriuret Pep Total Protein Albumin 2.3 L HDL Cholesterol Urine WBC (Auto) Urine Creatinine Coronavirus (PCR) 06/03/21 06/03/21 06/04/21 16:41 21:59 03:59 WBC RBC Hgb Hct MCV MCHC RDW Lymph % (Auto) Carbon % (Auto) Lymph # (Auto) Seg Neutrophils % Seg Neutrophils # D-Dimer ABG pO2 ABG O2 Saturation ABG Base Excess ABG Hemoglobin Sodium 152 H Potassium Chloride 121.6 H Carbon Dioxide 21 L BUN 42 H Creatinine 0.7 L Glucose 313 H POC Glucose 257 H 253 H Lactic Acid Calcium 8.1 L Ferritin AST Alkaline Phosphatase Lactate Dehydrogenase Total Creatine Kinase Troponin T C-Reactive Protein NT-Pro-B Natriuret Pep Total Protein 5.0 L D Albumin 2.1 L HDL Cholesterol Urine WBC (Auto) Urine Creatinine Coronavirus (PCR) 06/04/21 06/04/21 06/04/21 03:59 05:27 09:03 WBC RBC Hgb Hct MCV 97 H MCHC RDW Lymph % (Auto) Carbon % (Auto) Lymph # (Auto) Seg Neutrophils % 79.6 H Seg Neutrophils # 8.0 H D-Dimer ABG pO2 ABG O2 Saturation ABG Base Excess ABG Hemoglobin Sodium Potassium Chloride Carbon Dioxide BUN Creatinine Glucose POC Glucose 252 H 267 H Lactic Acid Calcium Ferritin AST Alkaline Phosphatase Lactate Dehydrogenase Total Creatine Kinase Troponin T C-Reactive Protein NT-Pro-B Natriuret Pep Total Protein Albumin HDL Cholesterol Urine WBC (Auto) Urine Creatinine Coronavirus (PCR) 06/04/21 06/04/21 06/04/21 11:04 16:11 23:00 WBC RBC Hgb Hct MCV MCHC RDW Lymph % (Auto) Carbon % (Auto) Lymph # (Auto) Seg Neutrophils % Seg Neutrophils # D-Dimer ABG pO2 ABG O2 Saturation ABG Base Excess ABG Hemoglobin Sodium Potassium Chloride Carbon Dioxide BUN Creatinine Glucose POC Glucose 246 H 194 H 144 H Lactic Acid Calcium Ferritin AST Alkaline Phosphatase Lactate Dehydrogenase Total Creatine Kinase Troponin T C-Reactive Protein NT-Pro-B Natriuret Pep Total Protein Albumin HDL Cholesterol Urine WBC (Auto) Urine Creatinine Coronavirus (PCR) 06/05/21 06/05/21 06/05/21 06:29 09:58 09:58 WBC RBC Hgb Hct MCV MCHC RDW Lymph % (Auto) Carbon % (Auto) Lymph # (Auto) Seg Neutrophils % Seg Neutrophils # D-Dimer 435.79 H ABG pO2 ABG O2 Saturation ABG Base Excess ABG Hemoglobin Sodium Potassium Chloride Carbon Dioxide BUN Creatinine Glucose 152 H POC Glucose 130 H Lactic Acid Calcium Ferritin AST Alkaline Phosphatase Lactate Dehydrogenase 237 H Total Creatine Kinase Troponin T C-Reactive Protein 5.20 H NT-Pro-B Natriuret Pep Total Protein Albumin HDL Cholesterol Urine WBC (Auto) Urine Creatinine Coronavirus (PCR) 06/05/21 06/05/21 06/05/21 09:58 09:58 11:44 WBC RBC Hgb Hct MCV MCHC RDW Lymph % (Auto) Carbon % (Auto) Lymph # (Auto) Seg Neutrophils % Seg Neutrophils # D-Dimer ABG pO2 ABG O2 Saturation ABG Base Excess ABG Hemoglobin Sodium Potassium 3.2 L Chloride 113.4 H Carbon Dioxide BUN 34 H Creatinine 0.7 L Glucose 153 H POC Glucose 130 H Lactic Acid Calcium Ferritin 702.9 H AST Alkaline Phosphatase Lactate Dehydrogenase Total Creatine Kinase Troponin T C-Reactive Protein NT-Pro-B Natriuret Pep Total Protein 5.4 L Albumin 1.9 L HDL Cholesterol Urine WBC (Auto) Urine Creatinine Coronavirus (PCR) 06/05/21 06/06/21 06/06/21 15:57 00:59 04:00 WBC RBC Hgb Hct MCV MCHC RDW Lymph % (Auto) Carbon % (Auto) Lymph # (Auto) Seg Neutrophils % Seg Neutrophils # D-Dimer ABG pO2 ABG O2 Saturation ABG Base Excess ABG Hemoglobin Sodium 148 H Potassium Chloride 114.8 H Carbon Dioxide BUN 32 H Creatinine 0.6 L Glucose 180 H POC Glucose 251 H 195 H Lactic Acid Calcium Ferritin AST Alkaline Phosphatase Lactate Dehydrogenase Total Creatine Kinase Troponin T C-Reactive Protein NT-Pro-B Natriuret Pep Total Protein Albumin HDL Cholesterol Urine WBC (Auto) Urine Creatinine Coronavirus (PCR) 06/06/21 06/06/21 06/06/21 06:15 08:35 09:00 WBC RBC Hgb Hct MCV 97 H MCHC RDW 15.3 H Lymph % (Auto) Carbon % (Auto) Lymph # (Auto) Seg Neutrophils % Seg Neutrophils # D-Dimer ABG pO2 ABG O2 Saturation ABG Base Excess ABG Hemoglobin Sodium Potassium Chloride Carbon Dioxide BUN Creatinine Glucose POC Glucose 108 H Lactic Acid Calcium Ferritin AST Alkaline Phosphatase Lactate Dehydrogenase Total Creatine Kinase Troponin T C-Reactive Protein NT-Pro-B Natriuret Pep Total Protein Albumin HDL Cholesterol Urine WBC (Auto) Urine Creatinine Coronavirus (PCR) Positive A 06/06/21 11:49 WBC RBC Hgb Hct MCV MCHC RDW Lymph % (Auto) Carbon % (Auto) Lymph # (Auto) Seg Neutrophils % Seg Neutrophils # D-Dimer ABG pO2 ABG O2 Saturation ABG Base Excess ABG Hemoglobin Sodium Potassium Chloride Carbon Dioxide BUN Creatinine Glucose POC Glucose 148 H Lactic Acid Calcium Ferritin AST Alkaline Phosphatase Lactate Dehydrogenase Total Creatine Kinase Troponin T C-Reactive Protein NT-Pro-B Natriuret Pep Total Protein Albumin HDL Cholesterol Urine WBC (Auto) Urine Creatinine Coronavirus (PCR)
[2021-06-06] MEDS: SODIUM CHLORIDE 0.9% 50 ML IVPB IV SCH (14:37)
[2021-06-06] MEDS: REMDESIVIR 100 MG in SODIUM CHLORIDE 0.9% 250ML 250 ML IV SCH (14:37)
[2021-06-06] MEDS: INSULIN GLARGINE 100 UNITS/ML SUB-Q SCH (22:57)
[2021-06-07] MEDS: INSULIN LISPRO 100 UNIT/ML SUB-Q SCH ×4 (00:45→18:07)
[2021-06-07] MEDS: FREE WATER PO SCH ×5 (02:02→23:05)
[2021-06-07] MEDS: INSULIN REGULAR, HUMAN 100 UNITS/1 ML SUB-Q SCH ×4 (02:45→18:05)
[2021-06-07] MEDS: DEXTROSE 5% IN WATER 1,000 ML IV SCH (03:03)
--- NOTE | 2021-06-07 08:03 | Anesthesia Consultation ---
<CECILE CASTRO - Last Filed: 06/07/21 08:00> Anesthesia Consult and Med Hx Date of service: 06/07/21 - Airway Anesthetic Teeth Evaluation: Poor ROM Head & Neck: Adequate Mental/Hyoid Distance: Adequate - Pulmonary Exam CTA: No - Cardiac Exam Cardiac Exam: RRR - Pre-Operative Health Status ASA Pre-Surgery Classification: ASA3 Proposed Anesthetic Plan: MAC - Pulmonary Hx Respiratory Symptoms: Yes (Covid + h/o resp. failure, on 3 L/nc) SOB: Yes - Cardiovascular System Hx Hypertension: Yes - Central Nervous System Hx Seizures: Yes - Additional Comments Anesthesia Medical History Comments: Pt from [facility], <RAFITA ASHTON - Last Filed: 06/07/21 09:10> Anesthesia Consult and Med Hx - Pre-Operative Health Status ASA Pre-Surgery Classification: ASA3 Proposed Anesthetic Plan: MAC - Pulmonary Hx Respiratory Symptoms: Yes (respiratory failure 2/2 COVID PNA intubated 05/31- 06/03; now on 3L NC) - Cardiovascular System Hx Hypertension: Yes Hx Coronary Artery Disease: Yes (hx CABG) Hx Heart Attack/AMI: No (NSTEMI on admission; EF 40-45%) Hx Peripheral Vascular Disease: Yes - Central Nervous System Hx Seizures: Yes CVA: Yes - Endocrine Hx Renal Disease: No Hx Insulin Dependent Diabetes: Yes - Additional Comments Anesthesia Medical History Comments: Scheduled for EGD/PEG.
--- NOTE | 2021-06-07 08:04 | Anesthesia Day of Surgery ---
Anesthesia Day of Surgery - Day of Surgery Patient Examined: Yes Patient H&P Reviewed: Yes Patient is NPO: Yes
[2021-06-07] MEDS ORDERED: MIDAZOLAM 2 MG/2 ML INJ ONE (08:30)
[2021-06-07] MEDS ORDERED: propofoL 200 MG/20 ML VIAL IV ONE (08:30)
[2021-06-07] MEDS ORDERED: ceFAZolin/STERILE WATER 2 GM/20 ML SYRINGE IV ONE (08:40)
[2021-06-07] MEDS ORDERED: ceFAZolin/Water 2 GM/20 ML 2 GM/20 ML SYRINGE IV ONE (08:46)
--- NOTE | 2021-06-07 09:14 | Operative Report ---
Operative Report Operative Report: DOS 06/07/21 ANTIBIOTICS: Ancef 2gm IV x 1 SURGEON: Issa Sow MD EGD WITH PEG TUBE PLACEMENT and biopsy REPORT PREOPERATIVE DIAGNOSIS and POSTOPERATIVE DIAGNOSIS: dysphagia ESTIMATED BLOOD LOSS: minimal DESCRIPTION OF PROCEDURE: A high-resolution EGD scope was passed through the oropharynx, esophagus, stomach, and second portion of duodenum. The scope was carefully withdrawn. Retroflexion was performed in the stomach. At the end of the procedure, the scope was cleaned using normal technique. Vital signs monitored continuously throughout. The stomach was transilluminated and an optimal position for the PEG tube was identified using the single poke method. The skin was infiltrated with local anesthesia and the needle and sheath were inserted through the abdomen into the stomach under direct visualization. The needle was removed and a guidewire was inserted through the sheath. The guidewire was grasped from above with a snare. It was removed completely and the PEG tube was secured to the guidewire. The guidewire and PEG tube were then pulled through the mouth and esophagus and snug to the abdominal wall at 4.5cm. There was no evidence of bleeding. The Bolster was placed on the PEG site. The endoscope was reinserted and the PEG site was visualized and inspected. SEDATION: Provided by Anesthesiology Services. COMPLICATIONS: None. FINDINGS: * No gross lesions in the entire examined duodenum * Severe gastritis of the antrum and body with superficial ulceration and edema and erythema. Multiple biopsies taken to rule out H. pylori * 1 cm hiatal hernia * LA grade a reflux esophagitis in the distal 1 cm of the esophagus * GE junction located at 42 cm from incisors * Remainder of exam unremarkable RECOMMENDATIONS: The PEG may be used for medication and water flushes now. Tomorrow, if there are normal bowel sounds and no significant abdominal tenderness to palpation may start tube feeds
--- NOTE | 2021-06-07 10:04 | Post Anesthesia Evaluation ---
- Post Anesthesia Evaluation Patient Participated: No Airway Patent: Yes Stable Respiratory Function: Yes (on O2 via NC) Nausea/Vomiting: No Temp > 96.8F: Yes Pain Manageable: Yes Adequeate Hydration: Yes Anesthesia Complications: No
[2021-06-07] MEDS: DEXAMETHASONE 4 MG TAB PO SCH (10:55)
[2021-06-07] MEDS: ASPIRIN 81 MG TAB CHEW FEEDTUBE SCH (10:55)
[2021-06-07] MEDS: LISINOPRIL 10 MG TAB PO SCH (10:56)
[2021-06-07] MEDS: ACETAMINOPHEN 325 MG TAB PO PRN (10:56)
[2021-06-07] MEDS: METOPROLOL TARTRATE 25 MG TAB FEEDTUBE SCH ×2 (10:56→22:17)
[2021-06-07] MEDS: ZINC SULFATE 220 MG CAP PO SCH ×2 (10:56→21:30)
[2021-06-07] MEDS: CHOLECALCIFEROL (VIT D3) 5,000 UNIT TAB PO SCH (10:56)
[2021-06-07] MEDS: ASCORBIC ACID 500 MG TAB PO SCH ×2 (10:56→22:17)
[2021-06-07] MEDS: PANTOPRAZOLE 40 MG INJ IV SCH ×2 (10:57→22:18)
--- NOTE | 2021-06-07 11:08 | Progress Note ---
Assessment and Plan Patient is a 66-year-old male with a past medical history of bilateral AKA, hypertension, diabetes and seizures who was brought to the ED for altered mental status x1 day from [facility] AMS Sepsis Acute hypoxic respiratory failure- Pulm following COVID-19-ID following NSTEMI HTN DM Echo 06/01/2021-EF 40 to 45%. Segmental anterior wall hypokinesis. Right ventricular systolic function is normal. Aortic valve is calcified. No aortic valve stenosis. No aortic regurgitation present. Trace mitral regurgitation Plan: Continue metoprolol 12.5 mg p.o. 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 Patient may also follow-up with our group [facility] open hearth worker 1 to 2 weeks after discharge. Phone #[phone] Patient seen in conjunction with Dr. Hanson agrees with this plan of care - Patient Problems (1) COVID-19 Current Visit: Yes Status: Acute (2) Acute encephalopathy Current Visit: Yes Status: Acute (3) Acute respiratory failure with hypoxia Current Visit: Yes Status: Acute (4) Hypernatremia Current Visit: Yes Status: Acute (5) Pneumonia Current Visit: Yes Status: Acute (6) Sepsis Current Visit: Yes Status: Acute Qualifiers: Sepsis type: sepsis due to unspecified organism Severe sepsis shock status: without septic shock (7) S/P AKA (above knee amputation) bilateral Current Visit: Yes Status: Chronic Subjective Date of service: 06/07/21 Principal diagnosis: COVID-19, Acute respiratory failure, NSTEMI Interval history: Patient resting in bed in no acute distress. Patient sinus 70s on monitor with no events Objective Vital Signs Temp Pulse Resp BP Pulse Ox 06/07/21 04:56 97.3 F L 69 18 147/63 93 06/07/21 04:00 72 06/06/21 22:53 72 118/31 06/06/21 22:01 97.7 F 72 18 118/31 97 06/06/21 22:00 95 06/06/21 17:35 99 06/06/21 15:36 98.2 F 74 15 138/50 95 06/06/21 11:51 99.0 F 77 20 135/57 92 - Physical Examination General: No Apparent Distress HEENT: Positive: Normocephaly, Mucus Membranes Dry Neck: Positive: trachea midline Cardiac: Positive: Reg Rate and Rhythm Lungs: Positive: Decreased Breath Sounds Neuro: Positive: Other (Unable to assess due mental status) Abdomen: Positive: Soft Skin: Negative: Rash, Suspicious Lesions Extremities: Absent: edema - Imaging and Cardiology EKG: report reviewed, image reviewed Echo: report reviewed - Telemetry EKG Rhythm: Sinus Rhythm - EKG Sinus rhythms and dysrhythmias: sinus rhythm Repolarization changes or abnormalities: ST or T wave suggestive of ischemia
[2021-06-07 11:27] LABS: Blood Urea Nitrogen 27 mg/dL (9-20); Calcium 8.4 mg/dL (8.4-10.2); Hemolysis Index 60
[2021-06-07 11:43] LABS: BUN/Creatinine Ratio 45
--- NOTE | 2021-06-07 12:10 | Progress Note ---
Assessment and Plan 66 y/o male with acute respiratory failure secondary to altered mental status, exact etiology unknown, intubated in the ED for airway protection but also started on sedation, rule out COVID 06/07/21: Stable pulm status. Will see as needed 06/06/21: Continue supportive care. 06/05/21: Steroids and Remdesivir. Wean FiO2, not sure why patient increased from 2 to 4, but sats are stable. WIll follow. 06/04/21: Continue steroids for 10 days and Remdesivir as ordered by ID. Wean FiO2 as tolerated for sats >88%. No objection to assessing for VTE, especially given COVID positive state, but doubt he has large PE. Suggest starting with doppler studies. 06/03/21: COVID positive. Steroids. Prone if able even though oxygen requirem ent has been minimal. Follow up ID recs. Will continue to follow. 1. Stop all sedation 2. If able and awake, attempt PSV trials 3. Needs diabetic therapy 4. Free water and assess free water deficit 5. Stop abx 6. Will extubate once awake, on minimal vent settings CCT 31 minutes. Subjective Date of service: 06/07/21 Principal diagnosis: COVID-19, Acute respiratory failure, NSTEMI Interval history: Peg placed this am. Stable. Objective Vital Signs - 12hr 06/07/21 06/07/21 04:00 04:56 Temperature 97.3 F L Pulse Rate 72 69 Respiratory 18 Rate Blood Pressure 147/63 O2 Sat by Pulse 93 Oximetry Constitutional: no acute distress, comatose Eyes: non-icteric ENT: other (orally intubated) Neck: supple Effort: normal Ascultation: Bilateral: clear Tactile fremitus: Bilateral: normal Cardiovascular: regular rate and rhythm Gastrointestinal: normoactive bowel sounds, soft CBC and BMP: 06/06/21 08:35 06/07/21 10:52 ABG, PT/INR, D-dimer: ABG ABG pH 7.390 pH Units (7.350-7.450) 06/02/21 07:45 ABG pCO2 33.9 mm Hg 06/02/21 07:45 ABG pO2 108.4 mm Hg (80.0-90.0) H 06/02/21 07:45 ABG O2 Saturation 97.9 % (95.0-99.0) 06/02/21 07:45 PT/INR, D-dimer D-Dimer 435.79 ng/mlDDU (0-234) H 06/05/21 09:58 Abnormal lab findings: Abnormal Labs 05/31/21 05/31/21 05/31/21 18:10 18:10 18:10 WBC RBC Hgb Hct MCV 99 H MCHC RDW Lymph % (Auto) 8.1 L [place] % (Auto) Lymph # (Auto) 0.8 L Seg Neutrophils % 86.5 H Seg Neutrophils # 8.9 H D-Dimer ABG pO2 ABG O2 Saturation ABG Base Excess ABG Hemoglobin Sodium 152 H Potassium Chloride 115.3 H Carbon Dioxide BUN 39 H Creatinine Glucose 396 H POC Glucose Lactic Acid 3.00 H* Calcium Ferritin AST Alkaline Phosphatase Lactate Dehydrogenase Total Creatine Kinase Troponin T C-Reactive Protein NT-Pro-B Natriuret Pep Total Protein Albumin 2.9 L HDL Cholesterol Urine WBC (Auto) Urine Creatinine Coronavirus (PCR) 05/31/21 05/31/21 06/01/21 19:01 Unknown 01:33 WBC RBC Hgb Hct MCV MCHC RDW Lymph % (Auto) [place] % (Auto) Lymph # (Auto) Seg Neutrophils % Seg Neutrophils # D-Dimer ABG pO2 ABG O2 Saturation ABG Base Excess ABG Hemoglobin Sodium Potassium Chloride Carbon Dioxide BUN Creatinine Glucose POC Glucose 255 H Lactic Acid Calcium Ferritin AST Alkaline Phosphatase Lactate Dehydrogenase Total Creatine Kinase Troponin T 0.146 H* C-Reactive Protein NT-Pro-B Natriuret Pep Total Protein Albumin HDL Cholesterol 21 L Urine WBC (Auto) 12.0 H Urine Creatinine Coronavirus (PCR) 06/01/21 06/01/21 06/01/21 04:08 04:50 04:50 WBC RBC Hgb 11.6 L Hct MCV 99 H MCHC RDW Lymph % (Auto) [place] % (Auto) 7.6 H Lymph # (Auto) Seg Neutrophils % 75.4 H Seg Neutrophils # D-Dimer ABG pO2 283.4 H ABG O2 Saturation 99.5 H ABG Base Excess ABG Hemoglobin 11.5 L Sodium 156 H Potassium 3.0 L Chloride 123.3 H Carbon Dioxide 21 L BUN 40 H Creatinine Glucose 324 H POC Glucose Lactic Acid Calcium Ferritin AST Alkaline Phosphatase Lactate Dehydrogenase Total Creatine Kinase Troponin T C-Reactive Protein NT-Pro-B Natriuret Pep Total Protein 6.0 L Albumin 2.3 L HDL Cholesterol Urine WBC (Auto) Urine Creatinine Coronavirus (PCR) 06/01/21 06/01/21 06/01/21 05:15 08:30 12:04 WBC RBC Hgb Hct MCV MCHC RDW Lymph % (Auto) [place] % (Auto) Lymph # (Auto) Seg Neutrophils % Seg Neutrophils # D-Dimer ABG pO2 ABG O2 Saturation ABG Base Excess ABG Hemoglobin Sodium Potassium Chloride Carbon Dioxide BUN Creatinine Glucose POC Glucose 297 H 256 H Lactic Acid Calcium Ferritin AST Alkaline Phosphatase Lactate Dehydrogenase Total Creatine Kinase Troponin T C-Reactive Protein NT-Pro-B Natriuret Pep Total Protein Albumin HDL Cholesterol Urine WBC (Auto) Urine Creatinine Coronavirus (PCR) Positive A 06/01/21 06/01/21 06/01/21 13:10 16:00 17:57 WBC RBC Hgb Hct MCV MCHC RDW Lymph % (Auto) [place] % (Auto) Lymph # (Auto) Seg Neutrophils % Seg Neutrophils # D-Dimer ABG pO2 ABG O2 Saturation ABG Base Excess ABG Hemoglobin Sodium Potassium Chloride Carbon Dioxide BUN Creatinine Glucose POC Glucose 272 H 179 H Lactic Acid Calcium Ferritin AST Alkaline Phosphatase Lactate Dehydrogenase Total Creatine Kinase Troponin T C-Reactive Protein NT-Pro-B Natriuret Pep Total Protein Albumin HDL Cholesterol Urine WBC (Auto) Urine Creatinine 158.6 H Coronavirus (PCR) 06/01/21 06/01/21 06/01/21 18:19 18:19 18:19 WBC RBC Hgb Hct MCV MCHC RDW Lymph % (Auto) [place] % (Auto) Lymph # (Auto) Seg Neutrophils % Seg Neutrophils # D-Dimer 1247.52 H ABG pO2 ABG O2 Saturation ABG Base Excess ABG Hemoglobin Sodium 152 H Potassium Chloride 121.4 H Carbon Dioxide BUN 35 H Creatinine Glucose 234 H POC Glucose Lactic Acid Calcium Ferritin AST Alkaline Phosphatase Lactate Dehydrogenase Total Creatine Kinase 530 H Troponin T 0.133 H* C-Reactive Protein NT-Pro-B Natriuret Pep Total Protein Albumin HDL Cholesterol Urine WBC (Auto) Urine Creatinine Coronavirus (PCR) 06/01/21 06/01/21 06/01/21 18:19 18:19 18:19 WBC RBC Hgb Hct MCV MCHC RDW Lymph % (Auto) [place] % (Auto) Lymph # (Auto) Seg Neutrophils % Seg Neutrophils # D-Dimer ABG pO2 ABG O2 Saturation ABG Base Excess ABG Hemoglobin Sodium Potassium Chloride Carbon Dioxide BUN Creatinine Glucose POC Glucose Lactic Acid Calcium Ferritin 1394.0 H AST Alkaline Phosphatase Lactate Dehydrogenase 308 H Total Creatine Kinase Troponin T C-Reactive Protein 14.70 H NT-Pro-B Natriuret Pep 1305 H Total Protein Albumin HDL Cholesterol Urine WBC (Auto) Urine Creatinine Coronavirus (PCR) 06/01/21 06/01/21 06/02/21 21:46 23:36 00:28 WBC RBC Hgb Hct MCV MCHC RDW Lymph % (Auto) [place] % (Auto) Lymph # (Auto) Seg Neutrophils % Seg Neutrophils # D-Dimer ABG pO2 ABG O2 Saturation ABG Base Excess ABG Hemoglobin Sodium Potassium Chloride Carbon Dioxide BUN Creatinine Glucose POC Glucose 204 H 218 H Lactic Acid Calcium Ferritin AST Alkaline Phosphatase Lactate Dehydrogenase Total Creatine Kinase 457 H Troponin T 0.144 H* C-Reactive Protein NT-Pro-B Natriuret Pep Total Protein Albumin HDL Cholesterol Urine WBC (Auto) Urine Creatinine Coronavirus (PCR) 06/02/21 06/02/21 06/02/21 05:33 07:45 10:00 WBC RBC 3.33 L Hgb 10.3 L Hct 33.0 L MCV 99 H MCHC 31 L RDW Lymph % (Auto) [place] % (Auto) Lymph # (Auto) Seg Neutrophils % Seg Neutrophils # D-Dimer ABG pO2 108.4 H ABG O2 Saturation ABG Base Excess -4.1 L ABG Hemoglobin 13.4 L Sodium Potassium Chloride Carbon Dioxide BUN Creatinine Glucose POC Glucose 303 H Lactic Acid Calcium Ferritin AST Alkaline Phosphatase Lactate Dehydrogenase Total Creatine Kinase Troponin T C-Reactive Protein NT-Pro-B Natriuret Pep Total Protein Albumin HDL Cholesterol Urine WBC (Auto) Urine Creatinine Coronavirus (PCR) 06/02/21 06/02/21 06/02/21 10:00 11:10 15:52 WBC RBC Hgb Hct MCV MCHC RDW Lymph % (Auto) [place] % (Auto) Lymph # (Auto) Seg Neutrophils % Seg Neutrophils # D-Dimer ABG pO2 ABG O2 Saturation ABG Base Excess ABG Hemoglobin Sodium 151 H Potassium 3.4 L Chloride 123.8 H Carbon Dioxide 16 L BUN 33 H Creatinine 0.6 L Glucose 326 H POC Glucose 333 H 341 H Lactic Acid Calcium 6.6 L D Ferritin AST 43 H Alkaline Phosphatase Lactate Dehydrogenase Total Creatine Kinase 299 H Troponin T 0.049 H D C-Reactive Protein NT-Pro-B Natriuret Pep Total Protein 5.1 L Albumin 1.5 L HDL Cholesterol Urine WBC (Auto) Urine Creatinine Coronavirus (PCR) 06/02/21 06/03/21 06/03/21 22:22 01:44 05:28 WBC RBC Hgb Hct MCV MCHC RDW Lymph % (Auto) [place] % (Auto) Lymph # (Auto) Seg Neutrophils % Seg Neutrophils # D-Dimer ABG pO2 ABG O2 Saturation ABG Base Excess ABG Hemoglobin Sodium Potassium Chloride Carbon Dioxide BUN Creatinine Glucose POC Glucose 371 H 378 H 390 H Lactic Acid Calcium Ferritin AST Alkaline Phosphatase Lactate Dehydrogenase Total Creatine Kinase Troponin T C-Reactive Protein NT-Pro-B Natriuret Pep Total Protein Albumin HDL Cholesterol Urine WBC (Auto) Urine Creatinine Coronavirus (PCR) 06/03/21 06/03/21 06/03/21 07:27 07:27 07:27 WBC 11.9 H RBC Hgb Hct MCV 98 H MCHC 31 L RDW Lymph % (Auto) [place] % (Auto) Lymph # (Auto) Seg Neutrophils % Seg Neutrophils # D-Dimer 880.17 H ABG pO2 ABG O2 Saturation ABG Base Excess ABG Hemoglobin Sodium Potassium Chloride Carbon Dioxide BUN Creatinine Glucose POC Glucose Lactic Acid Calcium Ferritin 1989.0 H AST Alkaline Phosphatase Lactate Dehydrogenase Total Creatine Kinase Troponin T C-Reactive Protein NT-Pro-B Natriuret Pep Total Protein Albumin HDL Cholesterol Urine WBC (Auto) Urine Creatinine Coronavirus (PCR) 06/03/21 06/03/21 06/03/21 07:27 11:22 11:49 WBC RBC Hgb Hct MCV MCHC RDW Lymph % (Auto) [place] % (Auto) Lymph # (Auto) Seg Neutrophils % Seg Neutrophils # D-Dimer ABG pO2 ABG O2 Saturation ABG Base Excess ABG Hemoglobin Sodium 151 H Potassium Chloride 119.5 H Carbon Dioxide 20 L BUN 42 H Creatinine Glucose 416 H POC Glucose 284 H 234 H Lactic Acid Calcium Ferritin AST Alkaline Phosphatase 149 H Lactate Dehydrogenase 340 H Total Creatine Kinase Troponin T C-Reactive Protein 9.30 H NT-Pro-B Natriuret Pep Total Protein Albumin 2.3 L HDL Cholesterol Urine WBC (Auto) Urine Creatinine Coronavirus (PCR) 06/03/21 06/03/21 06/04/21 16:41 21:59 03:59 WBC RBC Hgb Hct MCV MCHC RDW Lymph % (Auto) [place] % (Auto) Lymph # (Auto) Seg Neutrophils % Seg Neutrophils # D-Dimer ABG pO2 ABG O2 Saturation ABG Base Excess ABG Hemoglobin Sodium 152 H Potassium Chloride 121.6 H Carbon Dioxide 21 L BUN 42 H Creatinine 0.7 L Glucose 313 H POC Glucose 257 H 253 H Lactic Acid Calcium 8.1 L Ferritin AST Alkaline Phosphatase Lactate Dehydrogenase Total Creatine Kinase Troponin T C-Reactive Protein NT-Pro-B Natriuret Pep Total Protein 5.0 L D Albumin 2.1 L HDL Cholesterol Urine WBC (Auto) Urine Creatinine Coronavirus (PCR) 06/04/21 06/04/21 06/04/21 03:59 05:27 09:03 WBC RBC Hgb Hct MCV 97 H MCHC RDW Lymph % (Auto) [place] % (Auto) Lymph # (Auto) Seg Neutrophils % 79.6 H Seg Neutrophils # 8.0 H D-Dimer ABG pO2 ABG O2 Saturation ABG Base Excess ABG Hemoglobin Sodium Potassium Chloride Carbon Dioxide BUN Creatinine Glucose POC Glucose 252 H 267 H Lactic Acid Calcium Ferritin AST Alkaline Phosphatase Lactate Dehydrogenase Total Creatine Kinase Troponin T C-Reactive Protein NT-Pro-B Natriuret Pep Total Protein Albumin HDL Cholesterol Urine WBC (Auto) Urine Creatinine Coronavirus (PCR) 06/04/21 06/04/21 06/04/21 11:04 16:11 23:00 WBC RBC Hgb Hct MCV MCHC RDW Lymph % (Auto) [place] % (Auto) Lymph # (Auto) Seg Neutrophils % Seg Neutrophils # D-Dimer ABG pO2 ABG O2 Saturation ABG Base Excess ABG Hemoglobin Sodium Potassium Chloride Carbon Dioxide BUN Creatinine Glucose POC Glucose 246 H 194 H 144 H Lactic Acid Calcium Ferritin AST Alkaline Phosphatase Lactate Dehydrogenase Total Creatine Kinase Troponin T C-Reactive Protein NT-Pro-B Natriuret Pep Total Protein Albumin HDL Cholesterol Urine WBC (Auto) Urine Creatinine Coronavirus (PCR) 06/05/21 06/05/21 06/05/21 06:29 09:58 09:58 WBC RBC Hgb Hct MCV MCHC RDW Lymph % (Auto) [place] % (Auto) Lymph # (Auto) Seg Neutrophils % Seg Neutrophils # D-Dimer 435.79 H ABG pO2 ABG O2 Saturation ABG Base Excess ABG Hemoglobin Sodium Potassium Chloride Carbon Dioxide BUN Creatinine Glucose 152 H POC Glucose 130 H Lactic Acid Calcium Ferritin AST Alkaline Phosphatase Lactate Dehydrogenase 237 H Total Creatine Kinase Troponin T C-Reactive Protein 5.20 H NT-Pro-B Natriuret Pep Total Protein Albumin HDL Cholesterol Urine WBC (Auto) Urine Creatinine Coronavirus (PCR) 06/05/21 06/05/21 06/05/21 09:58 09:58 11:44 WBC RBC Hgb Hct MCV MCHC RDW Lymph % (Auto) [place] % (Auto) Lymph # (Auto) Seg Neutrophils % Seg Neutrophils # D-Dimer ABG pO2 ABG O2 Saturation ABG Base Excess ABG Hemoglobin Sodium Potassium 3.2 L Chloride 113.4 H Carbon Dioxide BUN 34 H Creatinine 0.7 L Glucose 153 H POC Glucose 130 H Lactic Acid Calcium Ferritin 702.9 H AST Alkaline Phosphatase Lactate Dehydrogenase Total Creatine Kinase Troponin T C-Reactive Protein NT-Pro-B Natriuret Pep Total Protein 5.4 L Albumin 1.9 L HDL Cholesterol Urine WBC (Auto) Urine Creatinine Coronavirus (PCR) 06/05/21 06/06/21 06/06/21 15:57 00:59 04:00 WBC RBC Hgb Hct MCV MCHC RDW Lymph % (Auto) [place] % (Auto) Lymph # (Auto) Seg Neutrophils % Seg Neutrophils # D-Dimer ABG pO2 ABG O2 Saturation ABG Base Excess ABG Hemoglobin Sodium 148 H Potassium Chloride 114.8 H Carbon Dioxide BUN 32 H Creatinine 0.6 L Glucose 180 H POC Glucose 251 H 195 H Lactic Acid Calcium Ferritin AST Alkaline Phosphatase Lactate Dehydrogenase Total Creatine Kinase Troponin T C-Reactive Protein NT-Pro-B Natriuret Pep Total Protein Albumin HDL Cholesterol Urine WBC (Auto) Urine Creatinine Coronavirus (PCR) 06/06/21 06/06/21 06/06/21 06:15 08:35 09:00 WBC RBC Hgb Hct MCV 97 H MCHC RDW 15.3 H Lymph % (Auto) [place] % (Auto) Lymph # (Auto) Seg Neutrophils % Seg Neutrophils # D-Dimer ABG pO2 ABG O2 Saturation ABG Base Excess ABG Hemoglobin Sodium Potassium Chloride Carbon Dioxide BUN Creatinine Glucose POC Glucose 108 H Lactic Acid Calcium Ferritin AST Alkaline Phosphatase Lactate Dehydrogenase Total Creatine Kinase Troponin T C-Reactive Protein NT-Pro-B Natriuret Pep Total Protein Albumin HDL Cholesterol Urine WBC (Auto) Urine Creatinine Coronavirus (PCR) Positive A 06/06/21 06/06/21 06/06/21 11:49 16:24 21:30 WBC RBC Hgb Hct MCV MCHC RDW Lymph % (Auto) [place] % (Auto) Lymph # (Auto) Seg Neutrophils % Seg Neutrophils # D-Dimer ABG pO2 ABG O2 Saturation ABG Base Excess ABG Hemoglobin Sodium Potassium Chloride Carbon Dioxide BUN Creatinine Glucose POC Glucose 148 H 208 H 278 H Lactic Acid Calcium Ferritin AST Alkaline Phosphatase Lactate Dehydrogenase Total Creatine Kinase Troponin T C-Reactive Protein NT-Pro-B Natriuret Pep Total Protein Albumin HDL Cholesterol Urine WBC (Auto) Urine Creatinine Coronavirus (PCR) 06/07/21 06/07/21 06/07/21 02:47 05:43 10:52 WBC RBC Hgb Hct MCV MCHC RDW Lymph % (Auto) [place] % (Auto) Lymph # (Auto) Seg Neutrophils % Seg Neutrophils # D-Dimer ABG pO2 ABG O2 Saturation ABG Base Excess ABG Hemoglobin Sodium Potassium Chloride 108.5 H Carbon Dioxide BUN 27 H Creatinine 0.6 L Glucose 178 H POC Glucose 233 H 189 H Lactic Acid Calcium Ferritin AST Alkaline Phosphatase Lactate Dehydrogenase Total Creatine Kinase Troponin T C-Reactive Protein NT-Pro-B Natriuret Pep Total Protein Albumin HDL Cholesterol Urine WBC (Auto) Urine Creatinine Coronavirus (PCR) 06/07/21 11:37 WBC RBC Hgb Hct MCV MCHC RDW Lymph % (Auto) [place] % (Auto) Lymph # (Auto) Seg Neutrophils % Seg Neutrophils # D-Dimer ABG pO2 ABG O2 Saturation ABG Base Excess ABG Hemoglobin Sodium Potassium Chloride Carbon Dioxide BUN Creatinine Glucose POC Glucose 131 H Lactic Acid Calcium Ferritin AST Alkaline Phosphatase Lactate Dehydrogenase Total Creatine Kinase Troponin T C-Reactive Protein NT-Pro-B Natriuret Pep Total Protein Albumin HDL Cholesterol Urine WBC (Auto) Urine Creatinine Coronavirus (PCR)
--- NOTE | 2021-06-07 12:48 | Progress Note ---
Assessment and Plan Cultures: Blood culture no growth so far A/P: 55-year-old man past medical history bilateral AKA, hypertension, diabetes, seizures #Severe COVID-19 pneumonia: Patient presented with a week of symptoms, chest x- ray with diffuse bilateral infiltrates, admission O2 sats on room air. Inflammatory markers elevated #Acute hypoxemic respiratory failure: Likely secondary to COVID-19 infection. Now extubated on 4L NC #Chronic sacral wound: With overlying eschar. No evidence of acute infection at present. #Acute encephalopathy: Secondary to all the above. #Diabetes: tight glycemic control for best outcomes. Recommendations: -Dexamethasone 6 mg IV/PO daily for 10 days -Completed Remdesivir -Obtain q48-72h inflammatory markers - ferritin, Ddimer, CRP, LDH -Anticoagulation per hospital protocol -Proning as able Thank you for the consult, we will continue to follow. Yasmeen Smith MD [facility] O: [phone] F: [phone] Subjective Date of service: 06/07/21 Principal diagnosis: COVID-19, Acute respiratory failure, NSTEMI Interval history: Afebrile, normal white count. Had EGD and PEG tube placement today. Objective - Exam Narrative Exam: Physical exam deferred to reduce risk of transmission of COVID-19. Please refer to primary team's note. - Constitutional Vitals: Vital Signs Temp Pulse Resp BP Pulse Ox 97.3 F L 69 18 147/63 93 06/07/21 04:56 06/07/21 04:56 06/07/21 04:56 06/07/21 04:56 06/07/21 04:56 Temperature -Last 24 Hours Temperature 97.3 F Temperature 97.7 F Temperature 98.2 F - Labs CBC & Chem 7: 06/06/21 08:35 06/07/21 10:52 Labs: Abnormal lab results 06/06/21 06/06/21 06/07/21 Range/Units 16:24 21:30 02:47 Chloride (98-107) mmol/L BUN (9-20) mg/dL Creatinine (0.8-1.3) mg/dL Glucose (75-100) mg/dL POC Glucose 208 H 278 H 233 H (70-105) mg/dL 06/07/21 06/07/21 06/07/21 Range/Units 05:43 10:52 11:37 Chloride 108.5 H (98-107) mmol/L BUN 27 H (9-20) mg/dL Creatinine 0.6 L (0.8-1.3) mg/dL Glucose 178 H (75-100) mg/dL POC Glucose 189 H 131 H (70-105) mg/dL
--- NOTE | 2021-06-07 13:34 | Progress Note ---
Assessment and Plan Assessment and plan: HPI This is a 55-year-old male with bilateral AKA, DM, seizure disorder, BPH, CAD s/p CABG x4 who presented to the emergency department from [facility] via EMS with complaints of severe lethargy, only respond to verbal stimuli and hypoxia in the low 80s by the fdc staff. Patient was placed on nonrebreather and EMS was called. Upon their arrival SPO2 noted to be improved to 88%. Patient was brought to [facility] for further evaluation. In the emergency department patient was intubated due to decrease of responsiveness and hypoxia. Work-up in the emergency department revealed severe hypernatremia, hypokalemia, hyperchloremia, metabolic acidosis, elevated blood glucose and slight anemia. Patient had a elevated troponin on arrival. Patient was admitted to the hospitalist service with rhabdomyolysis, acute respiratory failure and is COVID-19 PUI with consults to [facility]. Hospital course to date 06/01: Troponin trended, free water flush initiated, echocardiogram ordered, potassium repleted, antibiotics discontinued, cardiology consulted. Patient is COVID-19 PCR positive, infectious disease consulted. Urine studies ordered for hypernatremia work-up. 06/02: Patient was extubated today per [facility], started on remdesivir. Patient will be transferred to the floor today. Pending CRP to see if patient is candidate for Actemra 06/03: Sodium remains elevated, increased FWF to 250 cc q4hr. Remains on tube feeds, blood sugar is elevated. Will increase lantus and add scheduled insulin. Pending ST eval. Working with for home O2 set up for patient. Anticipate discharge in 24 hrs back to SNF. 06/04: Increased fwf but was changed overnight but discussed with RN, currently 250 cc/hr, blood sugars improved with schedule insulin. Speech to re-eval patient given dysphagia yesterday. Patient is more alert today. If he fails aga in, will consult GI for PEG. Called Pamela who stated that patient's speech has been poor since cva. He was eating pureed diet [facility]. Plan is for patient to return to [facility]. 06/05: Dysphagia persistent. Consult placed to GI for PEG, discussed case with GI. Awaiting repeat BMP, trend NA. Blood sugars adequately controlled. Lovenox currently for NSTEMI treatment. Patient has been treated for 48hrs, will d/w cardiology re: anticoagulant duration and if ok to d/c in light of pending PEG tube placement. 06/06: Possible GIB, some concern for gastritis/ulcer from NGT. H/H, KUB ordered. Will order Protonix 40 IV BID. Hold tube feeds for now. Lovenox D/c and likely does not need to be resume per cardiology (discussed with Dr. Hanson today). Will await GI input. Original plan for GI to complete endoscopy Monday with PEG tube placement. Hypernatremia worsened, ordered d5w at 75 cc/hr x 2 bags while tube feeds are paused. 06/07: s/p PEG. Meds and FWF today, resume tube feeds tomororw. EGD demonstrates severe gastritis, ulceration. bx for h.pylori taken. D/c NGT. d/c in next 24-48hrs. Dispo: snf. Home oxygen ordered placed, awaiting cm set up. Assessment and plan: This is a 55-year-old male with bilateral AKA, DM, seizure disorder, BPH, CAD s/p CABG x4 admitted with elevated troponins, hypernatremia, hypokalemia, hyperchloremia, metabolic acidosis and acute hypoxic respiratory failure. Dysphagia -tube feeds (held at this time due to GIB) -Failed x 2 with speech -GI consulted for PEG tube, anticipate placement monday - s/p PEG on 06/07 Upper GIB/Gastritis: - possibly from irritation from NGT - hold anticoagulants ,lovenox d/c - stat H/H ordered - KUB ordered - Protonix IV bid - hold tube feds - will follow GI recommendations, severe gastritis in antrumhas taken biopsy for h pylori. Acute hypoxic respiratory failure (improving) -CCM consulted, appreciate recommendations -Intubated on 05/31 with 8.0 ETT at 24 the lips -A.m. vent settings: CPAP 02/10 -Patient placed on CPAP on 06/01 and remained on CPAP after extubation on 06/02 -See RT RT notes for titration -extubated to NC -A.m. ABG and CXR noted -Pulm hygiene -SPO2 monitoring Acute metabolic encephalopathy, H/o CVA, seizure disorder -Follow commands -Avoid delirium -Reorientation as needed -Restart seizure medications when obtained -CT head shows parenchymal atrophy greater than expected for age 66 years, evidence of remote bilateral MCA infarctions unchanged from prior study, no acute intracranial abnormalities Sepsis, COVID-19 infection -Presented with acute hypoxic respiratory failure, leukocytosis, febrile on admit -CXR shows patchy bilateral parenchymal opacities left mid and lower lung zone -Antibiotic therapy with cefepime and vancomycin -Discontinued today due to normalization WBC and being afebrile -COVID-19 PCR positive -Infectious disease consulted, appreciate recommendations -Isolation/droplet precautions -Remdesivir () -Actemra will be given depending on CRP it is still pending -Vitamin D/vitamin C/zinc -Steroids for 10 days -Anticoagulation based on D-dimer -Trend COVID-19 inflammatory markers -Follow WBC and temperature curve -Follow-up blood cultures NSTEMI, h/o CAD s/p CABG x4, possible CHF, HTN -Cardiology consulted, appreciate recommendations -Echocardiogram pending -ECG shows T waves -Trend troponins -Blood pressure monitoring per protocol -Started low dose BB in setting of hypertension Severe hypernatremia (worsened) -Free water flush -Trend sodium -Urine osmolality and sodium do not indicate DI - ordered D5w while TF paused. -Anderson catheter for strict intake and output Hypokalemia -Potassium replacement -Trend BMP Protein calorie malnutrition, h/o DM, Dysphagia -Ntr consult for TF -24 hour -95 -SSI -Accu-Cheks every 6 -Avoid hypoglycemia -Long-acting insulin - ST eval: concerned for aspiration...recommended fpc feeding solution. I have called them to reassess the patient as he was only 24 hrs s/p extubation at the time evaluation. Will re-assess today. S/P bilateral AKA -Continue supportive care Seizure disorder -Aspiration/seizure precautions -Restart seizure medications when obtained DVT/GI prophylaxis -PPI -Lovenox therapeutic dose History Interval history: not in any distress. PEG in place. Hospitalist Physical - Physical exam Narrative exam: Physical Exam: VITAL SIGNS: Reviewed. GENERAL: The patient appears normally developed, Vital signs as documented. More alert on exam. HEAD: No signs of head trauma. EYES: Pupils are equal. Extraocular motions intact. EARS: Hearing grossly intact. MOUTH: Oropharynx is normal. NECK: No adenopathy, no JVD. CHEST: Chest with clear breath sounds bilaterally. No wheezes, rales, or rhonchi. CARDIAC: Regular rate and rhythm. S1 and S2, without murmurs, gallops, or rubs. VASCULAR: No Edema. Peripheral pulses normal and equal in all extremities. ABDOMEN: PEG in place with dressing. Soft, non tender and non distended. No rebound or guarding, and no masses palpated. Bowel Sounds normal. MUSCULOSKELETAL: Good range of motion of all major joints. Extremities without clubbing, cyanosis or edema. NEUROLOGIC EXAM: Alert and but orientation difficult to assess, babbles incoherently. Able to nod yes/no atimes but unclear how purposeful this is PSYCHIATRIC: appear appropriate. SKIN: detail exam as documented in skin assessment - Constitutional Vitals: Temp Pulse Resp BP Pulse Ox 97.3 F L 69 18 147/63 93 06/07/21 04:56 06/07/21 04:56 06/07/21 04:56 06/07/21 04:56 06/07/21 04:56 General appearance: Present: no acute distress HEART Score - HEART Score Troponin: Troponin T 0.049 ng/mL (0.00-0.029) H D 06/02/21 10:00 Results - Labs CBC & Chem 7: 06/06/21 08:35 06/07/21 10:52 Labs: Laboratory Last Values WBC 10.1 K/mm3 (4.5-11.0) 06/06/21 08:35 RBC 3.79 M/mm3 (3.65-5.03) 06/06/21 08:35 Hgb 11.9 gm/dl (11.8-15.2) 06/06/21 08:35 Hct 36.7 % (35.5-45.6) 06/06/21 08:35 MCV 97 fl (84-94) H 06/06/21 08:35 MCH 32 pg (28-32) 06/06/21 08:35 MCHC 33 % (32-34) 06/06/21 08:35 RDW 15.3 % (13.2-15.2) H 06/06/21 08:35 Plt Count 205 K/mm3 (140-440) 06/06/21 08:35 Lymph % (Auto) 13.7 % (13.4-35.0) 06/04/21 03:59 [place] % (Auto) 6.5 % (0.0-7.3) 06/04/21 03:59 Eos % (Auto) 0.1 % (0.0-4.3) 06/04/21 03:59 Baso % (Auto) 0.1 % (0.0-1.8) 06/04/21 03:59 Lymph # (Auto) 1.4 K/mm3 (1.2-5.4) 06/04/21 03:59 [place] # (Auto) 0.7 K/mm3 (0.0-0.8) 06/04/21 03:59 Eos # (Auto) 0.0 K/mm3 (0.0-0.4) 06/04/21 03:59 Baso # (Auto) 0.0 K/mm3 (0.0-0.1) 06/04/21 03:59 Seg Neutrophils % 79.6 % (40.0-70.0) H 06/04/21 03:59 Seg Neutrophils # 8.0 K/mm3 (1.8-7.7) H 06/04/21 03:59 APTT 29.4 Sec. (24.2-36.6) 05/31/21 18:10 D-Dimer 435.79 ng/mlDDU (0-234) H 06/05/21 09:58 ABG pH 7.390 pH Units (7.350-7.450) 06/02/21 07:45 ABG pCO2 33.9 mm Hg 06/02/21 07:45 ABG pO2 108.4 mm Hg (80.0-90.0) H 06/02/21 07:45 ABG HCO3 20.1 mmol/L (20.0-26.0) 06/02/21 07:45 ABG O2 Saturation 97.9 % (95.0-99.0) 06/02/21 07:45 ABG O2 Content 18.3 (0.0-44) 06/02/21 07:45 ABG Base Excess -4.1 mmol/L (-2.0-3.0) L 06/02/21 07:45 ABG Hemoglobin 13.4 gm/dl (14.0-18.0) L 06/02/21 07:45 ABG Carboxyhemoglobin 1.0 % (0.0-5.0) 06/02/21 07:45 ABG Methemoglobin 0.6 % (0.0-1.5) 06/02/21 07:45 VBG pH 7.378 (7.320-7.420) 05/31/21 18:29 Oxyhemoglobin 96.3 % (95.0-99.0) 06/02/21 07:45 FiO2 40 % 06/02/21 07:45 Sodium 141 mmol/L (137-145) 06/07/21 10:52 Potassium 4.1 mmol/L (3.6-5.0) 06/07/21 10:52 Chloride 108.5 mmol/L (98-107) H 06/07/21 10:52 Carbon Dioxide 22 mmol/L (22-30) 06/07/21 10:52 Anion Gap 15 mmol/L 06/07/21 10:52 BUN 27 mg/dL (9-20) H 06/07/21 10:52 Creatinine 0.6 mg/dL (0.8-1.3) L 06/07/21 10:52 Estimated GFR > 60 ml/min 06/07/21 10:52 BUN/Creatinine Ratio 45 % 06/07/21 10:52 Glucose 178 mg/dL (75-100) H 06/07/21 10:52 POC Glucose 131 mg/dL (70-105) H 06/07/21 11:37 Lactic Acid 1.80 mmol/L (0.7-2.0) 05/31/21 21:57 Calcium 8.4 mg/dL (8.4-10.2) 06/07/21 10:52 Magnesium 1.90 mg/dL (1.7-2.3) 06/01/21 18:19 Ferritin 702.9 ng/mL (30.0-300.0) H 06/05/21 09:58 Total Bilirubin 0.30 mg/dL (0.1-1.2) 06/05/21 09:58 AST 33 units/L (5-40) 06/05/21 09:58 ALT 55 units/L (7-56) 06/05/21 09:58 Alkaline Phosphatase 85 units/L (35-129) 06/05/21 09:58 Lactate Dehydrogenase 237 units/L (91-180) H 06/05/21 09:58 Total Creatine Kinase 299 units/L (55-170) H 06/02/21 10:00 CK-MB (CK-2) 2.2 ng/mL (0.0-4.0) 06/02/21 10:00 CK-MB (CK-2) Rel Index 0.3 (0-4) 06/02/21 00:28 Troponin T 0.049 ng/mL (0.00-0.029) H D 06/02/21 10:00 C-Reactive Protein 5.20 mg/dL (0.00-1.30) H 06/05/21 09:58 NT-Pro-B Natriuret Pep 1305 pg/mL (0-900) H 06/01/21 18:19 Total Protein 5.4 g/dL (6.3-8.2) L 06/05/21 09:58 Albumin 1.9 g/dL (3.9-5) L 06/05/21 09:58 Albumin/Globulin Ratio 0.5 % 06/05/21 09:58 Triglycerides 99 mg/dL (2-149) 05/31/21 19:01 Cholesterol 104 mg/dL (50-199) 05/31/21 19:01 LDL Cholesterol Direct 67 mg/dL (50-130) 05/31/21 19:01 HDL Cholesterol 21 mg/dL (40-59) L 05/31/21 19:01 Cholesterol/HDL Ratio 4.95 % 05/31/21 19:01 Procalcitonin 0.90 ng/mL (<0.15) 06/01/21 18:19 Urine Color Grace (Yellow) 05/31/21 Unknown Urine Turbidity Cloudy (Clear) 05/31/21 Unknown Urine pH 5.0 (5.0-7.0) 05/31/21 Unknown Ur Specific [place] 1.026 (1.003-1.030) 05/31/21 Unknown Urine Protein 100 mg/dl mg/dL (Negative) 05/31/21 Unknown Urine Glucose (UA) 50 mg/dL (Negative) 05/31/21 Unknown Urine Ketones Neg mg/dL (Negative) 05/31/21 Unknown Urine Blood Sm (Negative) 05/31/21 Unknown Urine Nitrite Neg (Negative) 05/31/21 Unknown Urine Bilirubin Neg (Negative) 05/31/21 Unknown Urine Urobilinogen 4.0 mg/dL (<2.0) 05/31/21 Unknown Ur Leukocyte Esterase Neg (Negative) 05/31/21 Unknown Urine WBC (Auto) 12.0 /HPF (0.0-6.0) H 05/31/21 Unknown Urine RBC (Auto) < 1.0 /HPF (0.0-6.0) 05/31/21 Unknown Urine Bacteria (Auto) 1+ /HPF (Negative) 05/31/21 Unknown Granular Casts 22 /LPF 05/31/21 Unknown Urine Mucus 3+ /HPF 05/31/21 Unknown Urine Osmolality 750 Mosm/kg 06/01/21 16:00 Urine Creatinine 158.6 mg/dL (0.1-20.0) H 06/01/21 16:00 Urine Sodium 33 mmol/L 06/01/21 16:00 Urine Potassium 61.16 mmol/L 06/01/21 16:00 Urine Urea Nitrogen 1337 06/01/21 16:00 Nasal Screen MRSA (PCR) Negative (Negative) 06/01/21 16:00 Coronavirus (PCR) Positive (Negative) A 06/06/21 09:00 Anderson/IV: Voiding Method Indwelling Catheter Active Medications - Current Medications Current Medications: Generic Name Dose Route Start Last Admin Trade Name Freq PRN Reason Stop Dose Admin Acetaminophen 650 mg 05/31/21 22:28 06/07/21 10:56 Acetaminophen 325 Mg Tab PO 650 mg Q4H PRN Administration Pain MILD(1-3)/Fever >100.5/CORDERO Lipase/Protease/Amylase 1 each 06/03/21 11:21 Lipase 10,500/Protease 25,000/Amylase 43,750 (Units) Dr Waggoner FEEDTUBE PRN PRN For Clogged Feeding Tube Ascorbic Acid 500 mg 06/01/21 22:00 06/07/21 10:56 Ascorbic Acid 500 Mg Tab PO 500 mg BID SHAN Administration Aspirin 81 mg 06/03/21 10:00 06/07/21 10:55 Aspirin 81 Mg Tab Chew FEEDTUBE 81 mg QDAY SHAN Administration Atorvastatin Calcium 40 mg 06/02/21 22:00 06/06/21 22:51 Atorvastatin 40 Mg Tab FEEDTUBE 40 mg QHS SHAN Administration Cholecalciferol 5,000 unit 06/02/21 10:00 06/07/21 10:56 Cholecalciferol (Vit D3) 5,000 Unit Tab PO 5,000 unit DAILY SHAN Administration Dexamethasone 6 mg 06/01/21 19:40 06/07/21 10:55 Dexamethasone 4 Mg Tab PO 06/11/21 19:39 6 mg QDAY SHAN Administration Dextrose 0 ml 06/01/21 05:46 Dextrose 50% In Water (25gm) 50 Ml Syringe IV Q30MIN PRN Hypoglycemia Protocol Dextrose 1,000 mls @ 75 mls/hr 06/06/21 10:00 06/07/21 03:03 D5w IV 06/07/21 23:19 75 mls/hr DIRECT SHAN Administration Insulin Glargine 25 units 06/02/21 22:00 06/06/21 22:57 Insulin Glargine 100 Units/Ml SUB-Q 25 units QHS SHAN Administration Insulin Human Lispro 0 unit 06/01/21 06:00 06/07/21 05:52 Insulin Lispro 100 Unit/Ml SUB-Q Not Given Q6HR [facility] Protocol Insulin Human Regular 5 units 06/03/21 12:00 06/07/21 05:53 Insulin Regular, Human 100 Units/1 Ml SUB-Q Not Given Q6HR [facility] Lisinopril 10 mg 06/03/21 10:00 06/07/21 10:56 Lisinopril 10 Mg Tab PO 10 mg QDAY SHAN Administration Metoprolol Tartrate 12.5 mg 06/02/21 22:00 06/07/21 10:56 Metoprolol Tartrate 25 Mg Tab FEEDTUBE 12.5 mg BID SHAN Administration Ondansetron HCl 4 mg 05/31/21 22:28 Ondansetron 4 Mg/2 Ml Inj IV Q8H PRN Nausea And Vomiting Pantoprazole Sodium 40 mg 06/06/21 10:00 06/07/21 10:57 Pantoprazole 40 Mg Inj IV 40 mg BID SHAN Administration Simple Syrup 15 ml 06/03/21 11:21 Simple Syrup 15 Ml FEEDTUBE PRN PRN Hypoglycemia Simple Syrup 30 ml 06/03/21 11:21 Simple Syrup 15 Ml FEEDTUBE PRN PRN Hypoglycemia Sodium Bicarbonate 325 mg 06/03/21 11:21 Sodium Bicarbonate 325 Mg Tab FEEDTUBE PRN PRN For Clogged Feeding Tube Sodium Chloride 10 ml 06/01/21 10:00 06/07/21 10:57 Sodium Chloride 0.9% 10 Ml Flush Syringe IV 10 ml BID SHAN Administration Sodium Chloride 10 ml 05/31/21 22:28 Sodium Chloride 0.9% 10 Ml Flush Syringe IV PRN PRN LINE FLUSH Sodium Chloride 10 ml 06/01/21 09:26 Sodium Chloride 0.9% 50 Ml Ivpb IV PRN PRN FLUSH Zinc Sulfate 220 mg 06/01/21 22:00 06/07/21 10:56 Zinc Sulfate 220 Mg Cap PO 220 mg BID SHAN Administration Nutrition/Malnutrition Assess - Dietary Evaluation Nutrition/Malnutrition Findings: Nutrition Notes Start: 06/01/21 11:55 Freq: Status: Active Protocol: Document 06/05/21 10:15 CW (Rec: 06/05/21 10:29 CW [id number]) Nutrition Notes Need for Assessment generated from: MD Order Initial or Follow up Reassessment Current Diagnosis Decubitus(Pressure Ulcer), Diabetes,Sepsis,Respiratory Failure Other Pertinent Diagnosis COVID-19, Acute encephalopathy , Hypernatremia, NSTEMI, Bilateral AKA. Current Diet Glucerna 1.2 Labs/Tests 06/04: Na 152 BUN 42 BG 313 Pertinent Medications Humalog Humulin Decadron Height 4 ft Weight 68 kg [place] Body Weight (kg) 15.45 BMI 45.7 Weight Status Obese Subjective/Other Information MD consult to restart TF. TF currently running Glucerna 1.2 at trickle feed of 18 ml/h. Pt failed swallow eval by [employer]. Awaiting decision for PEG placement. Burn Absent Trauma Absent GI Symptoms Constipation Difficulty In Swallowing Food Allergy No Skin Integrity/Comment Sacral decubitus pressure ulcers. Current % PO Negligible Minimum of two criteria No physical signs of malnutrition #2 Nutrition Diagnosis Increased nutrient needs ( specify in comment below) Comments: protein Etiology wound healing As Evidenced by Signs and Symptoms Sacral wounds present #1 Nutrition Diagnosis Inadequate oral intake Diagnosis Progress(for reassessment Continues documentation) Is patient on ventilator? No Is Patient Ambulatory and/or Out of Bed No [facility] 2931.829 Calculation Used for Recommendations [facility] Additional Notes protien needs:82 - 102g (1.2 - 1.5g/kgBW for wound healing) fluid needS: 1 mL/kcal or per MD order Nutrition Intervention Change Diet Order: Restart TF Nutrition Support: Glucerna 1.2 at 40 ml/h Free water flush of 150 ml q4h for hypernatermia. Once hypernatremia resolves, resume free water flush of 75 ml q4h Kcal 1,152 Protein (gm) 58 Fluid (mL) 773 Goal #1 Meet at least 75% of kcal and protein needs via TF Goal #2 wound healing Follow-Up By: 06/08/21 Additional Comments F/U for TF tolerance
[2021-06-08] MEDS: INSULIN GLARGINE 100 UNITS/ML SUB-Q SCH ×2 (01:37→23:11)
[2021-06-08] MEDS: INSULIN LISPRO 100 UNIT/ML SUB-Q SCH ×4 (01:39→20:09)
[2021-06-08] MEDS: INSULIN REGULAR, HUMAN 100 UNITS/1 ML SUB-Q SCH ×5 (01:40→20:16)
[2021-06-08] MEDS: FREE WATER PO SCH ×9 (02:55→23:12)
--- NOTE | 2021-06-08 08:28 | Gastroenterology Progress Note ---
Assessment and Plan PEG tube was checked Appearance good May use for feeding and all purposes GI will sign off please call us back if we can be of any further assistance - Patient Problems (1) Dysphagia Current Visit: Yes Status: Acute (2) COVID-19 Current Visit: Yes Status: Acute Subjective Date of service: 06/08/21 Principal diagnosis: COVID-19, Acute respiratory failure, NSTEMI Interval history: No acute distress Patient does not respond Objective - Constitutional Vitals: Temp Pulse Resp BP Pulse Ox 97.8 F 71 18 126/56 98 06/08/21 05:54 06/08/21 05:54 06/08/21 05:54 06/08/21 05:54 06/08/21 05:54 General appearance: no acute distress - Respiratory Respiratory effort: normal - Gastrointestinal General gastrointestinal: Present: soft, non-tender, other (PEG tube in place. Bumper loosened to 4.5 cm. No surrounding evidence for cellulitis, edema, induration, or erythema.) - Labs CBC & Chem 7: 06/06/21 08:35 06/07/21 10:52 Labs: Laboratory Results - last 24 hr 06/07/21 06/07/21 06/07/21 10:52 11:37 15:57 Sodium 141 Potassium 4.1 Chloride 108.5 H Carbon Dioxide 22 Anion Gap 15 BUN 27 H Creatinine 0.6 L Estimated GFR > 60 BUN/Creatinine Ratio 45 Glucose 178 H POC Glucose 131 H 106 H Calcium 8.4 06/07/21 06/08/21 22:42 05:50 Sodium Potassium Chloride Carbon Dioxide Anion Gap BUN Creatinine Estimated GFR BUN/Creatinine Ratio Glucose POC Glucose 120 H 126 H Calcium
--- NOTE | 2021-06-08 09:43 | Progress Note ---
Assessment and Plan 66 y/o male with acute respiratory failure secondary to altered mental status, exact etiology unknown, intubated in the ED for airway protection but also started on sedation, rule out COVID 06/08/21: Saw again today secondary to increase in oxygen post op, however weaned back down. Will sign off. Call if questions. 06/07/21: Stable pulm status. Will see as needed 06/06/21: Continue supportive care. 06/05/21: Steroids and Remdesivir. Wean FiO2, not sure why patient increased from 2 to 4, but sats are stable. WIll follow. 06/04/21: Continue steroids for 10 days and Remdesivir as ordered by ID. Wean FiO2 as tolerated for sats >88%. No objection to assessing for VTE, especially given COVID positive state, but doubt he has large PE. Suggest starting with doppler studies. 06/03/21: COVID positive. Steroids. Prone if able even though oxygen requirement has been minimal. Follow up ID recs. Will continue to follow. 1. Stop all sedation 2. If able and awake, attempt PSV trials 3. Needs diabetic therapy 4. Free water and assess free water deficit 5. Stop abx 6. Will extubate once awake, on minimal vent settings CCT 31 minutes. Subjective Date of service: 06/08/21 Principal diagnosis: COVID-19, Acute respiratory failure, NSTEMI Interval history: Peg placed yesterday. tolerated well. still on nasal cannula but stable. 3 more days of steroids Objective Vital Signs - 12hr 06/07/21 06/07/21 06/07/21 22:00 22:17 22:40 Temperature 97.8 F Pulse Rate 71 75 Respiratory 18 Rate Blood Pressure 131/58 134/54 O2 Sat by Pulse 96 99 Oximetry 06/08/21 06/08/21 06/08/21 00:00 04:00 05:54 Temperature 97.8 F Pulse Rate 80 76 71 Respiratory 18 Rate Blood Pressure 126/56 O2 Sat by Pulse 98 Oximetry Constitutional: no acute distress, comatose Eyes: non-icteric ENT: other (orally intubated) Neck: supple Effort: normal Ascultation: Bilateral: clear Tactile fremitus: Bilateral: normal Cardiovascular: regular rate and rhythm Gastrointestinal: normoactive bowel sounds, soft CBC and BMP: 06/06/21 08:35 06/07/21 10:52 ABG, PT/INR, D-dimer: ABG ABG pH 7.390 pH Units (7.350-7.450) 06/02/21 07:45 ABG pCO2 33.9 mm Hg 06/02/21 07:45 ABG pO2 108.4 mm Hg (80.0-90.0) H 06/02/21 07:45 ABG O2 Saturation 97.9 % (95.0-99.0) 06/02/21 07:45 PT/INR, D-dimer D-Dimer 435.79 ng/mlDDU (0-234) H 06/05/21 09:58 Abnormal lab findings: Abnormal Labs 05/31/21 05/31/21 05/31/21 18:10 18:10 18:10 WBC RBC Hgb Hct MCV 99 H MCHC RDW Lymph % (Auto) 8.1 L [place] % (Auto) Lymph # (Auto) 0.8 L Seg Neutrophils % 86.5 H Seg Neutrophils # 8.9 H D-Dimer ABG pO2 ABG O2 Saturation ABG Base Excess ABG Hemoglobin Sodium 152 H Potassium Chloride 115.3 H Carbon Dioxide BUN 39 H Creatinine Glucose 396 H POC Glucose Lactic Acid 3.00 H* Calcium Ferritin AST Alkaline Phosphatase Lactate Dehydrogenase Total Creatine Kinase Troponin T C-Reactive Protein NT-Pro-B Natriuret Pep Total Protein Albumin 2.9 L HDL Cholesterol Urine WBC (Auto) Urine Creatinine Coronavirus (PCR) 05/31/21 05/31/21 06/01/21 19:01 Unknown 01:33 WBC RBC Hgb Hct MCV MCHC RDW Lymph % (Auto) [place] % (Auto) Lymph # (Auto) Seg Neutrophils % Seg Neutrophils # D-Dimer ABG pO2 ABG O2 Saturation ABG Base Excess ABG Hemoglobin Sodium Potassium Chloride Carbon Dioxide BUN Creatinine Glucose POC Glucose 255 H Lactic Acid Calcium Ferritin AST Alkaline Phosphatase Lactate Dehydrogenase Total Creatine Kinase Troponin T 0.146 H* C-Reactive Protein NT-Pro-B Natriuret Pep Total Protein Albumin HDL Cholesterol 21 L Urine WBC (Auto) 12.0 H Urine Creatinine Coronavirus (PCR) 06/01/21 06/01/21 06/01/21 04:08 04:50 04:50 WBC RBC Hgb 11.6 L Hct MCV 99 H MCHC RDW Lymph % (Auto) [place] % (Auto) 7.6 H Lymph # (Auto) Seg Neutrophils % 75.4 H Seg Neutrophils # D-Dimer ABG pO2 283.4 H ABG O2 Saturation 99.5 H ABG Base Excess ABG Hemoglobin 11.5 L Sodium 156 H Potassium 3.0 L Chloride 123.3 H Carbon Dioxide 21 L BUN 40 H Creatinine Glucose 324 H POC Glucose Lactic Acid Calcium Ferritin AST Alkaline Phosphatase Lactate Dehydrogenase Total Creatine Kinase Troponin T C-Reactive Protein NT-Pro-B Natriuret Pep Total Protein 6.0 L Albumin 2.3 L HDL Cholesterol Urine WBC (Auto) Urine Creatinine Coronavirus (PCR) 06/01/21 06/01/21 06/01/21 05:15 08:30 12:04 WBC RBC Hgb Hct MCV MCHC RDW Lymph % (Auto) [place] % (Auto) Lymph # (Auto) Seg Neutrophils % Seg Neutrophils # D-Dimer ABG pO2 ABG O2 Saturation ABG Base Excess ABG Hemoglobin Sodium Potassium Chloride Carbon Dioxide BUN Creatinine Glucose POC Glucose 297 H 256 H Lactic Acid Calcium Ferritin AST Alkaline Phosphatase Lactate Dehydrogenase Total Creatine Kinase Troponin T C-Reactive Protein NT-Pro-B Natriuret Pep Total Protein Albumin HDL Cholesterol Urine WBC (Auto) Urine Creatinine Coronavirus (PCR) Positive A 06/01/21 06/01/21 06/01/21 13:10 16:00 17:57 WBC RBC Hgb Hct MCV MCHC RDW Lymph % (Auto) [place] % (Auto) Lymph # (Auto) Seg Neutrophils % Seg Neutrophils # D-Dimer ABG pO2 ABG O2 Saturation ABG Base Excess ABG Hemoglobin Sodium Potassium Chloride Carbon Dioxide BUN Creatinine Glucose POC Glucose 272 H 179 H Lactic Acid Calcium Ferritin AST Alkaline Phosphatase Lactate Dehydrogenase Total Creatine Kinase Troponin T C-Reactive Protein NT-Pro-B Natriuret Pep Total Protein Albumin HDL Cholesterol Urine WBC (Auto) Urine Creatinine 158.6 H Coronavirus (PCR) 06/01/21 06/01/21 06/01/21 18:19 18:19 18:19 WBC RBC Hgb Hct MCV MCHC RDW Lymph % (Auto) [place] % (Auto) Lymph # (Auto) Seg Neutrophils % Seg Neutrophils # D-Dimer 1247.52 H ABG pO2 ABG O2 Saturation ABG Base Excess ABG Hemoglobin Sodium 152 H Potassium Chloride 121.4 H Carbon Dioxide BUN 35 H Creatinine Glucose 234 H POC Glucose Lactic Acid Calcium Ferritin AST Alkaline Phosphatase Lactate Dehydrogenase Total Creatine Kinase 530 H Troponin T 0.133 H* C-Reactive Protein NT-Pro-B Natriuret Pep Total Protein Albumin HDL Cholesterol Urine WBC (Auto) Urine Creatinine Coronavirus (PCR) 06/01/21 06/01/21 06/01/21 18:19 18:19 18:19 WBC RBC Hgb Hct MCV MCHC RDW Lymph % (Auto) [place] % (Auto) Lymph # (Auto) Seg Neutrophils % Seg Neutrophils # D-Dimer ABG pO2 ABG O2 Saturation ABG Base Excess ABG Hemoglobin Sodium Potassium Chloride Carbon Dioxide BUN Creatinine Glucose POC Glucose Lactic Acid Calcium Ferritin 1394.0 H AST Alkaline Phosphatase Lactate Dehydrogenase 308 H Total Creatine Kinase Troponin T C-Reactive Protein 14.70 H NT-Pro-B Natriuret Pep 1305 H Total Protein Albumin HDL Cholesterol Urine WBC (Auto) Urine Creatinine Coronavirus (PCR) 06/01/21 06/01/21 06/02/21 21:46 23:36 00:28 WBC RBC Hgb Hct MCV MCHC RDW Lymph % (Auto) [place] % (Auto) Lymph # (Auto) Seg Neutrophils % Seg Neutrophils # D-Dimer ABG pO2 ABG O2 Saturation ABG Base Excess ABG Hemoglobin Sodium Potassium Chloride Carbon Dioxide BUN Creatinine Glucose POC Glucose 204 H 218 H Lactic Acid Calcium Ferritin AST Alkaline Phosphatase Lactate Dehydrogenase Total Creatine Kinase 457 H Troponin T 0.144 H* C-Reactive Protein NT-Pro-B Natriuret Pep Total Protein Albumin HDL Cholesterol Urine WBC (Auto) Urine Creatinine Coronavirus (PCR) 06/02/21 06/02/21 06/02/21 05:33 07:45 10:00 WBC RBC 3.33 L Hgb 10.3 L Hct 33.0 L MCV 99 H MCHC 31 L RDW Lymph % (Auto) [place] % (Auto) Lymph # (Auto) Seg Neutrophils % Seg Neutrophils # D-Dimer ABG pO2 108.4 H ABG O2 Saturation ABG Base Excess -4.1 L ABG Hemoglobin 13.4 L Sodium Potassium Chloride Carbon Dioxide BUN Creatinine Glucose POC Glucose 303 H Lactic Acid Calcium Ferritin AST Alkaline Phosphatase Lactate Dehydrogenase Total Creatine Kinase Troponin T C-Reactive Protein NT-Pro-B Natriuret Pep Total Protein Albumin HDL Cholesterol Urine WBC (Auto) Urine Creatinine Coronavirus (PCR) 06/02/21 06/02/21 06/02/21 10:00 11:10 15:52 WBC RBC Hgb Hct MCV MCHC RDW Lymph % (Auto) [place] % (Auto) Lymph # (Auto) Seg Neutrophils % Seg Neutrophils # D-Dimer ABG pO2 ABG O2 Saturation ABG Base Excess ABG Hemoglobin Sodium 151 H Potassium 3.4 L Chloride 123.8 H Carbon Dioxide 16 L BUN 33 H Creatinine 0.6 L Glucose 326 H POC Glucose 333 H 341 H Lactic Acid Calcium 6.6 L D Ferritin AST 43 H Alkaline Phosphatase Lactate Dehydrogenase Total Creatine Kinase 299 H Troponin T 0.049 H D C-Reactive Protein NT-Pro-B Natriuret Pep Total Protein 5.1 L Albumin 1.5 L HDL Cholesterol Urine WBC (Auto) Urine Creatinine Coronavirus (PCR) 06/02/21 06/03/21 06/03/21 22:22 01:44 05:28 WBC RBC Hgb Hct MCV MCHC RDW Lymph % (Auto) [place] % (Auto) Lymph # (Auto) Seg Neutrophils % Seg Neutrophils # D-Dimer ABG pO2 ABG O2 Saturation ABG Base Excess ABG Hemoglobin Sodium Potassium Chloride Carbon Dioxide BUN Creatinine Glucose POC Glucose 371 H 378 H 390 H Lactic Acid Calcium Ferritin AST Alkaline Phosphatase Lactate Dehydrogenase Total Creatine Kinase Troponin T C-Reactive Protein NT-Pro-B Natriuret Pep Total Protein Albumin HDL Cholesterol Urine WBC (Auto) Urine Creatinine Coronavirus (PCR) 06/03/21 06/03/21 06/03/21 07:27 07:27 07:27 WBC 11.9 H RBC Hgb Hct MCV 98 H MCHC 31 L RDW Lymph % (Auto) [place] % (Auto) Lymph # (Auto) Seg Neutrophils % Seg Neutrophils # D-Dimer 880.17 H ABG pO2 ABG O2 Saturation ABG Base Excess ABG Hemoglobin Sodium Potassium Chloride Carbon Dioxide BUN Creatinine Glucose POC Glucose Lactic Acid Calcium Ferritin 1989.0 H AST Alkaline Phosphatase Lactate Dehydrogenase Total Creatine Kinase Troponin T C-Reactive Protein NT-Pro-B Natriuret Pep Total Protein Albumin HDL Cholesterol Urine WBC (Auto) Urine Creatinine Coronavirus (PCR) 06/03/21 06/03/21 06/03/21 07:27 11:22 11:49 WBC RBC Hgb Hct MCV MCHC RDW Lymph % (Auto) [place] % (Auto) Lymph # (Auto) Seg Neutrophils % Seg Neutrophils # D-Dimer ABG pO2 ABG O2 Saturation ABG Base Excess ABG Hemoglobin Sodium 151 H Potassium Chloride 119.5 H Carbon Dioxide 20 L BUN 42 H Creatinine Glucose 416 H POC Glucose 284 H 234 H Lactic Acid Calcium Ferritin AST Alkaline Phosphatase 149 H Lactate Dehydrogenase 340 H Total Creatine Kinase Troponin T C-Reactive Protein 9.30 H NT-Pro-B Natriuret Pep Total Protein Albumin 2.3 L HDL Cholesterol Urine WBC (Auto) Urine Creatinine Coronavirus (PCR) 06/03/21 06/03/21 06/04/21 16:41 21:59 03:59 WBC RBC Hgb Hct MCV MCHC RDW Lymph % (Auto) [place] % (Auto) Lymph # (Auto) Seg Neutrophils % Seg Neutrophils # D-Dimer ABG pO2 ABG O2 Saturation ABG Base Excess ABG Hemoglobin Sodium 152 H Potassium Chloride 121.6 H Carbon Dioxide 21 L BUN 42 H Creatinine 0.7 L Glucose 313 H POC Glucose 257 H 253 H Lactic Acid Calcium 8.1 L Ferritin AST Alkaline Phosphatase Lactate Dehydrogenase Total Creatine Kinase Troponin T C-Reactive Protein NT-Pro-B Natriuret Pep Total Protein 5.0 L D Albumin 2.1 L HDL Cholesterol Urine WBC (Auto) Urine Creatinine Coronavirus (PCR) 06/04/21 06/04/21 06/04/21 03:59 05:27 09:03 WBC RBC Hgb Hct MCV 97 H MCHC RDW Lymph % (Auto) [place] % (Auto) Lymph # (Auto) Seg Neutrophils % 79.6 H Seg Neutrophils # 8.0 H D-Dimer ABG pO2 ABG O2 Saturation ABG Base Excess ABG Hemoglobin Sodium Potassium Chloride Carbon Dioxide BUN Creatinine Glucose POC Glucose 252 H 267 H Lactic Acid Calcium Ferritin AST Alkaline Phosphatase Lactate Dehydrogenase Total Creatine Kinase Troponin T C-Reactive Protein NT-Pro-B Natriuret Pep Total Protein Albumin HDL Cholesterol Urine WBC (Auto) Urine Creatinine Coronavirus (PCR) 06/04/21 06/04/21 06/04/21 11:04 16:11 23:00 WBC RBC Hgb Hct MCV MCHC RDW Lymph % (Auto) [place] % (Auto) Lymph # (Auto) Seg Neutrophils % Seg Neutrophils # D-Dimer ABG pO2 ABG O2 Saturation ABG Base Excess ABG Hemoglobin Sodium Potassium Chloride Carbon Dioxide BUN Creatinine Glucose POC Glucose 246 H 194 H 144 H Lactic Acid Calcium Ferritin AST Alkaline Phosphatase Lactate Dehydrogenase Total Creatine Kinase Troponin T C-Reactive Protein NT-Pro-B Natriuret Pep Total Protein Albumin HDL Cholesterol Urine WBC (Auto) Urine Creatinine Coronavirus (PCR) 06/05/21 06/05/21 06/05/21 06:29 09:58 09:58 WBC RBC Hgb Hct MCV MCHC RDW Lymph % (Auto) [place] % (Auto) Lymph # (Auto) Seg Neutrophils % Seg Neutrophils # D-Dimer 435.79 H ABG pO2 ABG O2 Saturation ABG Base Excess ABG Hemoglobin Sodium Potassium Chloride Carbon Dioxide BUN Creatinine Glucose 152 H POC Glucose 130 H Lactic Acid Calcium Ferritin AST Alkaline Phosphatase Lactate Dehydrogenase 237 H Total Creatine Kinase Troponin T C-Reactive Protein 5.20 H NT-Pro-B Natriuret Pep Total Protein Albumin HDL Cholesterol Urine WBC (Auto) Urine Creatinine Coronavirus (PCR) 06/05/21 06/05/21 06/05/21 09:58 09:58 11:44 WBC RBC Hgb Hct MCV MCHC RDW Lymph % (Auto) [place] % (Auto) Lymph # (Auto) Seg Neutrophils % Seg Neutrophils # D-Dimer ABG pO2 ABG O2 Saturation ABG Base Excess ABG Hemoglobin Sodium Potassium 3.2 L Chloride 113.4 H Carbon Dioxide BUN 34 H Creatinine 0.7 L Glucose 153 H POC Glucose 130 H Lactic Acid Calcium Ferritin 702.9 H AST Alkaline Phosphatase Lactate Dehydrogenase Total Creatine Kinase Troponin T C-Reactive Protein NT-Pro-B Natriuret Pep Total Protein 5.4 L Albumin 1.9 L HDL Cholesterol Urine WBC (Auto) Urine Creatinine Coronavirus (PCR) 06/05/21 06/06/21 06/06/21 15:57 00:59 04:00 WBC RBC Hgb Hct MCV MCHC RDW Lymph % (Auto) [place] % (Auto) Lymph # (Auto) Seg Neutrophils % Seg Neutrophils # D-Dimer ABG pO2 ABG O2 Saturation ABG Base Excess ABG Hemoglobin Sodium 148 H Potassium Chloride 114.8 H Carbon Dioxide BUN 32 H Creatinine 0.6 L Glucose 180 H POC Glucose 251 H 195 H Lactic Acid Calcium Ferritin AST Alkaline Phosphatase Lactate Dehydrogenase Total Creatine Kinase Troponin T C-Reactive Protein NT-Pro-B Natriuret Pep Total Protein Albumin HDL Cholesterol Urine WBC (Auto) Urine Creatinine Coronavirus (PCR) 06/06/21 06/06/21 06/06/21 06:15 08:35 09:00 WBC RBC Hgb Hct MCV 97 H MCHC RDW 15.3 H Lymph % (Auto) [place] % (Auto) Lymph # (Auto) Seg Neutrophils % Seg Neutrophils # D-Dimer ABG pO2 ABG O2 Saturation ABG Base Excess ABG Hemoglobin Sodium Potassium Chloride Carbon Dioxide BUN Creatinine Glucose POC Glucose 108 H Lactic Acid Calcium Ferritin AST Alkaline Phosphatase Lactate Dehydrogenase Total Creatine Kinase Troponin T C-Reactive Protein NT-Pro-B Natriuret Pep Total Protein Albumin HDL Cholesterol Urine WBC (Auto) Urine Creatinine Coronavirus (PCR) Positive A 06/06/21 06/06/21 06/06/21 11:49 16:24 21:30 WBC RBC Hgb Hct MCV MCHC RDW Lymph % (Auto) [place] % (Auto) Lymph # (Auto) Seg Neutrophils % Seg Neutrophils # D-Dimer ABG pO2 ABG O2 Saturation ABG Base Excess ABG Hemoglobin Sodium Potassium Chloride Carbon Dioxide BUN Creatinine Glucose POC Glucose 148 H 208 H 278 H Lactic Acid Calcium Ferritin AST Alkaline Phosphatase Lactate Dehydrogenase Total Creatine Kinase Troponin T C-Reactive Protein NT-Pro-B Natriuret Pep Total Protein Albumin HDL Cholesterol Urine WBC (Auto) Urine Creatinine Coronavirus (PCR) 06/07/21 06/07/21 06/07/21 02:47 05:43 10:52 WBC RBC Hgb Hct MCV MCHC RDW Lymph % (Auto) [place] % (Auto) Lymph # (Auto) Seg Neutrophils % Seg Neutrophils # D-Dimer ABG pO2 ABG O2 Saturation ABG Base Excess ABG Hemoglobin Sodium Potassium Chloride 108.5 H Carbon Dioxide BUN 27 H Creatinine 0.6 L Glucose 178 H POC Glucose 233 H 189 H Lactic Acid Calcium Ferritin AST Alkaline Phosphatase Lactate Dehydrogenase Total Creatine Kinase Troponin T C-Reactive Protein NT-Pro-B Natriuret Pep Total Protein Albumin HDL Cholesterol Urine WBC (Auto) Urine Creatinine Coronavirus (PCR) 06/07/21 06/07/21 06/07/21 11:37 15:57 22:42 WBC RBC Hgb Hct MCV MCHC RDW Lymph % (Auto) [place] % (Auto) Lymph # (Auto) Seg Neutrophils % Seg Neutrophils # D-Dimer ABG pO2 ABG O2 Saturation ABG Base Excess ABG Hemoglobin Sodium Potassium Chloride Carbon Dioxide BUN Creatinine Glucose POC Glucose 131 H 106 H 120 H Lactic Acid Calcium Ferritin AST Alkaline Phosphatase Lactate Dehydrogenase Total Creatine Kinase Troponin T C-Reactive Protein NT-Pro-B Natriuret Pep Total Protein Albumin HDL Cholesterol Urine WBC (Auto) Urine Creatinine Coronavirus (PCR) 06/08/21 05:50 WBC RBC Hgb Hct MCV MCHC RDW Lymph % (Auto) [place] % (Auto) Lymph # (Auto) Seg Neutrophils % Seg Neutrophils # D-Dimer ABG pO2 ABG O2 Saturation ABG Base Excess ABG Hemoglobin Sodium Potassium Chloride Carbon Dioxide BUN Creatinine Glucose POC Glucose 126 H Lactic Acid Calcium Ferritin AST Alkaline Phosphatase Lactate Dehydrogenase Total Creatine Kinase Troponin T C-Reactive Protein NT-Pro-B Natriuret Pep Total Protein Albumin HDL Cholesterol Urine WBC (Auto) Urine Creatinine Coronavirus (PCR)
[2021-06-08] MEDS ORDERED: SIMPLE SYRUP 15 ML FEEDTUBE PRN ×4 (10:00→10:54)
[2021-06-08] MEDS ORDERED: LIPASE 10,500/PROTEASE 25,000/AMYLASE 43,750 (UNITS) DR CAP FEEDTUBE PRN ×2 (10:00→10:54)
[2021-06-08] MEDS ORDERED: SODIUM BICARBONATE 325 MG TAB FEEDTUBE PRN ×2 (10:30→10:54)
[2021-06-08 10:50] LABS: Blood Urea Nitrogen 21 mg/dL (9-20); Calcium 8.1 mg/dL (8.4-10.2); Hemolysis Index 55
[2021-06-08 11:15] LABS: BUN/Creatinine Ratio 53
[2021-06-08] MEDS: CHOLECALCIFEROL (VIT D3) 5,000 UNIT TAB PO SCH (12:42)
[2021-06-08] MEDS: METOPROLOL TARTRATE 25 MG TAB FEEDTUBE SCH ×2 (12:42→23:05)
[2021-06-08] MEDS: DEXAMETHASONE 4 MG TAB PO SCH (12:42)
[2021-06-08] MEDS: ASCORBIC ACID 500 MG TAB PO SCH ×2 (12:43→23:05)
[2021-06-08] MEDS: ZINC SULFATE 220 MG CAP PO SCH ×2 (12:43→23:11)
[2021-06-08] MEDS: LISINOPRIL 10 MG TAB PO SCH (12:43)
[2021-06-08] MEDS: ASPIRIN 81 MG TAB CHEW FEEDTUBE SCH (12:46)
--- NOTE | 2021-06-08 13:42 | Progress Note ---
Assessment and Plan Cultures: Blood culture no growth so far A/P: 55-year-old man past medical history bilateral AKA, hypertension, diabetes, seizures #Severe COVID-19 pneumonia: Patient presented with a week of symptoms, chest x- ray with diffuse bilateral infiltrates, admission O2 sats on room air. Inflammatory markers elevated #Acute hypoxemic respiratory failure: Likely secondary to COVID-19 infection. Now on 5L NC #Chronic sacral wound: With overlying eschar. No evidence of acute infection at present. #Acute encephalopathy: Secondary to all the above. #Diabetes: tight glycemic control for best outcomes. Recommendations: -Dexamethasone 6 mg IV/PO daily for 10 days -Completed Remdesivir -Obtain q48-72h inflammatory markers - ferritin, Ddimer, CRP, LDH -Anticoagulation per hospital protocol -Proning as able Thank you for the consult, we will continue to follow. Yasmeen Smith MD [facility] ([facility]) O: [phone] F: [phone] Subjective Date of service: 06/08/21 Principal diagnosis: COVID-19, Acute respiratory failure, NSTEMI Interval history: Afebrile, normal white count. On 5 L nasal cannula. Objective - Exam Narrative Exam: Physical exam deferred to reduce risk of transmission of COVID-19. Please refer to primary team's note. - Constitutional Vitals: Vital Signs Temp Pulse Resp BP Pulse Ox 97.8 F 71 18 126/56 98 06/08/21 05:54 06/08/21 05:54 06/08/21 05:54 06/08/21 05:54 06/08/21 05:54 Temperature -Last 24 Hours Temperature 97.8 F Temperature 97.8 F Temperature 98.2 F - Labs CBC & Chem 7: 06/06/21 08:35 06/08/21 09:13 Labs: Abnormal lab results 06/07/21 06/07/21 06/08/21 Range/Units 15:57 22:42 05:50 Carbon Dioxide (22-30) mmol/L BUN (9-20) mg/dL Creatinine (0.8-1.3) mg/dL Glucose (75-100) mg/dL POC Glucose 106 H 120 H 126 H (70-105) mg/dL Calcium (8.4-10.2) mg/dL 06/08/21 06/08/21 Range/Units 09:13 11:46 Carbon Dioxide 18 L (22-30) mmol/L BUN 21 H (9-20) mg/dL Creatinine 0.4 L (0.8-1.3) mg/dL Glucose 149 H (75-100) mg/dL POC Glucose 118 H (70-105) mg/dL Calcium 8.1 L (8.4-10.2) mg/dL
--- NOTE | 2021-06-08 14:57 | Discharge Summary ---
Providers - Providers Date of Admission: 05/31/21 19:00 Date of discharge: 06/09/21 Attending physician: WYATT COLE 05/31/21 19:08 Consult to Physician [CONS] Urgent Comment: Consulting Provider: JENNY MAE Physician Instructions: Reason For Exam: ICU admit/intubated patient 06/01/21 07:14 Consult to Dietitian/Nutrition [CONS] Routine Physician Instructions: Reason For Exam: Reason for Consult: Write/Manage Tube Feeding 06/01/21 11:24 Consult to Physician [CONS] Routine Comment: noted/ morena Consulting Provider: DAVID WEBER Physician Instructions: Reason For Exam: chf/elevated trop 06/01/21 11:32 Consult to Dietitian/Nutrition [CONS] Routine Physician Instructions: Reason For Exam: Reason for Consult: Write/Manage Tube Feeding 06/01/21 15:33 Consult to Physician [CONS] Routine Comment: called office/ morena Consulting Provider: CHARITO GRAHAM Physician Instructions: Reason For Exam: covid 19 06/03/21 07:44 Consult to Case Management [CONS] Routine Services Needed at Discharge: Home O2 Notified:: CM 06/03/21 11:22 Consult to Dietitian/Nutrition [CONS] Routine Physician Instructions: Assess nutrtn needs, initiate, modify, manage TF Reason For Exam: Reason for Consult: Write/Manage Tube Feeding Reason for Consult: Write/Manage Tube Feeding 06/03/21 11:25 Speech Therapy Evaluation and Treat [CONS] Stat Reason For Exam: swallow evaluation 06/04/21 12:13 Speech Therapy Evaluation and Treat [CONS] Routine Reason For Exam: Swallow evaluation 06/05/21 08:22 Consult to Physician [CONS] Routine Comment: Consulting Provider: DAVIS ABAD Physician Instructions: Reason For Exam: PEG tube 06/08/21 09:42 Consult to Dietitian/Nutrition [CONS] Routine Physician Instructions: Assess nutrtn needs, initiate, modify, manage TF Reason For Exam: Reason for Consult: Write/Manage Tube Feeding Reason for Consult: Write/Manage Tube Feeding Primary care physician: HAT BODY SORTER Hospitalization Condition: Serious Disposition: 03 [facility] FACILITY Exam - Constitutional Vitals: Temp Pulse Resp BP Pulse Ox 97.8 F 71 18 126/56 98 06/08/21 05:54 06/08/21 05:54 06/08/21 05:54 06/08/21 05:54 06/08/21 05:54 Plan Activity: fall precautions Diet: other (TF) Follow up with: PRIMARY CARE, [Primary Care Provider] - 7 Days Prescriptions: dexAMETHasone [Decadron] 6 mg PO QDAY #7 tablet
[2021-06-08] MEDS: LANSOPRAZOLE 30 MG SOLUTAB FEEDTUBE SCH (23:06)
[2021-06-09] MEDS: FREE WATER PO SCH ×3 (03:00→10:39)
[2021-06-09] MEDS: INSULIN REGULAR, HUMAN 100 UNITS/1 ML SUB-Q SCH ×2 (04:23→05:42)
[2021-06-09] MEDS: INSULIN LISPRO 100 UNIT/ML SUB-Q SCH ×3 (04:23→08:39)
[2021-06-09 05:29] VITALS: BP 94/34
[2021-06-09] MEDS: ZINC SULFATE 220 MG CAP PO SCH (10:37)
[2021-06-09] MEDS: CHOLECALCIFEROL (VIT D3) 5,000 UNIT TAB PO SCH (10:37)
[2021-06-09] MEDS: ASCORBIC ACID 500 MG TAB PO SCH (10:37)
[2021-06-09] MEDS: DEXAMETHASONE 4 MG TAB PO SCH (10:37)
[2021-06-09] MEDS: LANSOPRAZOLE 30 MG SOLUTAB FEEDTUBE SCH (10:37)
[2021-06-09] MEDS: ASPIRIN 81 MG TAB CHEW FEEDTUBE SCH (10:37)
[2021-06-09] MEDS: METOPROLOL TARTRATE 25 MG TAB FEEDTUBE SCH (10:50)
[2021-06-09] MEDS: LISINOPRIL 10 MG TAB PO SCH (10:51)
--- NOTE | 2021-06-09 14:55 | Progress Note ---
Assessment and Plan Cultures: Blood culture no growth so far A/P: 55-year-old man past medical history bilateral AKA, hypertension, diabetes, seizures #Severe COVID-19 pneumonia: Patient presented with a week of symptoms, chest x- ray with diffuse bilateral infiltrates, admission O2 sats on room air. Inflammatory markers elevated #Acute hypoxemic respiratory failure: Likely secondary to COVID-19 infection. Now on 3L NC #Chronic sacral wound: With overlying eschar. No evidence of acute infection at present. #Acute encephalopathy: Secondary to all the above. #Diabetes: tight glycemic control for best outcomes. Recommendations: -Dexamethasone 6 mg IV/PO daily for 10 days -Completed Remdesivir -Obtain q48-72h inflammatory markers - ferritin, Ddimer, CRP, LDH -Anticoagulation per hospital protocol -Proning as able Thank you for the consult, we will continue to follow. Yasmeen Smith MD [facility] ([facility]) O: [phone] F: [phone] Subjective Date of service: 06/09/21 Principal diagnosis: COVID-19, Acute respiratory failure, NSTEMI Interval history: Afebrile, normal white count. On 3 L nasal cannula. Objective - Exam Narrative Exam: Physical exam deferred to reduce risk of transmission of COVID-19. Please refer to primary team's note. - Constitutional Vitals: Vital Signs Temp Pulse Resp BP Pulse Ox 97.8 F 77 19 94/34 95 06/09/21 05:26 06/09/21 05:26 06/09/21 05:26 06/09/21 05:26 06/09/21 10:36 Temperature -Last 24 Hours Temperature 97.8 F Temperature 98.7 F Temperature 97.8 F - Labs CBC & Chem 7: 06/06/21 08:35 06/08/21 09:13 Labs: Abnormal lab results 06/08/21 06/08/21 06/09/21 Range/Units 18:43 23:03 05:26 POC Glucose 143 H 113 H 106 H (70-105) mg/dL
--- NOTE | 2021-06-09 16:01 | Progress Note ---
Assessment and Plan This is a 55-year-old male with bilateral AKA, DM, seizure disorder, BPH, CAD s/p CABG x4 who presented to the emergency department from [facility] via EMS with complaints of severe lethargy, only respond to verbal stimuli and h ypoxia in the low 80s by the senior care staff. Patient was placed on nonrebreather and EMS was called. Upon their arrival SPO2 noted to be improved to 88%. Patient was brought to [facility] for further evaluation. In the emergency department patient was intubated due to decrease of responsiveness and hypoxia. Work-up in the emergency department revealed severe hypernatremia, hypokalemia, hyperchloremia, metabolic acidosis, elevated blood glucose and slight anemia. Patient had a elevated troponin on arrival. Patient was admitted to the hospitalist service with rhabdomyolysis, acute respiratory failure and is COVID-19 PUI with consults to [facility]. Hospital course to date 06/01: Troponin trended, free water flush initiated, echocardiogram ordered, potassium repleted, antibiotics discontinued, cardiology consulted. Patient is COVID-19 PCR positive, infectious disease consulted. Urine studies ordered for hypernatremia work-up. 06/02: Patient was extubated today per [facility], started on remdesivir. Patient will be transferred to the floor today. Pending CRP to see if patient is candidate for Actemra 06/03: Sodium remains elevated, increased FWF to 250 cc q4hr. Remains on tube feeds, blood sugar is elevated. Will increase lantus and add scheduled insulin. Pending ST eval. Working with for home O2 set up for patient. Anticipate disc harge in 24 hrs back to SN[facility]. 06/04: Increased fwf but was changed overnight but discussed with RN, currently 250 cc/hr, blood sugars improved with schedule insulin. Speech to re-eval patient given dysphagia yesterday. Patient is more alert today. If he fails again, will consult GI for PEG. Called Pamela who stated that patient's speech has been poor since cva. 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 Plan is for patient to return to [facility]. 06/05: Dysphagia persistent. Consult placed to GI for PEG, discussed case with GI. Awaiting repeat BMP, trend NA. Blood sugars adequately controlled. Lovenox currently for NSTEMI treatment. Patient has been treated for 48hrs, will d/w cardiology re: anticoagulant duration and if ok to d/c in light of pending PEG tube placement. 06/06: Possible GIB, some concern for gastritis/ulcer from NGT. H/H, KUB ordered. Will order Protonix 40 IV BID. Hold tube feeds for now. Lovenox D/c and likely does not need to be resume per cardiology (discussed with Dr. Hanson today). Will await GI input. Original plan for GI to complete endoscopy Monday with PEG tube placement. Hypernatremia worsened, ordered d5w at 75 cc/hr x 2 bags while tube feeds are paused. 06/07: s/p PEG. Meds and FWF today, resume tube feeds tomororw. EGD demonstrates severe gastritis, ulceration. bx for h.pylori taken. D/c NGT. d/c in next 24- 48hrs. Dispo: snf. Home oxygen ordered placed, awaiting cm set up. Assessment and plan: This is a 55-year-old male with bilateral AKA, DM, seizure disorder, BPH, CAD s/p CABG x4 admitted with elevated troponins, hypernatremia, hypokalemia, hyperchloremia, metabolic acidosis and acute hypoxic respiratory failure. Dysphagia -tube feeds (held at this time due to GIB) -Failed x 2 with speech -GI consulted for PEG tube, anticipate placement monday - s/p PEG on 06/07 Upper GIB/Gastritis: - possibly from irritation from NGT - hold anticoagulants ,lovenox d/c - stat H/H ordered - KUB ordered - Protonix IV bid - hold tube feds - will follow GI recommendations, severe gastritis in antrumhas taken biopsy for h pylori. Acute hypoxic respiratory failure (improving) -CCM consulted, appreciate recommendations -Intubated on 05/31 with 8.0 ETT at 24 the lips -A.m. vent settings: CPAP 02/10 -Patient placed on CPAP on 06/01 and remained on CPAP after extubation on 06/02 -See RT RT notes for titration -extubated to NC -A.m. ABG and CXR noted -Pulm hygiene -SPO2 monitoring Acute metabolic encephalopathy, H/o CVA, seizure disorder -Follow commands -Avoid delirium -Reorientation as needed -Restart seizure medications when obtained -CT head shows parenchymal atrophy greater than expected for age 66 years, evidence of remote bilateral MCA infarctions unchanged from prior study, no acute intracranial abnormalities Sepsis, COVID-19 infection -Presented with acute hypoxic respiratory failure, leukocytosis, febrile on admit -CXR shows patchy bilateral parenchymal opacities left mid and lower lung zone -Antibiotic therapy with cefepime and vancomycin -Discontinued today due to normalization WBC and being afebrile -COVID-19 PCR positive -Infectious disease consulted, appreciate recommendations -Isolation/droplet precautions -Remdesivir () -Actemra will be given depending on CRP it is still pending -Vitamin D/vitamin C/zinc -Steroids for 10 days -Anticoagulation based on D-dimer -Trend COVID-19 inflammatory markers -Follow WBC and temperature curve -Follow-up blood cultures NSTEMI, h/o CAD s/p CABG x4, possible CHF, HTN -Cardiology consulted, appreciate recommendations -Echocardiogram pending -ECG shows T waves -Trend troponins -Blood pressure monitoring per protocol -Started low dose BB in setting of hypertension Severe hypernatremia (worsened) -Free water flush -Trend sodium -Urine osmolality and sodium do not indicate DI - ordered D5w while TF paused. -Anderson catheter for strict intake and output Hypokalemia -Potassium replacement -Trend BMP Protein calorie malnutrition, h/o DM, Dysphagia -Ntr consult for TF -24 hour -95 -SSI -Accu-Cheks every 6 -Avoid hypoglycemia -Long-acting insulin - ST eval: concerned for aspiration...recommended care home feeding solution. I have called them to reassess the patient as he was only 24 hrs s/p extubation at the time evaluation. Will re-assess today. S/P bilateral AKA -Continue supportive care Seizure disorder -Aspiration/seizure precautions -Restart seizure medications when obtained DVT/GI prophylaxis -PPI -Lovenox therapeutic dose Subjective Date of service: 06/08/21 Principal diagnosis: COVID-19, Acute respiratory failure, NSTEMI Objective - Exam Narrative Exam: VITAL SIGNS: Reviewed. GENERAL: The patient appears normally developed, Vital signs as documented. More alert on exam. HEAD: No signs of head trauma. EYES: Pupils are equal. Extraocular motions intact. EARS: Hearing grossly intact. MOUTH: Oropharynx is normal. NECK: No adenopathy, no JVD. CHEST: Chest with clear breath sounds bilaterally. No wheezes, rales, or rhonchi. CARDIAC: Regular rate and rhythm. S1 and S2, without murmurs, gallops, or rubs. VASCULAR: No Edema. Peripheral pulses normal and equal in all extremities. ABDOMEN: PEG in place with dressing. Soft, non tender and non distended. No rebound or guarding, and no masses palpated. Bowel Sounds normal. MUSCULOSKELETAL: Good range of motion of all major joints. Extremities without clubbing, cyanosis or edema. NEUROLOGIC EXAM: Alert and but orientation difficult to assess, babbles incoherently. Able to nod yes/no atimes but unclear how purposeful this is PSYCHIATRIC: appear appropriate. SKIN: detail exam as documented in skin assessment - Constitutional Vitals: Vital Signs - 12hr 06/09/21 06/09/21 05:26 10:36 Temperature 97.8 F Pulse Rate 77 Respiratory 19 Rate Blood Pressure 94/34 O2 Sat by Pulse 95 95 Oximetry - Labs CBC & Chem 7: 06/06/21 08:35 06/08/21 09:13 Labs: Abnormal lab results 06/08/21 06/08/21 06/09/21 Range/Units 18:43 23:03 05:26 POC Glucose 143 H 113 H 106 H (70-105) mg/dL HEART Score - HEART Score Troponin: Troponin T 0.049 ng/mL (0.00-0.029) H D 06/02/21 10:00
== END 2021-06-09 14:20 | DRG 871 ==
LOC: ED 17:44 → CC1 19:00 → 3A 06-02 17:22
PROVIDERS: ADMIT Internal Medicine; ATTEND Internal Medicine
PROC: 5A1945Z Respiratory Ventilation, 24-96 Consecutive Hours (ICD-10-PCS; 2021-05-31)
PROC: 0BH17EZ Insertion of Endotracheal Airway into Trachea, Via Natural or Artificial Opening (ICD-10-PCS; 2021-05-31)
PROC: XW033E5 Introduction of Remdesivir Anti-infective into Peripheral Vein, Percutaneous Approach, New Technology Group 5 (ICD-10-PCS; 2021-06-02)
PROC: XW033H5 Introduction of Tocilizumab into Peripheral Vein, Percutaneous Approach, New Technology Group 5 (ICD-10-PCS; 2021-06-02)
PROC: 4A033R1 Measurement of Arterial Saturation, Peripheral, Percutaneous Approach (ICD-10-PCS; 2021-06-02)
PROC: 0DB68ZX Excision of Stomach, Via Natural or Artificial Opening Endoscopic, Diagnostic (ICD-10-PCS; principal; 2021-06-07)
DX: A41.9 Sepsis, unspecified organism (principal); U07.1 COVID-19; J12.82 Pneumonia due to coronavirus disease 2019; J96.01 Acute respiratory failure with hypoxia; I21.4 Non-ST elevation (NSTEMI) myocardial infarction; G93.41 Metabolic encephalopathy; K29.71 Gastritis, unspecified, with bleeding; E87.0 Hyperosmolality and hypernatremia; E46 Unspecified protein-calorie malnutrition; Z68.42 Body mass index [BMI] 45.0-49.9, adult; E87.6 Hypokalemia; K44.9 Diaphragmatic hernia without obstruction or gangrene; I25.10 Atherosclerotic heart disease of native coronary artery without angina pectoris; G40.909 Epilepsy, unspecified, not intractable, without status epilepticus; Z86.73 Personal history of transient ischemic attack (TIA), and cerebral infarction without residual deficits; R13.10 Dysphagia, unspecified; N40.0 Benign prostatic hyperplasia without lower urinary tract symptoms
CPT/HCPCS: 36415; 36600; 70450; 71045; 74018; 80048; 80053; 80061; 81001; 82140; 82550; 82553; 82570; 82728; 82803; 82805; 82947; 82962; 83615; 83735; 83880; 83935; 84133; 84145; 84300; 84484; 84520; 85025; 85027; 85379; 85730; 86140; 87040; 87086; 87641; 88305; 88342; 93005; 93010; 93306; 94002; 94003; 94760; G0378; J3490; J7070; J7120; Q0162; Q9967; C8929; C9113; J0330; J0690; J0692; J0696; J1644; J1650; J1815; J2250; J2704; J3370; J3480; J7030; J7040; J7050; J8540; U0003